=== PATIENT | male | born 2000 | race Caucasian/White ===

== ENCOUNTER 2021-08-25 20:50 | Emergency (ER) | payer OTHER ==
--- OUTSIDE RECORDS SUMMARY | 2021-08-25 20:59 | XMS REPORT | Continuity of Care Document ---
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 TAB 21:51: 00:00 Elizab e 00 :00 th Naproxen 2019-0 2020- No 500mg [facility] (Naprosyn) 12-24 S - St. 500 Mg TAB 21:51: 00:00 [facility] 00 :00 Naproxen 2020-0 2020- No 500mg Twice A [facility] (Naprosyn) 12-24 Day S 500 Mg TAB 21:51: 00:00 Health 00 :00 Naproxen 2019-0 2020- No 500mg Twice A [facility] (Naprosyn) 12-24 Day S 500 Mg TAB 21:51: 00:00 Health 00 :00 Naproxen 2020-0 2020- No 500mg Twice A [facility] (Naprosyn) 12-24 Day S 500 Mg TAB 21:51: 00:00 Health 00 :00 Naproxen 2020-0 2020- No 500mg Twice A [facility] (Naprosyn) 12-24 Day S 500 Mg TAB 21:51: 00:00 Health 00 :00 Naproxen 2020-0 2020- No 500mg Twice A [facility] (Naprosyn) 12-24 Day S 500 Mg TAB 21:51: 00:00 Health 00 :00 Naproxen 2020- No 500mg Twice A [facility] (Naprosyn) - 07-28 Day S 500 Mg TAB 21:51: 00:00 Health 00 :00 fluticasone Yes Apply 2 [place] prasad (FLONASE) 5-18 sprays in Col[place] ge 50 MCG/ACT 00:00: each of nasal spray 00 nostril Medic in daily. e Levocetiriz Yes 1{tbl} Take 1 Tab [facility] ine 5-18 [address] mouth [place] Dihydrochlo 00:00: daily. of ride 00 Medicin (XYZAL) 5 e MG TABS fluticasone 2020- No Apply 2 [facility] (FLONASE) 5-18 08-19 sprays in [place] ege 50 MCG/ACT 00:00: 00:00 each of nasal spray 00 :00 nostril Medic in daily. e Levocetiriz 2020- No 1{tbl} Take 1 Tab [place] ine 5-18 08-19 by mouth [place] Dihydrochlo 00:00: 00:00 daily. of ride 00 :00 Medicin (XYZAL) 5 e MG TABS Famotidine 2018-06 No 40mg [facility] (Pepcid) 40 1-[address] Mg TAB 14:21: Famotidine 2018-06 No 40mg Daily [facility] (Pepcid) 40 1-21 S Mg TAB 14:21: Health 00 Famotidine 2018-06 No 40mg [facility] 1-21 S - St. 13:21: [facility] 00 Famotidine 2018-06 No 40mg [facility] (Pepcid) 40 1-[address] Mg TAB 13:21: [facility] Famotidine 2018-06 No 40mg [facility] (Pepcid) 40 1-[address] Mg TAB 13:21: [facility] Famotidine 2018-06 No 40mg [facility] (Pepcid) 40 1-21 S - Mg TAB 13:21: [place] [facility] Famotidine 2018-06 No 40mg [facility] (Pepcid) 40 1-[address] Mg TAB 13:21: El[facility]abe Famotidine 2018-06 No 40mg [facility] (Pepcid) 40 1-21 S - St. Mg TAB 13:21: Famotidine 2018-06 No 40mg [facility] (Pepcid) 40 1-21 S - St. Mg TAB 13:21: Famotidine 2018-06 No 40mg Daily [facility] (Pepcid) 40 1-21 S Mg TAB 13:21: Health Famotidine 2018-06 No 40mg Daily [facility] (Pepcid) 40 1-21 S Mg TAB 13:21: Health Famotidine 2018-06 No 40mg Daily [facility] (Pepcid) 40 1-21 S Mg TAB 13:21: Health Famotidine 2018-06 No 40mg Daily [facility] (Pepcid) 40 1-21 S Mg TAB 13:21: Health Famotidine 2018-06 No 40mg Daily [facility] (Pepcid) 40 1-21 S Mg TAB 13:21: Health Famotidine 2018-06 No 40mg Daily AJ U 1-21 S 13:21: [facility] Famotidine 2018-06 No 40mg Daily [facility] (Pepcid) 40 1-21 S Mg TAB 13:21: Health Famotidine 2018-06 No 40mg Daily [facility] (Pepcid) 40 1-21 S Mg TAB 13:21: Health Methocarbam No 500mg STE[facility]IE TU ol 6-05 S - St. 17:00: Methocarbam No 500mg STE[facility]IE TU ol 6-[address] (Robaxin) 17:00: El[facility] 500 Mg TAB Methocarbam 0 No 500mg STEPH[facility]IE TU ol 6-[address] (Robaxin) 17:00: Elizabe 500 Mg TAB Methocarbam No 500mg STE[facility]IE TU ol 6-[address] (Robaxin) 17:00: Elizabe 500 Mg TAB Methocarbam 0 No 500mg STEPHANIE TU ol 6-05 S - (Robaxin) 17:00: [place] 500 Mg TAB [facility] Methocarbam 0 No 500mg STEPHANIE TU ol 6-[address] (Robaxin) 17:00: Eliz[facility] 500 Mg TAB Methocarbam 0 No 500mg STEPHANIE TU ol 6-05 S - St. (Robaxin) 17:00: [facility] 500 Mg TAB 00 Methocarbam 2019-0 No 500mg STEPHANIE TU ol 6-05 S - St. (Robaxin) 17:00: [facility] 500 Mg TAB 00 Methocarbam 2019-0 No 500mg Three [facility] ol 6-05 Times A S (Robaxin) 17:00: [facility] 500 Mg TAB 00 Methocarbam 2019-0 No 500mg Three [facility] ol 6-05 Times A S (Robaxin) 17:00: [facility] 500 Mg TAB 00 Methocarbam 2019-0 No 500mg Three [facility] ol 6-05 Times A S (Robaxin) 17:00: [facility] 500 Mg TAB 00 Methocarbam 2019-0 No 500mg Three [facility] ol 6-05 Times A S (Robaxin) 17:00: [facility] 500 Mg TAB 00 Methocarbam 2019-0 No 500mg Three [facility] ol 6-05 Times A S (Robaxin) 17:00: [facility] 500 Mg TAB 00 Methocarbam 2019-0 No 500mg Three [facility] ol 6-05 Times A S (Robaxin) 17:00: [facility] 500 Mg TAB 00 Methocarbam 2019-0 No 500mg Three [facility] ol 6-05 Times A S 17:00: [facility] 00 Methocarbam 2019-0 No 500mg Three [facility] ol 6-05 Times A S (Robaxin) 17:00: [facility] 500 Mg TAB 00 Methocarbam 2019-0 No 500mg Three [facility] ol 6-05 Times A S (Robaxin) 17:00: [facility] 500 Mg TAB 00 Ibuprofen 2018- 2019- No 600mg [facility] (Motrin) 11-07-[address] 600 Mg TAB 17:00: 00:00 [place] price 00 :00 th Ibuprofen 2018- 2019- No 600mg [facility] (Motrin) 11-07- S - 600 Mg TAB 17:00: 00:00 [facility] 00 :00 [facility] Ibuprofen 2018- 2019- No 600mg [facility] (Motrin) 11-07- S - St. 600 Mg TAB 17:00: 00:00 [facility] 00 :00 Ibuprofen 2018-0 2019- No 600mg [facility] (Motrin) 6-05 07-[address] 600 Mg TAB 17:00: 00:00 Elizab e 00 :00 th Ibuprofen 2018-0 2019- No 600mg [facility] (Motrin) 6 07-06 S - St. 600 Mg TAB 17:00: 00:00 [facility] 00 :00 Ibuprofen 2019-0 2019- No 600mg Three STEPHANIE TU (Motrin) 6- 07-06 Times A S 600 Mg TAB 17:00: 00:00 [facility] 00 :00 Ibuprofen 2019-0 2019- No 600mg Three STEPHANIE TU (Motrin) 6-10 09-06 Times A S 600 Mg TAB 17:00: 00:00 [facility] 00 :00 Ibuprofen 2019-0 2019- No 600mg Three STEPHANIE TU (Motrin) 6-10 09- Times A S 600 Mg TAB 17:00: 00:00 [facility] 00 :00 Ibuprofen 2019-0 2019- No 600mg Three STEPHANIE TU (Motrin) 6- Times A S 600 Mg TAB 17:00: 00:00 [facility] 00 :00 Ibuprofen 2018-0 2019- No 600mg Three STEPHANIE TU (Motrin) 6- Times A S 600 Mg TAB 17:00: 00:00 [facility] 00 :00 Ibuprofen 2018-0 2019- No 600mg Three STEPHANIE TU (Motrin) 6-06 Times A S 600 Mg TAB 17:00: 00:00 [facility] 00 :00 Terbinafine No 1 [facility] Hcl 5-23 S - St. 00:32: [facility] 00 Terbinafine No 1 [facility] Hcl 5-[address] (Lamisil 1% 00:32: Elizab e Cream) 1 00 Applic/Gm CR Terbinafine No 1 [facility] Hcl 5-[address] (Lamisil 1% 00:32: Elizab e Cream) 1 00 Applic/Gm CR Terbinafine 2018- No 1 [facility] Hcl 5-[address] (Lamisil 1% 00:32: Elizab e Cream) 1 00 Applic/Gm CR Terbinafine No 1 [facility] Hcl 5-23 S - St. (Lamisil 1% 00:32: [facility] Cream) 1 Applic/Gm CR Terbinafine 2019-0 No 1 AJ U Hcl 5-23 S - (Lamisil 1% 00:32: [place] Cream) 1 Applic/Gm l CR Hospita l Terbinafine No 1 AJ U Hcl 5-[address] (Lamisil 1% 00:32: Elizab e Cream) 1 Applic/Gm CR Terbinafine No 1 AJ [facility] Hcl 5-23 S - St. (Lamisil 1% 00:32: [facility] Cream) Applic/Gm CR Terbinafine No 1 Twice A [facility] Hcl 5-23 Day S (Lamisil 1% 00:32: Health Cream) Applic/Gm CR Terbinafine No 1 Twice A [facility] Hcl 5-23 Day S (Lamisil 1% 00:32: Health Cream) Applic/Gm CR Terbinafine No 1 Twice A [facility] Hcl 5-23 Day S (Lamisil 1% 00:32: Health Cream) Applic/Gm CR Terbinafine No 1 Twice A [facility] Hcl 5-23 Day S (Lamisil 1% 00:32: Health Cream) Applic/Gm CR Terbinafine No 1 Twice A [facility] Hcl 5-23 Day S (Lamisil 1% 00:32: Health Cream) Applic/Gm CR Terbinafine No 1 Twice A [facility] Hcl 5-23 Day S (Lamisil 1% 00:32: Health Cream) Applic/Gm CR Terbinafine No 1 Twice A [facility] Hcl 5-23 Day S 00:32: Health 00 Terbinafine No 1 Twice A [facility] Hcl 5-23 Day S (Lamisil 1% 00:32: Health Cream) Applic/Gm CR Terbinafine No 1 Twice A [facility] Hcl 5-23 Day S (Lamisil 1% 00:32: Health Cream) Applic/Gm CR Clindamycin 2014-06 No 300mg STE[facility]IE TU Hcl 1-[address] (Cleocin) 14:03: Elizabe 300 Mg CAP Clindamycin 2014-06 No 300mg Three [facility] Hcl 1-30 Times A S (Cleocin) 14:03: Day [facility] 300 Mg CAP Clindamycin 2014-06 No 300mg STEPH[facility]IE TU Hcl 1-30 S - St. 13:03: [facility] 00 Clindamycin 2014-06 No 300mg STEPHANIE TU Hcl 1-[address] (Cleocin) 13:03: Elizabe 300 Mg CAP Clindamycin 2014-06 No 300mg STEPH[facility]IE TU Hcl 1-[address] (Cleocin) 13:03: Elizabe 300 Mg CAP Clindamycin 2014-06 No 300mg STEPHANIE TU Hcl 1-30 S - (Cleocin) 13:03: [place] 300 Mg CAP [facility] Clindamycin 2014-06 No 300mg STEPHANIE TU Hcl 1-[address] (Cleocin) 13:03: Elizabe 300 Mg CAP Clindamycin 2014-06 No 300mg STEPHANIE TU Hcl 1-30 S - St. (Cleocin) 13:03: [facility] 300 Mg CAP Clindamycin 2014-06 No 300mg STEPHANIE TU Hcl 1-30 S - St. (Cleocin) 13:03: [facility] 300 Mg CAP Clindamycin 2014-06 No 300mg Three [facility] Hcl 1-30 Times A S (Cleocin) 13:03: [facility] 300 Mg CAP Clindamycin 2014-06 No 300mg Three [facility] Hcl 1-30 Times A S (Cleocin) 13:03: [facility] 300 Mg CAP Clindamycin 2014-06 No 300mg Three [facility] Hcl 1-30 Times A S (Cleocin) 13:03: [facility] 300 Mg CAP Clindamycin 2014-06 No 300mg Three [facility] Hcl 1-30 Times A S (Cleocin) 13:03: [facility] 300 Mg CAP Clindamycin 2014-06 No 300mg Three [facility] Hcl 1-30 Times A S (Cleocin) 13:03: [facility] 300 Mg CAP 00 Clindamycin 2014-06 No 300mg Three [facility] Hcl 1-30 Times A S 13:03: [facility] 00 Clindamycin 2014-06 No 300mg Three [facility] Hcl 1-30 Times A S (Cleocin) 13:03: [facility] 300 Mg CAP Clindamycin 2014-06 No 300mg Three [facility] Hcl 1-30 Times A S (Cleocin) 13:03: [facility] 300 Mg CAP 00 Clindamycin 2014-06- No 265mg [facility] Palmitate 1-30 11-[address] Hcl 12:54: 00:00 Elizabe (Cleocin 00 :00 th Liq) 75 Mg/5 Ml SOLN.RECON Clindamycin 2014-06- No 265mg [facility] Palmitate 1-30 11-30 S - St. Hcl 12:54: 00:00 [facility] (Cleocin 00 :00 Liq) 75 Mg/5 Ml SOLN.RECON Clindamycin 2014-06- No 265mg [facility] Palmitate 1-30 11-30 S - Hcl 12:54: 00:00 [place] (Cleocin 00 :00 Memoria Liq) 75 l Mg/5 Ml Hospita SOLN.RECON l Clindamycin 2014-06 No 265mg [facility] Palmitate 1-30 11-[address] Hcl 12:54: 00:00 Elizabe (Cleocin 00 :00 th Liq) 75 Mg/5 Ml SOLN.RECON Clindamycin 2014-06- No 265mg [facility] Palmitate 1-30 11-30 S - St. Hcl 12:54: 00:00 [facility] (Cleocin 00 :00 Liq) 75 Mg/5 Ml SOLN.RECON Clindamycin 2014-06- No 265mg Three [facility] Palmitate 1-30 11-30 Times A S Hcl 12:54: 00:00 [facility] (Cleocin 00 :00 Liq) 75 Mg/5 Ml SOLN.RECON Clindamycin 2014-06- No 265mg Three [facility] Palmitate 1-30 11-30 Times A S Hcl 12:54: 00:00 [facility] (Cleocin 00 :00 Liq) 75 Mg/5 Ml SOLN.RECON Clindamycin 2014-06- No 265mg Three [facility] Palmitate 1-30 11-30 Times A S Hcl 12:54: 00:00 [facility] (Cleocin 00 :00 Liq) 75 Mg/5 Ml SOLN.RECON Clindamycin 2014-06- No 265mg Three [facility] Palmitate 1-30 11-30 Times A S Hcl 12:54: 00:00 [facility] (Cleocin 00 :00 Liq) 75 Mg/5 Ml SOLN.RECON Clindamycin 2014-06- No 265mg Three [facility] Palmitate - 11-30 Times A S Hcl 12:54: 00:00 [facility] (Cleocin 00 :00 Liq) 75 Mg/5 Ml SOLN.RECON Clindamycin 2014-06- No 265mg Three [facility] Palmitate - 11-30 Times A S Hcl 12:54: 00:00 [facility] (Cleocin 00 :00 Liq) 75 Mg/5 Ml SOLN.RECON Amoxicillin 2014-06 No 875mg STEPHANIE TU /Clavulanat 1-[address] e Potassium 22:13: Elizab e (Augmentin Liq) 400 Mg/5 Ml SUSP Mupirocin 2014-06 No 1 [facility] (Bactroban 1-[address] 2% Oint) 22 22:13: Elizab e Gm 00 th OINT..GM. Amoxicillin 2014-06 No 875mg Twice A [facility] /Clavulanat 1-20 Day S e Potassium 22:13: Health (Augmentin 00 Liq) 400 Mg/5 Ml SUSP Mupirocin 2014-06 No 1 Daily [facility] (Bactroban 1-20 S 2% Oint) 22 22:13: Health Gm 00 OINT..GM. Amoxicillin 2014-06 No 875mg STEPH[facility]IE TU /Clavulanat 1-20 S - St. e Potassium 21:13: [facility] 00 Mupirocin 2014-06 No 1 [facility] 1-20 S - St. 21:13: [facility] 00 Amoxicillin 2014-06 No 875mg STEPH[facility]IE TU /Clavulanat 1-[address] e Potassium 21:13: Elizab e (Augmentin 00 Liq) 400 Mg/5 Ml SUSP Mupirocin 2014-06 No 1 [facility] (Bactroban 1-[address] 2% Oint) 22 21:13: Elizab e Gm 00 th OINT..GM. Amoxicillin 2014-06 No 875mg STEPH[facility]IE TU /Clavulanat 1-[address] e Potassium 21:13: Elizab e (Augmentin 00 Liq) 400 Mg/5 Ml SUSP Mupirocin 2014-06 No 1 [facility] (Bactroban 1-20 S - St. 2% Oint) 22 21:13: [facility] Gm 00 OINT..GM. Mupirocin 2014-06 No 1 [facility] (Bactroban 1-[address] 2% Oint) 22 21:13: Elizab e Gm 00 th OINT..GM. Amoxicillin 2014-06 No 875mg STEPHANIE TU /Clavulanat 1-20 S - e Potassium 21:13: [place] (Augmentin 00 Memoria Liq) 400 l Mg/5 Ml Hospita SUSP l Mupirocin 2014-06 No 1 [facility] (Bactroban 1-20 S - 2% Oint) 22 21:13: [place] Gm 00 Memoria OINT..GM. l Hospita l Amoxicillin 2014-06 No 875mg STEPHANIE TU /Clavulanat 1-[address] e Potassium 21:13: Elizab e (Augmentin 00 th Liq) 400 Mg/5 Ml SUSP Mupirocin 2014-06 No 1 [facility] (Bactroban 1-[address] 2% Oint) 22 21:13: Elizab e Gm 00 th OINT..GM. Amoxicillin 2014-06 No 875mg STEPHANIE TU /Clavulanat 1-20 S - St. e Potassium 21:13: [facility] (Augmentin 00 Liq) 400 Mg/5 Ml SUSP Amoxicillin 2014-06 No 875mg STEPHANIE TU /Clavulanat 1-20 S - St. e Potassium 21:13: [facility] (Augmentin 00 Liq) 400 Mg/5 Ml SUSP Mupirocin 2014-06 No 1 [facility] (Bactroban 1-20 S - St. 2% Oint) 22 21:13: [facility] Gm 00 OINT..GM. Amoxicillin 2014-06 No 875mg Twice A [facility] /Clavulanat 1-20 Day S e Potassium 21:13: Health (Augmentin 00 Liq) 400 Mg/5 Ml SUSP Mupirocin 2014-06 No 1 Daily [facility] (Bactroban 1-20 S 2% Oint) 22 21:13: Health Gm 00 OINT..GM. Amoxicillin 2014-06 No 875mg Twice A [facility] /Clavulanat 1-20 Day S e Potassium 21:13: Health (Augmentin 00 Liq) 400 Mg/5 Ml SUSP Mupirocin 2014-06 No 1 Daily [facility] (Bactroban 1-20 S 2% Oint) 22 21:13: Health Gm 00 OINT..GM. Amoxicillin 2014-06 No 875mg Twice A [facility] /Clavulanat 1-20 Day S e Potassium 21:13: Health (Augmentin 00 Liq) 400 Mg/5 Ml SUSP Mupirocin 2014-06 No 1 Daily [facility] (Bactroban 1-20 S 2% Oint) 22 21:13: Health Gm 00 OINT..GM. Amoxicillin 2014-06 No 875mg Twice A [facility] /Clavulanat 1-20 Day S e Potassium 21:13: [facility] (Augmentin 00 Liq) 400 Mg/5 Ml SUSP Mupirocin 2014-06 No 1 Daily [facility] (Bactroban 1-20 S 2% Oint) 22 21:13: Health Gm 00 OINT..GM. Amoxicillin 2014-06 No 875mg Twice A [facility] /Clavulanat 1-20 Day S e Potassium 21:13: Health (Augmentin 00 Liq) 400 Mg/5 Ml SUSP Mupirocin 2014-06 No 1 Daily [facility] (Bactroban 1-20 S 2% Oint) 22 21:13: Health Gm 00 OINT..GM. Amoxicillin 2014-06 No 875mg Twice A [facility] /Clavulanat 1-20 Day S e Potassium 21:13: Health 00 Mupirocin 2014-06 No 1 Daily [facility] 1-20 S 21:13: Health 00 Amoxicillin 2014-06 No 875mg Twice A [facility] /Clavulanat 1-20 Day S e Potassium 21:13: Health (Augmentin 00 Liq) 400 Mg/5 Ml SUSP Mupirocin 2014-06 No 1 Daily [facility] (Bactroban 1-20 S 2% Oint) 22 21:13: Health Gm 00 OINT..GM. Amoxicillin 2014-06 No 875mg Twice A [facility] /Clavulanat 1-20 Day S e Potassium 21:13: Health (Augmentin 00 Liq) 400 Mg/5 Ml SUSP Mupirocin 2014-06 No 1 Daily [facility] (Bactroban 1-20 S 2% Oint) 22 21:13: Health Gm 00 OINT..GM. Promethazin 2013-06 No 12.5mg [facility] e Hcl 0-14 S - St. 13:28: [facility] 00 Promethazin 2013-06 No 12.5mg [facility] e Hcl 0-[address] (Phenergan 13:28: El[facility] Supp) 12.5 00 th Mg SUPP Promethazin 2013-06 No 12.5mg [facility] e Hcl 0-[address] (Phenergan 13:28: [facility] Supp) 12.5 00 th Mg SUPP Promethazin 2013-06 No 12.5mg [facility] e Hcl 0-[address] (Phenergan 13:28: [facility] Supp) 12.5 00 th Mg SUPP Promethazin 2013-06 No 12.5mg [facility] e Hcl 0-14 S - St. (Phenergan 13:28: [facility] Supp) 12.5 00 Mg SUPP Promethazin 2013-06 No 12.5mg [facility] e Hcl 0-14 S - (Phenergan 13:28: [place] Supp) 12.5 00 [facility]oria Mg SUPP l Hospita l Promethazin 2013-06 No 12.5mg [facility] e Hcl 0-[address] (Phenergan 13:28: [facility] Supp) 12.5 00 th Mg SUPP Promethazin 2013-06 No 12.5mg [facility] e Hcl 0-14 S - St. (Phenergan 13:28: [facility] Supp) 12.5 00 Mg SUPP Promethazin 2013-06 No 12.5mg Every 8 C [facility] e Hcl 0-14 Hours S (Phenergan 13:28: Health Supp) 12.5 00 Mg SUPP Promethazin 2013-06 No 12.5mg Every 8 C [facility] e Hcl 0-14 Hours S (Phenergan 13:28: Health Supp) 12.5 00 Mg SUPP Promethazin 2013-06 No 12.5mg Every 8 C [facility] e Hcl 0-14 Hours S (Phenergan 13:28: Health Supp) 12.5 00 Mg SUPP Promethazin 2013-06 No 12.5mg Every 8 C [facility] e Hcl 0-14 Hours S (Phenergan 13:28: Health Supp) 12.5 00 Mg SUPP Promethazin 2013-06 No 12.5mg Every 8 C [facility] e Hcl 0-14 Hours S (Phenergan 13:28: Health Supp) 12.5 00 Mg SUPP Promethazin 2013-06 No 12.5mg Every 8 C [facility] e Hcl 0-14 Hours S (Phenergan 13:28: Health Supp) 12.5 00 Mg SUPP Promethazin 2013-06 No 12.5mg Every 8 C [facility] e Hcl 0-14 Hours S 13:28: Health 00 Promethazin 2013-06 No 12.5mg Every 8 C [facility] e Hcl 0-14 Hours S (Phenergan 13:28: Health Supp) 12.5 00 Mg SUPP Promethazin 2013-06 No 12.5mg Every 8 C [facility] e Hcl 0-14 Hours S (Phenergan 13:28: Health Supp) 12.5 00 Mg SUPP Acetaminoph 2013- No 1 STEPH[facility]IE TU en/Codeine 01-05 10-[address] Phosphate 15:53: 00:00 [facility] (Tylenol 00 :00 th #3) 1 Tab TAB Acetaminoph 2013- No 1 STEPH[facility]IE TU en/Codeine 01-05 10-14 S - St. Phosphate 15:53: 00:00 [facility] (Tylenol 00 :00 #3) 1 Tab TAB Acetaminoph 2013- No 1 STEPHANIE TU en/Codeine 01-05 10-14 S - Phosphate 15:53: 00:00 [place] (Tylenol 00 :00 Memoria #3) 1 Tab l TAB Hospita l Acetaminoph 2013- No 1 STE[facility]IE TU en/Codeine 01-05 10-[address] Phosphate 15:53: 00:00 [facility] (Tylenol 00 :00 th #3) 1 Tab TAB Acetaminoph 2013- 1 STEPH[facility]IE TU en/Codeine 01-05 10-14 S - [facility]. Phosphate 15:53: 00:00 [facility] (Tylenol 00 :00 #3) 1 Tab TAB Acetaminoph 2013- No 1 Every 6 [facility] en/Codeine 8 10-14 Hours S Phosphate 15:53: 00:00 [facility] (Tylenol 00 :00 #3) 1 Tab TAB Acetaminoph 2013- No 1 Every 6 [facility] en/Codeine 8-03 10-14 Hours S Phosphate 15:53: 00:00 [facility] (Tylenol 00 :00 #3) 1 Tab TAB Acetaminoph 2013- No 1 Every 6 [facility] en/Codeine 8-03 10-14 Hours S Phosphate 15:53: 00:00 Health (Tylenol 00 :00 #3) 1 Tab TAB Acetaminoph 2013- No 1 Every 6 [facility] en/Codeine 8- 10-14 Hours S Phosphate 15:53: 00:00 [facility] (Tylenol 00 :00 #3) 1 Tab TAB Acetaminoph 2013- No 1 Every 6 [facility] en/Codeine 8- 10-14 Hours S Phosphate 15:53: 00:00 [facility] (Tylenol 00 :00 #3) 1 Tab TAB Acetaminoph 2013- No 1 Every 6 [facility] en/Codeine 8-03 10-14 Hours S Phosphate 15:53: 00:00 [facility] (Tylenol 00 :00 #3) 1 Tab TAB Miscellaneo No 0 [facility] us S - [facility] Information [facility] Miscellaneo No [address] Information [facility] (No Home th Meds) MISC Miscellaneo No [address] Information [facility] (No Home th Meds) MISC Miscellaneo No 0 [facility] us S - [facility] Information [facility] (No Home Meds) MISC Miscellaneo No [address] Information [facility] (No Home th Meds) MISC Miscellaneo No 0 [facility] us S - Information [place] (No Home Memoria Meds) MISC l Hospita l Miscellaneo No [address] Information [facility] (No Home th Meds) MISC Miscellaneo No 0 [facility] us S - St. Information [facility] (No Home Meds) MISC Miscellaneo No 0 Xx For [facility] Order Sets S Information Health (No Home Meds) MISC Miscellaneo No 0 Xx For [facility] Order Sets S Information Health (No Home Meds) MISC Miscellaneo No 0 Xx For [facility] Order Sets S Information Health (No Home Meds) MISC Miscellaneo No 0 Xx For [facility] Order Sets S Information Health (No Home Meds) MIS Miscellaneo No 0 Xx For [facility] Order Sets S Information Health (No Home Meds) MIS Miscellaneo No 0 Xx For [facility] Order Sets S Information Health (No Home Meds) MISC Miscellaneo No 0 Xx For [facility] Order Sets S Information Health Miscellaneo No 0 Xx For [facility] Order Sets S Information Health (No Home Meds) MISC Miscellaneo No 0 Xx For [facility] Order Sets S Information Health (No Home Meds) [facility] Immunizations Ordered Filled Immunization Date Status Comments [facility] e Immunization Name Name Influenza Virus 2021-06-16 Completed [facility], [facility] [place] [facility] Preserv and ABX Branch Free 6 MO-64 YRS Influenza Virus 2021-06-16 Completed [facility], 00:[facility]:00 [place] [facility] Preserv and ABX Branch Free 6 MO-64 YRS Influenza Virus 2021-06-16 Completed [facility], 00:00:00 [facility] dical Preserv and ABX Branch Free 6 MO-64 YRS SARS-COV-2 COVID-19 2021-06-11 Completed [facility] rs[facility] of PFIZER VACCINE 00:00:00 [facility] SARS-COV-2 COVID-19 2021-06-11 Completed Unive rs[facility] of PFIZER VACCINE 00:00:00 [facility] SARS-COV-2 COVID-19 2021-06-11 Completed Unive rsity of PFIZER VACCINE 00:00:00 [facility] Tetanus/Dipht - Hx 2020-08-12 Completed [facility] St. 00:00:00 [facility] Tetanus/Dipht - Hx 2020-08-12 Completed [facility] - [place] 00[facility]00:00 [facility] darrel Tetanus/Dipht - Hx 2020-08-12 Completed [facility] - [facility] 00:00:00 [facility] Tetanus/Dipht - Hx 2020-08-12 Completed [facility] St. 00:00:00 Joanne Tetanus/Dipht - Hx 2020-08-12 Completed [facility] - [facility] 00:00:00 [facility] Tetanus/Dipht - Hx 2020-08-12 Completed [facility] Health 00:00:00 Tetanus/Dipht - Hx 2020-08-12 Completed [facility] 00:00:00 Tetanus/Dipht - Hx 2020-08-12 Completed [facility] 00:00:00 Tetanus/Dipht - Hx 2020-08-12 Completed [facility] 00:00:00 Tetanus/Dipht - Hx 2020-08-12 Completed [facility] 00:00:00 Tetanus/Dipht - Hx 2020-08-12 Completed [facility] 00:00:00 Influenza Virus 2020-03-23 Completed [facility] Vaccine Quad .5 mL 00:00:00 [facility] IM 6+ [facility] Influenza Virus 2020-03-23 Completed [facility] Vaccine Quad .5 mL 00:00:00 [facility] 6+ [facility] Influenza Virus 2020-03-23 Completed [facility] Vaccine Quad .5 mL 00:00:00 [facility] 6+ [facility] Influenza Virus 2020-03-23 Completed [facility] Vaccine Quad .5 mL 00:00:00 [facility] 6+ [facility] Vital Signs Vital Name Observation Time Observation Value Comments Source Systolic blood 2021-08-24 130 mm[Hg] [facility] of pressure 20:20:00 [facility] Diastolic blood 2021-08-24 75 mm[Hg] [facility] f pressure 20:20:00 [facility] Heart rate 2021-08-24 96 /min [facility] 20:20:00 [facility] Body temperature 2021-08-24 36.61 Stacie [facility] 20:20:00 [facility] Respiratory rate 2021-08-24 17 /min [facility] 20:20:00 [facility] Body height 2021-08-24 165.1 cm [facility] 20:20:00 [facility] Body weight 2021-08-24 50.888 kg [facility] 20:20:00 [facility] BMI 2021-08-24 18.67 kg/m2 [facility] 20:20:00 [facility] Oxygen saturation 2021-08-24 98 /min [facility] in Arterial blood 20:20:00 [facility] by Pulse oximetry [place] Systolic blood 2021-08-23 135 mm[Hg] [facility] pressure 19:18:00 [facility] Diastolic blood 2021-08-23 80 mm[Hg] University o f pressure 19:18:00 [facility] Heart rate 2021-08-23 69 /min [facility] 19:18:00 [facility] Body temperature 2021-08-23 36.44 Stacie [facility] 19:18:00 [facility] Body height 2021-08-23 165.1 cm [facility] 19:18:00 [facility] Body weight 2021-08-23 50.395 kg [facility] 19:18:00 [facility] BMI 2021-08-23 18.49 kg/m2 [facility] 19:18:00 [facility] Oxygen saturation 2021-08-23 98 /min [facility] in Arterial blood 19:18:00 [facility] by Pulse oximetry Branch Systolic blood 2020-01-22 116 mm[Hg] [facility] e pressure 18:34:00 of Medicine Diastolic blood 2020-01-22 84 mm[Hg] [facility] ge pressure 18:34:00 of Medicine Heart rate 2020-01-22 71 /min [facility] 18:34:00 of Medicine Body temperature 2020-01-22 37 Stacie [facility] Neisha ege 18:34:00 of Medicine Body height 2020-01-22 160 cm [facility] 18:34:00 of Medicine Body weight 2020-01-22 54.885 kg [facility] 18:34:00 of Medicine BMI 2020-01-22 21.43 kg/m2 [facility] 18:34:00 of Medicine Systolic blood 2020-01-22 116 mm[Hg] [facility] e pressure 18:34:00 of Medicine Diastolic blood 2020-01-22 84 mm[Hg] [facility] ge pressure 18:34:00 of Medicine Heart rate 2020-01-22 71 /min [facility] 18:34:00 of Medicine Body temperature 2020-01-22 37 Stacie [facility] Neisha ege 18:34:00 of Medicine Body height 2020-01-22 160 cm [facility] 18:34:00 of Medicine Body weight 2020-01-22 54.885 kg [facility] 18:34:00 of Medicine BMI 2020-01-22 21.43 kg/m2 [facility] 18:34:00 of Medicine Heart rate 2019-10-21 125 /min [facility] 16:40:00 of Medicine Body temperature 2019-10-21 37.17 Stacie [facility] Neisha ege 16:40:00 of Medicine Body height 2019-10-21 160 cm [facility] 16:40:00 of Medicine Body weight 2019-10-21 51.256 kg [facility] 16:40:00 of Medicine BMI 2019-10-21 20.02 kg/m2 [facility] 16:40:00 of Medicine Systolic blood 2019-10-21 132 mm[Hg] pt states he [facility] e pressure 16:40:00 drank a monster of Medicine Diastolic blood 2019-10-21 97 mm[Hg] pt states [facility] ge pressure 16:40:00 drank a monster of Medicine Heart rate 2019-10-21 125 /min [facility] 16:40:00 of Medicine Body temperature 2019-10-21 37.17 Stacie [facility] Neisha ege 16:40:00 of Medicine Body height 2019-10-21 160 cm [facility] 16:40:00 of Medicine Body weight 2019-10-21 51.256 kg [facility] 16:40:00 of Medicine BMI 2019-10-21 20.02 kg/m2 [facility] 16:40:00 of Medicine Systolic blood 2019-10-21 132 mm[Hg] pt states [facility] e pressure 16:40:00 drank a monster of Medicine Diastolic blood 2019-10-21 97 mm[Hg] pt states [facility] Col[facility] ge pressure 16:40:00 drank a monster of Medicine Height/Length 2019-08-19 Measured 15:50:22 Height/Length 2021-06-24 167 cm Measured 10:49:05 Weight Dosing 2021-06-24 51.30 kg 10:49:05 Height/Length 2021-06-24 167 cm Measured 10:19:48 Weight Dosing 2021-06-24 51.30 kg 10:19:48 Height/Length 2021-06-24 167 cm Measured 10:19:39 Weight Dosing 2021-06-24 51.30 kg 10:19:39 Weight Dosing 2021-06-24 54.10 kg 09:49:34 BP Diastolic 2021-04-24 70 mm[Hg] [facility] 23:23:00 BP Systolic 2021-04-24 115 mm[Hg] [facility] 23:23:00 Heart Rate 2021-04-24 75 /min [facility] 23:23:00 Respiratory rate 2021-04-24 15 /min [facility] 23:23:00 Body Temperature 2021-04-24 98.8 [degF] [facility] 23:[facility]00 BP Diastolic 2021-04-24 80 mm[Hg] [facility] 19:59:00 BP Systolic 2021-04-24 129 mm[Hg] [facility] 19:59:00 Heart Rate 2021-04-24 92 /min [facility] 19:59:00 Respiratory rate 2021-04-24 18 /min [facility] 19:59:00 Body Temperature 2021-04-24 98.8 [degF] [facility] 19:59:00 BP Diastolic 2021-02-10 73 mm[Hg] [facility] 00:52:00 BP Systolic 2021-02-10 136 mm[Hg] [facility] 00:52:00 Heart Rate 2021-02-10 87 /min [facility] 00:52:00 Respiratory rate 2021-02-10 20 /min [facility] 00:52:00 Body Temperature 2021-02-10 99.3 [degF] [facility] 00:52:00 BP Diastolic 2021-02-09 73 mm[Hg] [facility] 21:46:00 BP Systolic 2021-02-09 136 mm[Hg] [facility] 21:46:00 Heart Rate 2021-02-09 87 /min [facility] 21:46:00 Respiratory rate 2021-02-09 20 /min [facility] 21:46:00 Body Temperature 2021-02-09 99.3 [degF] [facility] 21:46:00 BP Diastolic 2021-02-02 72 mm[Hg] [facility] 09:51:00 BP Systolic 2021-02-02 131 mm[Hg] [facility] 09:51:00 Heart Rate 2021-02-02 54 /min [facility] 09:51:00 Respiratory rate 2021-02-02 16 /min [facility] 09:51:00 Body Temperature 2021-02-02 97.9 [degF] [facility] 09:51:00 BP Diastolic 2021-02-02 72 mm[Hg] [facility] 09:23:00 BP Systolic 2021-02-02 131 mm[Hg] [facility] 09:23:00 Heart Rate 2021-02-02 54 /min [facility] 09:23:00 Respiratory rate 2021-02-02 16 /min [facility] 09:23:00 Body Temperature 2021-02-02 97.9 [degF] [facility] 09:23:00 BP Diastolic 2021-02-02 72 mm[Hg] [facility] 09:20:00 BP Systolic 2021-02-02 131 mm[Hg] [facility] 09:20:00 Heart Rate 2021-02-02 54 /min [facility] 09:20:00 Respiratory rate 2021-02-02 16 /min [facility] 09:20:00 Body Temperature 2021-02-02 97.9 [degF] [facility] 09:20:00 BP Diastolic 2021-01-20 77 mm[Hg] [facility] 20:01:00 BP Systolic 2021-01-20 131 mm[Hg] [facility] 20:01:00 Heart Rate 2021-01-20 75 /min [facility] 20:01:00 Respiratory rate 2021-01-20 18 /min [facility] 20:01:00 Body Temperature 2021-01-20 100.1 [degF] [facility] 20:01:00 BP Diastolic 2021-01-20 77 mm[Hg] [facility] 16:46:00 BP Systolic 2021-01-20 131 mm[Hg] [facility] 16:46:00 Heart Rate 2021-01-20 75 /min [facility] 16:46:00 Respiratory rate 2021-01-20 18 /min [facility] 16:46:00 Body Temperature 2021-01-20 100.1 [degF] [facility] 16:46:00 BP Diastolic 2020-11-20 63 mm[Hg] [facility] 14:45:00 BP Systolic 2020-11-20 127 mm[Hg] [facility] 14:45:00 Heart Rate 2020-11-20 75 /min [facility] 14:45:00 Respiratory rate 2020-11-20 18 /min [facility] 14:45:00 Body Temperature 2020-11-20 98.6 [degF] [facility] 14:45:00 BP Diastolic 2020-11-20 76 mm[Hg] [facility] 11:18:00 BP Systolic 2020-11-20 142 mm[Hg] [facility] 11:18:00 Heart Rate 2020-11-20 75 /min [facility] 11:18:00 Respiratory rate 2020-11-20 18 /min [facility] 11:18:00 Body Temperature 2020-11-20 98.6 [degF] [facility] 11:18:00 Respiratory 2020-08-14 No respiratory 09:43:35 distress /min 02 Sat by Pulse 2020-08-14 98 /min Oximetry 09:43:35 Body Mass Index 2020-08-14 21.4 09:43:35 Height 2020-08-14 160.02\\S\\63 09:43:35 Pulse Rate 2020-08-14 62 /min 09:43:35 Respiratory Rate 2020-08-14 16 /min 09:43:35 Temperature 2020-08-14 36.9\\S\\98.4 09:43:35 Weight 2020-08-14 30227\\S\\1936.54 09:43:35 Weight Measurement 2020-08-14 Standing Scale Method 09:43:35 Respiratory 2020-08-12 No respiratory 17:41:29 distress /min 02 Sat by Pulse 2020-08-12 98 /min Oximetry 17:41:29 Body Mass Index 2020-08-12 21.4 17:41:29 Height 2020-08-12 160.02\\S\\63 17:41:29 Pulse Rate 2020-08-12 62 /min 17:41:29 Respiratory Rate 2020-08-12 16 /min 17:41:29 Temperature 2020-08-12 36.9\\S\\98.4 17:41:29 Weight 2020-08-12 26059\\S\\1936.54 17:41:29 Weight Measurement 2020-08-12 Standing Scale Method 17:41:29 Respiratory 2020-08-12 No respiratory 17:32:48 distress /min 02 Sat by Pulse 2020-08-12 98 /min Oximetry 17:32:48 Body Mass Index 2020-08-12 21.4 17:32:48 Height 2020-08-12 160.02\\S\\63 17:32:48 Pulse Rate 2020-08-12 64 /min 17:32:48 Respiratory Rate 2020-08-12 20 /min 17:32:48 Temperature 2020-08-12 36.8\\S\\98.2 17:32:48 Weight 2020-08-12 11056\\S\\1936.54 17:32:48 Weight Measurement 2020-08-12 Standing Scale Method 17:32:48 02 Sat by Pulse 2020-08-12 98 /min Oximetry 17:21:34 Body Mass Index 2020-08-12 21.4 17:21:34 Height 2020-08-12 160.02\\S\\63 17:21:34 Pulse Rate 2020-08-12 64 /min 17:21:34 Respiratory Rate 2020-08-12 20 /min 17:21:34 Temperature 2020-08-12 36.8\\S\\98.2 17:21:34 Weight 2020-08-12 62730\\S\\1936.54 17:21:34 Weight Measurement 2020-08-12 Standing Scale Method 17:21:34 Respiratory 2020-08-12 No respiratory 17:21:34 distress /min Respiratory 2020-08-12 No respiratory 16:33:55 distress /min 02 Sat by Pulse 2020-08-12 98 /min Oximetry 16:33:55 Body Mass Index 2020-08-12 21.4 16:33:55 Height 2020-08-12 160.02\\S\\63 16:33:55 Pulse Rate 2020-08-12 64 /min 16:33:55 Respiratory Rate 2020-08-12 20 /min 16:33:55 Temperature 2020-08-12 36.8\\S\\98.2 16:33:55 Weight 2020-08-12 13917\\S\\1936.54 16:33:55 Weight Measurement 2020-08-12 Standing Scale Method 16:33:55 02 Sat by Pulse 2020-08-12 98 /min Oximetry 16:21:07 Body Mass Index 2020-08-12 21.4 16:21:07 Height 2020-08-12 160.02\\S\\63 16:21:07 Pulse Rate 2020-08-12 64 /min 16:21:07 Respiratory Rate 2020-08-12 20 /min 16:21:07 Temperature 2020-08-12 36.8\\S\\98.2 16:21:07 Weight 2020-08-12 86147\\S\\1936.54 16:21:07 Weight Measurement 2020-08-12 Standing Scale Method 16:21:07 WEIGHT 2020-08-12 54.9 kg 16:14:00 HEIGHT 2020-08-12 160.02 cm 16:14:00 02 Sat by Pulse 2020-05-27 99 /min Oximetry 10:46:44 Body Mass Index 2020-05-27 21.2 10:46:44 Height 2020-05-27 160.02\\S\\63 10:46:44 Pulse Rate 2020-05-27 72 /min 10:46:44 Respiratory Rate 2020-05-27 16 /min 10:46:44 Temperature 2020-05-27 36.9\\S\\98.4 10:46:44 Weight 2020-05-27 87334\\S\\1911.849 10:46:44 Weight Measurement 2020-05-27 Standing Scale Method 10:46:44 WEIGHT 2020-05-25 54.2 kg 11:33:00 HEIGHT 2020-05-25 160.02 cm 11:33:00 Weight 2020-02-17 116 [lb_av] [facility] 18:38:00 BMI (Body Mass 2020-02-17 20.5 kg/m2 [facility] th Index) 18:38:00 Body Temperature 2020-02-17 98.5 [degF] [facility] 18:37:00 Body Temperature 2019-12-25 98.4 [degF] [facility] 22:07:00 Heart Rate 2019-12-25 98 /min [facility] 22:07:00 Respiratory rate 2019-12-25 18 /min [facility] 22:07:00 BP Systolic 2019-12-25 133 mm[Hg] [facility] 22:07:00 BP Diastolic 2019-12-25 65 mm[Hg] [facility] 22:07:00 Weight 2019-12-25 125.50 [lb_av] [facility] 18:06:00 BMI (Body Mass 2019-12-25 22.2 kg/m2 [facility] Index) 18:06:00 Heart Rate 2019-12-25 120 /min [facility] 18:05:00 Respiratory rate 2019-12-25 20 /min [facility] 18:05:00 BP Systolic 2019-12-25 147 mm[Hg] [facility] 18:05:00 BP Diastolic 2019-12-25 77 mm[Hg] [facility] 18:05:00 Body Temperature 2019-04-25 98.2 [degF] [facility] alth 13:35:00 Heart Rate 2019-04-25 98 /min [facility] 13:35:00 Respiratory rate 2019-04-25 19 /min [facility] He alth 13:35:00 BP Systolic 2019-04-25 123 mm[Hg] [facility] 13:35:00 BP Diastolic 2019-04-25 65 mm[Hg] [facility] 13:35:00 Procedures Procedure Date / Time Performing Clinician Source Performed XR FOREARM 2 VW LEFT 2021-08-24 20:48:00 Luke To [facility] Computed tomography of 2021-04-24 00:00:00 [facility] abdomen and pelvis with contrast Computed tomography of 2021-02-09 00:00:00 [facility] abdomen and pelvis with contrast EMERGENCY DEPT VISIT 2021-02-02 00:00:00 [facility] ECG (electrocardiogram) 2021-01-20 00:00:00 [facility] X-ray of chest, two views 2021-01-20 00:00:00 [facility] ROUTINE VENIPUNCTURE 2021-01-20 00:00:00 [facility] X-RAY EXAM CHEST 2 VIEWS 2021-01-20 00:00:00 [facility] ASSAY OF TROPONIN QUANT 2021-01-20 00:00:00 [facility] ELECTROCARDIOGRAM TRACING 2021-01-20 00:00:00 [facility] EMERGENCY DEPT VISIT 2021-01-20 00:00:00 [facility] X-ray of knee, three views 2020-11-20 00:00:00 [facility], two or 2020-11-20 00:00:00 [facility] more views X-ray of chest, single view 2019-12-25 00:00:00 [facility] Radiologic examination, 2019-04-25 00:00:00 [facility] abdomen; 2 views Plan of Care Planned Activity Planned Date Details Comments Source Future Scheduled Test 2021-04-16 Depression screening [facility] 00:00:00 (procedure) [code = [facility] 368226715] Branch Future Scheduled Test 2018-11-06 DTaP,Tdap,and Td Un iversity of 00:00:00 Vaccines (1 - Tdap) [place] [facility] [code = DTaP,Tdap,and Branch Td Vaccines (1 - Tdap)] Future Scheduled Test 2011 Well child visit Un iversity of 00:00:00 (procedure) [code = [place] [facility] [id number]] Branch Future Scheduled Test 2010-11-06 HPV VACCINES (1 - U niversity of 00:00:00 Male 2-dose series) [place] [facility] [code = HPV VACCINES Branch (1 - Male 2-dose series)] Future Scheduled Test 2009-11-06 MENINGOCOCCAL B Uni versity of 00:00:00 VACCINES (1 of 2 - [place] [facility] ical Risk Bexsero 2-dose Branch series) [code = MENINGOCOCCAL B VACCINES (1 of 2 - Risk Bexsero 2-dose series)] Future Scheduled Test 2005-11-06 PNEUMOCOCCAL 0-64 U niversity of 00:00:00 YEARS COMBINED SERIES [place] [facility] (1 of 1 - PPSV23) Branch [code = PNEUMOCOCCAL 0-64 YEARS COMBINED SERIES (1 of 1 - PPSV23)] Future Scheduled Test 2000-11-06 VARICELLA VACCINES (1 University of 00:00:00 of 2 - 2-dose [place] [facility] childhood series) Branch [code = VARICELLA VACCINES (1 of 2 - 2-dose childhood series)] Future Scheduled Test Bacterial urine [facility] culture [code = Joanne 630-4] Future Scheduled Test TETANUS SHOT (ADULT) [facility] of [code = TETANUS SHOT Medicin e (ADULT)] Future Scheduled Test HIV SCREENING [code = [facility] of HIV SCREENING] Medicine Future Scheduled Test FLU VACCINE > 6 [place] [employer] MONTHS [code = FLU Medicine VACCINE > 6 MONTHS] Future Scheduled Test TETANUS SHOT (ADULT) [facility] of [code = TETANUS SHOT Medicin e (ADULT)] Future Scheduled Test HIV SCREENING [code = [facility] of HIV SCREENING] Medicine Future Scheduled Test FLU VACCINE > 6 [place] [employer] MON[employer]S [code = FLU Medicine VACCINE > 6 MONTHS] Future Scheduled Test ZOSTER VACCINE (1 of [facility] of 2) [code = ZOSTER Medicine VACCINE (1 of 2)] Goal Patient referral SETH Ballesteros [code = 5237066 ] Genesis Goal Patient referral [facility] [code = 8144598 ] Joanne Goal Patient referral [facility] [code = 0807820 ] Joanne Goal Patient referral [facility] [code = 1019023 ] Joanne Goal Patient referral [facility] [place] [code = 6850075 ] [facility] Goal Patient referral [facility] [code = 0425242 ] Genesis Goal Patient referral [facility] [code = 4847399 ] Joanne Goal Patient referral [facility] [code = 5116761 ] Genesis Instructions Acid Reflux [facility] (Gastroesophageal Genesis Reflux Disease), Adult (DC) Instructions Diarrhea and [facility] Travelers' Diarrhea, Elizabe th Adult (DC) Instructions Nausea and Vomiting, [facility] Adult (DC) Joanne Instructions Coronavirus Disease [facility] 2019 (COVID-19) (DC) Elizabe th Instructions Muscle and Bone Pain [facility] (DC) Joanne Instructions Sprain (DC) [facility] [place] Instructions COVID-19 (DC) [facility] [place] Instructions Severe Abdominal [facility] [place] Pain, [facility]) [facility] COVID-19 (DC) [facility] - [facility] per [facility] Instructions COVID-19 (DC) [facility] - [place] per [facility] Hospit al Instructions Muscle and Bone Pain [facility] - St[facility] (DC) [facility] Instructions Sprain (DC) [facility] [place] Instructions COVID-19 (DC) [facility] [place] Instructions Muscle and Bone Pain [facility] St[facility] (DC) Joanne Instructions Sprain (DC) [facility] [place] Instructions COVID-19 (DC) [facility] [place] Instructions Muscle and Bone Pain [facility] S - St[facility] (DC) [facility] Instructions Sprain (DC) [facility] [place] Instructions COVID-19 (DC) [facility] [place] Encounters Start End Encounter Admission Attending Care Care Encounter Source Date/Time Date/Time Type Type Clinicians Facility Department ID 2021-06-10 Outpatient 3 [facility] [id number] - Buddhism 09:05:51 TERRELL [id number] Hospit a l ([facility]) 2021-06-09 Outpatient 3 MAYTE GIRARD END [id number] Buddhism 09:53:07 [facility] [id number] Hospit ninoska l ([facility] nt) 2021-02-09 Inpatient [facility] [id number] [facility] 21:23:00 [id number] [facility] 2021-02-02 Inpatient [facility] [id number] [facility] 09:14:00 [id number] [facility] 2021-01-20 Inpatient [facility] [id number] [facility] 16:34:00 [id number] [facility] 2019-12-25 Inpatient [facility] [id number] [facility] 18:02:00 [id number] [facility] 2021-08-24 2021-08-24 [facility] [id number] Univers 15:28:24 23:59:00 Encounter [facility] [id number] ity of [place] 4.2.7.2.686 Anam as TRAE?BLEA [id number] [facility] [address] [facility] OFFICE [facility] 2021-08-24 2021-08-24 Urgent [facility] [id number] Univers 15:20:00 15:36:34 Care [facility] [id number] i ty of [place] 4.2.7.2.686 Anam as TRAE?BLEA [id number] [facility] [address] [facility] OFFICE BUILDING 2021-08-24 2021-08-24 Outpatient R [facility] [id number] Univers 15:20:00 15:36:34 LUKE ity o f [facility] 2021-08-23 2021-08-23 Office Aditya Triston Mcdonald [facility] 1.2 .[id number] Univers 14:30:00 15:15:53 Visit Cata Kyle [facility] [id number] ity of [place]7.2.686 [place] [id number] [facility] 092 Branch OFFICE BUILDING 2021-04-24 2021-04-24 Departed [facility] [id number] [facility] 19:48:00 23:25:[address] [facility] 2021-04-24 2021-04-24 Emergency ER VICTORINOMOSUKI, SETH ANN [id number] [facility] 19:48:00 23:25:00 HEBER [id number] [facility] 2021-02-09 2021-02-10 Departed ALFRED Bernal [id number] [facility] 21:23:00 00:52:[address] Hospita 2021-02-09 2021-02-10 Departed ALFRED Petersensper [id number] [facility] 21:23:00 00:52:[address] 2021-02-03 2021-02-03 Emergency FOZIA CHIDINOEL ER [id number] Buddhism 14:06:00 14:06:00 HAKAN [id number] Hospi [facility] ([facility]) 2021-02-02 2021-02-02 Departed ALFRED ANN [id number] [facility] 09:52:00 09:52:[address] [facility] 2021-02-02 2021-02-02 Departed ALFRED ANN [id number] [facility] 09:52:00 09:52:[address] 04 [facility] 2021-01-31 2021-01-31 Departed ALFRED ANN [id number] [facility] 16:49:00 17:47:00 Emergency ASPER [address] - Room [facility] 2021-01-31 2021-01-31 Departed ALFRED ROCHAUS [id number] [facility] 16:49:00 17:47:00 Emergency ASPER [address] 2021-01-31 2021-01-31 Emergency ER UNASSIGNED, SETH ANN [id number] [facility] 16:49:00 16:49:00 ED [id number] [facility] 2021-01-20 2021-01-20 Departed ALFRED ROCHAUS [id number] [facility] 16:57:00 20:01:[address] Room [facility] 2021-01-20 2021-01-20 Departed SETHOlivia SETH [id number] [facility] 16:57:00 20:01:[address] - Room [facility] Hospita 2021-01-16 2021-01-16 Emergency SHAUN SHAH QER [id number] Buddhism 01:08:00 01:08:00 [id number] Hospi ta l ([facility]) 2020-12-20 2020-12-20 Emergency SHAUN SHAH CHIDIET QER [id number]- Buddhism 00:42:00 00:42:00 [id number] Hospi ta l ([facility]) 2020-11-20 2020-11-20 Departed ISH ANN [id number] [facility] 10:54:00 14:45:[address] 2020-11-20 2020-11-20 Departed ISH ANN [id number] [facility] 10:54:00 14:45:[address] 2020-11-20 2020-11-20 Emergency ER UNASSIGNED, SETH ANN [id number] [facility] 10:54:00 10:54:00 ED [id number] [facility] 2020-11-15 2020-11-15 Emergency GREYSON MAYTE QER [id number]- Buddhism 09:45:00 09:45:00 FAY [id number] Hosp osiris l ([facility]) 2020-07-01 2020-07-01 Telephone Motility, [facility] 1.2.840.114 [id number] 00:00:00 00:00:00 Endoscopy ICAL [id number] SCIENCES 4.2.7.2.686 [facility] [id number] 2020-04-29 2020-04-29 TelemedicTOD Ramsey 1.2.840.114 [id number] 09:41:38 09:56:38 ne Visit [facility] [id number] NATIONAL 4.2.7.2.686 [facility] [id number] BLDG. 144 2020-04-28 2020-04-28 [facility] 1.2.840.114 [id number] 08:55:50 09:25:50 ne Visit Troy Sotelo SPECIALTY 350.1.13.10 CARE 4.2.7.2.[address] [facility] [address] AT [id number] ISAIAS Bee [facility] 2020-04-28 2020-04-[address] [facility] 1.2.840.114 [id number] 00:00:00 00:00:00 Amaral HEALTH [id number] FAMILY 4.2.7.2.686 MEDICINE [id number] [address] [facility] 2020-04-22 2020-04-[address] [facility] 1.2.840.114 [id number] 00:00:00 00:00:00 Am[facility] HEALTH [id number] FAMILY 4.2.7.2.686 MEDICINE [id number] [address] [place] [address] 2020-04-21 2020-04-21 Orders Doctor DANG 1.2.840.114 [id number] 00:00:00 00:00:00 Only Unassigned, JAROCHO 350.1.13.10 [facility] 4.2.7.2.686 [id number] 2020-04-17 2020-04-[address] [facility] 1.2.840.114 [id number] 00:00:00 00:00:00 Am[facility] HEALTH 350.1.13.10 FAMILY 4.2.7.2.686 MEDICINE [id number] [address] [place] [address] 2020-04-16 2020-04-16 [facility] 1.2.840.114 [id number] 07:44:00 11:34:00 Encounter Troy Sotelo ICAL 350.1.13.10 SCIENCES 4.2.7.2.686 [facility] [id number] 2020-04-16 2020-04-16 Orders Doctor DANG 1.2.840.114 [id number] 00:00:00 00:00:00 Only Unassigned, JAROCHO 350.1.13.10 [facility] 4.2.7.2.686 [id number] 2020-04-14 2020-04-[address] [facility] 1.2.840.114 [id number] 16:03:35 23:59:00 Encounter [facility] Health 350.1.13.10 Clear 4.2.7.2.686 Damon [id number] Hospital 801 ([facility]) 2020-04-14 2020-04-14 Cloth Printer Vls-Lab [facility] 1.2.840.114 [id number] 12:20:36 12:35:36 Visit SPECIALTY 350.1.13.10 CARE 4.2.7.2.686 CENTER AT [id number] ISAIAS [address] [facility] 2020-04-09 2020-04-[address] [facility] 1.2.840.114 [id number] 13:36:27 14:33:50 Visit Amaral HEALTH 350.1.13.10 FAMILY 4.2.7.2.686 MEDICINE [id number] [address] [place] [address] 2020-04-06 2020-04-06 Orders Doctor DANG 1.2.840.114 [id number] 00:00:00 00:00:00 Only Unassigned, JAROCHO 350.1.13.10 [place] [facility] 4.2.7.2.686 [id number] 2020-02-17 2020-02-17 Departed ISH ANN [id number] [place] 18:27:00 19:19:[address] 2020-02-17 2020-02-17 Departed ISH NAN [id number] [place] 18:27:00 19:19:[address] 2020-02-17 2020-02-17 Emergency ER UNASSIGNED, SETH ANN 48 [id number] [place] 18:27:00 18:27:[id number] [place] [address] 2020-01-22 2020-01-22 Office ANNETTA Black 1.2.840.[id number] [place] [address] 12:04:28 14:13:09 Visit Ezequiel AMBULATOR [address] Seth Y 0.2.7.2.686 of [phone] Medi judy 800 e 2020-01-22 2020-01-22 Office ANNETTA Black 1.2.840.114 [id number] 12:04:28 14:13:09 Visit Ezequiel AMBULATOR 350.1.13.21 Seth Y 0.2.7.2.686 [id number] 800 2020-01-20 2020-01-20 Outpatient 3 [facility] [id number] 502- [facility] 08:54:00 08:54:00 BASMARYAN [id number] Hospi [facility] ([facility]) 2019-12-31 2019-12-31 Emergency [facility] QER [id number] 8502- [facility] 19:48:00 19:48:00 [id number] Hospi ta l ([place]) 2019-12-25 2019-12-25 [facility]ed [facility] [id number] [facility] 18:02:00 22:07:[address] 2019-12-25 2019-12-25 Departed [facility] [id number] [facility] 18:02:00 22:07:[address] Room [facility] 2019-12-25 2019-12-25 Emergency GREYSON ENOCH QER [id number] 2- Buddhism 02:17:00 02:17:00 FAY [id number] [facility] 2019-10-21 2019-10-21 Office ANNETTA Black [id number] [place] [address] 11:25:23 11:40:23 Visit Ezequiel AMBULATOR [id number] Seth Y [id number] of [id number] Medi judy 800 e 2019-10-21 2019-10-21 Office ANNETTA Black [id number] 11:25:23 11:40:23 Visit Ezequiel AMBULATOR [id number] Seth Y 0.2.7.2.686 [id number] 2019-08-19 2019-08-19 Emergency 1 Reji Ruiz MCSETX PATSY [id number] Medical 15:23:00 15:23:00 Reji Ruiz -[id number] [facility] 2019-08-19 2019-08-19 Emergency MCSETX PATSY [id number] Medical 15:23:00 15:23:00 [facility] 2019-06-25 2019-06-25 Outpatient 3 MAYTE GIRARD [facility] [id number] [id number] Buddhism 10:28:00 10:28:00 [facility] [id number] Hospi ta l ([facility]) 2019-04-30 2019-04-30 Emergency 1 Elmer Freeman MCSETX PATSY [id number] Medical 19:15:00 20:27:00 Elmer Freeman [facility] 2019-04-25 2019-04-25 Departed ISH ANN [id number] [facility] 11:11:00 13:36:[address] 2019-04-25 2019-04-25 Emergency ER NIXON SETH ANN [id number] 5-20 [facility] 11:11:00 13:36:00 HAYLEY [id number] [facility] 2019-04-25 2019-04-25 Departed ISH ANN [id number] [facility] 11:11:00 13:36:[address] 2018-10-24 2018-10-25 [facility] [id number] [facility] 23:15:00 00:38:00 SUZANNE [id number] [facility] 2018-09-26 2018-09-26 Outpatient VIDHI BORJASSETH [id number] 15-20 [facility] 11:10:00 11:10:00 ZOHAIB [id number] [facility] 2018-01-16 2018-01-16 Outpatient MYAH Monte SETCHRISTIAN [id number] 1 [facility] 13:12:00 13:12:00 [facility] Ear Nose and Throat Results Test Description Test Time Test Comments Results Result Comments Source Serum or plasma aspartate aminotransferase measurement 04-24 21:22:00 (enzymatic activity/volume) Test Item Value Reference Range Interpretation Comme nts Aspartate Amino Transf (AST/SGOT) (test code = 1920-8) 18 5-34 [facility] HealthSerum or plasma alanine aminotransferase measurement (enzymatic activity/volume)2021-04-24 21:22:00 Test Item Value Reference Range Interpretation Comments Alanine Aminotransferase (ALT/SGPT) 11 0-55 (test code = 1742-6) [facility] HealthSerum or plasma protein measurement (mass/volume)2021-04-24 21:22:00 Test Item Value Reference Range Interpretation Comments Total Protein (test code = 2885-2) 6.8 6.4-8.3 [facility] HealthSerum or plasma albumin measurement (mass/volume)2021-04-24 21:22:00 Test Item Value Reference Range Interpretation Comments Albumin (test code = 1751-7) 4.4 3.5-5.0 [facility] HealthSerum or plasma alkaline phosphatase measurement (enzymatic activity/volume)2021-04-24 21:22:00 Test Item Value Reference Range Interpretation Comments Alkaline Phosphatase (test code = 62 40-150 6768-6) [facility] HealthSerum or plasma lipase measurement (enzymatic activity/volume) 2021-04-24 21:22:00 Test Item Value Reference Range Interpretation Comments Lipase (test code = 3040-3) 15 8-78 [facility] HealthAutomated blood leukocyte count (number/volume)2021-04-24 21:22:00 Test Item Value Reference Range Interpretation Comments White Blood Count (test code = 6690-2) 12.1 4.5-11.5 [facility] HealthBlood erythrocytes automated count (number/volume)2021-04-24 21:22:00 Test Item Value Reference Range Interpretation Comments Red Blood Count (test code = 789-8) 5.03 4.4-6.2 [facility] HealthBlood hemoglobin measurement (mass/volume)2021-04-24 21:22:00 Test Item Value Reference Range Interpretation Comments Hemoglobin (test code = 718-7) 14.7 13.0-17.5 [facility] HealthAutomated blood hematocrit (volume fraction)2021-04-24 21:22:00 Test Item Value Reference Range Interpretation Comments Hematocrit (test code = 4544-3) 42.3 39.0-52.5 [facility] HealthAutomated erythrocyte mean corpuscular volume (MCV) measurement 2021-04-24 21:22:00 Test Item Value Reference Range Interpretation Comments Mean Corpuscular Volume (test code = 84 80-94 787-2) [facility] HealthAutomated erythrocyte mean corpuscular hemoglobin (mass per erythrocyte)2021-04-24 21:22:00 Test Item Value Reference Range Interpretation Comments Mean Corpuscular Hemoglobin (test code 29.2 27.0-33.0 = 785-6) [facility] HealthAutomated erythrocyte mean corpuscular hemoglobin concentration measurement (mass/volume)2021-04-24 21:22:00 Test Item Value Reference Range Interpretation Comments Mean Corpuscular Hemoglobin Concent 34.8 33.0-37.0 (test code = 786-4) [facility] HealthAutomated erythrocyte distribution width [id number] 21:22:00 Test Item Value Reference Range Interpretation Comments Red Cell Distribution Width (test code 11.0 10.7-14.5 = 788-0) [facility] HealthAutomated blood platelet count (count/volume)2021-04-24 21:22:00 Test Item Value Reference Range Interpretation Comments Platelet Count (test code = 777-3) 313 150-450 [facility] HealthAutomated blood platelet mean volume ewqhvnrwkdw3021-83-20 21:22:00 Test Item Value Reference Range Interpretation Comments Mean Platelet Volume (test code = 9.4 5.7-10.7 40518-7) [facility] HealthAutomated blood neutrophil count as percentage of total ytbkjhlekx5197-75-76 21:22:00 Test Item Value Reference Range Interpretation Comments Neutrophils (%) (Auto) (test code = 61 47-75 770-8) [facility] HealthAutomated blood immature granulocyte count as percentage of total vazxcnvbhf1563-48-23 21:22:00 Test Item Value Reference Range Interpretation Comments Immature Granulocyte % (Auto) (test 0 0-0 code = 14703-0) [facility] HealthAutomated blood lymphocyte count as percentage of total txhtvqvjym7431-41-63 21:22:00 Test Item Value Reference Range Interpretation Comments Lymphocytes (%) (Auto) (test code = 26 25-14 736-9) [facility] HealthAutomated blood monocyte count as percentage of total leukocytes 2021-04-24 21:22:00 Test Item Value Reference Range Interpretation Comments Monocytes (%) (Auto) (test code = 7 3-10 5905-5) [facility] HealthAutomated blood eosinophil count as percentage of total zkslvyjgos6387-02-19 21:22:00 Test Item Value Reference Range Interpretation Comments Eosinophils (%) (Auto) (test code = 5 0-7 713-8) [facility] HealthAutomated blood basophil count as percentage of total leukocytes 2021-04-24 21:22:00 Test Item Value Reference Range Interpretation Comments Basophils (%) (Auto) (test code = 1 0-1 706-2) [facility] HealthAutomated blood nucleated erythrocyte count as percentage of total ooxfotwrpw5839-42-40 21:22:00 Test Item Value Reference Range Interpretation Comments Nucleated Red Blood Cells % (test code 0.0 0-0.2 = 90680-6) [facility] HealthAutomated blood neutrophil count (number/volume)2021-04-24 21:22:00 Test Item Value Reference Range Interpretation Comments Neutrophils # (Auto) (test code = 7.4 1.3-6.7 751-8) [facility] HealthAutomated blood immature granulocyte count as percentage of total iyxfhtqhyg8721-41-25 21:22:00 Test Item Value Reference Range Interpretation Comments Immature Granulocyte # (Auto) (test 0.0 0.0-0.0 code = 69635-6) [facility] HealthAutomated blood lymphocyte count (number/volume)2021-04-24 21:22:00 Test Item Value Reference Range Interpretation Comments Lymphocytes # (Auto) (test code = 3.1 1.4-4.1 731-0) [facility] count (number/volume)2021-04-24 21:22:00 Test Item Value Reference Range Interpretation Comments Monocytes # (Auto) (test code = 742-7) 0.9 0-1.3 [facility] HealthAutomated blood eosinophil [id number] 21:22:00 Test Item Value Reference Range Interpretation Comments Eosinophils # (Auto) (test code = 0.7 0-0.8 711-2) [facility] HealthAutomated blood basophil count (number/volume)2021-04-24 21:22:00 Test Item Value Reference Range Interpretation Comments Basophils # (Auto) (test code = 704-7) 0.1 0-0.1 [facility] HealthAutomated blood nucleated erythrocyte count (count/volume) 2021-04-24 21:22:00 Test Item Value Reference Range Interpretation Comments Nucleated Red Blood Cells # (test code 0.00 0-0.01 = 771-6) [facility] comment [id number] 21:22:00 Test Item Value Reference Range Interpretation Comments Manual Differential (test code = Not Ind 8265-1) [facility] HealthSodium XonGy-qKgy7622-30-20 21:22:00 Test Item Value Reference Range Interpretation Comments Sodium Level (test code = 2951-2) 144 136-145 [facility] HealthSerum or plasma potassium measurement (moles/volume)2021-04-24 21:22:00 Test Item Value Reference Range Interpretation Comments Potassium Level (test code = 2823-3) 3.6 3.5-5.1 [facility] HealthSerum or plasma chloride measurement (moles/volume)2021-04-24 21:22:00 Test Item Value Reference Range Interpretation Comments Chloride Level (test code = 2075-0) 108 98-107 [facility] HealthSerum or plasma total carbon dioxide measurement (moles/volume) 2021-04-24 21:22:00 Test Item Value Reference Range Interpretation Comments Carbon Dioxide Level (test code = -29 2027-9) [facility] HealthSerum or plasma anion gap determination (moles/volume)2021-04-24 21:22:00 Test Item Value Reference Range Interpretation Comments Anion Gap (test code = 48347-7) 17 8-18 [facility] HealthSerum or plasma urea nitrogen measurement (mass/volume)2021-04-24 21:22:00 Test Item Value Reference Range Interpretation Comments Blood Urea Nitrogen (test code = 02-23 3094-0) [facility] HealthSerum or plasma creatinine measurement (mass/volume)2021-04-24 21:22:00 Test Item Value Reference Range Interpretation Comments Creatinine (test code = 2160-0) 0.8 0.7-1.3 [facility] HealthGFR/BSA.pred SerPl RCIC-EgWCnl6552-03-20 21:22:00 Test Item Value Reference Range Interpretation Comments Estimat Glomerular Filtration Rate 130 90-142 (test code = 10766-2) [facility] HealthSerum or plasma glucose measurement (mass/volume)2021-04-24 21:22:00 Test Item Value Reference Range Interpretation Comments Glucose Level (test code = 2345-7) 92 60-100 [facility] HealthSerum or plasma calcium measurement (mass/volume)2021-04-24 21:22:00 Test Item Value Reference Range Interpretation Comments Calcium Level (test code = 22609-4) 9.7 8.4-10.2 [facility] HealthSerum or plasma total bilirubin measurement (mass/volume) 2021-04-24 21:22:00 Test Item Value Reference Range Interpretation Comments Total Bilirubin (test code = 1975-2) 0.4 0.2-1.2 [facility] HealthUrinalysis specimen collection [id number] 20:07:00 Test Item Value Reference Range Interpretation Comments Urine Source (test code = 51185-6) URINE [facility] HealthUrine color fxxojakhrtpap5798-90-97 20:07:00 Test Item Value Reference Range Interpretation Comments Urine Color (test code = 5778-6) OTHERS Yel-Devi * [facility] HealthUrine clarity tojwxozhgggcf8314-27-02 20:07:00 Test Item Value Reference Range Interpretation Comments Urine Appearance (test code = 72879-5) Clear Clear * [facility] HealthUrine pH measurement by automated test [id number] 20:07:00 Test Item Value Reference Range Interpretation Comments Urine pH (test code = 02125-1) 6.0 5.0-8.0 [facility] HealthSpecific gravity of Urine by Automated test pnywt7944-01-03 20:07:00 Test Item Value Reference Range Interpretation Comments Urine Specific [place] (test code = 1.020 1.005-1.030 25071-4) [facility] HealthUrine protein measurement by automated test strip (mass/volume) 2021-04-24 20:07:00 Test Item Value Reference Range Interpretation Comments Urine Protein (test code = 58573-0) Negative Negative * [facility] HealthUrine glucose measurement by automated test strip (mass/volume) 2021-04-24 20:07:00 Test Item Value Reference Range Interpretation Comments Urine Glucose (UA) (test code = Negative Negative * 24529-0) [facility] HealthKetones [Mass/volume] in Urine by Automated test [id number] 20:07:00 Test Item Value Reference Range Interpretation Comments Urine Ketones (test code = 71521-2) Negative Negative * [facility] HealthUrine erythrocytes count by automated test strip (number/volume) 2021-04-24 20:07:00 Test Item Value Reference Range Interpretation Comments Urine Occult Blood (test code = Negative Negative * 65863-7) [facility] HealthUrine nitrite detection by automated test [id number] 20:07:00 Test Item Value Reference Range Interpretation Comments Urine Nitrite (test code = 98788-0) Negative Negative [facility] HealthUrine total bilirubin measurement by automated test strip (mass/volume)2021-04-24 20:07:00 Test Item Value Reference Range Interpretation Comments Urine Bilirubin (test code = Negative Negative 39076-9) [facility] HealthUrine urobilinogen measurement by automated test strip (mass/volume)2021-04-24 20:07:00 Test Item Value Reference Range Interpretation Comments Urine Urobilinogen (test code = Negative 0.0-1.0 90734-0) [facility] HealthUrine leukocytes count by automated test strip (number/volume) 2021-04-24 20:07:00 Test Item Value Reference Range Interpretation Comments Urine Leukocyte Esterase (test code Negative Negative = 21205-7) [facility] HealthUrine sediment erythrocyte count by microscopy (number/high power field)2021-04-24 20:07:00 Test Item Value Reference Range Interpretation Comments Urine RBC (test code = 33305-0) None Seen 0-2 [facility] HealthUrine sediment leukocyte count by microscopy (number/high power field)2021-04-24 20:07:00 Test Item Value Reference Range Interpretation Comments Urine WBC (test code = 5821-4) None Seen 0-5 [facility] HealthUrine sediment epithelial cell count by microscopy (number/high power field)2021-04-24 20:07:00 Test Item Value Reference Range Interpretation Comments Urine Epithelial Cells (test code = None Seen Few 5787-7) [facility] HealthUrine sediment crystal count by microscopy (number/high power field)2021-04-24 20:07:00 Test Item Value Reference Range Interpretation Comments Urine Crystals (test code = None Seen None * 50056-0) [facility] HealthUrine sediment bacteria count by microscopy (number/high power field)2021-04-24 20:07:00 Test Item Value Reference Range Interpretation Comments Urine Bacteria (test code = 5769-5) Rare None [facility] HealthUrine sediment casts count by microscopy (number/low power field) 2021-04-24 20:07:00 Test Item Value Reference Range Interpretation Comments Urine Casts (test code = 9842-6) None Seen None * [facility] HealthYeast detection in urine sediment by light cjzcdogsrc2124-31-08 20:07:00 Test Item Value Reference Range Interpretation Comments Urine Yeast (test code = 70728-1) None Seen None [facility] comment 20:07:00 Test Item Value Reference Range Interpretation Comments Urinalysis Comment (test * See_Comment [A utomated message] The code = 8262-8) system which generated this result tra nsmitted reference range : *. The reference range was not used to interpr et this result as normal/abnormal . [facility] comment 20:07:00 Test Item Value Reference Range Interpretation Comments Urine Culture Indicated (test code = Not Ind 8264-4) [facility] HealthChlamydia species rRNA detection by DNA [id number] 20:01:00 Test Item Value Reference Range Interpretation Comments Chlamydia DNA (PCR) (test code = Not Detected NotDetected 12939-7) [facility] HealthNeisseria gonorrhoeae rRNA detection by DNA [id number] 20:01:00 Test Item Value Reference Range Interpretation Comments Neisseria gonorrhoeae DNA (PCR) Not Detected NotDetected (test code = 5028-6) [facility] HealthIdentification of specimen [id number] 20:01:00 Test Item Value Reference Range Interpretation Comments Chlamydia/GC Source (test code = Urine 40409-4) [facility] HealthVenous whole blood sodium measurement (moles/volume)2021-02-09 22:19:00 Test Item Value Reference Range Interpretation Comments Bedside Sodium (test code = 63786-6) 142 136-145 [facility] HealthVenous whole blood potassium measurement (moles/volume)2021-02-09 22:19:00 Test Item Value Reference Range Interpretation Comments Bedside Potassium (test code = 77074-3) 4.0 3.5-5.1 [facility] HealthVenous whole blood chloride measurement (moles/volume)2021-02-09 22:19:00 Test Item Value Reference Range Interpretation Comments Bedside Chloride (test code = 41281-7) 103 100-112 [facility] HealthVenous whole blood total carbon dioxide measurement (moles/volume)2021-02-09 22:19:00 Test Item Value Reference Range Interpretation Comments Bedside Total CO2 (test code = 2026-) 27.0 24.0-33.0 [facility] HealthVenous whole blood urea nitrogen (BUN) measurement (mass/volume) 2021-02-09 22:19:00 Test Item Value Reference Range Interpretation Comments Bedside Blood Urea Nitrogen (test code 10 20 = 03700-0) [facility] HealthBlood creatinine measurement (mass/volume)2021-02-09 22:19:00 Test Item Value Reference Range Interpretation Comments Bedside Creatinine (test code = 0.8 0.9-1.5 89210-0) [facility] HealthVenous whole blood glucose measurement (mass/volume)2021-02-09 22:19:00 Test Item Value Reference Range Interpretation Comments Bedside Glucose (test code = 28175-4) 88 60-100 [facility] ionized calcium measurement (moles/volume)2021-02-09 22:19:00 Test Item Value Reference Range Interpretation Comments Bedside Whole Blood Ionized Calcium 1.26 1.12-1.32 (test code = 1994-3) [facility] HealthBlood anion [id number] 22:19:00 Test Item Value Reference Range Interpretation Comments Bedside Anion Gap (test code = 27463-5) 17 8-18 [facility] HealthGFR estimate [id number] 22:19:00 Test Item Value Reference Range Interpretation Comments Estimat Glomerular Filtration Rate 130 90-142 (test code = 851550715) [facility] HealthVenous blood hemoglobin measurement (mass/volume)2021-02-09 22:19:00 Test Item Value Reference Range Interpretation Comments Bedside Hemoglobin (test code = 13.3 13.0-17.5 65432-7) [facility] HealthVenous blood hematocrit (volume fraction)2021-02-09 22:19:00 Test Item Value Reference Range Interpretation Comments Bedside Hematocrit (test code = 39.0 40.0-53.0 03451-3) [facility] HealthVenous whole blood sodium measurement (moles/volume)2021-02-09 22:19:00 Test Item Value Reference Range Interpretation Comments Bedside Sodium (test code = 96270-8) 142 [facility] potassium measurement (moles/volume)2021-02-09 22:19:00 Test Item Value Reference Range Interpretation Comments Bedside Potassium (test code = 13697-2) 4.0 [facility] whole blood chloride measurement (moles/volume)2021-02-09 22:19:00 Test Item Value Reference Range Interpretation Comments Bedside Chloride (test code = 68303-1) 103 [facility] whole blood total carbon dioxide measurement (moles/volume)2021-02-09 22:19:00 Test Item Value Reference Range Interpretation Comments Bedside Total CO2 (test code = 7-1) 27.0 [facility] whole blood urea nitrogen (BUN) measurement (mass/volume)2021-02-09 22:19:00 Test Item Value Reference Range Interpretation Comments Bedside Blood Urea Nitrogen (test code 10 = 15863-7) [facility] ([facility]/volume) 2021-02-09 22:19:00 Test Item Value Reference Range Interpretation Comments Bedside Creatinine (test code = 0.8 72885-6) [facility] whole blood glucose measurement (mass/volume)2021-02-09 22:19:00 Test Item Value Reference Range Interpretation Comments Bedside Glucose (test code = 42325-5) 88 [facility] ionized calcium measurement (moles/volume)2021-02-09 22:19:00 Test Item Value Reference Range Interpretation Comments Bedside Whole Blood Ionized Calcium 1.26 (test code = 1994-3) [facility] [id number] 22:19:00 Test Item Value Reference Range Interpretation Comments Bedside Anion Gap (test code = 12797-9) 17 [facility] CenterGFR estimate [id number] 22:19:00 Test Item Value Reference Range Interpretation Comments Estimat Glomerular Filtration Rate 130 (test code = 637253897) [facility] blood hemoglobin measurement (mass/volume)2021-02-09 22:19:00 Test Item Value Reference Range Interpretation Comments Bedside Hemoglobin (test code = 13.3 85063-9) [facility] blood hematocrit (volume fraction) 2021-02-09 22:19:00 Test Item Value Reference Range Interpretation Comments Bedside Hematocrit (test code = 39.0 87438-8) [facility] Center[facility] leukocyte count (number/volume)2021-02-09 22:15:00 Test Item Value Reference Range Interpretation Comments White Blood Count (test code = 6690-2) 8.6 4.5-11.5 [facility] erythrocytes automated count (number/volume)2021-02-09 22:15:00 Test Item Value Reference Range Interpretation Comments Red Blood Count (test code = 789-8) 4.81 4.4-6.2 [facility] HealthBlood hemoglobin measurement (mass/volume)2021-02-09 22:15:00 Test Item Value Reference Range Interpretation Comments Hemoglobin (test code = 718-7) 14.4 13.0-17.5 [facility] blood hematocrit (volume fraction)2021-02-09 22:15:00 Test Item Value Reference Range Interpretation Comments Hematocrit (test code = 4544-3) 40.9 39.0-52.5 [facility] HealthAutomated erythrocyte mean corpuscular volume (MCV) measurement 2021-02-09 22:15:00 Test Item Value Reference Range Interpretation Comments Mean Corpuscular Volume (test code = 85.0 80-94 787-2) [facility] HealthAutomated erythrocyte mean corpuscular hemoglobin (mass per erythrocyte)2021-02-09 22:15:00 Test Item Value Reference Range Interpretation Comments Mean Corpuscular Hemoglobin (test code 29.9 27.0-33.0 = 785-6) [facility] HealthAutomated erythrocyte mean corpuscular hemoglobin concentration measurement (mass/volume)2021-02-09 22:15:00 Test Item Value Reference Range Interpretation Comments Mean Corpuscular Hemoglobin Concent 35.2 33.0-37.0 (test code = 786-4) [facility] HealthAutomated erythrocyte distribution width [id number] 22:15:00 Test Item Value Reference Range Interpretation Comments Red Cell Distribution Width (test code 12.0 10.7-14.5 = 788-0) [facility] platelet count (count/volume)2021-02-09 22:15:00 Test Item Value Reference Range Interpretation Comments Platelet Count (test code = 777-3) 413 150-450 [facility] HealthAutomated blood platelet mean volume [id number] 22:15:00 Test Item Value Reference Range Interpretation Comments Mean Platelet Volume (test code = 8.9 5.7-10.7 67090-0) [facility] HealthAutomated blood neutrophil count as percentage of total vmvsrtzzka1791-40-52 22:15:00 Test Item Value Reference Range Interpretation Comments Neutrophils (%) (Auto) (test code = 45 47-75 770-8) [facility] HealthAutomated blood lymphocyte count as percentage of total djzbaxwlgo3548-94-76 22:15:00 Test Item Value Reference Range Interpretation Comments Lymphocytes (%) (Auto) (test code = 37 25-44 736-9) [facility] HealthAutomated blood monocyte count as percentage of total leukocytes 2021-02-09 22:15:00 Test Item Value Reference Range Interpretation Comments Monocytes (%) (Auto) (test code = 11 3-10 5905-5) [facility] HealthAutomated blood eosinophil count as percentage of total pkfebnlgum9611-51-66 22:15:00 Test Item Value Reference Range Interpretation Comments Eosinophils (%) (Auto) (test code = 7 0-7 713-8) [facility] HealthAutomated blood basophil count as percentage of total leukocytes 2021-02-09 22:15:00 Test Item Value Reference Range Interpretation Comments Basophils (%) (Auto) (test code = 0 0-1 706-2) [facility] HealthAutomated blood neutrophil count (number/volume)2021-02-09 22:15:00 Test Item Value Reference Range Interpretation Comments Neutrophils # (Auto) (test code = 3.9 1.3-6.7 751-8) [facility] HealthAutomated blood lymphocyte count (number/volume)2021-02-09 22:15:00 Test Item Value Reference Range Interpretation Comments Lymphocytes # (Auto) (test code = 3.1 1.4-4.1 731-0) [facility] HealthBlood monocytes automated count (number/volume)2021-02-09 22:15:00 Test Item Value Reference Range Interpretation Comments Monocytes # (Auto) (test code = 742-7) 0.9 0-1.3 [facility] HealthAutomated blood eosinophil [id number] 22:15:00 Test Item Value Reference Range Interpretation Comments Eosinophils # (Auto) (test code = 0.6 0-0.8 711-2) [facility] HealthAutomated blood basophil count (number/volume)2021-02-09 22:15:00 Test Item Value Reference Range Interpretation Comments Basophils # (Auto) (test code = 704-7) 0.0 0-0.1 [facility] comment [id number] 22:15:00 Test Item Value Reference Range Interpretation Comments Manual Differential (test code = Not Ind 8265-1) [facility] HealthUrinalysis specimen collection [id number] 22:15:00 Test Item Value Reference Range Interpretation Comments Urine Source (test code = 94480-0) URINE [facility] HealthColor of Urine by [id number] 22:15:00 Test Item Value Reference Range Interpretation Comments Urine Color (test code = 58633-7) Yellow Yel-Dvei * [facility] HealthUrine clarity [id number] 22:15:00 Test Item Value Reference Range Interpretation Comments Urine Appearance (test code = 84617-3) Clear Clear * [facility] HealthUrine pH measurement by automated test [id number] 22:15:00 Test Item Value Reference Range Interpretation Comments Urine pH (test code = 87432-5) 7.0 5.0-8.0 [facility] HealthSpecific gravity of Urine by Automated test [id number] 22:15:00 Test Item Value Reference Range Interpretation Comments Urine Specific [place] (test code = 1.026 1.005-1.030 45876-8) [facility] HealthUrine protein measurement by automated test strip (mass/volume) 2021-02-09 22:15:00 Test Item Value Reference Range Interpretation Comments Urine Protein (test code = 64852-2) 10 Negative * [facility] HealthUrine glucose measurement by automated test strip (mass/volume) 2021-02-09 22:15:00 Test Item Value Reference Range Interpretation Comments Urine Glucose (UA) (test code = Negative Negative * 14218-5) [facility] HealthKetones [Mass/volume] in Urine by Automated test [id number] 22:15:00 Test Item Value Reference Range Interpretation Comments Urine Ketones (test code = 10479-4) Negative Negative * [facility] HealthUrine erythrocytes count by automated test strip (number/volume) 2021-02-09 22:15:00 Test Item Value Reference Range Interpretation Comments Urine Occult Blood (test code = Negative Negative * 90239-3) [facility] HealthUrine nitrite detection by automated test [id number] 22:15:00 Test Item Value Reference Range Interpretation Comments Urine Nitrite (test code = 26863-9) Negative Negative [facility]Urine total bilirubin measurement by automated test strip (mass/volume)2021-02-09 22:15:00 Test Item Value Reference Range Interpretation Comments Urine Bilirubin (test code = Negative Negative 77148-9) [facility] HealthUrine urobilinogen measurement by automated test strip (mass/volume)2021-02-09 22:15:00 Test Item Value Reference Range Interpretation Comments Urine Urobilinogen (test code = 2.0 0.0-1.0 77881-8) [facility] HealthUrine leukocytes count by automated test strip (number/volume) 2021-02-09 22:15:00 Test Item Value Reference Range Interpretation Comments Urine Leukocyte Esterase (test code Negative Negative = 32946-9) [facility] HealthMicroscopic examination of [id number] 22:15:00 Test Item Value Reference Range Interpretation Comments Microscopic Urinalysis (T) (test code = ----- 57382-9) [facility] HealthUrine sediment erythrocyte count by microscopy (number/high power field)2021-02-09 22:15:00 Test Item Value Reference Range Interpretation Comments Urine RBC (test code = 16846-1) 0-2 0-2 [facility] HealthUrine sediment leukocyte count by microscopy (number/high power field)2021-02-09 22:15:00 Test Item Value Reference Range Interpretation Comments Urine WBC (test code = 5821-4) 0-5 0-5 [facility] HealthUrine sediment epithelial cell count by microscopy (number/high power field)2021-02-09 22:15:00 Test Item Value Reference Range Interpretation Comments Urine Epithelial Cells (test code = None Seen Few 5787-7) [facility] HealthUrine sediment crystal count by microscopy (number/high power field)2021-02-09 22:15:00 Test Item Value Reference Range Interpretation Comments Urine Crystals (test code = None Seen None * 36338-6) [facility] HealthUrine sediment bacteria count by microscopy (number/high power field)2021-02-09 22:15:00 Test Item Value Reference Range Interpretation Comments Urine Bacteria (test code = 5769-5) Rare None [facility] HealthUrine sediment casts count by microscopy (number/low power field) 2021-02-09 22:15:00 Test Item Value Reference Range Interpretation Comments Urine Casts (test code = 9842-6) None Seen None * [facility] HealthYeast detection in urine sediment by light [id number] 22:15:00 Test Item Value Reference Range Interpretation Comments Urine Yeast (test code = 72657-2) None Seen None [facility] comment 22:15:00 Test Item Value Reference Range Interpretation Comments Urinalysis Comment (test * See_Comment [A utomated message] The code = 8262-8) system which generated this result tra nsmitted reference range : *. The reference range was not used to interpr et this result as normal/abnormal . [facility] comment 22:15:00 Test Item Value Reference Range Interpretation Comments Urine Culture Indicated (test code = Not Ind 8264-4) [facility] HealthSerum or plasma total bilirubin measurement (mass/volume) 2021-02-09 22:15:00 Test Item Value Reference Range Interpretation Comments Total Bilirubin (test code = 1975-2) 0.3 0.2-1.2 [facility] HealthSerum or plasma total combined glucuronidated bilirubin and albumin bound bilirubin measurement (mass/volume)2021-02-09 22:15:00 Test Item Value Reference Range Interpretation Comments Direct Bilirubin (test code = 1968-7) 0.1 0.0-0.5 [facility] HealthSerum or plasma aspartate aminotransferase measurement (enzymatic activity/volume)2021-02-09 22:15:00 Test Item Value Reference Range Interpretation Comments Aspartate Amino Transf (AST/SGOT) (test 14 5-34 code = 1920-8) [facility] HealthSerum or plasma alanine aminotransferase measurement (enzymatic activity/volume)2021-02-09 22:15:00 Test Item Value Reference Range Interpretation Comments Alanine Aminotransferase (ALT/SGPT) 14 0-55 (test code = 1742-6) [facility] HealthSerum or plasma protein measurement (mass/volume)2021-02-09 22:15:00 Test Item Value Reference Range Interpretation Comments Total Protein (test code = 2885-2) 6.8 6.4-8.3 [facility] HealthSerum or plasma albumin measurement (mass/volume)2021-02-09 22:15:00 Test Item Value Reference Range Interpretation Comments Albumin (test code = 1751-7) 4.1 3.5-5.0 [facility] HospitalSer[facility] globulin measurement by calculation (mass/volume)2021-02-09 22:15:00 Test Item Value Reference Range Interpretation Comments Globulin (test code = 78200-7) 2.7 [facility] HealthSerum or plasma albumin/globulin mass [id number] 22:15:00 Test Item Value Reference Range Interpretation Comments Albumin/Globulin Ratio (test code = 1.5 1759-0) [facility] HealthSerum or plasma alkaline phosphatase measurement (enzymatic activity/volume)2021-02-09 22:15:00 Test Item Value Reference Range Interpretation Comments Alkaline Phosphatase (test code = 64 40-150 6768-6) [facility] HealthSerum or plasma lipase measurement (enzymatic activity/volume) 2021-02-09 22:15:00 Test Item Value Reference Range Interpretation Comments Lipase (test code = 3040-3) 99 8-78 [facility] blood leukocyte count (number/volume)2021-02-09 22:15:00 Test Item Value Reference Range Interpretation Comments White Blood Count (test code = 6690-2) 8.6 [facility] erythrocytes automated count (number/volume)2021-02-09 22:15:00 Test Item Value Reference Range Interpretation Comments Red Blood Count (test code = 789-8) 4.81 [facility] hemoglobin measurement (mass/volume) 2021-02-09 22:15:00 Test Item Value Reference Range Interpretation Comments Hemoglobin (test code = 718-7) 14.4 [facility] fraction) 2021-02-09 22:15:00 Test Item Value Reference Range Interpretation Comments Hematocrit (test code = 4544-3) 40.9 [facility] mean corpuscular volume (MCV) [id number] 22:15:00 Test Item Value Reference Range Interpretation Comments Mean Corpuscular Volume (test code = 85.0 787-2) [facility] mean corpuscular hemoglobin (mass per erythrocyte)2021-02-09 22:15:00 Test Item Value Reference Range Interpretation Comments Mean Corpuscular Hemoglobin (test code 29.9 = 785-6) [facility] CenterAutomated erythrocyte mean corpuscular hemoglobin concentration measurement (mass/volume)2021-02-09 22:15:00 Test Item Value Reference Range Interpretation Comments Mean Corpuscular Hemoglobin Concent 35.2 (test code = 786-4) [facility] width [id number] 22:15:00 Test Item Value Reference Range Interpretation Comments Red Cell Distribution Width (test code 12.0 = 788-0) [facility] blood platelet count (count/volume) 2021-02-09 22:15:00 Test Item Value Reference Range Interpretation Comments Platelet Count (test code = 777-3) 413 [facility] blood platelet mean volume smvdcqlkbuu6560-96-31 22:15:00 Test Item Value Reference Range Interpretation Comments Mean Platelet Volume (test code = 8.9 65450-5) [facility] blood neutrophil count as percentage of total [id number] 22:15:00 Test Item Value Reference Range Interpretation Comments Neutrophils (%) (Auto) (test code = 45 770-8) [facility] blood lymphocyte count as percentage of total nqfttvpavh2382-14-58 22:15:00 Test Item Value Reference Range Interpretation Comments Lymphocytes (%) (Auto) (test code = 37 736-9) [facility] count as percentage of total vnjjheuuga9897-52-30 22:15:00 Test Item Value Reference Range Interpretation Comments Monocytes (%) (Auto) (test code = 11 5905-5) [facility] eosinophil count as percentage of total affsgfzuaz7795-25-75 22:15:00 Test Item Value Reference Range Interpretation Comments Eosinophils (%) (Auto) (test code = 7 713-8) [facility] CenterAutomated blood basophil count as percentage of total uzyqvgljjz8766-38-56 22:15:00 Test Item Value Reference Range Interpretation Comments Basophils (%) (Auto) (test code = 0 706-2) [facility] CenterAutom[facility] neutrophil count (number/volume)2021-02-09 22:15:00 Test Item Value Reference Range Interpretation Comments Neutrophils # (Auto) (test code = 3.9 751-8) [facility] CenterAutomated blood lymphocyte count (number/volume)2021-02-09 22:15:00 Test Item Value Reference Range Interpretation Comments Lymphocytes # (Auto) (test code = 3.1 731-0) [facility] CenterBlood monocytes automated count (number/volume)2021-02-09 22:15:00 Test Item Value Reference Range Interpretation Comments Monocytes # (Auto) (test code = 742-7) 0.9 [facility] CenterAutomated blood eosinophil igdjo3361-39-03 22:15:00 Test Item Value Reference Range Interpretation Comments Eosinophils # (Auto) (test code = 0.6 711-2) [facility] basophil count (number/volume)2021-02-09 22:15:00 Test Item Value Reference Range Interpretation Comments Basophils # (Auto) (test code = 704-7) 0.0 [facility]:15[facility]00 Test Item Value Reference Range Interpretation Comments Manual Differential (test code = Not Ind 8265-1) [facility] CenterUrinalysis specimen collection method 2021-02-09 22:15:00 Test Item Value Reference Range Interpretation Comments Urine Source (test code = 64172-9) URINE [facility] CenterColor of Urine by [id number] 22:15:00 Test Item Value Reference Range Interpretation Comments Urine Color (test code = 50937-9) Yellow [facility] CenterUrine clarity takuthrqeqino9381-87-00 22:15:00 Test Item Value Reference Range Interpretation Comments Urine Appearance (test code = 60226-0) Clear [facility] pH measurement by automated test strip 2021-02-09 22:15:00 Test Item Value Reference Range Interpretation Comments Urine pH (test code = 34449-8) 7.0 [facility] Hospital[facility] gravity [facility] Urine by Automated test [id number] 22:15:00 Test Item Value Reference Range Interpretation Comments Urine Specific [place] (test code = 1.026 06918-8) [facility] protein measurement by automated test strip (mass/volume)2021-02-09 22:15:00 Test Item Value Reference Range Interpretation Comments Urine Protein (test code = 49023-7) 10 [facility] glucose measurement by automated test strip (mass/volume)2021-02-09 22:15:00 Test Item Value Reference Range Interpretation Comments Urine Glucose (UA) (test code = Negative 12385-7) [facility] CenterKetones [Mass/volume] in Urine by Automated test [id number] 22:15:00 Test Item Value Reference Range Interpretation Comments Urine Ketones (test code = 52314-7) Negative [facility] erythrocytes count by automated test strip (number/volume)2021-02-09 22:15:00 Test Item Value Reference Range Interpretation Comments Urine Occult Blood (test code = Negative 66318-3) [facility] nitrite detection by automated test [id number] 22:15:00 Test Item Value Reference Range Interpretation Comments Urine Nitrite (test code = 68024-6) Negative [facility] total bilirubin measurement by automated test strip (mass/volume)2021-02-09 22:15:00 Test Item Value Reference Range Interpretation Comments Urine Bilirubin (test code = Negative 28293-0) [facility] urobilinogen measurement by automated test strip (mass/volume)2021-02-09 22:15:00 Test Item Value Reference Range Interpretation Comments Urine Urobilinogen (test code = 2.0 76560-3) [facility] leukocytes count by automated test strip (number/volume)2021-02-09 22:15:00 Test Item Value Reference Range Interpretation Comments Urine Leukocyte Esterase (test code Negative = 93127-5) [facility] CenterMicroscopic examination of [id number] 22:15:00 Test Item Value Reference Range Interpretation Comments Microscopic Urinalysis (T) (test code = ----- 61907-2) [facility] sediment erythrocyte count by microscopy (number/high power field)2021-02-09 22:15:00 Test Item Value Reference Range Interpretation Comments Urine RBC (test code = 99928-6) 0-2 [facility] sediment leukocyte count by microscopy (number/high power field)2021-02-09 22:15:00 Test Item Value Reference Range Interpretation Comments Urine WBC (test code = 5821-4) 0-5 [facility] sediment epithelial cell count by microscopy (number/high power field)2021-02-09 22:15:00 Test Item Value Reference Range Interpretation Comments Urine Epithelial Cells (test code = None Seen 5787-7) [facility] sediment crystal count by microscopy (number/high power field)2021-02-09 22:15:00 Test Item Value Reference Range Interpretation Comments Urine Crystals (test code = None Seen 46155-9) [facility] sediment bacteria count by microscopy (number/high power field)2021-02-09 22:15:00 Test Item Value Reference Range Interpretation Comments Urine Bacteria (test code = 5769-5) Rare [facility] sediment casts count by microscopy (number/low power field)2021-02-09 22:15:00 Test Item Value Reference Range Interpretation Comments Urine Casts (test code = 9842-6) None Seen [facility] CenterYeast detection in urine sediment by light itrlfqblex8974-79-40 22:15:00 Test Item Value Reference Range Interpretation Comments Urine Yeast (test code = 90117-5) None Seen [facility] comment 22:15:00 Test Item Value Reference Range Interpretation Comments Urinalysis Comment (test code = 8262-8) * [facility] comment 22:15:00 Test Item Value Reference Range Interpretation Comments Urine Culture Indicated (test code = Not Ind 8264-4) [facility] Hospitaler[facility] or plasma total bilirubin measurement (mass/volume)2021-02-09 22:15:00 Test Item Value Reference Range Interpretation Comments Total Bilirubin (test code = 1975-2) 0.3 [facility]Ser[facility] or plasma total combined glucuronidated bilirubin and albumin bound bilirubin measurement (mass/volume)2021-02-09 22:15:00 Test Item Value Reference Range Interpretation Comments Direct Bilirubin (test code = 1968-7) 0.1 [facility] Hospitaler[facility] or plasma aspartate aminotransferase measurement (enzymatic activity/volume)2021-02-09 22:15:00 Test Item Value Reference Range Interpretation Comments Aspartate Amino Transf (AST/SGOT) (test 14 code = 1920-8) [facility] or plasma alanine aminotransferase measurement (enzymatic activity/volume)2021-02-09 22:15:00 Test Item Value Reference Range Interpretation Comments Alanine Aminotransferase (ALT/SGPT) 14 (test code = 1742-6) [facility] plasma protein measurement (mass/volume)2021-02-09 22:15:00 Test Item Value Reference Range Interpretation Comments Total Protein (test code = 2885-2) 6.8 [facility]er[facility] plasma albumin measurement (mass/volume)2021-02-09 22:15:00 Test Item Value Reference Range Interpretation Comments Albumin (test code = 1751-7) 4.1 [facility] globulin measurement by calculation (mass/volume)2021-02-09 22:15:00 Test Item Value Reference Range Interpretation Comments Globulin (test code = 24001-8) 2.7 [facility] or plasma albumin/globulin mass ratio 2021-02-09 22:15:00 Test Item Value Reference Range Interpretation Comments Albumin/Globulin Ratio (test code = 1.5 1759-0) [facility] plasma alkaline phosphatase measurement (enzymatic activity/volume)2021-02-09 22:15:00 Test Item Value Reference Range Interpretation Comments Alkaline Phosphatase (test code = 64 6768-6) [facility] plasma lipase measurement (enzymatic activity/volume)2021-02-09 22:15:00 Test Item Value Reference Range Interpretation Comments Lipase (test code = 3040-3) 99 [facility] CenterCOVID SYMPTOMATIC ER [id number] 14:55:00 Test Item Value Reference Range Interpretation Comments CORONAVIRUS (COVID-19)BY PCR (test POSITIVE code = [id number]) Whole blood cardiac troponin I measurement (mass/volume)2021-01-20 19:00:00 Test Item Value Reference Range Interpretation Comments Bedside Troponin I (test code = 0.00 0.00-0.06 61386-5) [facility] blood cardiac troponin I measurement (mass/volume) 2021-01-20 19:00:00 Test Item Value Reference Range Interpretation Comments Bedside Troponin I (test code = 0.00 0.00-0.06 07375-4) [facility] blood cardiac troponin I measurement (mass/volume) 2021-01-20 19:00:00 Test Item Value Reference Range Interpretation Comments Bedside Troponin I (test code = 0.00 0.00-0.06 87468-9) [facility] blood cardiac troponin I measurement (mass/volume) 2021-01-20 19:00:00 Test Item Value Reference Range Interpretation Comments Bedside Troponin I (test code = 0.00 0.00-0.06 69887-5) [facility] blood cardiac troponin I measurement (mass/volume) 2021-01-20 19:00:00 Test Item Value Reference Range Interpretation Comments Bedside Troponin I (test code = 0.00 32129-3) [facility] blood cardiac troponin I measurement (mass/volume) 2021-01-20 19:00:00 Test Item Value Reference Range Interpretation Comments Bedside Troponin I (test code = 0.00 05927-2) [facility] blood cardiac troponin I measurement (mass/volume)2021-01-20 19:00:00 Test Item Value Reference Range Interpretation Comments Bedside Troponin I (test code = 0.00 08885-7) [facility] blood cardiac troponin I measurement (mass/volume) 2021-01-20 19:00:00 Test Item Value Reference Range Interpretation Comments Bedside Troponin I (test code = 0.00 06595-6) [facility] [id number] 22:25:[address] [facility] : 2000 [facility] [place], [place] [address]KUWZGAOCNW IMAGING REPORTPatient Name: SANTI ELIZABETH CDate of Service: [id number]: 20 Sex: M Order #: [id number] Room: QERDOB: 2000 X-Ray Number: [id number] Record Number: [id number] Hospital Number: [id number] Physician: Esdras SHAH Physician: SHAUN SHAHPROCEDURE: CT THORAX W/O CONTINDICATIONS: Dx: SOBorder sts: SOBpt complains of SOB x 4 days hx of HTNpsv:KLLCT Chest without IV ContrastAxial computed tomography images of the chest without IV contrast.COMPARISON: CR - CHEST 1 VIEW PORTABLE - 01/16/2021 02:13 AM CDTCT - ABDOMEN ABDPEL_1 (ADULT) - 11/04/2018 10:37 PM CDTFINDINGS:The lungs appear essentially clear. No pulmonary mass.No pneumothorax evident. No pleural effusions.No cardiomegaly. No significant pericardial effusion.No lymphadenopathy is evident.No focal osseous abnormality or acute fracture.The visualized upper abdominal solid organs are u nremarkable.IMPRESSION:No acute intrathoracic pathology. The finding of subtle pneumonitis versussubsegmental atelectasis on contemporaneous chest x-ray likely reflectsmotion artifact during x-ray acquisition.This document has been electronically signed by: Lavelle Marie MD 01/16/2021 22:24:32Legally authenticated by DIANA MALIK 2021-01-16 21:43:[id number] 06:34:00 Test Item Value Reference Range Interpretation Comments WBC (test code = 8.9 K/UL 3.5-10.9 WBC) RBC (test code = 4.98 M/UL 4.3-5.7 RBC) HGB (test code = 14.6 G/DL 13.0-17.9 HGB) HCT (test code = 43.7 % 38-52 HCT) MCV (test code = 87.8 FL 80-98 MCV) MCH (test code = 29.3 PG 28-32 MCH) MCHC (test code = 33.4 G/DL 32.5-36.5 MCHC) RDW (test code = 11.6 % 11.5-14.5 RDW) PLT (test code = 359 K/UL 150-450 PLT) MPV (test code = 9.8 FL 7.4-10.4 MPV) MANDIFF (test code = NO MANDIFF) SCAN (test code = NO SCAN) NEUT% (test code = 52.1 % 40-75 NEUT%) LYMPH% (test code = 36.0 % 24-44 LYMPH%) MONO% (test code = 7.8 % 0-13 MONO%) EOS% (test code = 3.3 % 0-4 EOS%) BASO % (test code = 0.5 % 0-2 BASO%) IG (test code = IG) 0 % 0-1 IG% (test code = 0.3 % 0-1 IG% = Metam yelocytes, IG%) Myelocytes, and Promyelocytes. (Immature neutr ophils not including " bands".) > 3% IG indic ates risk of sepsis NRBC% (test code = 0 /100 WBC NRBC%) ABS NEUT (test code 4.6 K/UL 1.2-7.2 = NEUT) INFLUENZA [id number] 04:49:00 Test Item Value Reference Range Interpretation Comments FLU A (test code = FLU A) NEGATIVE NEGATIVE FLU B (test code = FLU B) NEGATIVE NEGATIVE FLU INTERNAL POSITIVE CNTRL (test PASS PASS code = FLU IPC) INFLUENZA LOT # (test code = 7342204 FLULOT) INFLUENZA EXPIRATION DATE (test 09-04-2022 code = FLUEXP) COVID SYMPTOMATIC ER [id number] 04:10:00 Test Item Value Reference Range Interpretation Comments CORONAVIRUS (COVID-19)BY PCR (test NEGATIVE code = [id number]) ISTAT CHEM [id number] 04:00:00 Test Item Value Reference Range Interpretation Comments ISTATNA (test code = 141 MMOL/L 137-145 ISTATNA) ISTATK (test code = 4.2 MMOL/L 3.6-5.0 ISTATK) ISTATCL (test code = 102 MMOL/L 98-107 ISTATCL) ISTIONCA (test code = 1.25 MMOL/L 1.12-1.32 ISTIONCA) ISTCO2 (test code = 26 MMOL/L 22-30 ISTCO2) ISTATGLU (test code = 96 MG/DL 65-110 ISTATGLU) ISTATBUN (test code = 8.0 MG/DL 7.0-20.0 ISTATBUN) ISTCREA (test code = 0.8 MG/DL 0.7-1.5 ISTCREA) ISTATHCT (test code = 44 %PCV 37.0-52.0 ISTATHCT) ISTATHGB (test code = 15.0 G/DL 12.0-18.0 Notifi ed Nurse/MD of ISTATHGB) results outside of Reference Range s ISTANGAP (test code = 19 MMOL/L Notifi ed Nurse/MD of ISTANGAP) results outside of Reference Range s CHEST 1 VIEW [id number] 02:54:[address] [facility] [facility] : 2000 [facility] [place], [place] [id number] IMAGING REPORTPatient Name: SANTI ELIZABETH CDate of Service: [id number]: 20 Sex: M Order #: [id number] Room: ERSDOB: 2000 X-Ray Number: [id number] Record Number: [id number] Hospital Number: [id number] Physician: SHAUN SHAHOrdering Physician: SHAUN SHAHPROCEDURE: CHEST 1 VIEW PORTABLEINDICATIONS: PSV/HDBDX: Nausea, vomiting, covid exposureorder sts:congestionPt c/o: Nausea, vomiting, cough, SOB, chest congestion x 1 weekafter Covid exposureCR Chest1 radiographic view(s)COMPARISON: CT - ABDOMEN ABDPEL_1 (ADULT) - 11/04/2018 10:37 PM CDTFINDINGS:Subtle ground- glass intrapulmonary opacification centered within thebilateral (right more evident than left) lower lobe airspaces. Incidentalbenign calcified lung parenchymal granulomata.No evidence of pleural effusion or pneumothorax.Cardiac size and mediastinal contours within normal limits.No acute displaced fracture or aggressive appearing osseous lesion.IMPRESSION:Subtle pneumonitis versus subsegmental atelectasis as described.This document has been electronically signed by: Lavelle Marie MD 01/16/2021 02:53:47Legally authenticated by DIANA MALIK 2021-01-16 01:42:00WHOLE BLOOD [id number] 01:10:00 Test Item Value Reference Range Interpretation Comments WHOLE BLOOD GLUCOSE 122 MG/DL 70-99 Fastin g glucose (test code = POC GLU) normal <100 MG/DL- [facility] recommend ation ANKLE 3 [id number] 11:08:[address] [facility] : 2000 Sex: M[address] [id number] IMAGING REPORTPatient Name: SANTI ELIZABETH CDate of Service: [id number]: 20 Sex: M Order #: [id number] Room: ERSDOB: 2000 X-Ray Number: [id number] Record Number: [id number] Hospital Number: [id number] Physician: FAY RUBI -Ordering Physician: PONCE MARCELO ANKLE 3 VIEWS 11/15/2020 10:36 AMHistory: pain with walkingComparisons: None Available.FINDINGS:There is no acute fracture or dislocation.There are no suspicious lytic or blastic bone lesions.There are no definite osseous erosions or bony destruction detected.There is no radiopaque foreign body.There is no soft tissue gas identified.IMPRESSION:No acute bony abnormality is identified.Electronically Signed By: Edgardo Ram M.D., 11/15/2020 11:05 AMLegally authenticated by DARREL HODGES 2020-11-15 11:05:57PATHOLOGY REPORT 2020-01-21 13:34:00TISSUE CONSULTATION REPORTBAPTIST TEXAS CHILDREN'S HOSPITALDEPARTMENT OF PATHOLOGYP.[address] [place] [address] ROBYASMIN COTE M.D.ROBERT L. HUTTON, M.D.CHARLES E. BURNS, M.D. ____Patient: SANTI ELIZABETH 2000 20 MRoom:Hosp#: [id number] Ordering Physician: Luther GIRARD Rec.: 01/20/2020Date of Proc.: 01/20/2020Lab No.: [id number] Clinical History:Abdominal pain, hematemesis and change in bowel habitsFINAL ANATOMIC DIAGNOSIS:A. DUODENUM, SECOND SEGMENT, BIOPSY:-BENIGN DUODENAL MUCOSA WITH NORMAL VILLOUS ARCHITECTURE.-NEGATIVE FOR PARASITIC ORGANISMS, DYSPLASIA OR MALIGNANCY.B. DUODENAL BULB, BIOPSY:-BENIGN DUODENAL MUCOSA WITH NORMAL VILLOUS ARCHITECTURE.-NEGATIVE FOR PARASITIC ORGANISMS, DYSPLASIA OR MALIGNANCY.C. GASTRIC ANTRUM, BIOPSY:-MILD REACTIVE GASTROPATHY.- NEGATIVE FOR HELICOBACTER FORMS BY GARETT STAIN.-NEGATIVE FOR INTESTINAL METAPLASIA BY ALCIAN BLUE/PAS STAIN.-NEGATIVE FOR DYSPLASIA OR MALIGNANCY.D. GAS TRIC BODY, BIOPSY:-OXYNTIC-TYPE GASTRIC MUCOSA WITH NO HISTOPATHOLOGIC FINDINGS.-NEGATIVE FOR HELICOBACTER FORMS BY GARETT STAIN.-NEGATIVE FOR INTESTINAL METAPLASIA BY ALCIAN BLUE/PAS STAIN.-NEGATIVE FOR DYSPLASIA OR MALIGNANCY.E. DISTAL ESOPHAGUS, BIOPSY:-BENIGN SQUAMOUS MUCOSA WITH IRRITANT RELATEDCHANGE, INCLUDING UPTOTWENTY INTRAEPITHELIAL EOSINOPHILS PER HIGH-POWER FIELD.-NEGATIVE FOR INTESTINAL METAPLASIA BY ALCIAN BLUE/PAS STAIN.F. TERMINAL ILEUM, BIOPSY:-BENIGN SMALL BOWEL MUCOSA WITH PROMINENT LYMPHOID AGGREGATES.- NEGATIVE FOR GRANULOMAS, DYSPLASIA OR MALIGNANCY.G. CECUM, BIOPSY:-BENIGN COLON MUCOSA WITH MILD EDEMA.-NEGATIVE FOR MICROSCOPIC, ACTIVE OR CHRONIC COLITIS.H. 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 No increase in intraepithelial lymphocytes is seen.Abilio s glands increase in number towards the duodenal bulb.The gastric antrum is notable for a slight increase in thetortuosity of the crypts with no significant lamina propriainflammation, some smooth muscle splaying in between the foveolae isalso seen.The gastric body biopsy is essentially normal.The distal esophageal biopsy demonstrates increased squamous cellthickness with spongiosis and increased intraepithelial lymphocytesand eosinophils with upto twenty per high- power field seen. Nosignificant neutrophil component is present.The terminal ileum biopsy demonstrates a single large lymphoidaggregate in the lamina propria with the villi appearing normal. Nogranulomas are seen.The cecal biopsy demonstrates edema with some possible increase inthe number of crypt's mitotic figures; however, no ringed mitosesare seen.The rectal biopsy demonstrates a very rare intraepithelialneutrophil with a single missing crypt replaced by a loosely-formedgranuloma.There is no evidence of dysplasia or malignancy in any of thebiopsies studied.GROSS APPEARANCE:A. Specimen A is labeled "second segment duodenum." Received informalin is a 0.4 x 0.2 x 0.2 cm peachtan mucosal fragment. ET oneblock. wraps.B. Specimen B is labeled "duodenal bulb." Received in formalin bismark 0.4 x 0.4 x 0.2 cm peach luis mucosal fragment. ET one block wraps.C. Specimen C is labeled"gastric antrum." Received in formalin bismark 0.3 x 0.3 x 0.2 cm luis mucosal fragment, ET one block, wraps.D. Specimen D is labeled "gastric body." Received in formalin is a0.4 x 0.3 x 0.2 cm peach luis m ucosal fragment, ET one block, wraps.E. Specimen E is labeled "distal esophagus." Received in formalinare two white to luis mucosal fragments measuring 0.5 x 0.3 x 0.1 cm,ET one block, wraps.F. Specimen F is labeled "terminal ileum." Received in formalin bismark 0.3 x 0.3 x 0.2 cm yellow luis mucosal fragment, ET one block,wraps.G. Specimen G is labeled "cecum." Received in formalin is a 0.3 x0.3 x 0.2 cm yellow luis mucosal fragment, ET one block, wraps.H. Specimen H is labeled "rectum." Received in formalin is a 0.3 x0.2 x 0.2 cm peach luis mucosal fragment, ET one block, wraps.PATHOLOGIST: Rose Mirza Electronically Signed: 01/21/2020COVID SYMPTOMATIC ER ONLY 2020-01-20 10:22:00 Test Item Value Reference Range Interpretation Comments CORONAVIRUS (COVID-19)BY NEGATIVE RES ULTS VERIFIED.C'd PCR (test code = TO ANK33IAS) Wilmar Ruiz RN/ 1022/S L URINE DRUG [id number] 23:45:00 Test Item Value Reference Range Interpretation Comments AMPHET (test code = NEGATIVE NEGATIVE This is an unconfirmed BAMP) screening. Res ult are to be used for medical purposes (treat ment) only. Not inte nded for non-medical pur poses. Cut-off concent ration for a positive result for each drug: Amphetamine - 1 ,000 ng/ml Barbitura te - 200 ng/ml Benzodiaz epine - 200 ng/ml Canna binoids - 50 ng/ml Coca ine - 300 ng/ml Opiat es - 300 ng/ml PCP - 25 ng/ml BARBITURATES (test NEGATIVE NEGATIVE code = BBAR) BENZO (test code = NEGATIVE NEGATIVE BBENZ) CANNABS (test code = NEGATIVE NEGATIVE BCANN) COCAINE (test code = NEGATIVE NEGATIVE BCOC) OPIATES (test code = NEGATIVE NEGATIVE BOPI) PCP (test code = NEGATIVE NEGATIVE BMTPCP) [id number] 21:57:00 Test Item Value Reference Range Interpretation Comments GLUCOSE (test code = URGLU) NEGATIVE MG/DL NEG-100 BILIRUBN (test code = URBILI) NEGATIVE NEGATIVE KETONE (test code = URKET) TRACE MG/DL NEGATIVE BLOOD (test code = URBLD) NEGATIVE UR PH (test code = URPH) 8.0 5.0-7.5 H PROTEIN (test code = URPRO) NEGATIVE MG/DL NEGATIVE NITRITES (test code = URNIT) NEGATIVE NEGATIVE UROBILINGEN (test code = 1.0 EU/DL 0.2-1.0 URURO) LEUKOCYT (test code = URLEU) TRACE NEGATIVE UA COLOR (test code = UA YELLOW YELLOW COLOR) CLARITY (test code = CLARITY) CLEAR CLEAR SP GRAV (test code = URSPGRAV) 1.022 1.000-1.025 UAMICRO (test code = UAMICRO) YES RBC (test code = URRBC) 1 /HPF 0-2 CASTS (test code = CAST) 63 /LPF 0-3 H UR EPI (test code = EPI) 45 /LPF [id number] 21:08:00 Test Item Value Reference Range Interpretation Comments LIPASE (test code = LIPA) 53 U/L 23-300 LIVER [id number] 21:08:00 Test Item Value Reference Range Interpretation Comments TOTPROT (test code = TOTPROT) 7.5 G/DL 6.3-8.2 ALBUMIN (test code = ALBSERUM) 4.9 G/DL 3.5-5.0 BILITOT (test code = BILITOT) 0.7 MG/DL 0.2-1.3 BILIDIR (test code = BILIDIR) 0.2 MG/DL 0.0-0.4 AST (test code = AST) 19 U/L 15-46 PHOSALK (test code = PHOSALK) 73 U/L 38-126 ALTV (test code = ALTV) 13 U/L 13-69 [id number] 20:39:00 Test Item Value Reference Range Interpretation Comments WBC (test code = 10.3 K/UL 3.5-10.9 WBC) RBC (test code = 5.69 M/UL 4.3-5.7 RBC) HGB (test code = 16.6 G/DL 13.0-17.9 HGB) HCT (test code = 47.6 % 38-52 HCT) MCV (test code = 83.7 FL 80-98 MCV) MCH (test code = 29.2 PG 28-32 MCH) MCHC (test code = 34.9 G/DL 32.5-36.5 MCHC) RDW (test code = 11.4 % 11.5-14.5 L RDW) PLT (test code = 415 K/UL 150-450 PLT) MPV (test code = 9.8 FL 7.4-10.4 MPV) MANDIFF (test code = NO MANDIFF) SCAN (test code = NO SCAN) NEUT% (test code = 67.1 % 40-75 NEUT%) LYMPH% (test code = 23.9 % 24-44 L LYMPH%) MONO% (test code = 7.4 % 0-13 MONO%) EOS% (test code = 1.1 % 0-4 EOS%) BASO % (test code = 0.3 % 0-2 BASO%) IG (test code = IG) 0 % 0-1 IG% (test code = 0.2 % 0-1 IG% = Metam yelocytes, IG%) Myelocytes, and Promyelocytes. (Immature neutr ophils not including " bands".) > 3% IG indic ates risk of sepsis NRBC% (test code = 0 /100 WBC NRBC%) ABS NEUT (test code 6.9 K/UL 1.2-7.2 = NEUT) ISTAT [id number] [id number] 20:30:00 Test Item Value Reference Range Interpretation Comments ISTATNA (test code = 142 MMOL/L 137-145 ISTATNA) ISTATK (test code = 3.9 MMOL/L 3.6-5.0 ISTATK) ISTATCL (test code = 102 MMOL/L 98-107 ISTATCL) ISTIONCA (test code = 1.25 MMOL/L 1.12-1.32 ISTIONCA) ISTCO2 (test code = 24 MMOL/L 22-30 ISTCO2) ISTATGLU (test code = 94 MG/DL 65-110 ISTATGLU) ISTATBUN (test code = 8.0 MG/DL 7.0-20.0 ISTATBUN) ISTCREA (test code = 0.8 MG/DL 0.7-1.5 ISTCREA) ISTATHCT (test code = 49 %PCV 37.0-52.0 ISTATHCT) ISTATHGB (test code = 16.7 G/DL 12.0-18.0 Notifi ed Nurse/MD of ISTATHGB) results outside of Reference Range s ISTANGAP (test code = 21 MMOL/L Notifi ed Nurse/MD of [facility]) results outside of Reference Range s Urinalysis specimen collection [id number] 20:40:00 Test Item Value Reference Range Interpretation Comments Urine Source (test code = 18466-3) URINE [facility] HealthColor of Urine by [id number] 20:40:00 Test Item Value Reference Range Interpretation Comments Urine Color (test code = 93408-8) Lt Yellow Yel-Devi * [facility] HealthUrine clarity [id number] 20:40:00 Test Item Value Reference Range Interpretation Comments Urine Appearance (test code = 79815-6) Clear Clear * [facility] HealthUrine pH measurement by automated test [id number] 20:40:00 Test Item Value Reference Range Interpretation Comments Urine pH (test code = 49978-1) 6.5 5.0-8.0 [facility] HealthSpecific gravity of Urine by Automated test [id number] 20:40:00 Test Item Value Reference Range Interpretation Comments Urine Specific [place] (test code = 1.029 1.005-1.030 37004-4) [facility] HealthUrine protein measurement by automated test strip (mass/volume) 2019-12-25 20:40:00 Test Item Value Reference Range Interpretation Comments Urine Protein (test code = 63625-6) 10 mg/dL Negative * [facility] HealthUrine glucose measurement by automated test strip (mass/volume) 2019-12-25 20:40:00 Test Item Value Reference Range Interpretation Comments Urine Glucose (UA) (test code Negative mg/dL Negative * = 24401-6) [facility] HealthUrine ketones measurement by automated test strip (mass/volume) 2019-12-25 20:40:00 Test Item Value Reference Range Interpretation Comments Urine Ketones (test code = 42229-8) 10 mg/dL Negative * [facility] HealthUrine erythrocytes count by automated test strip (number/volume) 2019-12-25 20:40:00 Test Item Value Reference Range Interpretation Comments Urine Occult Blood (test code = Negative Negative * 49584-5) [facility] HealthUrine nitrite detection by automated test [id number] 20:40:00 Test Item Value Reference Range Interpretation Comments Urine Nitrite (test code = 44161-7) Negative Negative [facility] HealthUrine total bilirubin measurement by automated test strip (mass/volume)2019-12-25 20:40:00 Test Item Value Reference Range Interpretation Comments Urine Bilirubin (test code = Negative mg/dL Negative 52435-0) [facility] HealthUrine urobilinogen measurement by automated test strip (mass/volume)2019-12-25 20:40:00 Test Item Value Reference Range Interpretation Comments Urine Urobilinogen (test code Negative mg/dL 0.0-1.0 = 06758-7) [facility] HealthUrine leukocytes count by automated test strip (number/volume) 2019-12-25 20:40:00 Test Item Value Reference Range Interpretation Comments Urine Leukocyte Esterase Negative {Paul}/uL Negative (test code = 78567-4) [facility] HealthMicroscopic examination of [id number] 20:40:00 Test Item Value Reference Range Interpretation Comments Microscopic Urinalysis (T) (test code = ----- 30937-5) [facility] HealthUrine sediment erythrocyte count by microscopy (number/high power field)2019-12-25 20:40:00 Test Item Value Reference Range Interpretation Comments Urine RBC (test code = 18157-8) 0-2 /[HPF] 0-2 [facility] HealthUrine sediment leukocyte count by microscopy (number/high power field)2019-12-25 20:40:00 Test Item Value Reference Range Interpretation Comments Urine WBC (test code = 5821-4) 0-5 /[HPF] 0-5 [facility] HealthUrine sediment epithelial cell count by microscopy (number/high power field)2019-12-25 20:40:00 Test Item Value Reference Range Interpretation Comments Urine Epithelial Cells (test None Seen /[HPF] Few code = 5787-7) [facility] HealthUrine sediment crystal count by microscopy (number/high power field)2019-12-25 20:40:00 Test Item Value Reference Range Interpretation Comments Urine Crystals (test code = None Seen /[HPF] None * 41128-5) [facility] HealthUrine sediment bacteria count by microscopy (number/high power field)2019-12-25 20:40:00 Test Item Value Reference Range Interpretation Comments Urine Bacteria (test code = Few /[HPF] None 5769-5) [facility] HealthUrine sediment casts count by microscopy (number/low power field) 2019-12-25 20:40:00 Test Item Value Reference Range Interpretation Comments Urine Casts (test code = Present /[LPF] None * 9842-6) [facility] HealthUrine sediment hyaline cast count by microscopy (number/low power field)2019-12-25 20:40:00 Test Item Value Reference Range Interpretation Comments Urine Hyaline Casts (test code = 0-1 /[LPF] 0-1 5796-8) [facility] HealthYeast detection in urine sediment by light [id number] 20:40:00 Test Item Value Reference Range Interpretation Comments Urine Yeast (test code = None Seen /[HPF] None 21918-4) [facility] comment 20:40:00 Test Item Value Reference Range Interpretation Comments Urinalysis Comment (test * See_Comment [A utomated message] The code = 8262-8) system which generated this result tra nsmitted reference range : *. The reference range was not used to interpr et this result as normal/abnormal . [facility] comment 20:40:00 Test Item Value Reference Range Interpretation Comments Urine Culture Indicated (test code To follow = 8264-4) [facility] HealthUrinalysis specimen collection [id number] 20:40:00 Test Item Value Reference Range Interpretation Comments Urine Source (test code = 46335-9) URINE [facility] Urine by [id number] 20:40:00 Test Item Value Reference Range Interpretation Comments Urine Color (test code = 92027-0) Lt Yellow [facility] ElizabethUrine clarity [id number] 20:40:00 Test Item Value Reference Range Interpretation Comments Urine Appearance (test code = 67444-2) Clear [facility] ElizabethUrine pH measurement by automated test [id number] 20:40:00 Test Item Value Reference Range Interpretation Comments Urine pH (test code = 15414-2) 6.[address] ElizabethSpecific gravity of Urine by Automated test strip 2019-12-25 20:40:00 Test Item Value Reference Range Interpretation Comments Urine Specific [place] (test code = 1.029 02038-9) [facility] ElizabethUrine protein measurement by automated test strip (mass/volume)2019-12-25 20:40:00 Test Item Value Reference Range Interpretation Comments Urine Protein (test code = 43873-8) 10 mg/dL [facility]Urine glucose measurement by automated test strip (mass/volume)2019-12-25 20:40:00 Test Item Value Reference Range Interpretation Comments Urine Glucose (UA) (test code Negative mg/dL = 71639-5) [facility] ElijahairabethUrine ketones measurement by automated test strip (mass/volume)2019-12-25 20:40:00 Test Item Value Reference Range Interpretation Comments Urine Ketones (test code = 05392-9) 10 mg/dL [facility] AnabelabethUrine erythrocytes count by automated test strip (number/volume)2019-12-25 20:40:00 Test Item Value Reference Range Interpretation Comments Urine Occult Blood (test code = Negative 12854-4) [facility] StevenUrine nitrite detection by automated test [id number] 20:40:00 Test Item Value Reference Range Interpretation Comments Urine Nitrite (test code = 05656-3) Negative [facility] total bilirubin measurement by automated test strip (mass/volume)2019-12-25 20:40:00 Test Item Value Reference Range Interpretation Comments Urine Bilirubin (test code = Negative mg/dL 35465-7) [facility] StevenUrine urobilinogen measurement by automated test strip (mass/volume)2019-12-25 20:40:00 Test Item Value Reference Range Interpretation Comments Urine Urobilinogen (test code Negative mg/dL = 86721-7) [facility] StevenUrine leukocytes count by automated test strip (number/volume)2019-12-25 20:40:00 Test Item Value Reference Range Interpretation Comments Urine Leukocyte Esterase Negative {Paul}/uL (test code = 93073-7) [facility] AnabelabethMicroscopic examination of [id number] 20:40:00 Test Item Value Reference Range Interpretation Comments Microscopic Urinalysis (T) (test code = ----- 76066-1) [facility] AnabelabethUrine sediment erythrocyte count by microscopy (number/high power field)2019-12-25 20:40:00 Test Item Value Reference Range Interpretation Comments Urine RBC (test code = 57386-5) 0-2 /[HPF] [facility] ElizabethUrine sediment leukocyte count by microscopy (number/high power field)2019-12-25 20:40:00 Test Item Value Reference Range Interpretation Comments Urine WBC (test code = 5821-4) 0-5 /[HPF] [facility] ElizabethUrine sediment epithelial cell count by microscopy (number/high power field)2019-12-25 20:40:00 Test Item Value Reference Range Interpretation Comments Urine Epithelial Cells (test None Seen /[HPF] code = 5787-7) [facility] ElizabethUrine sediment crystal count by microscopy (number/high power field)2019-12-25 20:40:00 Test Item Value Reference Range Interpretation Comments Urine Crystals (test code = None Seen /[HPF] 14590-9) [facility] ElizabethUrine sediment bacteria count by microscopy (number/high power field)2019-12-25 20:40:00 Test Item Value Reference Range Interpretation Comments Urine Bacteria (test code = Few /[HPF] 5769-5) [facility] ElifatemehUrine sediment casts count by microscopy (number/low power field)2019-12-25 20:40:00 Test Item Value Reference Range Interpretation Comments Urine Casts (test code = Present /[LPF] 9842-6) [facility] ElijahairabesofiaUrine sediment hyaline cast count by microscopy (number/low power field)2019-12-25 20:40:00 Test Item Value Reference Range Interpretation Comments Urine Hyaline Casts (test code = 0-1 /[LPF] 5796-8) [facility] ElijahairabethYeast detection in urine sediment by light microscopy 2019-12-25 20:40:00 Test Item Value Reference Range Interpretation Comments Urine Yeast (test code = None Seen /[HPF] 99319-3) [facility] comment 20:40:00 Test Item Value Reference Range Interpretation Comments Urinalysis Comment (test code = 8262-8) * [facility] comment 20:40:00 Test Item Value Reference Range Interpretation Comments Urine Culture Indicated (test code To follow = 8264-4) [facility] DoriszabesofiaAutomated blood platelet count (count/volume)2019-12-25 19:50:00 Test Item Value Reference Range Interpretation Comments Platelet Count (test code = 421 10*3/uL 150-450 777-3) [facility] HealthAutomated blood platelet mean volume [id number] 19:50:00 Test Item Value Reference Range Interpretation Comments Mean Platelet Volume (test code = 9.7 5.7-10.7 15683-6) [facility] HealthAutomated blood neutrophil count as percentage of total tevjoosvvl0682-89-17 19:50:00 Test Item Value Reference Range Interpretation Comments Neutrophils (%) (Auto) (test code = 83 % 47-75 770-8) [facility] HealthAutomated blood immature granulocyte count as percentage of total wqqsfcjiam9374-93-85 19:50:00 Test Item Value Reference Range Interpretation Comments Immature Granulocyte % (Auto) (test 0 % 0-0 code = 81550-8) [facility] HealthAutomated blood lymphocyte count as percentage of total kvydjjpuzf7803-08-76 19:50:00 Test Item Value Reference Range Interpretation Comments Lymphocytes (%) (Auto) (test code = 13 % 25-44 736-9) [facility] HealthAutomated blood monocyte count as percentage of total leukocytes 2019-12-25 19:50:00 Test Item Value Reference Range Interpretation Comments Monocytes (%) (Auto) (test code = 4 % 3-10 5905-5) [facility] HealthAutomated blood eosinophil count as percentage of total rzxddfzlgx5528-95-84 19:50:00 Test Item Value Reference Range Interpretation Comments Eosinophils (%) (Auto) (test code = 0 % 0-7 713-8) [facility] HealthAutomated blood basophil count as percentage of total leukocytes 2019-12-25 19:50:00 Test Item Value Reference Range Interpretation Comments Basophils (%) (Auto) (test code = 0 % 0-1 706-2) [facility] HealthAutomated blood nucleated erythrocyte count as percentage of total yrzfkmviqe2278-42-39 19:50:00 Test Item Value Reference Range Interpretation Comments Nucleated Red Blood Cells % (test code 0.0 % 0-0.2 = 26037-1) [facility] HealthAutomated blood neutrophil count (number/volume)2019-12-25 19:50:00 Test Item Value Reference Range Interpretation Comments Neutrophils # (Auto) (test code = 6.7 10*3/uL 1.3-6.7 751-8) [facility] HealthAutomated blood immature granulocyte count as percentage of total wkhwvxdxnd8011-22-68 19:50:00 Test Item Value Reference Range Interpretation Comments Immature Granulocyte # (Auto) 0.0 10*3/uL 0.0-0.0 (test code = 45018-4) [facility] HealthAutomated blood lymphocyte count (number/volume)2019-12-25 19:50:00 Test Item Value Reference Range Interpretation Comments Lymphocytes # (Auto) (test code = 1.0 10*3/uL 1.4-4.1 731-0) [facility]sBlood monocytes automated count (number/volume)2019-12-25 19:50:00 Test Item Value Reference Range Interpretation Comments Monocytes # (Auto) (test code = 0.4 10*3/uL 0-1.3 742-7) [facility] HealthAutomated blood eosinophil [id number] 19:50:00 Test Item Value Reference Range Interpretation Comments Eosinophils # (Auto) (test code = 0.0 10*3/uL 0-0.8 711-2) [facility] HealthAutomated blood basophil count (number/volume)2019-12-25 19:50:00 Test Item Value Reference Range Interpretation Comments Basophils # (Auto) (test code = 0.0 10*3/uL 0-0.1 704-7) [facility] HealthAutomated blood nucleated erythrocyte count (count/volume) 2019-12-25 19:50:00 Test Item Value Reference Range Interpretation Comments Nucleated Red Blood Cells # 0.00 10*3/uL 0-0.01 (test code = 771-6) [facility] comment [id number] 19:50:00 Test Item Value Reference Range Interpretation Comments Manual Differential (test code = Not Ind 8265-1) [facility] HealthSerum or plasma sodium measurement (moles/volume)2019-12-25 19:50:00 Test Item Value Reference Range Interpretation Comments Sodium Level (test code = 2951-2) 139 mmol/L 136-145 [facility]um or plasma potassium measurement (moles/volume)2019-12-25 19:50:00 Test Item Value Reference Range Interpretation Comments Potassium Level (test code = 4.9 mmol/L 3.5-5.1 2823-3) [facility]Serum or plasma chloride measurement (moles/volume)2019-12-25 19:50:00 Test Item Value Reference Range Interpretation Comments Chloride Level (test code = 106 mmol/L 98-107 2075-0) [facility] HealthSerum or plasma total carbon dioxide measurement (moles/volume) 2019-12-25 19:50:00 Test Item Value Reference Range Interpretation Comments Carbon Dioxide Level (test code = 24 mmol/L 2027-9) [facility]Serum or plasma anion gap determination (moles/volume)2019-12-25 19:50:00 Test Item Value Reference Range Interpretation Comments Anion Gap (test code = 97515-4) 14 8-18 [facility]Serum or plasma urea nitrogen measurement (mass/volume)2019-12-25 19:50:00 Test Item Value Reference Range Interpretation Comments Blood Urea Nitrogen (test code = 11 mg/dL 02-23 3094-0) [facility]um or plasma creatinine measurement (mass/volume)2019-12-25 19:50:00 Test Item Value Reference Range Interpretation Comments Creatinine (test code = 2160-0) 1.0 mg/dL 0.7-1.3 [facility]GFR estimate [id number] 19:50:00 Test Item Value Reference Range Interpretation Comments Estimat Glomerular Filtration Rate 101 90-142 (test code = 16642-4) [facility]Serum or plasma glucose measurement (mass/volume)2019-12-25 19:50:00 Test Item Value Reference Range Interpretation Comments Glucose Level (test code = 2345-7) 132 mg/dL 60-100 [facility]Serum or plasma calcium measurement (mass/volume)2019-12-25 19:50:00 Test Item Value Reference Range Interpretation Comments Calcium Level (test code = 10.4 mg/dL 8.4-10.2 95423-0) [facility]um or plasma total bilirubin measurement (mass/volume) 2019-12-25 19:50:00 Test Item Value Reference Range Interpretation Comments Total Bilirubin (test code = 0.8 mg/dL 0.2-1.2 1975-2) [facility]Serum or plasma aspartate aminotransferase measurement (enzymatic activity/volume)2019-12-25 19:50:00 Test Item Value Reference Range Interpretation Comments Aspartate Amino Transf (AST/SGOT) 15 U/L 5-34 (test code = 1920-8) [facility] HealthSerum or plasma alanine aminotransferase measurement (enzymatic activity/volume)2019-12-25 19:50:00 Test Item Value Reference Range Interpretation Comments Alanine Aminotransferase (ALT/SGPT) 11 U/L 0-55 (test code = 1742-6) [facility]um or plasma protein measurement (mass/volume)2019-12-25 19:50:00 Test Item Value Reference Range Interpretation Comments Total Protein (test code = 2885-2) 7.8 g/dL 6.4-8.3 [facility] HealthSerum or plasma albumin measurement (mass/volume)2019-12-25 19:50:00 Test Item Value Reference Range Interpretation Comments Albumin (test code = 1751-7) 5.1 g/dL 3.5-5.0 [facility]um or plasma alkaline phosphatase measurement (enzymatic activity/volume)2019-12-25 19:50:00 Test Item Value Reference Range Interpretation Comments Alkaline Phosphatase (test code = 84 U/L 0-749 6768-6) [facility] lipase measurement (enzymatic activity/volume) 2019-12-25 19:50:00 Test Item Value Reference Range Interpretation Comments Lipase (test code = 3040-3) 12 U/L 8-78 [facility] ser/[id number] 19:50:00 Test Item Value Reference Range Interpretation Comments Total Creatine Kinase (test code = 93 U/L 30-200 2157-6) [facility] plasma creatine kinase MB measurement (mass/volume) 2019-12-25 19:50:00 Test Item Value Reference Range Interpretation Comments Creatine Kinase MB (test code = 1.02 ng/mL 0.00-7.20 46590-7) [facility] plasma creatine kinase MB (CKMB)/total creatine kinase (CK) ratio by tlyrejqwoyy8345-97-09 19:50:00 Test Item Value Reference Range Interpretation Comments Creatine Kinase MB Relative Index (test 1.1 code = 68424-4) [facility]sReview and interpretation laboratory results (nominal result) 2019-12-25 19:50:00 Test Item Value Reference Range Interpretation Comments Creatine Kinase Interpretation (test NEGATIVE NEGATIVE code = 50448-4) [facility] HealthAutomated blood leukocyte count (number/volume)2019-12-25 19:50:00 Test Item Value Reference Range Interpretation Comments White Blood Count (test code = 8.1 10*3/uL 4.5-11.5 6690-2) [facility] HealthBlood erythrocytes automated count (number/volume)2019-12-25 19:50:00 Test Item Value Reference Range Interpretation Comments Red Blood Count (test code = 5.31 10*6/uL 4.4-6.2 789-8) [facility] HealthBlood hemoglobin measurement (mass/volume)2019-12-25 19:50:00 Test Item Value Reference Range Interpretation Comments Hemoglobin (test code = 718-7) 15.4 g/dL 13.0-17.5 [facility] HealthAutomated blood hematocrit (volume fraction)2019-12-25 19:50:00 Test Item Value Reference Range Interpretation Comments Hematocrit (test code = 4544-3) 44.6 % 39.0-52.5 [facility] HealthAutomated erythrocyte mean corpuscular volume (MCV) measurement 2019-12-25 19:50:00 Test Item Value Reference Range Interpretation Comments Mean Corpuscular Volume (test code = 84 fL 80-94 787-2) [facility] HealthAutomated erythrocyte mean corpuscular hemoglobin (mass per erythrocyte)2019-12-25 19:50:00 Test Item Value Reference Range Interpretation Comments Mean Corpuscular Hemoglobin (test 29.0 pg 27.0-33.0 code = 785-6) [facility] HealthAutomated erythrocyte mean corpuscular hemoglobin concentration measurement (mass/[id number] 19:50:00 Test Item Value Reference Range Interpretation Comments Mean Corpuscular Hemoglobin Concent 34.5 g/dL 33.0-37.0 (test code = 786-4) [facility] HealthAutomated erythrocyte distribution width [id number] 19:50:00 Test Item Value Reference Range Interpretation Comments Red Cell Distribution Width (test code 10.9 % 10.7-14.5 = 788-0) [facility] comment [id number] 19:50:00 Test Item Value Reference Range Interpretation Comments Manual Differential (test code = Not Ind 8265-1) [facility] sodium measurement (moles/volume) 2019-12-25 19:50:00 Test Item Value Reference Range Interpretation Comments Sodium Level (test code = 2951-2) 139 mmol/L [facility]Ser[facility] or plasma potassium measurement (moles/volume) 2019-12-25 19:50:00 Test Item Value Reference Range Interpretation Comments Potassium Level (test code = 4.9 mmol/L 2823-3) [facility] or plasma chloride measurement (moles/volume) 2019-12-25 19:50:00 Test Item Value Reference Range Interpretation Comments Chloride Level (test code = 106 mmol/L 5-0) [facility] or plasma total carbon dioxide measurement (moles/volume)2019-12-25 19:50:00 Test Item Value Reference Range Interpretation Comments Carbon Dioxide Level (test code = 24 mmol/L 2027-9) [facility] or plasma anion gap determination (moles/volume) 2019-12-25 19:50:00 Test Item Value Reference Range Interpretation Comments Anion Gap (test code = 74175-8) [address] ElizabethSerum or plasma urea nitrogen measurement (mass/volume) 2019-12-25 19:50:00 Test Item Value Reference Range Interpretation Comments Blood Urea Nitrogen (test code = 11 mg/dL 3094-0) [facility]um or plasma creatinine measurement (mass/volume) 2019-12-25 19:50:00 Test Item Value Reference Range Interpretation Comments Creatinine (test code = 2160-0) 1.0 mg/dL [facility]GFR estimate [id number] 19:50:00 Test Item Value Reference Range Interpretation Comments Estimat Glomerular Filtration Rate 101 (test code = 30318-5) [facility] ElizabethSerum or plasma glucose measurement (mass/volume) 2019-12-25 19:50:00 Test Item Value Reference Range Interpretation Comments Glucose Level (test code = 2345-7) 132 mg/dL [facility]Serum or plasma calcium measurement (mass/volume) 2019-12-25 19:50:00 Test Item Value Reference Range Interpretation Comments Calcium Level (test code = 10.4 mg/dL 96186-9) [facility] or plasma total bilirubin measurement (mass/volume) 2019-12-25 19:50:00 Test Item Value Reference Range Interpretation Comments Total Bilirubin (test code = 0.8 mg/dL 1974-2) [facility] Hospitalerum or plasma aspartate aminotransferase measurement (enzymatic activity/volume)2019-12-25 19:50:00 Test Item Value Reference Range Interpretation Comments Aspartate Amino Transf (AST/SGOT) 15 U/L (test code = 1920-8) [facility] Hospitalerum or plasma alanine aminotransferase measurement (enzymatic activity/volume)2019-12-25 19:50:00 Test Item Value Reference Range Interpretation Comments Alanine Aminotransferase (ALT/SGPT) 11 U/L (test code = 1742-6) [facility] Hospitalerum or plasma protein measurement (mass/volume) 2019-12-25 19:50:00 Test Item Value Reference Range Interpretation Comments Total Protein (test code = 2885-2) 7.8 g/dL [facility] albumin measurement (mass/volume) 2019-12-25 19:50:00 Test Item Value Reference Range Interpretation Comments Albumin (test code = 1751-7) 5.1 g/dL [facility] Hospitalerum or plasma alkaline phosphatase measurement (enzymatic activity/volume)2019-12-25 19:50:00 Test Item Value Reference Range Interpretation Comments Alkaline Phosphatase (test code = 84 U/L 6768-6) [facility] Orleanser[facility] or plasma lipase measurement (enzymatic activity/volume)2019-12-25 19:50:00 Test Item Value Reference Range Interpretation Comments Lipase (test code = 3040-3) 12 U/L [facility] AlbanyCreatine kinase ser/[id number] 19:50:00 Test Item Value Reference Range Interpretation Comments Total Creatine Kinase (test code = 93 U/L 2157-6) [facility] Orleanserum or plasma creatine kinase MB measurement (mass/volume)2019-12-25 19:50:00 Test Item Value Reference Range Interpretation Comments Creatine Kinase MB (test code = 1.02 ng/mL 73370-4) [facility] Hospitalerum or plasma creatine kinase MB (CKMB)/total creatine kinase (CK) ratio by minekgcxfha8125-15-52 19:50:00 Test Item Value Reference Range Interpretation Comments Creatine Kinase MB Relative Index (test 1.1 code = 01907-2) [facility] HawleythReview and interpretation laboratory results (nominal result)2019-12-25 19:50:00 Test Item Value Reference Range Interpretation Comments Creatine Kinase Interpretation (test NEGATIVE code = 16412-9) [facility]abelabethAutomated blood leukocyte count (number/volume)2019-12-25 19:50:00 Test Item Value Reference Range Interpretation Comments White Blood Count (test code = 8.1 10*3/uL 6690-2) [facility]anneBlood erythrocytes automated count (number/volume) 2019-12-25 19:50:00 Test Item Value Reference Range Interpretation Comments Red Blood Count (test code = 5.31 10*6/uL 789-8) [facility] SteventhBlood hemoglobin measurement (mass/volume)2019-12-25 19:50:00 Test Item Value Reference Range Interpretation Comments Hemoglobin (test code = 718-7) 15.4 g/dL [facility] DoriszabethAutomated blood hematocrit (volume fraction)2019-12-25 19:50:00 Test Item Value Reference Range Interpretation Comments Hematocrit (test code = 4544-3) 44.6 % [facility] JoanneAutomated erythrocyte mean corpuscular volume (MCV) [id number] 19:50:00 Test Item Value Reference Range Interpretation Comments Mean Corpuscular Volume (test code = 84 fL 787-2) [facility] DoriszabethAutomated erythrocyte mean corpuscular hemoglobin (mass per erythrocyte)2019-12-25 19:50:00 Test Item Value Reference Range Interpretation Comments Mean Corpuscular Hemoglobin (test 29.0 pg code = 785-6) [facility] ElizabethAutom[facility] erythrocyte mean corpuscular hemoglobin concentration measurement (mass/[id number] 19:50:00 Test Item Value Reference Range Interpretation Comments Mean Corpuscular Hemoglobin Concent 34.5 g/dL (test code = 786-4) [facility] DoriszabethAutomated erythrocyte distribution width [id number] 19:50:00 Test Item Value Reference Range Interpretation Comments Red Cell Distribution Width (test code 10.9 % = 788-0) [facility]Automated blood platelet count (count/volume)2019-12-25 19:50:00 Test Item Value Reference Range Interpretation Comments Platelet Count (test code = 421 10*3/uL 777-3) [facility]Autom[facility] blood platelet mean volume [id number] 19:50:00 Test Item Value Reference Range Interpretation Comments Mean Platelet Volume (test code = 9.7 97936-6) [facility]Autom[facility] blood neutrophil count as percentage of total cmvcrcuzju3324-91-12 19:50:00 Test Item Value Reference Range Interpretation Comments Neutrophils (%) (Auto) (test code = 83 % 770-8) [facility]Autom[facility] blood immature granulocyte count as percentage of total eozrxedhef2415-24-66 19:50:00 Test Item Value Reference Range Interpretation Comments Immature Granulocyte % (Auto) (test 0 % code = 51308-8) [facility]Autom[facility] blood lymphocyte count as percentage of total ngzmrubpvd3988-21-42 19:50:00 Test Item Value Reference Range Interpretation Comments Lymphocytes (%) (Auto) (test code = 13 % 736-9) [facility]Autom[facility] blood monocyte count as percentage of total efvmtpbjlw6795-05-71 19:50:00 Test Item Value Reference Range Interpretation Comments Monocytes (%) (Auto) (test code = 4 % 5905-5) [facility]Autom[facility] blood eosinophil count as percentage of total agbfloluso0500-95-35 19:50:00 Test Item Value Reference Range Interpretation Comments Eosinophils (%) (Auto) (test code = 0 % 713-8) [facility] blood basophil count as percentage of total jlnglrtflc4288-64-27 19:50:00 Test Item Value Reference Range Interpretation Comments Basophils (%) (Auto) (test code = 0 % 706-2) [facility]Autom[facility] blood nucleated erythrocyte count as percentage of total dbevzfshdi7439-11-04 19:50:00 Test Item Value Reference Range Interpretation Comments Nucleated Red Blood Cells % (test code 0.0 % = 97781-4) [facility] Orleans[facility] blood neutrophil count (number/volume)2019-12-25 19:50:00 Test Item Value Reference Range Interpretation Comments Neutrophils # (Auto) (test code = 6.7 10*3/uL 751-8) [facility] OrleansAutcritical access hospitaled blood immature granulocyte count as percentage of total ewozhydfzs7957-35-49 19:50:00 Test Item Value Reference Range Interpretation Comments Immature Granulocyte # (Auto) 0.0 10*3/uL (test code = 95268-3) [facility] OrleansAutomated blood lymphocyte count (number/volume)2019-12-25 19:50:00 Test Item Value Reference Range Interpretation Comments Lymphocytes # (Auto) (test code = 1.0 10*3/uL 731-0) [facility] monocytes automated count (number/volume)2019-12-25 19:50:00 Test Item Value Reference Range Interpretation Comments Monocytes # (Auto) (test code = 0.4 10*3/uL 742-7) [facility] eosinophil [id number] 19:50:00 Test Item Value Reference Range Interpretation Comments Eosinophils # (Auto) (test code = 0.0 10*3/uL 711-2) [facility] basophil count (number/volume)2019-12-25 19:50:00 Test Item Value Reference Range Interpretation Comments Basophils # (Auto) (test code = 0.0 10*3/uL 704-7) [facility] blood nucleated erythrocyte count (count/volume) 2019-12-25 19:50:00 Test Item Value Reference Range Interpretation Comments Nucleated Red Blood Cells # 0.00 10*3/uL (test code = 771-6) [facility] OrleansHEPATITIS C ANTIBODY [id number] 08:27:00 Test Item Value Reference Range Interpretation Comments SCRN HCV (test code NEGATIVE NEGATIVE Hepatiti s C Antibody test = SCRN HCV) is for screenin g purposes only. All react juan will be confirmed by additional test ing. ER SCREEN FOR HIV 08:27:00 Test Item Value Reference Range Interpretation Comments HIV 1/2 AB (test NEGATIVE NEGATIVE This test i s used for code = SCRN HIV) SCREENING p urposes only. All reactive re sults are prelimenary and confirmation re sults will follow. [id number] 07:35:00 Test Item Value Reference Range Interpretation Comments GLUCOSE (test code = URGLU) NEGATIVE MG/DL NEG-100 BILIRUBN (test code = URBILI) NEGATIVE NEGATIVE KETONE (test code = URKET) 40 MG/DL NEGATIVE BLOOD (test code = URBLD) NEGATIVE UR PH (test code = URPH) 6.5 5.0-7.5 PROTEIN (test code = URPRO) NEGATIVE MG/DL NEGATIVE NITRITES (test code = URNIT) NEGATIVE NEGATIVE UROBILINGEN (test code = 1.0 EU/DL 0.2-1.0 URURO) LEUKOCYT (test code = URLEU) NEGATIVE NEGATIVE UA COLOR (test code = UA DARK YELLOW YELLOW COLOR) CLARITY (test code = CLARITY) CLEAR CLEAR SP GRAV (test code = URSPGRAV) 1.025 1.000-1.025 UAMICRO (test code = UAMICRO) NO CT ABDOMEN/PELVIS [id number] 07:28:[address] [id number] IMAGING REPORTPatient Name: SANTI ELIZABETH CDate of Service: [id number]: 19 Sex: M Order #: [id number] [facility] 2000 X-Ray Number: [id number] Record Number: [id number] Hospital Number: [id number] Physician: FAY RUBI - Ordering Physician: FAY RUBI -CT abdomen and pelvis.History: Abdomen pain.Technique: IV and oral contrast enhanced CT axial images of the abdomen andpelvis with sagittal and coronal reformatted images were reviewed.Contrast administered for this study per protocol; oral Gastrografin-dlwec392 mL water with 15 mL Gastrografin and IV Isovue 300-[address] exam was performed using one or more of the following dosereduction techniques: Automated exposure control, adjustment of the MAand/or KV according to patient size or use of iterative reconstructiontechnique.Comparison: None.Findings:Images of the lower lungs and mediastinum demonstrate no specific defects.The solid large organs of the upper abdomen appear focally normal.The gallbladder appears normal.There is no significant retroperitoneal adenopathy or fluid collectionsdepicted.Small bowel loops appear focally normal.There are no specific mucosal abnormality seen involving the colon.The appendix is not visualized.The urinary bladder appears normal. There is no pelvic free fluid seen.Impression:No specific acute appearing abdominal abnormalities.Electronically Signed By: Davis Gomez M.D., 12/25/2019 7:26 AMLegally authenticated by JULIETA Perez 2019-12-25 07:26:[id number] 05:24:00 Test Item Value Reference Range Interpretation Comments WBC (test code = 8.3 K/UL 3.5-10.9 WBC) RBC (test code = 5.08 M/UL 4.3-5.7 RBC) HGB (test code = 14.7 G/DL 13.0-17.9 HGB) HCT (test code = 43.2 % 38-52 HCT) MCV (test code = 85.0 FL 80-98 MCV) MCH (test code = 28.9 PG 28-32 MCH) MCHC (test code = 34.0 G/DL 32.5-36.5 MCHC) RDW (test code = 10.9 % 11.5-14.5 L RDW) PLT (test code = 403 K/UL 150-450 PLT) MPV (test code = 9.8 FL 7.4-10.4 MPV) MANDIFF (test code = NO MANDIFF) SCAN (test code = NO SCAN) NEUT% (test code = 59.0 % 40-75 NEUT%) LYMPH% (test code = 30.4 % 24-44 LYMPH%) MONO% (test code = 8.8 % 0-13 MONO%) EOS% (test code = 1.3 % 0-4 EOS%) BASO % (test code = 0.4 % 0-2 BASO%) IG (test code = IG) 0 % 0-1 IG% (test code = 0.1 % 0-1 IG% = Metam yelocytes, IG%) Myelocytes, and Promyelocytes. (Immature neutr ophils not including " bands".) > 3% IG indic ates risk of sepsis NRBC% (test code = 0 /100 WBC NRBC%) ABS NEUT (test code 4.9 K/UL 1.2-7.2 = NEUT) [id number] 05:11:00 Test Item Value Reference Range Interpretation Comments LIPASE (test code = LIPA) 52 U/L 23-300 LIVER [id number] 05:11:00 Test Item Value Reference Range Interpretation Comments TOTPROT (test code = TOTPROT) 6.8 G/DL 6.3-8.2 ALBUMIN (test code = ALBSERUM) 4.3 G/DL 3.5-5.0 BILITOT (test code = BILITOT) 0.7 MG/DL 0.2-1.3 BILIDIR (test code = BILIDIR) 0.0 MG/DL 0.0-0.4 AST (test code = AST) 20 U/L 15-46 PHOSALK (test code = PHOSALK) 69 U/L 38-126 ALTV (test code = ALTV) 9 U/L 13-69 L ISTAT CHEM [id number] 04:30:00 Test Item Value Reference Range Interpretation Comments ISTATNA (test code = 142 MMOL/L 137-145 ISTATNA) ISTATK (test code = 4.0 MMOL/L 3.6-5.0 ISTATK) ISTATCL (test code = 105 MMOL/L 98-107 ISTATCL) ISTIONCA (test code = 1.17 MMOL/L 1.12-1.32 ISTIONCA) ISTCO2 (test code = 24 MMOL/L 22-30 ISTCO2) ISTATGLU (test code = 94 MG/DL 65-110 ISTATGLU) ISTATBUN (test code = 6.0 MG/DL 7.0-20.0 L ISTATBUN) ISTCREA (test code = 0.9 MG/DL 0.7-1.5 ISTCREA) ISTATHCT (test code = 43 %PCV 37.0-52.0 ISTATHCT) ISTATHGB (test code = 14.6 G/DL 12.0-18.0 Notifi ed Nurse/MD of ISTATHGB) results outside of Reference Range s ISTANGAP (test code = 18 MMOL/L Notifi ed Nurse/MD of ISYAOPOCATELLO) results outside of Reference Range s Throat Culture Strep [id number] 18:38:52Streptococcus Group A screen negativeInfluenza A [id number] 16:26:26 Test Item Value Reference Range Interpretation Comments Influenza A Ag (test Negative Negative Childre n tend to shed code = Influenza A Ag) virus more abundantly and for longer period of time than ad ults. Therefore, test ing specimens from adults will often yiel d lower sensitivity pat n testing specime ns from children. Influenza B [id number] 16:26:26 Test Item Value Reference Range Interpretation Comments Influenza B Ag (test Negative Negative Childre n tend to shed code = Influenza B Ag) virus more abundantly and for longer period of time than ad ults. Therefore, test ing specimens from adults will often yiel d lower sensitivity pat n testing specime ns from children. Streptococcus A Screen Rapid w/ Reflex [id number] 16:23:02 Test Item Value Reference Range Interpretation Comments Strep A Scn (test code = Strep A Negative Negative Scn) PATHOLOGY [id number] 11:39:00TISSUE CONSULTATION REPORTBAHCA HOUST[facility]ALTH[facility]ARE SOUTHEASTDEPARTMENT OF PATHOLOGYP.O[address] [address] ROBERT Ish COREY M.D.LIBBY KATZ M.D.CHARLES E. BURNS, M.D. ____Patient: SANTI ELIZABETH 2000 18 MRoom:Hosp#: [id number] Ordering Physician: GERONIMO GIRARD Rec.: 06/25/2019Date of Proc.: 06/25/2019Lab No.: [id number] Clinical History:Nausea, abnormal weight loss.FINAL ANATOMIC DIAGNOSIS:A. BIOPSY OF SECOND SEGMENT DUODENUM:BENIGN SUPERFICIAL SMALL BOWEL MUCOSA WITHOUT SIGNIFICANTHISTOLOGIC ALTERATION.B. BIOPSY OF DUODENAL BULB:BENIGN DUODENAL MUCOSA WITHOUT SIGNIFICANT HISTOLOGIC ALTERATION.C. GASTRIC ANTRUM BIOPSY:MILD CHRONIC NONACTIVE ANTRITIS WITH SLIGHT SURFACE REACTIVE FEATURES.NEGATIVE FOR MALIGNANCY OR DYSPLASIA.NO GOBLET CELLS SEEN ON ALCIAN BLUE/PAS STAIN.NO HELICOBACTER ORGANISMS SEEN ON GARETT STAIN.D. GASTRIC BODY BIOPSY:MILD CHRONIC NONACTIVE GASTRITIS.NEGATIVE FOR MALIGNANCY, DYSPLASIA OR GLANDULAR DESTRUCTIVE LESIONS.NO GOBLET CELLS SEEN ON ALCIAN BLUE/PAS STAIN.NO HELICOBACTER ORGANISMS SEEN ON GARETT STAIN.E. DISTAL ESOPHAGEAL BIOPSY:SQUAMOUS AND SCANT GLANDULAR MUCOSAL TISSUES WITHCHRONIC REFLUX ESOPHAGITIS.NEGATIVE FOR MALIGNANCY OR DYSPLASIA.NO DENSE EOSINOPHILIC INFILTRATES OR VIRAL INCLUSIONS SEEN.NO GOBLET CELLS OR FUNGAL ORGANISMS IDENTIFIED ON ALCIAN BLUE/PASSTAIN.F. TERMINAL ILEUM BIOPSY:BENIGN SMALL BOWEL MUCOSA WITHOUT SIGNIFICANT HISTOLOGIC ALTERATION.G. CECAL BIOPSY:BENIGN COLONIC MUCOSA WITH REACTIVE APPEARING LYMPHOID AGGREGATE.NEGATIVE FOR MALIGNANCY, DYSPLASIA OR FEATURES OF INFLAMMATORY BOWELDISEASE.SURFACE MUCOSA IS INTACT.H. RECTAL BIOPSY:BENIGN RECTAL MUCOSAL WITHOUT SIGNIFICANT HISTOLOGIC ALTERATION.BENIGN LYMPHOID AGGREGATE.MICROSCOPIC EXAMINATION:A. Sections demonstrate small bowel mucosa in which the villi arethin, delicate and elongate d. No increase in inflammation is seenin the lamina propria or the villous tips. No villous blunting isseen. Malignancy and dysplasia are not identified. No parasitesare observed. No foveolar metaplasia is encountered. The biopsy isslightly superficial and does not include submucosal mucous glands.B. Sections demonstrate superficial small bowel mucosa with thin,delicate and elongated villi where not tangentially sectioned. Noincrease in inflammation is seen. Malignancy, dysplasia andparasitesare not observed. No increase in intraepithelialleukocytes is noted. The submucosal mucous glands are not overlyprominent. Foveolar metaplasia is not seen.C. Sections demonstrate gastric antrum witha slightly congestedlamina propria focally. In some areas there is mild increase inlymphocytes and plasma cells in the lamina propria. Neutrophils arenot seen. The surface is mildly reactive but not gastropathic.Malignancy and dysplasia are not observed. No goblet cells are seenon Alcian blue/PAS stain. No helicobacter organisms are seen onSteiner stain.D. Sections demonstrate fundic mucosa withslight edema in thelamina propria accompanied by mildly increased numbers oflymphocytes and plasma cells superficially and again at the base ofthe epithelium. Glandular destructive lesions are not observed.Malignancy and dysplasia are not identified. Acute inflammation isnot seen. There are no goblet cells seen on Alcian blue/PAS stainnor are there helicobacter organisms seen on Garett stain.E. Sections demonstrate squamous mucosa with very prominentvascular ridges and evidence of squamous hyperplasia. Someextravasation of red cells is present into the epithelium,accompanied by a few scatteredlymphocytes. Neutrophils andeosinophils are not seen. Some ballooning of superficial squames isseen. Malignancy and dysplasia are not identified. No viralinclusions are seen. There are no goblet cells or fungal organismsidentified on Alcian blue/PAS stain. Only scant glandularepithelium is noted, without additional findings.F. Sections display superficial small bowel mucosa in which thevilli are thin, delicate and elongated. No increase in inflammationis seen. Parasites are not observed. Cryptitis, crypt abscessformation and glandular disarray are not noted. No granulomata orincrease in eosinophils is noted. Two small bland lymphoidaggregates are present.G. Sections demonstrate colonic mucosa with a benign reactiveappearing lymphoid aggregate. Away from the aggregate, there is noincrease in inflammation, no cryptitis, no crypt abscess formationand no granulomata. Glandular disarray is not seen. The surfacemucosa appears intact.H. Sections demonstrate colonic mucosa with intact glandularstructure. No increase in inflammation is seen. A single blandlymphoid aggregate is noted. Malignancy and dysplasia are notidentified. There is no cryptitis, crypt abscess formation orgranulomata identified.GROSS APPEARANCE:A. Specimen A is received in formalin labeled "biopsy of secondsegment duodenum." It is a fragment of luis tissue 0.3 cm, TE in onecassette.B. Specimen B is received in fo rmalin labeled "duodenal bulbbiopsy." It is a fragment of luis tissue 0.2 cm, TE in one cassette.C. Specimen C is received in formalin labeled "gastric antrum." Itis a fragment of luis tissue 0.3 cm, TE in one cassette.D. Specimen D is received in formalin labeled "gastric body." It bismark fragment of luis tissue 0.5 x 0.2 x 0.2 cm, TE in one cassette.E. Specimen E is received in formalin labeled "distal esophagealbiopsy." It is a wispy fragment of pinkish-luis tissue 0.3 cm, TE inone cassette.F. Specimen F is received in formalin labeled "terminal ileumbiopsy." It is a fragment of luis tissue 0.3 cm,TE in one cassette.G. Specimen G is received in formalin labeled "cecum biopsy." It bismark fragment of luis tissue 0.3 cm, TE in one cassette.H. Specimen H is received in formalin labeled "biopsy of rectum."It is a fragment of luis tissue 0.3 cm, TE in one cassette.PATHOLOGIST: Chevy Kim Electronically Signed: 06/27/2019 C-REACTIVE [id number] 12:49:00 Test Item Value Reference Range Interpretation Comments CRP (test code = CRP) <0.5 mg/dL 0.5-1.0 [id number] 12:49:00 Test Item Value Reference Range Interpretation Comments SODIUM (test code = 139 MMOL/L 137-145 NA) K+ (test code = 4.5 MMOL/L 3.5-5.1 PLEASE NOTE NEW KSERUM) REFERENCE RANGE (S) IN EFFECT EFFECTIVE 010 - NEW ANALYZER (V ITROS 5600) CHLORIDE (test code 104 MMOL/L 98-107 = CL) CO2 (test code = 25 MMOL/L 22-30 CO2) BUN (test code = 6 MG/DL 9-20 L BUN) CREA (test code = 0.7 MG/DL 0.8-1.5 L CREA) GLUCOSE (test code 89 MG/DL 70-99 Fasting glucose = GLUCOSE) normal <100 MG/ DL- [employer] recommendation* * CALCIUM (test code 9.8 MG/DL 8.4-10.2 = CABLOOD) TOTPROT (test code 7.5 G/DL 6.3-8.2 = TOTPROT) ALBUMIN (test code 4.6 G/DL 3.5-5.0 = ALBSERUM) BILITOT (test code 0.5 MG/DL 0.2-1.3 = BILITOT) AST (test code = 18 U/L 15-46 AST) PHOSALK (test code 66 U/L 38-126 = PHOSALK) ALT (test code = 16 U/L 13-69 ALT) GFR (test code = 154 A GFR of >9 0 GFR) mL/min/1.73m2 mL/min/1.73m2 is considered norm al. [id number] 12:23:00 Test Item Value Reference Range Interpretation Comments WBC (test code = 6.9 K/UL 3.5-10.9 WBC) RBC (test code = 5.43 M/UL 4.3-5.7 RBC) HGB (test code = 15.1 G/DL 13.0-17.9 HGB) HCT (test code = 45.5 % 38-52 HCT) MCV (test code = 83.8 FL 80-98 MCV) MCH (test code = 27.8 PG 28-32 L MCH) MCHC (test code = 33.2 G/DL 32.5-36.5 MCHC) RDW (test code = 11.6 % 11.5-14.5 RDW) PLT (test code = 358 K/UL 150-450 PLT) MPV (test code = 9.7 FL 7.4-10.4 MPV) MANDIFF (test code = NO MANDIFF) SCAN (test code = NO SCAN) NEUT% (test code = 54.1 % 40-75 NEUT%) LYMPH% (test code = 31.0 % 24-44 LYMPH%) MONO% (test code = 10.4 % 0-13 MONO%) EOS% (test code = 4.0 % 0-4 EOS%) BASO % (test code = 0.4 % 0-2 BASO%) IG (test code = IG) 0 % 0-1 IG% (test code = 0.1 % 0-1 IG% = Metam yelocytes, IG%) Myelocytes, and Promyelocytes. (Immature neutr ophils not including " bands".) > 3% IG indic ates risk of sepsis NRBC% (test code = 0 /100 WBC NRBC%) ABS NEUT (test code 3.7 K/UL 1.2-7.2 = NEUT) CT ABDOMEN/PELVIS [id number] 09:23:[address] [id number] IMAGING REPORTPatient Name: SANTI ELIZABETH CDate of Service: [id number]: 18 Sex: M Order #: [id number] Room: OPEDOB: 2000 X-Ray Number: [id number] Record Number: [id number] Hospital Number: [id number] Physician: MS DERIANONTHIOrdering Physician: CRISTIANE MENARD abdomen and pelvis.History: Abdomen painTechnique: IV and oral contrast enhanced CT images.Contrast administered for this study per protocol; Bqoney-224-492 mL,Redi-CAT barium by mouth 450 mL 2 hours before the study.This CT exam was performed using one or more of the following dosereduction techniques: Automated exposure control, adjustment of the MAand/or KV according to patient size or use of iterative reconstructiontechnique.Comparison: November 04, 2018, August 25, 2018.Findings:Images of the lower lungs and mediastinum demonstrate no specific defects.The solid large organs of the upper abdomen appear focally normal.The gallbladder appears normal.There is no significant retroperitoneal adenopathy or fluid collectionsdepicted.Small bowel loops appear focally normal.There are no specific mucosal abnormality seen involving the colon.The appendix is visualized and appears retrocecal and normal.The urinary bladder appears normal. There is no pelvic free fluid seen.Impression:No specific acute appearing abdominal abnormalities.Electronically Signed By: Davis Gomez M.D., 04/11/2019 9:21 AMLegally authenticated by JULIETA Perez 2019-04-11 09:21:[id number] 12:45:00 Test Item Value Reference Range Interpretation Comments SODIUM (test code = 139 MMOL/L 137-145 NA) K+ (test code = 4.4 MMOL/L 3.5-5.1 PLEASE NOTE NEW KSERUM) REFERENCE RANGE (S) IN EFFECT EFFECTIVE 010 - NEW ANALYZER (V ITROS 5600) CHLORIDE (test code 101 MMOL/L 98-107 = CL) CO2 (test code = 30 MMOL/L 22-30 CO2) BUN (test code = 8 MG/DL 9-20 L BUN) CREA (test code = 0.8 MG/DL 0.8-1.5 CREA) GLUCOSE (test code 99 MG/DL 70-99 Fasting glucose = GLUCOSE) normal <100 MG/ DL- [employer] recommendation* * CALCIUM (test code 10.3 MG/DL 8.4-10.2 H = CABLOOD) TOTPROT (test code 7.3 G/DL 6.3-8.2 = TOTPROT) ALBUMIN (test code 4.6 G/DL 3.5-5.0 = ALBSERUM) BILITOT (test code 0.5 MG/DL 0.2-1.3 = BILITOT) AST (test code = 16 U/L 15-46 AST) PHOSALK (test code 88 U/L 38-126 = PHOSALK) ALT (test code = 16 U/L 13-69 ALT) GFR (test code = 132 A GFR of >9 0 GFR) mL/min/1.73m2 mL/min/1.73m2 is considered norm al. LIPID [id number] 12:45:00 Test Item Value Reference Range Interpretation Comments CHOLEST (test code = 106 MG/DL 0-200 CHOLEST) TRIGLYCE (test code = 29 MG/DL 0-150 TRIGLYCE) HDL (test code = HDL) 37 MG/DL 30-65 NEGATI VE RISK FACTOR FOR HEART DISEA SE IF HDL >/=60 mg/dl MAJOR RISK FACTOR FOR HEART DISEASE IF HDL <40 mg/dL CALC LDL (test code = 63 MG/DL <100 CALC LDL) FREE [id number] 12:45:00 Test Item Value Reference Range Interpretation Comments FT4 (test code = FT4) 0.92 ng/dL 0.78-2.19 [id number] 12:45:00 Test Item Value Reference Range Interpretation Comments LIPASE (test code = LIPA) 38 U/L 23-300 % HEMOGLOBIN A1C (GLYCATED)2019-04-05 12:25:00 Test Item Value Reference Range Interpretation Comments HEMOGLOBIN A1C (test 5.3 % 0-6 TH ERAPEUTIC TARGET code = GLYCO-) FOR THE TREAT MENT OF DIABETES M ELLITUS PATIENTS IS < 7 % HBA1C. [employer] DIABETES CARE 2002;25:S33-S49 [id number] 11:37:00 Test Item Value Reference Range Interpretation Comments WBC (test code = WBC) 6.6 K/UL 3.5-10.9 RBC (test code = RBC) 5.34 M/UL 4.3-5.7 HGB (test code = HGB) 15.3 G/DL 13.0-17.9 HCT (test code = HCT) 45.0 % 38-52 MCV (test code = MCV) 84.3 FL 80-98 MCH (test code = MCH) 28.7 PG 28-32 MCHC (test code = MCHC) 34.0 G/DL 32.5-36.5 RDW (test code = RDW) 11.5 % 11.5-14.5 PLT (test code = PLT) 385 K/UL 150-450 MPV (test code = MPV) 9.8 FL 7.4-10.4 MANDIFF (test code = MANDIFF) NO SCAN (test code = SCAN) NO NEUT% (test code = NEUT%) 52 % 40-75 LYMPH% (test code = LYMPH%) 34 % 24-44 MONO% (test code = MONO%) 11 % 0-13 EOS% (test code = EOS%) 3 % 0-4 NRBC% (test code = NRBC%) 0 /[address] ABDOMEN/PELVIS [id number] 07:28:[address] [id number] IMAGING REPORTPatient Name: ELIZABETHSANTI SHELLEYate of Service: [id number]: 17 Sex: M Order #: [id number] Room: ERSDOB: 2000 X-Ray Number: [id number] Record Number: [id number] Hospital Number: [id number] Physician: RODRIGO GUERREROOrdering Physician: DONTE WASSERMAN abdomen and pelvis.History: Abdomen pain.Technique: IV and oral contrast enhanced CT axial images of the abdomen andpelvis with sagitta l and coronal reformatted images were reviewed.Contrast administered for this study per protocol; oral Gastrografin- mL water with 15 mL Gastrografin and IV Isovue 300-[address] exam was performed using one or more of the following dosereduction techniques: Automated exposure control, adjustment of the MAand/or KV according to patient size or use of iterative reconstructiontechnique.Comparison: None.Findings:Images of the lower lungs and mediastinum demonstrate no specific defects.The solid large organs of the upper abdomen appear focally normal.The gallbladder appears normal.There is no significant retroperitoneal adenopathy or fluid collectionsdepicted.Small bowel loops appear focally normal.There are no specific mucosal abnormality seen involving the colon.The appendix is visualized and appears retrocecal and normal.The urinary bladder appears normal. There is no pelvic free fluid seen.Impression:No specific acute appearing abdominal abnormalities.Electronically Signed By: Davis Gomez M.D., 11/05/2018 7:25 AMLegally authenticated by JULIETA Perez 2018-11-05 07:25:44HEPATITIS C ANTIBODY [id number] 21:50:00 Test Item Value Reference Range Interpretation Comments SCRN HCV (test code NEGATIVE NEGATIVE Hepatiti s C Antibody test = SCRN HCV) is for screenin g purposes only. All react juan will be confirmed by additional test ing. ER SCREEN FOR HIV 21:50:00 Test Item Value Reference Range Interpretation Comments HIV 1/2 AB (test NEGATIVE NEGATIVE This test i s used for code = SCRN HIV) SCREENING p urposes only. All reactive re sults are prelimenary and confirmation re sults will follow. [id number] 21:26:00 Test Item Value Reference Range Interpretation Comments GLUCOSE (test code = URGLU) NEGATIVE MG/DL NEG-100 BILIRUBN (test code = URBILI) NEGATIVE NEGATIVE KETONE (test code = URKET) NEGATIVE MG/DL NEGATIVE BLOOD (test code = URBLD) NEGATIVE UR PH (test code = URPH) 6.0 5.0-7.5 PROTEIN (test code = URPRO) NEGATIVE MG/DL NEGATIVE NITRITES (test code = URNIT) NEGATIVE NEGATIVE UROBILINGEN (test code = 0.2 EU/DL 0.2-1.0 URURO) LEUKOCYT (test code = URLEU) TRACE NEGATIVE UA COLOR (test code = UA YELLOW YELLOW COLOR) CLARITY (test code = CLARITY) CLEAR CLEAR SP GRAV (test code = URSPGRAV) 1.018 1.000-1.025 UAMICRO (test code = UAMICRO) YES WBC (test code = URWBC) 4 /HPF 0-5 RBC (test code = URRBC) 1 /HPF 0-2 CASTS (test code = CAST) 5 /LPF 0-3 H UR EPI (test code = EPI) 12 /LPF BACTERIA (test code = NEGATIVE NONE BACTERIA) [id number] 21:00:00 Test Item Value Reference Range Interpretation Comments LIPASE (test code = LIPA) 81 U/L 23-300 LIVER [id number] 21:00:00 Test Item Value Reference Range Interpretation Comments TOTPROT (test code = TOTPROT) 7.6 G/DL 6.3-8.2 ALBUMIN (test code = ALBSERUM) 4.7 G/DL 3.5-5.0 BILITOT (test code = BILITOT) 0.7 MG/DL 0.2-1.3 BILIDIR (test code = BILIDIR) 0.2 MG/DL 0.0-0.4 AST (test code = AST) 25 U/L 15-46 PHOSALK (test code = PHOSALK) 78 U/L 38-126 ALT (test code = ALT) 23 U/L 13-69 [id number] 20:57:00 Test Item Value Reference Range Interpretation Comments WBC (test code = 11.0 K/UL 3.5-10.9 H WBC) RBC (test code = 4.99 M/UL 4.3-5.7 RBC) HGB (test code = 14.6 G/DL 13.0-17.9 HGB) HCT (test code = 42.7 % 38-52 HCT) MCV (test code = 85.6 FL 80-98 MCV) MCH (test code = 29.3 PG 28-32 MCH) MCHC (test code = 34.2 G/DL 32.5-36.5 MCHC) RDW (test code = 11.7 % 11.5-14.5 RDW) PLT (test code = 368 K/UL 150-450 PLT) MPV (test code = 9.5 FL 7.4-10.4 MPV) MANDIFF (test code = NO MANDIFF) SCAN (test code = NO SCAN) NEUT% (test code = 57.6 % 40-75 NEUT%) LYMPH% (test code = 29.5 % 24-44 LYMPH%) MONO% (test code = 9.8 % 0-13 MONO%) EOS% (test code = 2.4 % 0-4 EOS%) BASO % (test code = 0.4 % 0-2 BASO%) IG (test code = IG) 0 % 0-1 IG% (test code = 0.3 % 0-1 IG% = Metam yelocytes, IG%) Myelocytes, and Promyelocytes. (Immature neutr ophils not including " bands".) > 3% IG indic ates risk of sepsis NRBC% (test code = 0 /100 WBC NRBC%) ABS NEUT (test code 6.3 K/UL 1.2-7.2 = NEUT) ISTAT [id number] [id number] 20:40:00 Test Item Value Reference Range Interpretation Comments ISTATNA (test code = ISTATNA) 142 MMOL/L 137-145 ISTATK (test code = ISTATK) 3.8 MMOL/L 3.6-5.0 ISTATCL (test code = ISTATCL) 101 MMOL/L 98-107 ISTIONCA (test code = ISTIONCA) 1.15 MMOL/L 1.12-1.32 ISTCO2 (test code = ISTCO2) 27 MMOL/L 22-30 ISTATGLU (test code = ISTATGLU) 93 MG/DL 65-110 ISTATBUN (test code = ISTATBUN) 8.0 MG/DL 7.0-20.0 ISTCREA (test code = ISTCREA) 0.8 MG/DL 0.7-1.5 ISTATHCT (test code = ISTATHCT) 44 %PCV 37.0-52.0 ISTATHGB (test code = ISTATHGB) 15.0 G/DL 12.0-18.0 ISTANGAP (test code = ISTANGAP) 19 MMOL/L CT ABDOMEN/PELVIS [id number] 17:43:[address] [id number] IMAGING REPORTPatient Name: SANTI ELIZABETH CDate of Service: [id number]: 17 Sex: M Order #: [id number] Room: ERSDOB: 2000 X-Ray Number: [id number] Record Number: [id number] Hospital Number: [id number] Physician: HAKAN MARCELOOrdering Physician: MANNY WASSERMAN ABDOMEN/PELVIS WITH 08/25/2018 5:00 PMHistory: Abd pain without feverComparisons: None Available.Contrast administered for this study per protocol: Isovue 300 - 100 mLIV. 15 mL Gastrografin by mouth per protocol.This CT exam was performed using one or more of the following dosereduction techniques: Automated exposure control, adjustment of the MAand/or KV according to patient size or use of iterative reconstructiontechnique.FINDINGS:Solid abdominal viscera demonstrate no definite solid mass lesions orlacerations.Both kidneys enhance symmetrically. There is no hydronephrosis.There is no free air.There is no free fluid.There are no abnormal fluid collections to suggest abscess or hematoma.There is no CT evidence for appendicitis, diverticulitis or pancreatitis.There is no small bowel obstruction detected.There is no obvious enlarged adenopathy.IMPRESSION:No acute intra-abdominal or intrapelvic abnormality is detected.Electronically Signed By: Edgardo Ram M.D., 08/25/2018 5:40 PMLegally authenticated by DARREL HODGES 2018-08-25 17:40:[id number] 14:53:00 Test Item Value Reference Range Interpretation Comments GLUCOSE (test code = URGLU) NEGATIVE MG/DL NEG-100 BILIRUBN (test code = URBILI) NEGATIVE NEGATIVE KETONE (test code = URKET) NEGATIVE MG/DL NEGATIVE BLOOD (test code = URBLD) NEGATIVE UR PH (test code = URPH) 7.5 5.0-7.5 PROTEIN (test code = URPRO) NEGATIVE MG/DL NEGATIVE NITRITES (test code = URNIT) NEGATIVE NEGATIVE UROBILINGEN (test code = 0.2 EU/DL 0.2-1.0 URURO) LEUKOCYT (test code = URLEU) NEGATIVE NEGATIVE UA COLOR (test code = UA YELLOW YELLOW COLOR) CLARITY (test code = CLARITY) CLEAR CLEAR SP GRAV (test code = URSPGRAV) 1.008 1.000-1.025 [id number] 14:37:00 Test Item Value Reference Range Interpretation Comments SODIUM (test code = 141 MMOL/L 137-145 NA) K+ (test code = 3.8 MMOL/L 3.5-5.1 PLEASE NOTE NEW KSERUM) REFERENCE RANGE (S) IN EFFECT EFFECTIVE 010 - NEW ANALYZER (V ITROS 5600) CHLORIDE (test code 107 MMOL/L 98-107 = CL) CO2 (test code = 27 MMOL/L 22-30 CO2) BUN (test code = 8 MG/DL 9-20 L BUN) CREA (test code = 0.6 MG/DL 0.8-1.5 L CREA) GLUCOSE (test code 134 MG/DL 70-99 H Fasting glucose = GLUCOSE) normal <100 MG/ DL- [employer] recommendation* * CALCIUM (test code 9.4 MG/DL 8.4-10.2 = CABLOOD) TOTPROT (test code 6.6 G/DL 6.3-8.2 = TOTPROT) ALBUMIN (test code 4.1 G/DL 3.5-5.0 = ALBSERUM) BILITOT (test code 0.3 MG/DL 0.2-1.3 = BILITOT) AST (test code = 26 U/L 15-46 AST) PHOSALK (test code 80 U/L 38-126 = PHOSALK) ALT (test code = 30 U/L 13-69 ALT) GFR (test code = 187 A GFR of >9 0 GFR) mL/min/1.73m2 mL/min/1.73m2 is considered norm al. [id number] 14:37:00 Test Item Value Reference Range Interpretation Comments LIPASE (test code = LIPA) 53 U/L 23-300 [id number] 14:30:00 Test Item Value Reference Range Interpretation Comments WBC (test code = 8.6 K/UL 3.5-10.9 WBC) RBC (test code = 4.66 M/UL 4.3-5.7 RBC) HGB (test code = 13.7 G/DL 13.0-17.9 HGB) HCT (test code = 39.5 % 38-52 HCT) MCV (test code = 84.8 FL 80-98 MCV) MCH (test code = 29.4 PG 28-32 MCH) MCHC (test code = 34.7 G/DL 32.5-36.5 MCHC) RDW (test code = 12.0 % 11.5-14.5 RDW) PLT (test code = 308 K/UL 150-450 PLT) MPV (test code = 9.8 FL 7.4-10.4 MPV) MANDIFF (test code = NO MANDIFF) SCAN (test code = NO SCAN) NEUT% (test code = 64.2 % 40-75 NEUT%) LYMPH% (test code = 23.6 % 24-44 L LYMPH%) MONO% (test code = 9.5 % 0-13 MONO%) EOS% (test code = 1.8 % 0-4 EOS%) BASO % (test code = 0.7 % 0-2 BASO%) IG (test code = IG) 0 % 0-1 IG% (test code = 0.2 % 0-1 IG% = Metam yelocytes, IG%) Myelocytes, and Promyelocytes. (Immature neutr ophils not including " bands".) > 3% IG indic ates risk of sepsis NRBC% (test code = 0 /100 WBC NRBC%) ABS NEUT (test code 5.5 K/UL 1.2-7.2 = NEUT) PATHOLOGY [id number] 15:22:00TISSUE CONSULTATION REPORTBAPTBAYLOR SCOTT AND WHITE THE [facility] – DENTONDEPARTMENT OF PATHOLOGYP.[address] [phone] BRADLEY M.D.ROBERT L. HUTTON, M.D.CHARLES E. BURNS, M.D. ____Patient: SANTI ELIZABETH 2000 17 MRoom:Hosp#: [id number] Ordering Physician: Luther GIRARD Rec.: 08/07/2018Date of Proc.: 08/07/2018Lab No.: [id number] PRE-OPERATIVE DIAGNOSIS:Weight loss and left lower quadrant pain.FINAL ANATOMIC DIAGNOSIS:A. TERMINAL ILEUM BIOPSY:BENIGN SUPERFICIAL SMALL BOWEL MUCOSA WITHOUT SIGNIFICANT HISTOLOGICALTERATION.B. BIOPSY OF CECUM:BENIGN COLONIC MUCOSA WITHOUT SIGNIFICANT HISTOLOGIC ALTERATION.C. BIOPSY OF RECT UM:BENIGN COLONIC MUCOSA WITHOUT SIGNIFICANT HISTOLOGIC ALTERATION.MICROSCOPIC EXAMINATION:A. Sections demonstrate superficial small bowel mucosa with asingle small discrete cytologically bland lymphoid aggregate. Thevilli are thinned and delicate where not tangentially sectioned. Noincrease in inflammation is seen. Malignancy, dysplasia andparasites are not observed.B. Sections demonstrate colonic mucosa with intact glandulararchitecture. No subjective increase in inflammatory cells is seen.Cryptitis and crypt abscess formation are not identified.Malignancy and dysplasia are not seen. Granulomata are notobserved. Glandular disarray is not seen. The surface mucosa isintact and no increase in subepithelial collagen table is noted.C. Sections demonstrate intact colonic mucosa without glandulardisarray. Increased inflammation, destruction of surfaceepithelium, malignancy and dysplasia are not seen. Parasites arenot observed. No increase in superficial collagen table is seen.GROSS APPEARANCE:A. Specimen A is received in formalin labeled "terminal ileum." Itis a fragment of luis tissue 0.3 cm, TE in one cassette.B. Specimen B is received in formalin labeled "biopsy of cecum."It is a fragment of luis tissue 0.4 x 0.2 x 0.2 cm, TE in onecassette.C. Specimen C is received in formalin labeled "biopsy of rectum."It is a fragment of luis tissue 0.2 cm, TE in one cassette.PATHOLOGIST: Chevy Kim Electronically Signed: 08/08/2018INFLAMATORY BOWEL DISEASE [id number] 09:01:00 Test Item Value Reference Range Interpretation Comments IBD (test code = POSITIVE TESTING PER FORMED AT IBD) [place] [address] (RES ULTS AVAILABLE UNDER SEPARATE COVER)
[2021-08-25] MEDS ORDERED: IBUPROFEN 400 MG TAB ONE (22:36)
--- NOTE | 2021-08-26 00:36 | ER ---
Nurse's Notes [facility] Name: Tenzin Love Age: 20 yrs Sex: Male : 2000 Arrival Date: 08/25/2021 Time: 20:56 Bed 14 Private MD: Diagnosis: Sprain of other part of left wrist and hand Presentation: 08/25 21:21 Chief complaint: Patient states: "I hurt my left wrist somehow. All day at work I could ab2 not feel my fingers, which worries me.". Coronavirus screen: Vaccine status: Patient reports being unvaccinated. Client denies travel out of the [place] in the last 14 days. At this time, the client does not indicate any symptoms associated with coronavirus-19. Ebola Screen: Patient negative for fever greater than or equal to 101.5 degrees Fahrenheit, and additional compatible Ebola Virus Disease symptoms Patient denies exposure to infectious person. Patient denies travel to an Ebola-affected area in the 21 days before illness onset. No symptoms or risks identified at this time. Initial Sepsis Screen: Does the patient meet any 2 criteria? No. Patient's initial sepsis screen is negative. Does the patient have a suspected source of infection? No. Patient's initial sepsis screen is negative. Risk Assessment: Do you want to hurt yourself or someone else? Patient reports no desire to harm self or others. Onset of symptoms is unknown. 21:21 Method Of Arrival: Ambulatory ab2 21:21 Acuity: ZANE 4 ab2 Triage Assessment: 21:23 General: Appears in no apparent distress. comfortable, Behavior is calm, cooperative, ab2 appropriate for age. Pain: Complains of pain in left wrist Pain currently is 10 out of 10 on a pain scale. Musculoskeletal: Reports pain in left wrist. Injury Description: unknown injury. Historical: - Allergies: 21:20 No Known Allergies; ab2 - PMHx: 21:20 Irritable bowel syndrome; ab2 21:25 Depressive disorder; ab2 - PSHx: 21:20 None; ab2 - Immunization history:: Adult Immunizations up to date, Client reports having NOT received the Covid vaccine. - Social history:: Smoking status: Patient reports the use of cigarette tobacco products, denies chronic smoking, but will smoke occasionally. - Family history:: not pertinent. Screenin/24 00:14 Abuse screen: Denies threats or abuse. Nutritional screening: No deficits noted. ab2 Tuberculosis screening: No symptoms or risk factors identified. Fall Risk No fall in past 12 months (0 pts). No secondary diagnosis (0 pts). No IV (0 pts). Ambulatory Aid- Gait- Normal/Bed Rest/Wheelchair (0 pts) Mental Status- Oriented to own ability (0 pts). Total Hunt Fall Scale indicates No Risk (0-24 pts). Assessment: 08/25 21:30 General: Appears in no apparent distress. Behavior is calm, cooperative. Pain: ab2 Complains of pain in left hand Pain currently is 5 out of 10 on a pain scale. Quality of pain is described as aching. Neuro: Level of Consciousness is awake, alert, Oriented to person, place, time, situation. Cardiovascular: Capillary refill < 3 seconds Patient's skin is warm and dry. Respiratory: No deficits noted. GI: No deficits noted. : No deficits noted. Derm: No deficits noted. Musculoskeletal: Range of motion: limited in left arm and left wrist. Vital Signs: 21:21 BP 140 / 64; Pulse 63; Resp 17; Temp 97.9; Pulse Ox 98% on R/A; Weight 50.8 kg; Height ab2 5 ft. 5 in. (165.10 cm); Pain 10/10; 08/26 00:26 BP 116 / 72; Pulse 71; Resp 18; Pulse Ox 97% ; ab2 08/25 21:21 Body Mass Index 18.64 (50.80 kg, 165.10 cm) ab2 ED Course: 08/25 20:56 Patient arrived in ED. es 21:21 Arm band placed on right wrist. ab2 21:23 Triage completed. ab2 22:31 Renard Arredondo MD is Attending Physician. alton 22:31 Mateusz Robledo is Primary Nurse. ab2 22:57 Wrist Left (3 View) XRAY In Process Unspecified. EDMS 08/26 00:15 Bed in low position. Call light in reach. ab2 00:34 Troy Peck MD is Referral Physician. alton Administered Medications: 08/25 22:45 Drug: Motrin (ibuprofen) 400 mg Route: PO; ab2 08/26 00:39 Follow up: Response: Marked relief of symptoms ab2 Outcome: 00:35 Discharge ordered by MD. dang 00:44 Patient left the ED. ab2 Signatures: Dispatcher [employer] Renard Phelps MD MD cha Salyer, Edna es Bleininger, Alexis ab2
--- NOTE | 2021-08-26 00:36 | EDPHYS ---
Physician Documentation [facility] Name: Tenzin Love Age: 20 yrs Sex: Male : 2000 Arrival Date: 08/25/2021 Time: 20:56 Bed 14 Private MD: CARMEN Physician Renard Arredondo HPI: 08/26 00:31 This 20 yrs old Male presents to ER via Ambulatory with complaints of Wrist alton Injury. 00:31 The patient or guardian reports decreased range of motion, pain. The complaints affect alton the left wrist diffusely. Context: The problem was sustained at an unknown location, resulted from an unknown cause. Onset: The symptoms/episode began/occurred 3 day(s) ago. Modifying factors: The symptoms are alleviated by elevation, holding still, the symptoms are aggravated by movement. Associated signs and symptoms: The patient has no apparent associated signs or symptoms. Compartment Syndrome negative for numbness, pain, tingling. The patient has not experienced similar symptoms in the past. Historical: - Allergies: 08/25 21:20 No Known Allergies; ab2 - PMHx: 21:20 Irritable bowel syndrome; ab2 21:25 Depressive disorder; ab2 - PSHx: 21:20 None; ab2 - Immunization history:: Adult Immunizations up to date, Client reports having NOT received the Covid vaccine. - Social history:: Smoking status: Patient reports the use of cigarette tobacco products, denies chronic smoking, but will smoke occasionally. - Family history:: not pertinent. ROS: 08/26 00:31 Constitutional: Negative for fever, chills, and weight loss, Eyes: Negative for injury, alton pain, redness, and discharge, ENT: Negative for injury, pain, and discharge, Neck: Negative for injury, pain, and swelling, Cardiovascular: Negative for chest pain, palpitations, and edema, Respiratory: Negative for shortness of breath, cough, wheezing, and pleuritic chest pain, Abdomen/GI: Negative for abdominal pain, nausea, vomiting, diarrhea, and constipation, Back: Negative for injury and pain, : Negative for injury, bleeding, discharge, and swelling, Skin: Negative for injury, rash, and discoloration, Neuro: Negative for headache, weakness, numbness, tingling, and seizure, Psych: Negative for depression, anxiety, suicide ideation, homicidal ideation, and hallucinations, Allergy/Immunology: Negative for hives, rash, and allergies, Endocrine: Negative for neck swelling, polydipsia, polyuria, polyphagia, and marked weight changes, Hematologic/Lymphatic: Negative for swollen nodes, abnormal bleeding, and unusual bruising. MS/extremity: Positive for injury or acute deformity, contusion, decreased range of motion, pain, tenderness, of the dorsal aspect of left wrist. Exam: 00:31 Constitutional: This is a well developed, well nourished patient who is awake, alert, alton and in no acute distress. Head/Face: Normocephalic, atraumatic. Eyes: Pupils equal round and reactive to light, extra-ocular motions intact. Lids and lashes normal. Conjunctiva and sclera are non-icteric and not injected. Cornea within normal limits. Periorbital areas with no swelling, redness, or edema. ENT: Nares patent. No nasal discharge, no septal abnormalities noted. Tympanic membranes are normal and external auditory canals are clear. Oropharynx with no redness, swelling, or masses, exudates, or evidence of obstruction, uvula midline. Mucous membranes moist. Neck: Trachea midline, no thyromegaly or masses palpated, and no cervical lymphadenopathy. Supple, full range of motion without nuchal rigidity, or vertebral point tenderness. No Meningismus. Chest/axilla: Normal chest wall appearance and motion. Nontender with no deformity. No lesions are appreciated. Cardiovascular: Regular rate and rhythm with a normal S1 and S2. No gallops, murmurs, or rubs. Normal PMI, no JVD. No pulse deficits. Respiratory: Lungs have equal breath sounds bilaterally, clear to auscultation and percussion. No rales, rhonchi or wheezes noted. No increased work of breathing, no retractions or nasal flaring. Abdomen/GI: Soft, non-tender, with normal bowel sounds. No distension or tympany. No guarding or rebound. No evidence of tenderness throughout. Back: No spinal tenderness. No costovertebral tenderness. Full range of motion. Male : Normal genitalia with no discharge or lesions. Skin: Warm, dry with normal turgor. Normal color with no rashes, no lesions, and no evidence of cellulitis. Neuro: Awake and alert, GCS 15, oriented to person, place, time, and situation. Cranial nerves II-XII grossly intact. Motor strength 5/5 in all extremities. Sensory grossly intact. Cerebellar exam normal. Normal gait. Psych: Awake, alert, with orientation to person, place and time. Behavior, mood, and affect are within normal limits. 00:31 Musculoskeletal/extremity: ROM: full passive range of motion, limited active range of motion, in the lateral aspect of left wrist and medial aspect of left wrist, Circulation is intact in all extremities. Sensation intact. Compartment Syndrome exam of affected extremity: is normal. DVT Exam: no swelling, negative Homans' sign noted on exam, no appreciated bluish discoloration, no erythema, no increased warmth, pain, tenderness. Vital Signs: 08/25 21:21 BP 140 / 64; Pulse 63; Resp 17; Temp 97.9; Pulse Ox 98% on R/A; Weight 50.8 kg; Height ab2 5 ft. 5 in. (165.10 cm); Pain 10/10; 08/26 00:26 BP 116 / 72; Pulse 71; Resp 18; Pulse Ox 97% ; ab2 08/25 21:21 Body Mass Index 18.64 (50.80 kg, 165.10 cm) ab2 MDM: 08/25 22:31 Patient medically screened. alton 08/26 00:33 Differential diagnosis: closed fracture, contusion, abrasion, tendonitis. Data alton reviewed: vital signs, nurses notes, radiologic studies, plain films. Data interpreted: desk monitor: not applicable for this patient encounter. rate is 71 beats/min, rhythm is regular, Pulse oximetry: on room air. Test interpretation: by ED physician or midlevel provider: plain radiologic studies. Counseling: I had a detailed discussion with the patient and/or guardian regarding: the historical points, exam findings, and any diagnostic results supporting the discharge/admit diagnosis, lab results, radiology results, the need for outpatient follow up, for definitive care, a family practitioner, a orthopedic surgeon. 08/25 22:30 Order name: Wrist Left (3 View) XRAY [facility] 08/25 22:30 Order name: Splint: COCK UP LEFT WRIST; Complete Time: 23:23 alton 08/25 22:30 Order name: Ice pack; Complete Time: 23:23 alton Administered Medications: 08/25 22:45 Drug: Motrin (ibuprofen) 400 mg Route: PO; ab2 08/26 00:39 Follow up: Response: Marked relief of symptoms ab2 Disposition Summary: 08/26/21 00:35 Discharge Ordered Location: Home [facility] Problem: new alton Symptoms: have improved alton Condition: Stable alton Diagnosis - Sprain of other part of left wrist and hand alton Followup: alton - With: Private Physician - When: 2 - 3 days - Reason: Recheck today's complaints, Continuance of care, Re-evaluation by your physician Followup: alton - With: Troy Peck MD - When: 2 - 3 days - Reason: Recheck today's complaints, Continuance of care, Re-evaluation by your physician Discharge Instructions: - Discharge Summary Sheet alton - Wrist Pain, Adult alton - Wrist Splint, Adult alton - Wrist Pain, Adult, [id number] alton - Wrist Pain, Pediatric alton Forms: - Medication Reconciliation Form alton - Thank You Letter alton - Antibiotic Education alton - Prescription Opioid Use [facility] Prescriptions: - Medrol (Avery) 4 mg Oral Tablets, Dose Pack - take 1 tablet by ORAL route as directed - follow package instructions; 1 alton packet; Refills: 0, Product Selection Permitted - Motrin IB 200 mg Oral Tablet - take 2 tablet by ORAL route every 6 hours As needed as needed with food; 30 alton tablet; Refills: 0, Product Selection Permitted - Tylenol-Codeine #3 300 mg-30 mg Oral - take 1 tablet by ORAL route every 4 hours; 16 tablet; Refills: 0, Product alton Selection Permitted Signatures: Dispatcher [employer] Renard Phelps MD MD cha Bleininger, Alexis ab2
[2021-08-26 02:10] VITALS: TEMP 97.9
[2021-08-26 02:12] VITALS: BP 116/72; O2SAT 97
--- NOTE | 2021-08-26 16:57 | RAD REPORT ---
EXAM DESCRIPTION: RAD - Wrist Left 3 View - 08/25/2021 10:55 pm CLINICAL HISTORY: 20-year-old male with pain. TECHNIQUE: Three views LEFT wrist were obtained in AP, lateral and oblique projections COMPARISON: None. FINDINGS: There is no fracture or dislocation. The joint spaces are preserved. No soft tissue abnorm alities are seen. IMPRESSION: No acute radiographic abnormality. Electronically signed by: Trina Bishop MD 08/25/2021 11:12 PM CDT Due to temporary technical issues with the PACS/Fluency reporting system, reports are being signed by the in house radiologists without review as a courtesy to insure prompt reporting. The interpreting radiologist is fully responsible for the content of the report.
== END 2021-08-26 00:44 | disposition home or self-care (01) ==
LOC: ER 20:50
DX: S63.592A Other specified sprain of left wrist, initial encounter (principal); F17.210 Nicotine dependence, cigarettes, uncomplicated
CPT/HCPCS: 99283

== ENCOUNTER 2021-08-29 00:46 | Emergency (ER) | payer OTHER ==
--- OUTSIDE RECORDS SUMMARY | 2021-08-29 00:58 | XMS REPORT | Continuity of Care Document ---
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 17:00: [facility] 500 Mg TAB Methocarbam 2018-0 No 500mg STEPHANIE TU ol 6-05 S - St. (Robaxin) 17:00: [facility] 500 Mg TAB 00 Methocarbam 2018-0 No 500mg STEPHANIE TU ol 6-05 S - St. (Robaxin) 17:00: [facility] 500 Mg TAB 00 Methocarbam 0 No 500mg Three CHRI KRISTA ol 6-05 Times A S (Robaxin) 17:00: [facility] 500 Mg TAB 00 Methocarbam 0 No 500mg Three CHRI KRISTA ol 6-05 Times A S (Robaxin) 17:00: [facility] 500 Mg TAB 00 Methocarbam 0 No 500mg Three CHRI KRISTA ol 6-05 Times A S (Robaxin) 17:00: [facility] 500 Mg TAB 00 Methocarbam 0 No 500mg Three CHRI KRISTA ol 6-05 Times A S (Robaxin) 17:00: [facility] 500 Mg TAB 00 Methocarbam 0 No 500mg Three CHRI KRISTA ol 6-05 Times A S (Robaxin) 17:00: [facility] 500 Mg TAB 00 Methocarbam 0 No 500mg Three CHRI KRISTA ol 6-05 Times A S (Robaxin) 17:00: [facility] 500 Mg TAB 00 Methocarbam 0 No 500mg Three CHRI KRISTA ol 6-05 Times A S 17:00: [facility] 00 Methocarbam 2019-0 No 500mg Three CHRI KRISTA ol 6-05 Times A S (Robaxin) 17:00: [facility] 500 Mg TAB 00 Methocarbam 2018-0 No 500mg Three CHRI KRISTA ol 6-05 Times A S (Robaxin) 17:00: [facility] 500 Mg TAB 00 Ibuprofen 2019- No 600mg AJ U (Motrin) 6-10 09- S St. 600 Mg TAB 17:00: 00:00 Mercedez e 00 :00 Ibuprofen 2018- 2019- No 600mg AJ U (Motrin) 6-10 09-06 S - 600 Mg TAB 17:00: 00:00 [facility] 00 :[facility] Ibuprofen 2019-0 2019- No 600mg AJ U (Motrin) 6-05 07-06 S - St. 600 Mg TAB 17:00: 00:00 [facility] 00 :00 Ibuprofen 2019-0 2019- No 600mg AJ U (Motrin) 6-05 07-[address] 600 Mg TAB 17:00: 00:00 Elizab e 00 :00 th Ibuprofen 2018-0 2019- No 600mg AJ U (Motrin) 6-05 07-06 S - St. 600 Mg TAB [...] 2019- No 600mg Three STEPHANIE TU (Motrin) 6-05 07-06 Times A S 600 Mg TAB 17:00: 00:00 [facility] 00 :00 Ibuprofen 2018-0 2019- No 600mg Three STEPHANIE TU (Motrin) 6- 07-06 Times A S 600 Mg TAB 17:00: 00:00 [facility] 00 :00 Terbinafine 2019-0 No 1 AJ U Hcl 5-23 S - St. 00:32: [facility] 00 Terbinafine 2019-0 No 1 AJ U Hcl 5-[address] (Lamisil 1% 00:32: Elizab e Cream) 1 00 th Applic/Gm CR Terbinafine 2018-0 No 1 AJ U Hcl 5-[address] (Lamisil 1% 00:32: Elizab e Cream) 1 00 th Applic/Gm CR Terbinafine 2018-0 No 1 [facility] U Hcl 5-[address] (Lamisil 1% 00:32: Elizab e Cream) 1 00 th Applic/Gm CR Terbinafine No 1 AJ U Hcl 5-23 S - St. (Lamisil 1% 00:32: [facility] Cream) Applic/Gm CR Terbinafine No 1 AJ U Hcl 5-23 S - (Lamisil 1% 00:32: [facility] Cream) 1 Applic/Gm l CR Hospita l Terbinafine No 1 AJ U Hcl 5-[address] (Lamisil 1% 00:32: Elizab e Cream) 1 Applic/Gm CR Terbinafine No 1 AJ U Hcl 5-23 S - St. (Lamisil 1% 00:32: [facility] Cream) 1 Applic/Gm CR Terbinafine No 1 Twice A CHR ISTU Hcl 5-23 Day S (Lamisil 1% 00:32: Health Cream) Applic/Gm CR Terbinafine No 1 Twice A CHR ISTU Hcl 5-23 Day S (Lamisil 1% 00:32: Health Cream) 1 Applic/Gm CR Terbinafine No 1 Twice A CHR ISTU Hcl 5-23 Day S (Lamisil 1% 00:32: Health Cream) 1 Applic/Gm CR Terbinafine No 1 Twice A [...] Day S (Lamisil 1% 00:32: Health Cream) 1 00 Applic/Gm CR Terbinafine No 1 Twice A CHR ISTU Hcl 5-23 Day S (Lamisil 1% 00:32: Health Cream) 1 00 Applic/Gm CR Clindamycin 2014-06 No 300mg STEPHANIE [...] TU Hcl 1-30 S - (Cleocin) 13:03: [facility] 300 Mg CAP [facility] [...] CAP Clindamycin 2014-06 No 300mg Three CHRI KIRSTA Hcl 1-30 Times A S 13:03: Day [...] 1-30 11-30 S - Hcl 12:54: 00:00 [facility] (Cleocin 00 :00 Memoria Liq) 75 l Mg/5 Ml Hospita SOLN.RECON l Clindamycin 2014-06- No 265mg CHRI KRISTA Palmitate [...] 2014-06- No 265mg Three CHR ISTU Palmitate -30 11-30 Times A S Hcl 12:54: 00:00 [facility] (Cleocin 00 :00 Liq) 75 Mg/5 Ml SOLN.RECON Clindamycin 2014-06- No 265mg Three CHR ISTU Palmitate - 11-30 Times A S Hcl 12:54: 00:00 [facility] (Cleocin 00 :00 Liq) 75 Mg/5 Ml SOLN.RECON Clindamycin 2014-06- No 265mg Three CHR ISTU Palmitate -30 11-30 Times A S Hcl 12:54: 00:00 [facility] (Cleocin 00 :00 Liq) 75 Mg/5 Ml SOLN.RECON Amoxicillin 2014-06 No 875mg STEPHANIE TU /Clavulanat 1-[address] e Potassium 22:13: Elizab e (Augmentin 00 Liq) 400 Mg/5 [...] S - St. e Potassium 21:13: [facility] Mupirocin 2014-06 No 1 CHRISTU 1-20 S - St. 21:13: [facility] Amoxicillin 2014-06 No 875mg STEPHANIE TU /Clavulanat [...] Amoxicillin 2014-06 No 875mg STEPHANIE TU /Clavulanat -20 S - e Potassium 21:13: [facility] (Augmentin 00 Memoria Liq) 400 l Mg/5 Ml Hospita SUSP l Mupirocin 2014-06 No 1 CHRISTU (Bactroban 1-20 S - 2% Oint) 22 21:13: [facility] Gm 00 Memoria OINT..GM. l Hospita l Amoxicillin 2014-06 No 875mg STEPHANIE TU /Clavulanat -[address] e Potassium 21:13: Elizab e (Augmentin 00 th Liq) 400 Mg/5 Ml SUSP Mupirocin 2014-06 No 1 CHRISTU (Bactroban 1-[address] 2% Oint) 22 21:13: Elizab e Gm 00 th OINT..GM. Amoxicillin 2014-06 No 875mg STEPHANIE TU /Clavulanat -20 S - St. e Potassium 21:13: [facility] (Augmentin 00 Liq) 400 Mg/5 Ml SUSP Amoxicillin 2014-06 No 875mg STEPHANIE TU /Clavulanat -20 S - St. e Potassium 21:13: [facility] [...] e Hcl 0-14 S - (Phenergan 13:28: [facility] Supp) 12.5 00 Memoria Mg SUPP l [...] Supp) 12.5 00 Mg SUPP Acetaminoph 2013- 1 STEPHANIE TU en/Codeine 01-[address] Phosphate 15:53: 00:00 [facility] (Tylenol 00 :00 th #3) 1 Tab TAB Acetaminoph 1 STEPHANIE TU en/Codeine 01-0514 S - St. Phosphate 15:53: 00:00 [facility] (Tylenol 00 :00 #3) 1 Tab TAB Acetaminoph 1 STEPHANIE TU en/Codeine 01-0514 S - Phosphate 15:53: 00:00 [facility] (Tylenol 00 :00 Memoria #3) 1 Tab l TAB Hospita l Acetaminoph 1 STPEHANIE TU en/Codeine 01-[address] Phosphate 15:53: 00:00 [facility] (Tylenol 00 :00 th #3) 1 Tab TAB Acetaminoph STEPHANIE TU en/Codeine 01-0514 S - St. Phosphate 15:53: 00:00 [facility] (Tylenol 00 :00 #3) 1 Tab TAB Acetaminoph 1 Every 6 CH RISTU en/Codeine 8-03 [...] No 0 CHRISTU us S - Information [facility] (No Home Memoria Meds) MISC l Hospita l Miscellaneo No [address] Information [facility] (No Home th Meds) MISC Miscellaneo No 0 CHRISTU us S - St. Information [facility] (No Home Meds) MISC Miscellaneo No 0 Xx For AJ U us Order Sets S Information Health (No Home Meds) MISC Miscellaneo No 0 Xx For [facility] us Order Sets S Information Health (No Home Meds) MISC Miscellaneo No 0 Xx For [facility] Order Sets S Information Health (No Home Meds) MISC Miscellaneo No 0 Xx For [facility] Order Sets S Information Health (No Home Meds) MISC Miscellaneo No 0 Xx For [facility] Order Sets S Information Health (No Home Meds) MISC Miscellaneo No 0 Xx For [facility] Order Sets S Information Health (No Home Meds) MISC Miscellaneo No 0 Xx For [facility] Order Sets S Information Health Miscellaneo No 0 Xx For [facility] Order Sets S Information Health (No Home Meds) MISC Miscellaneo No 0 Xx For [facility] Order Sets S Information [facility] (No Home Meds) MISC Immunizations Ordered Filled Immunization Date Status Comments [facility] e Immunization Name Name Influenza Virus 2021-06-16 Completed [facility] of Vaccine Quad IM, 00:00:00 [facility] dical Preserv and ABX Branch Free 6 MO-64 YRS Influenza Virus 2021-06-16 Completed [facility]it y of Vaccine [facility] IM, 00:00:00 [facility] dical Preserv and ABX Branch Free 6 MO-64 YRS Influenza Virus 2021-06-16 Completed [facility]it y of Vaccine [facility] IM, 00:00:00 [facility] dical Preserv and ABX Branch Free 6 MO-64 YRS Influenza Virus 2021-06-16 Completed [facility]it y of Vaccine [facility] IM, 00:00:00 [facility] dical Preserv and ABX Branch Free 6 MO-64 YRS Influenza Virus 2021-06-16 Completed Universit y of Vaccine Quad IM, 00:00:00 [facility] dical Preserv and ABX Branch Free 6 MO-64 YRS SARS-COV-2 COVID-19 2021-06-11 Completed Unive rsity of PFIZER VACCINE 00:00:00 [facility] SARS-COV-2 COVID-19 2021-06-11 Completed Unive rsity of PFIZER VACCINE 00:00:00 [facility] SARS-COV-2 COVID-19 2021-06-11 Completed Unive rsity of PFIZER VACCINE 00:00:00 [facility] SARS-COV-2 COVID-19 2021-06-11 Completed Unive rsity of PFIZER VACCINE 00:00:00 [facility] SARS-COV-2 COVID-19 2021-06-11 Completed Unive rsity of PFIZER VACCINE 00:00:00 [facility] Tetanus/Dipht - Hx 2020-08-12 Completed [facility] St. 00:00:00 Joanne Tetanus/Dipht - Hx 2020-08-12 Completed [facility] - [facility] 00:00:00 [facility] darrel Tetanus/Dipht - Hx 2020-08-12 Completed [facility] - St. 00:00:00 [facility] Tetanus/Dipht - Hx 2020-08-12 Completed [facility] St. 00:00:00 Joanne Tetanus/Dipht - Hx 2020-08-12 Completed [facility] - St. 00:00:00 [facility] Tetanus/Dipht - Hx 2020-08-12 Completed [facility] 00:00:00 Tetanus/Dipht - Hx 2020-08-12 Completed [facility] 00:00:00 Tetanus/Dipht - Hx 2020-08-12 Completed [facility] 00:00:00 Tetanus/Dipht - Hx 2020-08-12 Completed [facility] 00:00:00 Tetanus/Dipht - Hx 2020-08-12 Completed [facility] 00:00:00 Tetanus/Dipht - Hx 2020-08-12 Completed [facility] 00:00:00 Influenza Virus 2020-03-23 Completed Universit y of Vaccine Quad .5 mL 00:00:00 [facility] [place] 6+ MO Branch Influenza Virus 2020-03-23 Completed Universit y of Vaccine Quad .5 mL 00:00:00 [facility] [place] 6+ MO Branch Influenza Virus 2020-03-23 Completed Universit y of Vaccine Quad .5 mL 00:00:00 [facility] [place] 6+ MO Branch Influenza Virus 2020-03-23 Completed Universit y of Vaccine Quad .5 mL 00:00:00 [facility] [place] 6+ MO Branch Influenza Virus 2020-03-23 Completed Universit y of Vaccine Quad .5 mL 00:00:00 [facility] [place] 6+ MO Branch Influenza Virus 2020-03-23 Completed Universit y of Vaccine Quad .5 mL 00:00:00 [facility] [place] 6+ MO Branch Vital Signs Vital Name Observation Time Observation Value Comments Source Systolic blood 2021-08-28 132 mm[Hg] University pressure 01:45:00 [facility] Diastolic blood 2021-08-28 67 mm[Hg] University o f pressure 01:45:00 [facility] Heart rate 2021-08-28 66 /min University of 01:45:00 [facility] Body temperature 2021-08-28 36.83 Stacie University of 01:45:00 [facility] Respiratory rate 2021-08-28 17 /min University of :45:00 [facility] Body height 2021-08-28 162.6 cm University of :45:00 [facility] Body weight 2021-08-28 50.349 kg University of :45:00 [facility] BMI 2021-08-28 19.05 kg/m2 University of :45:00 [facility] Oxygen saturation 2021-08-28 100 /min University of in Arterial blood 01:45:00 [place] [facility] by Pulse oximetry Branch Systolic blood 2021-08-24 130 mm[Hg] University of pressure 20:20:00 [facility] Diastolic blood 2021-08-24 75 mm[Hg] University o f pressure 20:20:00 [facility] Heart rate 2021-08-24 96 /min University of 20:20:00 [facility] Body temperature 2021-08-24 36.61 Stacie University of 20:20:00 [facility] Respiratory rate 2021-08-24 17 /min University of 20:20:00 [facility] Body height 2021-08-24 165.1 cm University of 20:20:00 [facility] Body weight 2021-08-24 50.888 kg University of 20:20:00 [facility] BMI 2021-08-24 18.67 kg/m2 University of 20:20:00 [facility] Oxygen saturation 2021-08-24 98 /min University of in Arterial blood 20:20:00 [place] [facility] by Pulse oximetry Branch Systolic blood 2021-08-23 135 mm[Hg] University of pressure 19:18:00 [facility] Branch Diastolic blood 2021-08-23 80 mm[Hg] University o f pressure 19:18:00 [facility] Branch Heart rate 2021-08-23 69 /min University of 19:18:00 [facility] Body temperature 2021-08-23 36.44 Stacie University of 19:18:00 [facility] [place] [facility] Body height 2021-08-23 165.1 cm University 19:18:00 [facility] Body weight 2021-08-23 50.395 kg [facility] 19:18:00 [facility] BMI 2021-08-23 18.49 kg/m2 [facility] 19:18:00 [facility] Oxygen saturation 2021-08-23 98 /min [facility] in Arterial blood 19:18:00 [facility] by Pulse oximetry Branch Systolic blood 2020-01-22 116 mm[Hg] [facility] pressure 18:34:00 of Medicine Diastolic blood 2020-01-22 84 mm[Hg] [facility] pressure 18:34:00 of Medicine Heart rate 2020-01-22 71 /min [facility] 18:34:00 of Medicine Body temperature 2020-01-22 37 Stacie [facility] ege 18:34:00 of Medicine Body height 2020-01-22 160 cm [facility] 18:34:00 of Medicine Body weight 2020-01-22 54.885 kg [facility] 18:34:00 of Medicine BMI 2020-01-22 21.43 kg/m2 [facility] 18:34:00 of Medicine Systolic blood 2020-01-22 116 mm[Hg] [facility] pressure 18:34:00 of Medicine Diastolic blood 2020-01-22 84 mm[Hg] [facility] pressure 18:34:00 of Medicine Heart rate 2020-01-22 71 /min [facility] 18:34:00 of Medicine Body temperature 2020-01-22 37 Stacie [facility] ege 18:34:00 of Medicine Body height 2020-01-22 160 cm [facility] 18:34:00 of Medicine Body weight 2020-01-22 54.885 kg [facility] 18:34:00 of Medicine BMI 2020-01-22 21.43 kg/m2 [facility] 18:34:00 of Medicine Heart rate 2019-10-21 125 /min [facility] 16:40:00 of Medicine Body temperature 2019-10-21 37.17 Stacie [facility] 16:40:00 of Medicine Body height 2019-10-21 160 cm [facility] 16:40:00 of Medicine Body weight 2019-10-21 51.256 kg [facility] 16:40:00 of Medicine BMI 2019-10-21 20.02 kg/m2 [facility] 16:40:00 of Medicine Systolic blood 2019-10-21 132 mm[Hg] pt states [facility] pressure 16:40:00 drank a monster of Medicine Diastolic blood 2019-10-21 97 mm[Hg] pt states [facility] pressure 16:40:00 drank a monster of Medicine Heart rate 2019-10-21 125 /min [facility] 16:40:00 of Medicine Body temperature 2019-10-21 37.17 Stacie [facility] ege 16:40:00 of Medicine Body height 2019-10-21 160 cm [facility] 16:40:00 of Medicine Body weight 2019-10-21 51.256 kg [facility] 16:40:00 of Medicine BMI 2019-10-21 20.02 kg/m2 [facility] 16:40:00 of Medicine Systolic blood 2019-10-21 132 mm[Hg] pt states [facility] pressure 16:40:00 drank a monster of Medicine Diastolic blood 2019-10-21 97 mm[Hg] pt states [facility] ge pressure 16:40:00 drank a monster of Medicine Height/Length 2019-08-19 Measured 15:50:22 Height/Length 2021-06-24 167 cm Measured 10:49:05 Weight Dosing 2021-06-24 51.30 kg 10:49:05 Height/Length 2021-06-24 167 cm Measured 10:19:48 Weight Dosing 2021-06-24 51.30 kg 10:19:48 Height/Length 2021-06-24 167 cm Measured 10:19:39 Weight Dosing 2021-06-24 51.30 kg 10:19:39 Weight Dosing 2021-06-24 54.10 kg 09:49:34 BP Diastolic 2021-04-24 70 mm[Hg] [facility] 23:23:00 BP Systolic 2021-04-24 115 mm[Hg] [facility] 23:23:00 Heart Rate 2021-04-24 75 /min [facility] 23:23:00 Respiratory rate 2021-04-24 15 /min [facility] 23:23:00 Body Temperature 2021-04-24 98.8 [degF] [facility] 23:23:00 BP Diastolic 2021-04-24 80 mm[Hg] [facility] 19:59:00 BP Systolic 2021-04-24 129 mm[Hg] [...] alth 00:52:00 BP Diastolic 2021-02-09 73 mm[Hg] [facility] 21:46:00 BP Systolic 2021-02-09 136 mm[Hg] [...] Health 11:18:00 Heart Rate 2020-11-20 75 /min [facility] 11:18:00 Respiratory rate 2020-11-20 18 /min [facility] 11:18:00 Body Temperature 2020-11-20 98.6 [degF] [facility] 11:18:00 Respiratory 2020-08-14 No respiratory 09:43:35 distress /min 02 Sat by Pulse 2020-08-14 98 /min Oximetry 09:43:35 Body Mass Index 2020-08-14 21.4 09:43:35 Height 2020-08-14 160.02\\S\\63 09:43:35 Pulse Rate 2020-08-14 62 /min 09:43:35 Respiratory Rate 2020-08-14 16 /min 09:43:35 Temperature 2020-08-14 36.9\\S\\98.4 09:43:35 Weight 2020-08-14 55866\\S\\1936.54 09:43:35 Weight Measurement 2020-08-14 Standing Scale Method 09:43:35 Respiratory 2020-08-12 No respiratory 17:41:29 distress /min 02 Sat by Pulse 2020-08-12 98 /min Oximetry 17:41:29 Body Mass Index 2020-08-12 21.4 17:41:29 Height 2020-08-12 160.02\\S\\63 17:41:29 Pulse Rate 2020-08-12 62 /min 17:41:29 Respiratory Rate 2020-08-12 16 /min 17:41:29 Temperature 2020-08-12 36.9\\S\\98.4 17:41:29 Weight 2020-08-12 27876\\S\\1936.54 17:41:29 Weight Measurement 2020-08-12 Standing Scale Method 17:41:29 Respiratory 2020-08-12 No respiratory 17:32:48 distress /min 02 Sat by Pulse 2020-08-12 98 /min Oximetry 17:32:48 Body Mass Index 2020-08-12 21.4 17:32:48 Height 2020-08-12 160.02\\S\\63 17:32:48 Pulse Rate 2020-08-12 64 /min 17:32:48 Respiratory Rate 2020-08-12 20 /min 17:32:48 Temperature 2020-08-12 36.8\\S\\98.2 17:32:48 Weight 2020-08-12 68357\\S\\1936.54 17:32:48 Weight Measurement 2020-08-12 Standing Scale Method 17:32:48 Respiratory 2020-08-12 No respiratory 17:21:34 distress /min 02 Sat by Pulse 2020-08-12 98 /min Oximetry 17:21:34 Body Mass Index 2020-08-12 21.4 17:21:34 Height 2020-08-12 160.02\\S\\63 17:21:34 Pulse Rate 2020-08-12 64 /min 17:21:34 Respiratory Rate 2020-08-12 20 /min 17:21:34 Temperature 2020-08-12 36.8\\S\\98.2 17:21:34 Weight 2020-08-12 96898\\S\\1936.54 17:21:34 Weight Measurement 2020-08-12 Standing Scale Method 17:21:34 Respiratory 2020-08-12 No respiratory 16:33:55 distress /min 02 Sat by Pulse 2020-08-12 98 /min Oximetry 16:33:55 Body Mass Index 2020-08-12 21.4 16:33:55 Height 2020-08-12 160.02\\S\\63 16:33:55 Pulse Rate 2020-08-12 64 /min 16:33:55 Respiratory Rate 2020-08-12 20 /min 16:33:55 Temperature 2020-08-12 36.8\\S\\98.2 16:33:55 Weight 2020-08-12 45710\\S\\1936.54 16:33:55 Weight Measurement 2020-08-12 Standing Scale Method 16:33:55 02 Sat by Pulse 2020-08-12 98 /min Oximetry 16:21:07 Body Mass Index 2020-08-12 21.4 16:21:07 Height 2020-08-12 160.02\\S\\63 16:21:07 Pulse Rate 2020-08-12 64 /min 16:21:07 Respiratory Rate 2020-08-12 20 /min 16:21:07 Temperature 2020-08-12 36.8\\S\\98.2 16:21:07 Weight 2020-08-12 59773\\S\\1936.54 16:21:07 Weight Measurement 2020-08-12 Standing Scale Method 16:21:07 WEIGHT 2020-08-12 54.9 kg 16:14:00 HEIGHT 2020-08-12 160.02 cm 16:14:00 02 Sat by Pulse 2020-05-27 99 /min Oximetry 10:46:44 Body Mass Index 2020-05-27 21.2 10:46:44 Height 2020-05-27 160.02\\S\\63 10:46:44 Pulse Rate 2020-05-27 72 /min 10:46:44 Respiratory Rate 2020-05-27 16 /min 10:46:44 Temperature 2020-05-27 36.9\\S\\98.4 10:46:44 Weight 2020-05-27 91696\\S\\1911.849 10:46:44 Weight Measurement 2020-05-27 Standing Scale Method 10:46:44 WEIGHT 2020-05-25 54.2 kg 11:33:00 HEIGHT 2020-05-25 160.02 cm 11:33:00 Weight 2020-02-17 116 [lb_av] [facility] 18:38:00 BMI (Body Mass 2020-02-17 20.5 kg/m2 [facility] Index) 18:38:00 Body Temperature 2020-02-17 98.5 [degF] [...] 18:06:00 BMI (Body Mass 2019-12-25 22.2 kg/m2 [facility] th Index) 18:06:00 Heart Rate 2019-12-25 120 /min [facility] 18:05:00 Respiratory rate 2019-12-25 20 /min [facility] 18:05:00 BP Systolic 2019-12-25 147 mm[Hg] [facility] 18:05:00 BP Diastolic 2019-12-25 77 mm[Hg] [facility] 18:05:00 Body Temperature 2019-04-25 98.2 [degF] [facility] 13:35:00 Heart Rate 2019-04-25 98 /min [facility] Health 13:35:00 Respiratory rate 2019-04-25 19 /min [facility] He alth 13:35:00 BP Systolic 2019-04-25 123 mm[Hg] [facility] Health 13:35:00 BP Diastolic 2019-04-25 65 mm[Hg] [facility] 13:35:00 Procedures Procedure Date / Time Performing Clinician Source Performed NAIL REMOVAL 2021-08-28 02:54:23 Jonathan Sánchez [facility] XR FINGERS 2 VW RIGHT 2021-08-28 02:44:03 [facility] 2021-08-28 01:32:19 Doctor Unassigned, [facility] DIAGNOSIS AND TREATMENT [facility] XR FOREARM 2 VW LEFT 2021-08-24 20:48:00 Luke To [facility] Computed tomography of 2021-04-24 00:00:00 [facility] abdomen and pelvis with contrast Computed tomography of 2021-02-09 00:00:00 [facility] abdomen and pelvis with contrast EMERGENCY DEPT VISIT 2021-02-02 00:00:00 [facility] [place] ECG (electrocardiogram) 2021-01-20 00:00:00 [facility], two views 2021-01-20 00:00:00 [facility] ROUTINE VENIPUNCTURE 2021-01-20 00:00:00 [facility] [place] X-RAY EXAM CHEST 2 VIEWS 2021-01-20 00:00:00 [facility] ASSAY OF TROPONIN QUANT 2021-01-20 00:00:00 [facility] ELECTROCARDIOGRAM TRACING 2021-01-20 00:00:00 [facility] EMERGENCY DEPT VISIT 2021-01-20 00:00:00 [facility] [place] X-ray of knee, three views 2020-11-20 00:00:00 [facility] X-ray of shoulder, two or 2020-11-20 00:00:00 [facility] more views X-ray of chest, single view 2019-12-25 00:00:00 [facility] Radiologic examination, 2019-04-25 00:00:00 [facility] abdomen; 2 views Plan of Care Planned Activity Planned Date Details Comments Source Future Scheduled Test 2021-04-16 Depression screening University of 00:00:00 (procedure) [code = [place] [facility] 689205727] Branch Future Scheduled Test 2018-11-06 DTaP,Tdap,and Td Un iversity of 00:00:00 Vaccines (1 - Tdap) [place] [facility] [code = DTaP,Tdap,and Branch Td Vaccines (1 - Tdap)] Future Scheduled Test 2011 Well child visit Un iversity of 00:00:00 (procedure) [code = [place] [facility] [id number]] Branch Future Scheduled Test 2010-11-06 HPV VACCINES (1 - U niversity of 00:00:00 Male 2-dose series) [place] [facility] [code = HPV VACCINES Branch (1 - Male 2-dose series)] Future Scheduled Test 2009-11-06 MENINGOCOCCAL B Uni versity of 00:00:00 VACCINES (1 of 2 - [place] [facility] ical Risk Bexsero 2-dose Branch series) [code = MENINGOCOCCAL B VACCINES (1 of 2 - Risk Bexsero 2-dose series)] Future Scheduled Test 2005-11-06 PNEUMOCOCCAL 0-64 U niversity of 00:00:00 YEARS COMBINED SERIES [place] [facility] (1 of 1 - PPSV23) Branch [code = PNEUMOCOCCAL 0-64 YEARS COMBINED SERIES (1 of 1 - PPSV23)] Future Scheduled Test 2000-11-06 VARICELLA VACCINES (1 University of 00:00:00 of 2 - 2-dose [place] [facility] childhood series) Branch [code = VARICELLA VACCINES (1 of 2 - 2-dose childhood series)] Future Scheduled Test Bacterial urine [facility] culture [code = Joanne 630-4] Future Scheduled Test TETANUS SHOT (ADULT) [facility] [code = TETANUS SHOT Medicin e (ADULT)] Future Scheduled Test HIV SCREENING [code = [facility] of HIV SCREENING] Medicine Future Scheduled Test FLU VACCINE > 6 [facility] [facility] [code = FLU Medicine VACCINE > 6 MONTHS] Future Scheduled Test TETANUS SHOT (ADULT) [facility] [code = TETANUS SHOT Medicin e (ADULT)] Future Scheduled Test HIV SCREENING [code = [facility] HIV SCREENING] Medicine Future Scheduled Test FLU VACCINE > 6 [facility] [employer] [facility] [employer] [code = FLU Medicine VACCINE > 6 MONTHS] Future Scheduled Test ZOSTER VACCINE (1 of [place] [address]) [code = ZOSTER Medicine VACCINE (1 of 2)] Goal Patient referral [facility] [code = 6129589 ] Genesis Goal Patient referral [facility] [code = 3064531 ] Joanne Goal Patient referral [facility] [code = 3272337 ] Joanne Goal Patient referral [facility] [code = 1634628 ] Joanne Goal Patient referral [facility] [code = 0625953 ] [facility] ospital Goal Patient referral [facility] [code = 7501000 ] Genesis Goal Patient referral [facility] [code = 1676808 ] Joanne Goal Patient referral [facility] [code = 4903453 ] [facility] Instructions Acid Reflux [facility] (Gastroesophageal Genesis Reflux Disease), Adult (DC) Instructions Diarrhea and [facility] Travelers' Diarrhea, Elizabe th Adult (DC) Instructions Nausea and Vomiting, [facility] Adult (DC) Joanne Instructions Coronavirus Disease [facility] 2019 (COVID-19) (DC) Elizabe th Instructions Muscle and Bone Pain [facility] (DC) Joanne Instructions Sprain (DC) [facility] [place] Instructions COVID-19 (DC) [facility] [place] Instructions Severe Abdominal [facility] Pain, [facility] (DC) [facility]-19 (DC) [facility] - [place]ike per [facility] Hospit al Instructions COVID-19 (DC) [facility] - [place]ike per [facility] Hospit al Instructions Muscle and Bone Pain [facility] (DC) [facility] Instructions Sprain (DC) [facility] [place] Instructions COVID-19 (DC) [facility] [place] Instructions Muscle and Bone Pain [facility] (DC) Joanne Instructions Sprain (DC) [facility] [place] Instructions COVID-19 (DC) [facility] [place] Instructions Muscle and Bone Pain [facility] (DC) [facility] Instructions Sprain (DC) [facility] [place] Instructions COVID-19 (DC) [facility] [place] Encounters Start End Encounter Admission Attending Care Care Encounter Source Date/Time Date/Time Type Type Clinicians Facility Department ID 2021-06-10 Outpatient 3 MAYTE GIRARD END [id number] - [facility] 09:05:51 [facility] [id number] Hospit a l ([facility]) 2021-06-09 Outpatient 3 MAYTE GIRARD END [id number] - [facility] 09:53:07 [facility] [id number] Hospit a l ([facility]) 2021-02-09 Inpatient [facility] [id number] [facility] 21:23:00 [facility] 2021-02-02 Inpatient [facility] [id number] [facility] 09:14:00 [id number] [facility] 2021-01-20 Inpatient [facility] [id number] [facility] 16:34:00 [id number] [facility] 2019-12-25 Inpatient [facility] [id number] [facility] 18:02:00 [id number] [facility] 2021-08-31 2021-08-31 Outpatient DENICE [facility] [id number] Univers 10:00:00 10:00:00 ity [facility] 2021-08-27 2021-08-27 Emergency X RIDDLE, [facility] ERT [id number] Univers 20:48:00 22:50:00 CHRISTMICHELLEER it y [facility] 2021-08-27 2021-08-27 Emergency Whitehouse, [facility] [id number] Univers 20:48:00 22:50:00 Jonathan HANLEY 350.1.13.10 ity [facility] 4.2.7.2.686 [id number] [facility] [address] Branch 2021-08-27 2021-08-27 Nurse DANG Nagel 1.2.840.114 [id number] Univers 00:00:00 00:00:00 Triage Romi AVENDAÑO 350.1.13.10 it y of [facility] 4.2.7.2.686 Anam [id number] [facility] 019 Branch 2021-08-24 2021-08-24 [facility] [id number] Univers 15:28:24 23:59:00 Encounter [facility] 350.1.13.10 ity of [place] 4.2.7.2.686 Anam as TRAE?BLEA [id number] Me cristina [place] [address] MEDICAL OFFICE BUILDING 2021-08-24 2021-08-24 Urgent [facility] 1.2.840.114 [id number] Univers 15:20:00 15:36:34 Care [facility] 350.1.13.10 i ty of [place] 4.2.7.2.686 Anam as TRAE?BLEA [id number] Me cristina [place] [address] MEDICAL OFFICE BUILDING 2021-08-24 2021-08-24 Outpatient R [facility] [id number] Univers 15:20:00 15:36:34 LUKE ity o f [facility] 2021-08-23 2021-08-23 Office Aditya Triston Mcdonald [facility] 1.2 .840.114 [id number] Univers 14:30:00 15:15:53 [facility] [id number] ity of [place] 4.2.7.2.686 [place] [id number] [facility] [address] OFFICE BUILDING 2021-04-24 2021-04-24 Emergency ER SETH DAVEY [id number] 10-22 [facility] 19:48:00 23:25:00 HEBER [id number] [facility] 2021-04-24 2021-04-24 Departed ISH ANN [id number] [facility] 19:48:00 23:25:00 Emergency [facility]3] St 89 [facility] 2021-02-09 2021-02-10 Departed ALFRED Bernal [id number] [facility] 21:23:00 00:52:[address] 2021-02-09 2021-02-10 Departed ALFRED Bernal [id number] [facility] 21:23:00 00:52:[address] 2021-02-03 2021-02-03 Emergency MAYTE MARCELO [id number] [facility] 14:06:00 14:06:00 HAKAN [id number] Hospi ta l ([place]) 2021-02-02 2021-02-02 Departed ALFRED ANN [id number] 5219 [facility] 09:52:00 09:52:00 Emergency ASPER [address] 2021-02-02 2021-02-02 Departed ALFRED ANN [id number] 5219 [facility] 09:52:00 09:52:00 Emergency ASPER [address] Hospita 2021-01-31 2021-01-31 Departed ALFRED ROCHAUS [id number] [facility] 16:49:00 17:47:00 Emergency ASPER [address] 2021-01-31 2021-01-31 Departed ALFRED ANN [id number] [facility] 16:49:00 17:47:00 Emergency ASPER [address] [facility] 2021-01-31 2021-01-31 Emergency ER UNASSIGNED, SETH ANN 48 [id number] [facility] 16:49:00 16:49:[id number] [place] [address] 2021-01-20 2021-01-20 Departed ALFRED ANN [id number] [facility] 16:57:00 20:01:00 Emergency ASPER [address] 2021-01-20 2021-01-20 Departed SETH SETH [id number] [facility] 16:57:00 20:01:00 Emergency ASPER [address] Hospita 2021-01-16 2021-01-16 Emergency SHAUN SHAH MAYTE QER 1202 [id number]- [facility] 01:08:00 01:08:00 [id number] Hospi ta l ([place]) 2020-12-20 2020-12-20 Emergency SHAUN SHAH LUISITOET QER 1202 [id number]- [facility] 00:42:00 00:42:00 [id number] Hospi ta l ([place]) 2020-11-20 2020-11-20 Departed ISH ANN [id number] [facility] 10:54:00 14:45:00 Emergency [facility] 06 [address] [facility] 2020-11-20 2020-11-20 Departed ISH ANN [id number] [facility] 10:54:00 14:45:00 Emergency [facility] 06 S - [facility]. Room [facility] 2020-11-20 2020-11-20 Emergency ER UNASSIGNED, SETH ANN 48 [id number] [facility] 10:54:00 10:54:00 ED [id number] [facility] 2020-11-15 2020-11-15 Emergency GREYSON, [facility] QER [id number] 2- [facility] 09:45:00 09:45:00 DARRELLA [id number] Hosp osiris l ([facility]) 2020-07-01 2020-07-01 Telephone Elidia [facility] 1.2.840.114 [id number] 00:00:00 00:00:00 Endoscopy ICAL 350.1.13.10 SCIENCES 4.2.7.2.686 [facility] [id number] [facility] 2020-04-29 2020-04-29 Telemedici Mark [facility] 1.2.840.114 [id number] 09:41:38 09:56:38 ne Visit Roque Nidia 350.1.13.10 [facility] 4.2.7.2.686 [facility] [id number] BLDG. 144 2020-04-28 2020-04-28 Telemedici Juana [facility] 1.2.840.114 [id number] 08:55:50 09:25:50 ne Visit Troy Sotelo SPECIALTY 350.1.13.10 [facility] 4.2.7.2.686 [place] AT [id number] ISAIAS B[address] [place] [address] 2020-04-28 2020-04-28 Telephone Denice Leong [facility] 1.2.840.114 [id number] 00:00:00 00:00:00 [facility] 350.1.13.10 FAMILY 4.2.7.2.686 MEDICINE [id number] [address] 2020-04-22 2020-04-22 Telephone Denice Leong [facility] 1.2.840.114 [id number] 00:00:00 00:00:00 [facility] HE[facility] 350.1.13.10 FAMILY 4.2.7.2.686 MEDICINE [id number] VANE 044 CLINIC 2020-04-21 2020-04-21 Orders Doctor DANG 1.2.840.114 [id number] 00:00:00 00:00:00 Only Unassigned, JAROCHO 350.1.13.10 [facility] 4.2.7.2.686 [id number] 009 2020-04-17 2020-04-17 Telephone Denice Leong [facility] 1.2.840.114 [id number] 00:00:00 00:00:00 [facility] HEALTH 350.1.13.10 FAMILY 4.2.7.2.686 MEDICINE [id number] VANE 044 [facility] 2020-04-16 2020-04-16 [facility] 1.2.840.114 [id number] 07:44:00 11:34:00 Encounter Troy ANN 350.1.13.10 SCIENCES 4.2.7.2.686 [facility] [id number] 2020-04-16 2020-04-16 Orders Doctor DANG 1.2.840.114 [id number] 00:00:00 00:00:00 Only Unassigned, JAROCHO 350.1.13.10 [facility] 4.2.7.2.686 [id number] [id number] 2020-04-14 2020-04-14 [facility] Denice Leong [facility] 1.2.840.114 [id number] 16:03:35 23:59:00 Encounter [facility] 350.1.13.10 Clear 4.2.7.2.686 [place] [id number] Hospital 801 ([facility]) 2020-04-14 2020-04-14 Compact Assembler Vls-Lab [facility] 1.2.840.114 [id number] 12:20:36 12:35:36 Visit SPECIALTY 350.1.13.10 CARE 4.2.7.2.686 CENTER AT [id number] ISAIAS Elizabeth [facility] 2020-04-09 2020-04-09 Office Denice Leong [facility] 1.2.840.114 [id number] 13:36:27 14:33:50 Visit Amaral HEALTH 350.1.13.10 FAMILY 4.2.7.2.686 MEDICINE [id number] VANE 044 [facility] 2020-04-06 2020-04-06 Orders Doctor DANG 1.2.840.114 [id number] 00:00:00 00:00:00 Only Unassigned, JAROCHO 350.1.13.10 [facility] 4.2.7.2.686 [id number] 009 2020-02-17 2020-02-17 Departed ISH ANN [id number] [facility] 18:27:00 19:19:[address] 2020-02-17 2020-02-17 Departed ISH ANN [id number] [facility] 18:27:00 19:19:[address] 2020-02-17 2020-02-17 Emergency ER UNASSIGNED, SETH ANN 48 [id number] [facility] 18:27:00 18:27:00 ED [id number] [facility] 2020-01-22 2020-01-22 Office ANNETTA Black 1.2.840.114 [id number] 12:04:28 14:13:09 Visit Ezequiel AMBULATOR 350.1.13.21 Seth Y 0.2.7.2.686 [id number] [facility] 2020-01-22 2020-01-22 Office ANNETTA Black 1.2.840.[id number] [place] [address] 12:04:28 14:13:09 Visit Ezequiel AMBULATOR 350.1.13.21 [place] Seth Y 0.2.7.2.686 [id number] [facility] 800 e 2020-01-20 2020-01-20 Outpatient 3 SHAJI ENOCH END [id number] 502- [facility] 08:54:00 08:54:00 TERRELL [id number] Hospi ta l ([place]) 2019-12-31 2019-12-31 Emergency DEBRA HOOK [facility] QER [id number] 8502- [facility] 19:48:00 19:48:00 [id number] Hospi ta l ([place]) 2019-12-25 2019-12-25 Departed ISH ANN [id number] 2311 [facility] 18:02:00 22:07:00 [facility] [address] [facility] 2019-12-25 2019-12-25 Departed CHRISTCORAL ANN [id number] [facility] 18:02:00 22:07:00 Emergency TELIZ [facility] 23 S [facility] Room [place] [facility] 2019-12-25 2019-12-25 Emergency GREYSON, ENOCH QER [id number] 2- [facility] 02:17:00 02:17:00 FAY [id number] Hosp osiris l ([place]) 2019-10-21 2019-10-21 Office ANNETTA Black 1.2.840.114 [id number] 11:25:23 11:40:23 Visit Ezequiel AMBULATOR 350.1.13.21 Seth Y 0.2.7.2.686 [id number] [facility] 2019-10-21 2019-10-21 Office JUAN PABLO Black 1.2.840.[id number] [place] [address] 11:25:23 11:40:23 Visit Ezequiel AMBULATOR 350.1.13.21 [place] Seth Y 0.2.7.2.686 of [id number] [facility] 800 e 2019-08-19 2019-08-19 Emergency 1 Reji Ruiz MCSETX PATSY [id number] Medical 15:23:00 15:23:00 Reji Ruiz -[id number] [facility] 2019-08-19 2019-08-19 Emergency MCSETX PATSY [id number] Medical 15:23:00 15:23:00 [facility] 2019-06-25 2019-06-25 Outpatient 3 DANISHMAYTE MANCILLA END [id number] 502- [facility] 10:28:00 10:28:00 TERRELL [id number] Hospi ta l ([place]) 2019-04-30 2019-04-30 Emergency 1 Elmer Freeman MCSETX PATSY [id number] Medical 19:15:00 20:27:00 Elmer Freeman [facility] 2019-04-25 2019-04-25 Departed AJCORAL SETH [id number] [facility] 11:11:00 13:36:[address] 2019-04-25 2019-04-25 Emergency ER SETH ALICEA [id number] 5-20 [facility] 11:11:00 13:36:00 HAYLEY [id number] [facility] 2019-04-25 2019-04-25 Departed ISH ANN [id number] [facility] 11:11:00 13:36:[address] [facility] [place] [address] S - [address] Room [facility] 2018-10-24 2018-10-25 Emergency ER SETH JAMES [id number] [facility] 23:15:00 00:38:00 SUZANNE [id number] [facility] 2018-09-26 2018-09-26 [place] [id number] 15-20 [facility] 11:10:00 11:10:00 ZOHAIB [id number] [facility] 2018-01-16 2018-01-16 Outpatient MYAH Monte SETCHRISTIAN 22416 1 [facility] 13:12:00 13:12:00 [facility] Results Test Description Test Time Test Comments Results Result Comments Source Serum or plasma alanine aminotransferase measurement ( enzymatic 2021-04-24 21:22:00 activity/volume) Test Item Value Reference Range Interpretation Comme nts Alanine Aminotransferase (ALT/SGPT) (test code = 1742-6) 11 0-55 [facility] HealthSerum or plasma protein measurement (mass/volume)2021-04-24 [...] Lipase (test code = 3040-3) 15 8-78 [facility] HealthAutomated blood leukocyte count (number/volume)2021-04-24 21:22:00 Test [...] = 786-4) [facility] HealthAutomated erythrocyte distribution width [id number] 21:22:00 Test Item Value Reference Range Interpretation Comments Red Cell Distribution Width (test code 11.0 10.7-14.5 = 788-0) [facility] HealthAutomated blood platelet count (count/volume)2021-04-24 21:22:00 Test Item Value Reference Range Interpretation Comments Platelet Count (test code = 777-3) 313 150-450 [facility] HealthAutomated blood platelet mean volume wuyjpllmoza7058-67-34 21:22:00 Test Item Value Reference Range Interpretation Comments Mean Platelet Volume (test code = 9.4 5.7-10.7 38179-5) [facility] HealthAutomated blood neutrophil count as percentage of total lnrhgqrwcg1699-17-92 21:22:00 Test Item Value Reference Range Interpretation Comments Neutrophils (%) (Auto) (test code = 61 47-75 770-8) [facility] HealthAutomated blood immature granulocyte count as percentage of total hqtmxnbjat1307-14-37 21:22:00 Test Item Value Reference Range Interpretation Comments Immature Granulocyte % (Auto) (test 0 0-0 code = 38518-4) [facility] HealthAutomated blood lymphocyte count as percentage of total mcfzxvgrih0587-98-82 21:22:00 Test Item Value Reference Range Interpretation Comments Lymphocytes (%) (Auto) (test code = 26 25-44 736-9) [facility] HealthAutomated blood monocyte count as percentage of total leukocytes 2021-04-24 21:22:00 Test Item Value Reference Range Interpretation Comments Monocytes (%) (Auto) (test code = 7 3-10 5905-5) [facility] HealthAutomated blood eosinophil count as percentage of total dbefukyimn2241-71-80 21:22:00 Test Item Value Reference Range Interpretation Comments Eosinophils (%) (Auto) (test code = 5 0-7 713-8) [facility] HealthAutomated blood basophil count as percentage of total leukocytes 2021-04-24 21:22:00 Test Item Value Reference Range Interpretation Comments Basophils (%) (Auto) (test code = 1 0-1 706-2) [facility] HealthAutomated blood nucleated erythrocyte count as percentage of total uxbqvomhjp3123-79-95 21:22:00 Test Item Value Reference Range Interpretation Comments Nucleated Red Blood Cells % (test code 0.0 0-0.2 = 67284-5) [facility] HealthAutomated blood neutrophil count (number/volume)2021-04-24 21:22:00 Test Item Value Reference Range Interpretation Comments Neutrophils # (Auto) (test code = 7.4 1.3-6.7 751-8) [facility] HealthAutomated blood immature granulocyte count as percentage of total iqcqdoitsg0710-36-33 21:22:00 Test Item Value Reference Range Interpretation Comments Immature Granulocyte # (Auto) (test 0.0 0.0-0.0 code = 85984-2) [facility] HealthAutomated blood lymphocyte count (number/volume)2021-04-24 21:22:00 Test Item Value Reference Range Interpretation Comments Lymphocytes # (Auto) (test code = 3.1 1.4-4.1 731-0) [facility] HealthBlood monocytes automated count (number/volume)2021-04-24 21:22:00 Test Item Value Reference Range Interpretation Comments Monocytes # (Auto) (test code = 742-7) 0.9 0-1.3 [facility] HealthAutomated blood eosinophil hmhjm1385-30-90 21:22:00 Test Item Value Reference Range Interpretation [...] 0.00 0-0.01 = 771-6) [facility] HealthService comment [id number] 21:22:00 Test Item Value Reference Range Interpretation Comments Manual Differential (test code = Not Ind 8265-1) [facility] HealthSodium XycOx-kQwh1985-45-20 21:22:00 Test Item Value Reference Range Interpretation [...] Comments Carbon Dioxide Level (test code = 23 -2028-02) [facility] HealthSerum or plasma anion gap determination (moles/volume)2021-04-24 21:22:00 Test Item Value Reference Range Interpretation Comments Anion Gap (test code = 44063-3) 17 8-18 [facility] HealthSerum or plasma urea nitrogen measurement (mass/volume)2021-04-24 21:22:00 Test Item Value Reference Range Interpretation Comments Blood Urea Nitrogen (test code = 9 02-23 3094-0) [facility] HealthSerum or plasma creatinine measurement (mass/volume)2021-04-24 21:22:00 Test Item Value Reference Range Interpretation Comments Creatinine (test code = 2160-0) 0.8 0.7-1.3 [facility] HealthGFR/BSA.pred SerPl CPFS-[id number] 21:22:00 Test Item Value Reference Range Interpretation Comments Estimat Glomerular Filtration Rate 130 90-142 (test code = 13930-8) [facility] HealthSerum or plasma glucose measurement (mass/volume)2021-04-24 21:22:00 Test Item Value Reference Range Interpretation Comments Glucose Level (test code = 2345-7) 92 60-100 [facility] HealthSerum or plasma calcium measurement (mass/volume)2021-04-24 21:22:00 Test Item Value Reference Range Interpretation Comments Calcium Level (test code = 15895-2) 9.7 8.4-10.2 [facility] HealthSerum or plasma total bilirubin measurement (mass/volume) 2021-04-24 21:22:00 Test Item Value Reference Range Interpretation Comments Total Bilirubin (test code = 1975-2) 0.4 0.2-1.2 [facility] HealthSerum or plasma aspartate aminotransferase measurement (enzymatic activity/volume)2021-04-24 21:22:00 Test Item Value Reference Range Interpretation Comments Aspartate Amino Transf (AST/SGOT) (test 18 5-34 code = 1920-8) [facility] HealthUrinalysis specimen collection [id number] 20:07:00 Test Item Value Reference Range Interpretation Comments Urine Source (test code = 17934-4) URINE [facility] HealthUrine color zkgsgecseckxo8591-64-25 20:07:00 Test Item Value Reference Range Interpretation Comments Urine Color (test code = 5778-6) OTHERS Yel-Devi * [facility] HealthUrine clarity magdldxlhttbz8183-47-74 20:07:00 Test Item Value Reference Range Interpretation Comments Urine Appearance (test code = 38301-0) Clear Clear * [facility] HealthUrine pH measurement by automated test vilqv7189-06-71 20:07:00 Test Item Value Reference Range Interpretation Comments Urine pH (test code = 64806-7) 6.0 5.0-8.0 [facility] HealthSpecific gravity of Urine by Automated test cjhmg8479-22-24 20:07:00 Test Item Value Reference Range Interpretation Comments Urine Specific [place] (test code = 1.020 1.005-1.030 88892-3) [facility] HealthUrine protein measurement by automated test strip (mass/volume) 2021-04-24 20:07:00 Test Item Value Reference Range Interpretation Comments Urine Protein (test code = 07940-8) Negative Negative * [facility] HealthUrine glucose measurement by automated test strip (mass/volume) 2021-04-24 20:07:00 Test Item Value Reference Range Interpretation Comments Urine Glucose (UA) (test code = Negative Negative * 24261-9) [facility] HealthKetones [Mass/volume] in Urine by Automated test ogvty5254-82-07 20:07:00 Test Item Value Reference Range Interpretation Comments Urine Ketones (test code = 84223-3) Negative Negative * [facility] HealthUrine erythrocytes count by automated test strip (number/volume) 2021-04-24 20:07:00 Test Item Value Reference Range Interpretation Comments Urine Occult Blood (test code = Negative Negative * 24271-6) [facility] HealthUrine nitrite detection by automated test [id number] 20:07:00 Test Item Value Reference Range Interpretation Comments Urine Nitrite (test code = 98205-8) Negative Negative [facility] HealthUrine total bilirubin measurement by automated test strip (mass/volume)2021-04-24 20:07:00 Test Item Value Reference Range Interpretation Comments Urine Bilirubin (test code = Negative Negative 54293-6) [facility] HealthUrine urobilinogen measurement by automated test strip (mass/volume)2021-04-24 20:07:00 Test Item Value Reference Range Interpretation Comments Urine Urobilinogen (test code = Negative 0.0-1.0 83580-2) [facility] HealthUrine leukocytes count by automated test strip (number/volume) 2021-04-24 20:07:00 Test Item Value Reference Range Interpretation Comments Urine Leukocyte Esterase (test code Negative Negative = 89301-9) [facility] HealthUrine sediment erythrocyte count by microscopy (number/high power field)2021-04-24 20:07:00 Test Item Value Reference Range Interpretation Comments Urine RBC (test code = 25052-6) None Seen 0-2 [facility] HealthUrine sediment leukocyte [...] (test code = None Seen None * 64209-5) [facility] HealthUrine sediment bacteria count by microscopy (number/high power field)2021-04-24 20:07:00 Test Item Value Reference Range Interpretation Comments Urine Bacteria (test code = 5769-5) Rare None [facility] HealthUrine sediment casts count by microscopy (number/low power field) 2021-04-24 20:07:00 Test Item Value Reference Range Interpretation Comments Urine Casts (test code = 9842-6) None Seen None * [facility] HealthYeast detection in urine sediment by light eadkjklvra8650-85-41 20:07:00 Test Item Value Reference Range Interpretation Comments Urine Yeast (test code = 46397-9) None Seen None [facility] HealthService comment 20:07:00 [...] (test code = Not Ind 8264-4) [facility] HealthChlamydia species rRNA detection by DNA [id number] 20:01:00 Test Item Value Reference Range Interpretation Comments Chlamydia DNA (PCR) (test code = Not Detected NotDetected 77103-4) [facility] HospitalNeisseria gonorrhoeae rRNA detection by DNA scnca1563-80-30 20:01:00 Test Item Value Reference Range Interpretation Comments Neisseria gonorrhoeae DNA (PCR) Not Detected NotDetected (test code = 5028-6) [facility] HealthIdentification of specimen [id number] 20:01:00 Test Item Value Reference Range Interpretation Comments Chlamydia/GC Source (test code = Urine 77764-0) [facility] HealthVenous whole blood sodium measurement (moles/volume)2021-02-09 22:19:00 Test Item Value Reference Range Interpretation Comments Bedside Sodium (test code = 56665-7) 142 136-145 [facility] HealthVenous whole blood potassium measurement (moles/volume)2021-02-09 22:19:00 Test Item Value Reference Range Interpretation Comments Bedside Potassium (test code = 12231-9) 4.0 3.5-5.1 [facility] HealthVenous whole blood chloride measurement (moles/volume)2021-02-09 22:19:00 Test Item Value Reference Range Interpretation Comments Bedside Chloride (test code = 57040-3) 103 100-112 [facility] HealthVenous whole blood total carbon dioxide measurement (moles/volume)2021-02-09 22:19:00 Test Item Value Reference Range Interpretation Comments Bedside Total CO2 (test code = 7-1) 27.0 24.0-33.0 [facility] HealthVenous whole blood urea nitrogen (BUN) measurement (mass/volume) 2021-02-09 22:19:00 Test Item Value Reference Range Interpretation Comments Bedside Blood Urea Nitrogen (test code 10 6-20 = 97249-6) [facility] HealthBlood creatinine measurement (mass/volume)2021-02-09 22:19:00 Test Item Value Reference Range Interpretation Comments Bedside Creatinine (test code = 0.8 0.9-1.5 63971-5) [facility] HealthVenous whole blood glucose measurement (mass/volume)2021-02-09 22:19:00 Test Item Value Reference Range Interpretation Comments Bedside Glucose (test code = 35915-4) 88 60-100 [facility] calcium measurement (moles/volume)2021-02-09 22:19:00 Test Item Value Reference Range Interpretation Comments Bedside Whole Blood Ionized Calcium 1.26 1.12-1.32 (test code = 1994-3) [facility] anion [id number] 22:19:00 Test Item Value Reference Range Interpretation Comments Bedside Anion Gap (test code = 91812-1) 17 8-18 [facility] [id number] 22:19:00 Test Item Value Reference Range Interpretation Comments Estimat Glomerular Filtration Rate 130 90-142 (test code = 439184519) [facility] blood hemoglobin measurement (mass/volume)2021-02-09 22:19:00 Test Item Value Reference Range Interpretation Comments Bedside Hemoglobin (test code = 13.3 13.0-17.5 67674-8) [facility] blood hematocrit (volume fraction)2021-02-09 22:19:00 Test Item Value Reference Range Interpretation Comments Bedside Hematocrit (test code = 39.0 40.0-53.0 24881-6) [facility] whole blood sodium measurement (moles/volume)2021-02-09 22:19:00 Test Item Value Reference Range Interpretation Comments Bedside Sodium (test code = 09549-3) 142 [facility] whole blood potassium measurement (moles/volume)2021-02-09 22:19:00 Test Item Value Reference Range Interpretation Comments Bedside Potassium (test code = 21057-4) 4.0 [facility] whole blood chloride measurement (moles/volume)2021-02-09 22:19:00 Test Item Value Reference Range Interpretation Comments Bedside Chloride (test code = 14617-7) 103 [facility] whole blood total carbon dioxide measurement (moles/volume)2021-02-09 22:19:00 Test Item Value Reference Range Interpretation Comments Bedside Total CO2 (test code = 7-1) 27.0 [facility] whole blood urea nitrogen (BUN) measurement (mass/volume)2021-02-09 22:19:00 Test Item Value Reference Range Interpretation Comments Bedside Blood Urea Nitrogen (test code 10 = 43547-2) [facility] 2021-02-09 22:19:00 Test Item Value Reference Range Interpretation Comments Bedside Creatinine (test code = 0.8 52244-7) [facility] whole blood glucose measurement (mass/volume)2021-02-09 22:19:00 Test Item Value Reference Range Interpretation Comments Bedside Glucose (test code = 10796-2) 88 [facility] (moles/volume)2021-02-09 22:19:00 Test Item Value Reference Range Interpretation Comments Bedside Whole Blood Ionized Calcium 1.26 (test code = 1994-3) [facility] [id number] 22:19:00 Test Item Value Reference Range Interpretation Comments Bedside Anion Gap (test code = 71429-3) 17 [facility] [id number] 22:19:00 Test Item Value Reference Range Interpretation Comments Estimat Glomerular Filtration Rate 130 (test code = 019844302) [facility] blood hemoglobin measurement (mass/volume)2021-02-09 22:19:00 Test Item Value Reference Range Interpretation Comments Bedside Hemoglobin (test code = 13.3 29098-1) [facility] blood hematocrit (volume fraction) 2021-02-09 22:19:00 Test Item Value Reference Range Interpretation Comments Bedside Hematocrit (test code = 39.0 23294-5) [facility] leukocyte count (number/volume)2021-02-09 22:15:00 Test Item Value Reference Range Interpretation Comments White Blood Count (test code = 6690-2) 8.6 4.5-11.5 [facility] erythrocytes automated count (number/volume)2021-02-09 22:15:00 Test Item Value Reference Range Interpretation Comments Red Blood Count (test code = 789-8) 4.81 4.4-6.2 [facility] (mass/volume)2021-02-09 22:15:00 Test Item Value Reference Range Interpretation Comments Hemoglobin (test code = 718-7) 14.4 13.0-17.5 [facility] blood hematocrit (volume fraction)2021-02-09 22:15:00 Test Item Value Reference Range Interpretation Comments Hematocrit (test code = 4544-3) 40.9 39.0-52.5 [facility] HealthAutomated erythrocyte mean corpuscular volume (MCV) measurement 2021-02-09 22:15:00 Test Item Value Reference Range Interpretation Comments Mean Corpuscular Volume (test code = 85.0 80-94 787-2) [facility] HealthAutomated erythrocyte mean corpuscular hemoglobin (mass per erythrocyte)2021-02-09 22:15:00 Test Item Value Reference Range Interpretation Comments Mean Corpuscular Hemoglobin (test code 29.9 27.0-33.0 = 785-6) [facility] HealthAutomated erythrocyte mean corpuscular hemoglobin concentration measurement (mass/volume)2021-02-09 22:15:00 Test Item Value Reference Range Interpretation Comments Mean Corpuscular Hemoglobin Concent 35.2 33.0-37.0 (test code = 786-4) [facility] HealthAutomated erythrocyte distribution width [id number] 22:15:00 Test Item Value Reference Range Interpretation Comments Red Cell Distribution Width (test code 12.0 10.7-14.5 = 788-0) [facility] HealthAutomated blood platelet count (count/volume)2021-02-09 22:15:00 Test Item Value Reference Range Interpretation Comments Platelet Count (test code = 777-3) 413 150-450 [facility] HealthAutomated blood platelet mean volume [id number] 22:15:00 Test Item Value Reference Range Interpretation Comments Mean Platelet Volume (test code = 8.9 5.7-10.7 11893-2) [facility] HealthAutomated blood neutrophil count as percentage of total [id number] 22:15:00 Test Item Value Reference Range Interpretation Comments Neutrophils (%) (Auto) (test code = 45 47-92 770-8) [facility] HealthAutomated blood lymphocyte count as percentage of total [id number] 22:15:00 Test Item Value Reference Range Interpretation Comments Lymphocytes (%) (Auto) (test code = 37 25-44 736-9) [facility] HealthAutomated blood monocyte count as percentage of total leukocytes 2021-02-09 22:15:00 Test Item Value Reference Range Interpretation Comments Monocytes (%) (Auto) (test code = 11 3-10 5905-5) [facility] HealthAutomated blood eosinophil count as percentage of total [id number] 22:15:00 Test Item Value Reference Range Interpretation Comments Eosinophils (%) (Auto) (test code = 7 0-7 713-8) [facility] HealthAutomated blood basophil count as percentage of total leukocytes 2021-02-09 22:15:00 Test Item Value Reference Range Interpretation Comments Basophils (%) (Auto) (test code = 0 0-1 706-2) [facility] HealthAutomated blood neutrophil count (number/volume)2021-02-09 22:15:00 Test Item Value Reference Range Interpretation Comments Neutrophils # (Auto) (test code = 3.9 1.3-6.7 751-8) [facility] HealthAutomated blood lymphocyte count (number/volume)2021-02-09 22:15:00 Test Item Value Reference Range Interpretation Comments Lymphocytes # (Auto) (test code = 3.1 1.4-4.1 731-0) [facility] monocytes automated count (number/volume)2021-02-09 22:15:00 Test Item Value Reference Range Interpretation Comments Monocytes # (Auto) (test code = 742-7) 0.9 0-1.3 [facility] eosinophil [id number] 22:15:00 Test Item Value Reference Range Interpretation Comments Eosinophils # (Auto) (test code = 0.6 0-0.8 711-2) [facility] basophil count (number/volume)2021-02-09 22:15:00 Test Item Value Reference Range Interpretation Comments Basophils # (Auto) (test code = 704-7) 0.0 0-0.1 [facility] HealthService comment [id number] 22:15:00 Test Item Value Reference Range Interpretation Comments Manual Differential (test code = Not Ind 8265-1) [facility] facilityUrinalysis specimen collection [id number] 22:15:00 Test Item Value Reference Range Interpretation Comments Urine Source (test code = 45707-3) URINE [facility] facilityColor of Urine by [id number] 22:15:00 Test Item Value Reference Range Interpretation Comments Urine Color (test code = 56498-2) Yellow Yel-Devi * [facility] HealthUrine clarity [id number] 22:15:00 Test Item Value Reference Range Interpretation Comments Urine Appearance (test code = 50486-9) Clear Clear * [facility] HealthUrine pH measurement by automated test [id number] 22:15:00 Test Item Value Reference Range Interpretation Comments Urine pH (test code = 93079-2) 7.0 5.0-8.0 [facility] HealthSpecific gravity of Urine by Automated test [id number] 22:15:00 Test Item Value Reference Range Interpretation Comments Urine Specific [place] (test code = 1.026 1.005-1.030 34296-8) [facility] HealthUrine protein measurement by automated test strip (mass/volume) 2021-02-09 22:15:00 Test Item Value Reference Range Interpretation Comments Urine Protein (test code = 99892-7) 10 Negative * [facility] HealthUrine glucose measurement by automated test strip (mass/volume) 2021-02-09 22:15:00 Test Item Value Reference Range Interpretation Comments Urine Glucose (UA) (test code = Negative Negative * 81621-9) [facility] HealthKetones [Mass/volume] in Urine by Automated test [id number] 22:15:00 Test Item Value Reference Range Interpretation Comments Urine Ketones (test code = 17275-8) Negative Negative * [facility] HealthUrine erythrocytes count by automated test strip (number/volume) 2021-02-09 22:15:00 Test Item Value Reference Range Interpretation Comments Urine Occult Blood (test code = Negative Negative * 62267-7) [facility] HealthUrine nitrite detection by automated test [id number] 22:15:00 Test Item Value Reference Range Interpretation Comments Urine Nitrite (test code = 36657-1) Negative Negative [facility]Urine total bilirubin measurement by automated test strip (mass/volume)2021-02-09 22:15:00 Test Item Value Reference Range Interpretation Comments Urine Bilirubin (test code = Negative Negative 69569-7) [facility] HealthUrine urobilinogen measurement by automated test strip (mass/volume)2021-02-09 22:15:00 Test Item Value Reference Range Interpretation Comments Urine Urobilinogen (test code = 2.0 0.0-1.0 38951-4) [facility] HealthUrine leukocytes count by automated test strip (number/volume) 2021-02-09 22:15:00 Test Item Value Reference Range Interpretation Comments Urine Leukocyte Esterase (test code Negative Negative = 99191-2) [facility] HealthMicroscopic examination of [id number] 22:15:00 Test Item Value Reference Range Interpretation Comments Microscopic Urinalysis (T) (test code = ----- 86233-3) [facility] HealthUrine sediment erythrocyte count by microscopy (number/high power field)2021-02-09 22:15:00 Test Item Value Reference Range Interpretation Comments Urine RBC (test code = 03558-6) 0-2 0-2 [facility] HealthUrine sediment leukocyte count [...] (test code = None Seen None * 99472-3) [facility] HealthUrine sediment bacteria count by microscopy (number/high power field)2021-02-09 22:15:00 Test Item Value Reference Range Interpretation Comments Urine Bacteria (test code = 5769-5) Rare None [facility] HealthUrine sediment casts count by microscopy (number/low power field) 2021-02-09 22:15:00 Test Item Value Reference Range Interpretation Comments Urine Casts (test code = 9842-6) None Seen None * [facility] HealthYeast detection in urine sediment by light [id number] 22:15:00 Test Item Value Reference Range Interpretation Comments Urine Yeast (test code = 53109-0) None Seen None [facility] comment 22:15:00 Test Item Value Reference Range Interpretation Comments Urinalysis Comment (test * See_Comment [A utomated message] The code = 8262-8) system which generated this result tra nsmitted reference range : *. The reference range was not used to interpr et this result as normal/abnormal . [facility] comment [id number] 22:15:00 Test Item Value Reference Range Interpretation [...] Interpretation Comments Direct Bilirubin (test code = 1967-7) 0.1 0.0-0.5 [facility] HealthSerum or plasma aspartate [...] Albumin (test code = 1751-7) 4.1 3.5-5.0 [facility] HealthSerum globulin measurement by calculation (mass/volume)2021-02-09 22:15:00 Test Item Value Reference Range Interpretation Comments Globulin (test code = 09965-4) 2.7 [facility] HealthSerum or plasma albumin/globulin mass [id number] 22:15:00 Test Item Value Reference Range Interpretation Comments Albumin/Globulin Ratio (test code = 1.5 1759-0) [facility] HealthSerum or plasma alkaline phosphatase measurement (enzymatic activity/volume)2021-02-09 22:15:00 Test Item Value Reference Range Interpretation Comments Alkaline Phosphatase (test code = 64 40-150 6768-6) [facility] facility[facility] or plasma lipase measurement (enzymatic activity/volume) 2021-02-09 22:15:00 Test Item Value Reference Range Interpretation Comments Lipase (test code = 3040-3) 99 8-78 [facility] (number/volume)2021-02-09 22:15:00 Test Item Value Reference Range Interpretation Comments White Blood Count (test code = 6690-2) 8.6 [facility] automated count (number/volume)2021-02-09 22:15:00 Test Item Value Reference Range Interpretation Comments Red Blood Count (test code = 789-8) 4.81 [facility] hemoglobin measurement (mass/volume) 2021-02-09 22:15:00 Test Item Value Reference Range Interpretation Comments Hemoglobin (test code = 718-7) 14.4 [facility] hemat[facility]rit (volume fraction) 2021-02-09 22:15:00 Test Item Value Reference Range Interpretation Comments Hematocrit (test code = 4544-3) 40.9 [facility] mean corpuscular volume (MCV) [id number] 22:15:00 Test Item Value Reference Range Interpretation Comments Mean Corpuscular Volume (test code = 85.0 787-2) [facility] HospitalAutamerican healthcare systemsed erythrocyte mean corpuscular hemoglobin (mass per erythrocyte)2021-02-09 22:15:00 Test Item Value Reference Range Interpretation Comments Mean Corpuscular Hemoglobin (test code 29.9 = 785-6) [facility] HospitalAutomated erythrocyte mean corpuscular hemoglobin concentration measurement (mass/volume)2021-02-09 22:15:00 Test Item Value Reference Range Interpretation Comments Mean Corpuscular Hemoglobin Concent 35.2 (test code = 786-4) [facility] distribution width [id number] 22:15:00 Test Item Value Reference Range Interpretation Comments Red Cell Distribution Width (test code 12.0 = 788-0) [facility]Autom[facility] platelet count (count/volume) 2021-02-09 22:15:00 Test Item Value Reference Range Interpretation Comments Platelet Count (test code = 777-3) 413 [facility] platelet mean volume [id number] 22:15:00 Test Item Value Reference Range Interpretation Comments Mean Platelet Volume (test code = 8.9 33703-9) [facility] HospitalAutomated blood neutrophil count as percentage of total [id number] 22:15:00 Test Item Value Reference Range Interpretation Comments Neutrophils (%) (Auto) (test code = 45 770-8) [facility] HospitalAutomated blood lymphocyte count as percentage of total [id number] 22:15:00 Test Item Value Reference Range Interpretation Comments Lymphocytes (%) (Auto) (test code = 37 736-9) [facility] monocyte count as percentage of total pgnvkhqhpo1520-01-15 22:15:00 Test Item Value Reference Range Interpretation Comments Monocytes (%) (Auto) (test code = 11 5905-5) [facility] eosin[facility] count as percentage of total [id number] 22:15:00 Test Item Value Reference Range Interpretation Comments Eosinophils (%) (Auto) (test code = 7 713-8) [facility] basophil count as percentage of total svhcbemrjt7676-59-99 22:15:00 Test Item Value Reference Range Interpretation Comments Basophils (%) (Auto) (test code = 0 706-2) [facility] Centerom[facility] neutrophil count (number/volume)2021-02-09 22:15:00 Test Item Value Reference Range Interpretation Comments Neutrophils # (Auto) (test code = 3.9 751-8) [facility] HospitalAutomated blood lymphocyte count (number/volume)2021-02-09 22:15:00 Test Item Value Reference Range Interpretation Comments Lymphocytes # (Auto) (test code = 3.1 731-0) [facility] monocytes automated count (number/volume)2021-02-09 22:15:00 Test Item Value Reference Range Interpretation Comments Monocytes # (Auto) (test code = 742-7) 0.9 [facility] HospitalAutomated blood eosinophil [id number] 22:15:00 Test Item Value Reference Range Interpretation Comments Eosinophils # (Auto) (test code = 0.6 711-2) [facility] HospitalAutomated blood basophil count (number/volume)2021-02-09 22:15:00 Test Item Value Reference Range Interpretation Comments Basophils # (Auto) (test code = 704-7) 0.0 [facility] [id number] 22:15:00 Test Item Value Reference Range Interpretation Comments Manual Differential (test code = Not Ind 8265-1) [facility] HospitalUrinalysis specimen collection method 2021-02-09 22:15:00 Test Item Value Reference Range Interpretation Comments Urine Source (test code = 49415-7) URINE [facility] HospitalColor of Urine by [id number] 22:15:00 Test Item Value Reference Range Interpretation Comments Urine Color (test code = 04478-8) Yellow [facility] HospitalUrine clarity [id number] 22:15:00 Test Item Value Reference Range Interpretation Comments Urine Appearance (test code = 20068-5) Clear [facility] pH measurement by automated test strip 2021-02-09 22:15:00 Test Item Value Reference Range Interpretation Comments Urine pH (test code = 97417-5) 7.0 [facility] Centerpecific gravity of Urine by Automated test [id number] 22:15:00 Test Item Value Reference Range Interpretation Comments Urine Specific [place] (test code = 1.026 28694-6) [facility] protein measurement by automated test strip (mass/volume)2021-02-09 22:15:00 Test Item Value Reference Range Interpretation Comments Urine Protein (test code = 30431-3) 10 [facility] glucose measurement by automated test strip (mass/volume)2021-02-09 22:15:00 Test Item Value Reference Range Interpretation Comments Urine Glucose (UA) (test code = Negative 10108-3) [facility] HospitalKetones [Mass/volume] in Urine by Automated test [id number] 22:15:00 Test Item Value Reference Range Interpretation Comments Urine Ketones (test code = 77847-8) Negative [facility] erythrocytes count by automated test strip (number/volume)2021-02-09 22:15:00 Test Item Value Reference Range Interpretation Comments Urine Occult Blood (test code = Negative 18337-1) [facility] nitrite detection by automated test [id number] 22:15:00 Test Item Value Reference Range Interpretation Comments Urine Nitrite (test code = 86289-4) Negative [facility] total bilirubin measurement by automated test strip (mass/volume)2021-02-09 22:15:00 Test Item Value Reference Range Interpretation Comments Urine Bilirubin (test code = Negative 42828-2) [facility] urobilinogen measurement by automated test strip (mass/volume)2021-02-09 22:15:00 Test Item Value Reference Range Interpretation Comments Urine Urobilinogen (test code = 2.0 21672-5) [facility] leukocytes count by automated test strip (number/volume)2021-02-09 22:15:00 Test Item Value Reference Range Interpretation Comments Urine Leukocyte Esterase (test code Negative = 85465-6) [facility] HospitalMicroscopic examination of [id number] 22:15:00 Test Item Value Reference Range Interpretation Comments Microscopic Urinalysis (T) (test code = ----- 84730-3) [facility] sediment erythrocyte count by microscopy (number/high power field)2021-02-09 22:15:00 Test Item Value Reference Range Interpretation Comments Urine RBC (test code = 64816-5) 0-2 [facility] sediment leukocyte count by microscopy (number/high power field)2021-02-09 22:15:00 Test Item Value Reference Range Interpretation Comments Urine WBC (test code = 5821-4) 0-5 [facility] sediment epithelial cell count by microscopy (number/high power field)2021-02-09 22:15:00 Test Item Value Reference Range Interpretation Comments Urine Epithelial Cells (test code = None Seen 5787-7) [facility] sediment crystal count by microscopy (number/high power field)2021-02-09 22:15:00 Test Item Value Reference Range Interpretation Comments Urine Crystals (test code = None Seen 61613-2) [facility] sediment bacteria count by microscopy (number/high power field)2021-02-09 22:15:00 Test Item Value Reference Range Interpretation Comments Urine Bacteria (test code = 5769-5) Rare [facility] sediment casts count by microscopy (number/low power field)2021-02-09 22:15:00 Test Item Value Reference Range Interpretation Comments Urine Casts (test code = 9842-6) None Seen [facility] HospitalYeast detection in urine sediment by light [id number] 22:15:00 Test Item Value Reference Range Interpretation Comments Urine Yeast (test code = 52463-7) None Seen [facility] comment 22:15:00 Test Item Value Reference Range Interpretation Comments Urinalysis Comment (test code = 8262-8) * [facility] comment 22:15:00 Test Item Value Reference Range Interpretation Comments Urine Culture Indicated (test code = Not Ind 8264-4) [facility] plasma total bilirubin measurement (mass/volume)2021-02-09 22:15:00 Test Item Value Reference Range Interpretation Comments Total Bilirubin (test code = 1975-2) 0.3 [facility] or plasma total combined glucuronidated bilirubin and albumin bound bilirubin measurement (mass/volume)2021-02-09 22:15:00 Test Item Value Reference Range Interpretation Comments Direct Bilirubin (test code = 1968-7) 0.1 [facility] or plasma aspartate aminotransferase measurement (enzymatic activity/volume)2021-02-09 22:15:00 Test Item Value Reference Range Interpretation Comments Aspartate Amino Transf (AST/SGOT) (test 14 code = 1920-8) [facility] alanine aminotransferase measurement (enzymatic activity/volume)2021-02-09 22:15:00 Test Item Value Reference Range Interpretation Comments Alanine Aminotransferase (ALT/SGPT) 14 (test code = 1742-6) [facility] protein measurement (mass/volume)2021-02-09 22:15:00 Test Item Value Reference Range Interpretation Comments Total Protein (test code = 2885-2) 6.8 [facility] plasma albumin measurement (mass/volume)2021-02-09 22:15:00 Test Item Value Reference Range Interpretation Comments Albumin (test code = 1751-7) 4.1 [facility] globulin measurement by calculation (mass/volume)2021-02-09 22:15:00 Test Item Value Reference Range Interpretation Comments Globulin (test code = 16265-7) 2.7 [facility] or plasma albumin/globulin mass ratio 2021-02-09 22:15:00 Test Item Value Reference Range Interpretation Comments Albumin/Globulin Ratio (test code = 1.5 1759-0) [facility] alkaline phosphatase measurement (enzymatic activity/volume)2021-02-09 22:15:00 Test Item Value Reference Range Interpretation Comments Alkaline Phosphatase (test code = 64 6768-6) [facility] or plasma lipase measurement (enzymatic activity/volume)2021-02-09 22:15:00 Test Item Value Reference Range Interpretation Comments Lipase (test code = 3040-3) 99 [facility] HospitalCOVID SYMPTOMAT[facility] ER [id number] 14:55:00 Test Item Value Reference Range Interpretation Comments CORONAVIRUS (COVID-19)BY PCR (test POSITIVE code = [id number]) Whole blood cardiac troponin I measurement (mass/volume)2021-01-20 19:00:00 Test Item Value Reference Range Interpretation Comments Bedside Troponin I (test code = 0.00 0.00-0.06 91689-8) [facility] blood cardiac troponin I measurement (mass/volume) 2021-01-20 19:00:00 Test Item Value Reference Range Interpretation Comments Bedside Troponin I (test code = 0.00 0.00-0.06 17306-1) [facility] blood cardiac troponin I measurement (mass/volume) 2021-01-20 19:00:00 Test Item Value Reference Range Interpretation Comments Bedside Troponin I (test code = 0.00 0.00-0.06 58989-4) [facility] blood cardiac troponin I measurement (mass/volume) 2021-01-20 19:00:00 Test Item Value Reference Range Interpretation Comments Bedside Troponin I (test code = 0.00 0.00-0.06 59516-2) [facility] blood cardiac troponin I measurement (mass/volume) 2021-01-20 19:00:00 Test Item Value Reference Range Interpretation Comments Bedside Troponin I (test code = 0.00 88592-9) [facility] blood cardiac troponin I measurement (mass/volume) 2021-01-20 19:00:00 Test Item Value Reference Range Interpretation Comments Bedside Troponin I (test code = 0.00 81536-0) [facility] blood cardiac troponin I measurement (mass/volume)2021-01-20 19:00:00 Test Item Value Reference Range Interpretation Comments Bedside Troponin I (test code = 0.00 48617-1) [facility] blood cardiac troponin I measurement (mass/volume) 2021-01-20 19:00:00 Test Item Value Reference Range Interpretation Comments Bedside Troponin I (test code = 0.00 24806-8) [facility] THORAX W/O [id number] 22:25:[address] [facility] [place] : 2000 Sex: M[address], [place] [address]MXTFYIWWGU IMAGING REPORTPatient Name: SANTI ELIZABETH CDate of Service: [id number]: 20 Sex: M Order #: [id number] [facility] 2000 [facility] Number: [id number] Record Number: [id number] Hospital Number: [id number] Physician: SHAUN SHAHOrdering Physician: SHAUN SHAHPROCEDURE: CT THORAX W/O CONTINDICATIONS: [...] been electronically signed by: Lavelle Marie MD on01/16/2021 22:24:32Legally authenticated by DIANA MALIK 2021-01-16 21:43:[id number] 06:34:00 Test Item Value Reference Range Interpretation [...] code 4.6 K/UL 1.2-7.2 = NEUT) INFLUENZA [id number] 04:49:00 Test Item Value Reference Range Interpretation Comments FLU A (test code = FLU A) NEGATIVE NEGATIVE FLU B (test code = FLU B) NEGATIVE NEGATIVE FLU INTERNAL POSITIVE CNTRL (test PASS PASS code = FLU IPC) INFLUENZA LOT # (test code = 6959839 FLULOT) INFLUENZA EXPIRATION DATE (test 09-04-2022 code = FLUEXP) COVID SYMPTOMATIC ER [id number] 04:10:00 Test Item Value Reference Range Interpretation Comments CORONAVIRUS (COVID-19)BY PCR (test NEGATIVE code = ISU94ANS) ISTAT CHEM [id number] 04:00:00 Test Item Value Reference Range Interpretation [...] of Reference Range s CHEST 1 VIEW [id number] 02:54:[address] [facility] [place] Luciano : 2000 Sex: M[address] [address]QQDSEGQYEK IMAGING REPORTPatient Name: SANTI ELIZABETH CDate of Service: [id number]: 20 Sex: M Order #: [id number] Room: ERSDOB: 2000 X-Ray Number: [id number] Record Number: [id number] Hospital Number: [id number] Physician: SHAUN SHAHOrdering Physician: SHAUN SHAHPROCEDURE: CHEST [...] been electronically signed by: Lavelle Marie MD on01/16/2021 02:53:47Legally authenticated by DIANA MALIK 2021-01-16 01:42:00WHOLE BLOOD [id number] 01:10:00 Test Item Value Reference Range Interpretation Comments WHOLE BLOOD GLUCOSE 122 MG/DL 70-99 Fastin g glucose (test code = POC GLU) normal <100 MG/DL- [employer] recommend ation ANKLE 3 [id number] 11:08:[address] [facility] [place] : 2000 [facility] [place] [id number] IMAGING REPORTPatient Name: SANTI ELIZABETH CDate of Service: [id number]: 20 Sex: M Order #: [id number] Room: ERSDOB: 2000 X-Ray Number: [id number] Record Number: [id number] Hospital Number: [id number] Physician: FAY RUBI -Ordering Physician: PONCE MARCELO [...] HODGES 2020-11-15 11:05:57PATHOLOGY REPORT 2020-01-21 13:34:00TISSUE CONSULTATION REPORTBAPTTEXAS [facility]ALTH [facility]THDEPARTMENT OF PATHOLOGYP.O. [address], [place] [id number] [address] [facility] YASMIN STINSON M.D.ROBERT L. HUTTON, M.D.CHARLES E. BURNS, M.D. ____Patient: IVANNOÉSANTI Luciano 2000 19 MRoom:Hosp#: [id number] Ordering Physician: Luther GIRARD Rec.: 01/20/2020Date of Proc.: 01/20/2020Lab No.: [id number] Clinical History:Abdominal pain, hematemesis and change in [...] ULTS VERIFIED.C'd PCR (test code = TO [id number]) Wilmar Ruiz RN/ 1022/S L URINE DRUG [id number] 23:45:00 Test Item Value Reference Range Interpretation [...] PCP (test code = NEGATIVE NEGATIVE BMTPCP) [id number] 21:57:00 Test Item Value Reference Range Interpretation [...] EPI (test code = EPI) 45 /LPF [id number] 21:08:00 Test Item Value Reference Range Interpretation Comments LIPASE (test code = LIPA) 53 U/L 23-300 LIVER [id number] 21:08:00 Test Item Value Reference Range Interpretation [...] (test code = ALTV) 13 U/L 13-69 [id number] 20:39:00 Test Item Value Reference Range Interpretation [...] 6.9 K/UL 1.2-7.2 = NEUT) ISTAT CHEM [id number] 20:30:00 Test Item Value Reference Range Interpretation [...] = 21 MMOL/L Notifi ed Nurse/MD of ISTANGAP) results outside of Reference Range s Urinalysis specimen collection [id number] 20:40:00 Test Item Value Reference Range Interpretation Comments Urine Source (test code = 80374-8) URINE [facility] HealthColor of Urine by [id number] 20:40:00 Test Item Value Reference Range Interpretation Comments Urine Color (test code = 96349-2) Lt Yellow Yel-Devi * [facility] HealthUrine clarity nwunkpukqodfc8840-30-16 20:40:00 Test Item Value Reference Range Interpretation Comments Urine Appearance (test code = 18431-3) Clear Clear * [facility] HealthUrine pH measurement by automated test [id number] 20:40:00 Test Item Value Reference Range Interpretation Comments Urine pH (test code = 07922-6) 6.5 5.0-8.0 [facility] HealthSpecific gravity of Urine by Automated test [id number] 20:40:00 Test Item Value Reference Range Interpretation Comments Urine Specific [place] (test code = 1.029 1.005-1.030 29925-1) [facility] HealthUrine protein measurement by automated test strip (mass/volume) 2019-12-25 20:40:00 Test Item Value Reference Range Interpretation Comments Urine Protein (test code = 09661-7) 10 mg/dL Negative * [facility] HealthUrine glucose measurement by automated test strip (mass/volume) 2019-12-25 20:40:00 Test Item Value Reference Range Interpretation Comments Urine Glucose (UA) (test code Negative mg/dL Negative * = 86562-6) [facility] HealthUrine ketones measurement by automated test strip (mass/volume) 2019-12-25 20:40:00 Test Item Value Reference Range Interpretation Comments Urine Ketones (test code = 59999-2) 10 mg/dL Negative * [facility] HealthUrine erythrocytes count by automated test strip (number/volume) 2019-12-25 20:40:00 Test Item Value Reference Range Interpretation Comments Urine Occult Blood (test code = Negative Negative * 68928-0) [facility] HealthUrine nitrite detection by automated test [id number] 20:40:00 Test Item Value Reference Range Interpretation Comments Urine Nitrite (test code = 51752-1) Negative Negative [facility] HealthUrine total bilirubin measurement by automated test strip (mass/volume)2019-12-25 20:40:00 Test Item Value Reference Range Interpretation Comments Urine Bilirubin (test code = Negative mg/dL Negative 46223-6) [facility] HealthUrine urobilinogen measurement by automated test strip (mass/volume)2019-12-25 20:40:00 Test Item Value Reference Range Interpretation Comments Urine Urobilinogen (test code Negative mg/dL 0.0-1.0 = 10180-5) [facility] HealthUrine leukocytes count by automated test strip (number/volume) 2019-12-25 20:40:00 Test Item Value Reference Range Interpretation Comments Urine Leukocyte Esterase Negative {Paul}/uL Negative (test code = 67033-9) [facility] HealthMicroscopic examination of [id number] 20:40:00 Test Item Value Reference Range Interpretation Comments Microscopic Urinalysis (T) (test code = ----- 26077-3) [facility] HealthUrine sediment erythrocyte count by microscopy (number/high power field)2019-12-25 20:40:00 Test Item Value Reference Range Interpretation Comments Urine RBC (test code = 45308-6) 0-2 /[HPF] 0-2 [facility] HealthUrine sediment leukocyte count by microscopy (number/high power field)2019-12-25 20:40:00 Test Item Value Reference Range Interpretation Comments Urine WBC (test code = 5821-4) 0-5 /[HPF] 0-5 [facility] HealthUrine sediment epithelial cell count by microscopy (number/high power field)2019-12-25 20:40:00 Test Item Value Reference Range Interpretation Comments Urine Epithelial Cells (test None Seen /[HPF] Few code = 5787-7) [facility] HealthUrine sediment crystal count by microscopy (number/high power field)2019-12-25 20:40:00 Test Item Value Reference Range Interpretation Comments Urine Crystals (test code = None Seen /[HPF] None * 18674-0) [facility] HealthUrine sediment bacteria count by microscopy [...] HealthYeast detection in urine sediment by light [id number] 20:40:00 Test Item Value Reference Range Interpretation Comments Urine Yeast (test code = None Seen /[HPF] None 51880-9) [facility] HealthService comment 20:40:00 Test Item Value [...] Indicated (test code To follow = 8264-4) [facility] HealthUrinalysis specimen collection [id number] 20:40:00 Test Item Value Reference Range Interpretation Comments Urine Source (test code = 57932-6) URINE [facility] Urine by [id number] 20:40:00 Test Item Value Reference Range Interpretation Comments Urine Color (test code = 59124-2) Lt Yellow [facility] ElizabethUrine clarity giwgykqcgiwby7294-22-00 20:40:00 Test Item Value Reference Range Interpretation Comments Urine Appearance (test code = 12291-6) Clear [facility] ElizabethUrine pH measurement by automated test [id number] 20:40:00 Test Item Value Reference Range Interpretation Comments Urine pH (test code = 63862-5) 6.[address] ElizabethSpecific gravity of Urine by Automated test strip 2019-12-25 20:40:00 Test Item Value Reference Range Interpretation Comments Urine Specific [place] (test code = 1.029 78163-9) [facility] protein measurement by automated test strip (mass/volume)2019-12-25 20:40:00 Test Item Value Reference Range Interpretation Comments Urine Protein (test code = 28278-8) 10 mg/dL [facility] ElizabethUrine glucose measurement by automated test strip (mass/volume)2019-12-25 20:40:00 Test Item Value Reference Range Interpretation Comments Urine Glucose (UA) (test code Negative mg/dL = 56219-0) [facility] ElizabethUrine ketones measurement by automated test strip (mass/volume)2019-12-25 20:40:00 Test Item Value Reference Range Interpretation Comments Urine Ketones (test code = 56597-6) 10 mg/dL [facility] ElizabethUrine erythrocytes count by automated test strip (number/volume)2019-12-25 20:40:00 Test Item Value Reference Range Interpretation Comments Urine Occult Blood (test code = Negative 86353-9) [facility] ElizabethUrine nitrite detection by automated test [id number] 20:40:00 Test Item Value Reference Range Interpretation Comments Urine Nitrite (test code = 84657-0) Negative [facility] total bilirubin measurement by automated test strip (mass/volume)2019-12-25 20:40:00 Test Item Value Reference Range Interpretation Comments Urine Bilirubin (test code = Negative mg/dL 47255-6) [facility] urobilinogen measurement by automated test strip (mass/volume)2019-12-25 20:40:00 Test Item Value Reference Range Interpretation Comments Urine Urobilinogen (test code Negative mg/dL = 92517-2) [facility] leukocytes count by automated test strip (number/volume)2019-12-25 20:40:00 Test Item Value Reference Range Interpretation Comments Urine Leukocyte Esterase Negative {Paul}/uL (test code = 95097-8) [facility] FigueroaMicroscopic examination of sjqlt0764-09-02 20:40:00 Test Item Value Reference Range Interpretation Comments Microscopic Urinalysis (T) (test code = ----- 12850-0) [facility] sediment erythrocyte count by microscopy (number/high power field)2019-12-25 20:40:00 Test Item Value Reference Range Interpretation Comments Urine RBC (test code = 42492-1) 0-2 /[HPF] [facility] sediment leukocyte count by microscopy (number/high power field)2019-12-25 20:40:00 Test Item Value Reference Range Interpretation Comments Urine WBC (test code = 5821-4) 0-5 /[HPF] [facility] sediment epithelial cell count by microscopy (number/high power field)2019-12-25 20:40:00 Test Item Value Reference Range Interpretation Comments Urine Epithelial Cells (test None Seen /[HPF] code = 5787-7) [facility] sediment crystal count by microscopy (number/high power field)2019-12-25 20:40:00 Test Item Value Reference Range Interpretation Comments Urine Crystals (test code = None Seen /[HPF] 53634-7) [facility] sediment bacteria count by microscopy (number/high power field)2019-12-25 20:40:00 Test Item Value Reference Range Interpretation Comments Urine Bacteria (test code = Few /[HPF] 5769-5) [facility] JoanneU[facility] sediment casts count by microscopy (number/low power field)2019-12-25 20:40:00 Test Item Value Reference Range Interpretation Comments Urine Casts (test code = Present /[LPF] 9842-6) [facility] JoanneU[facility] sediment hyaline cast count by microscopy (number/low power field)2019-12-25 20:40:00 Test Item Value Reference Range Interpretation Comments Urine Hyaline Casts (test code = 0-1 /[LPF] 5796-8) S[facility] Hearn. SteventhYeast detection in urine sediment by light microscopy 2019-12-25 20:40:00 Test Item Value Reference Range Interpretation Comments Urine Yeast (test code = None Seen /[HPF] 69998-4) S[facility] Hearn. [employer] comment 20:40:00 Test Item Value Reference Range Interpretation Comments Urinalysis Comment (test code = 8262-8) * SETH Hearn. Meme comment 20:40:00 Test Item Value Reference Range Interpretation Comments Urine Culture Indicated (test code To follow = 8264-4) [facility] FigueroaAutomated blood platelet count (count/volume)2019-12-25 19:50:00 Test Item Value Reference Range Interpretation Comments Platelet Count (test code = 421 10*3/uL 150-450 777-3) [facility] HealthAutomated blood platelet mean volume mbjzodmdbbk7423-25-06 19:50:00 Test Item Value Reference Range Interpretation Comments Mean Platelet Volume (test code = 9.7 5.7-10.7 87991-2) [facility] HealthAutomated blood neutrophil count as percentage of total bwwnmldhsq8460-37-75 19:50:00 Test Item Value Reference Range Interpretation Comments Neutrophils (%) (Auto) (test code = 83 % 47-75 770-8) [facility] HealthAutomated blood immature granulocyte count as percentage of total trpoownoiq4572-03-18 19:50:00 Test Item Value Reference Range Interpretation Comments Immature Granulocyte % (Auto) (test 0 % 0-0 code = 55584-5) [facility] HealthAutomated blood lymphocyte count as percentage of total kotaopxqtn6534-57-81 19:50:00 Test Item Value Reference Range Interpretation Comments Lymphocytes (%) (Auto) (test code = 13 % 25-44 736-9) [facility] HealthAutomated blood monocyte count as percentage of total leukocytes 2019-12-25 19:50:00 Test Item Value Reference Range Interpretation Comments Monocytes (%) (Auto) (test code = 4 % 3-10 5905-5) [facility] HealthAutomated blood eosinophil count as percentage of total ujwmywbkgz5137-71-75 19:50:00 Test Item Value Reference Range Interpretation Comments Eosinophils (%) (Auto) (test code = 0 % 0-7 713-8) [facility] HealthAutomated blood basophil count as percentage of total leukocytes 2019-12-25 19:50:00 Test Item Value Reference Range Interpretation Comments Basophils (%) (Auto) (test code = 0 % 0-1 706-2) [facility] HealthAutomated blood nucleated erythrocyte count as percentage of total drbmqceywb2711-01-52 19:50:00 Test Item Value Reference Range Interpretation Comments Nucleated Red Blood Cells % (test code 0.0 % 0-0.2 = 43743-4) [facility] HealthAutomated blood neutrophil count (number/volume)2019-12-25 19:50:00 Test Item Value Reference Range Interpretation Comments Neutrophils # (Auto) (test code = 6.7 10*3/uL 1.3-6.7 751-8) [facility] HealthAutomated blood immature granulocyte count as percentage of total cqndldlprm2610-24-30 19:50:00 Test Item Value Reference Range Interpretation Comments Immature Granulocyte # (Auto) 0.0 10*3/uL 0.0-0.0 (test code = 17555-9) [facility] HealthAutomated blood lymphocyte count (number/volume)2019-12-25 19:50:00 Test Item Value Reference Range Interpretation Comments Lymphocytes # (Auto) (test code = 1.0 10*3/uL 1.4-4.1 731-0) [facility] HealthBlood monocytes automated count (number/volume)2019-12-25 19:50:00 Test Item Value Reference Range Interpretation Comments Monocytes # (Auto) (test code = 0.4 10*3/uL 0-1.3 742-7) [facility] HealthAutomated blood eosinophil dmynf1134-41-27 19:50:00 Test Item Value Reference Range Interpretation Comments Eosinophils # (Auto) (test code = 0.0 10*3/uL 0-0.8 711-2) [facility] HealthAutomated blood basophil count (number/volume)2019-12-25 19:50:00 Test Item Value Reference Range Interpretation Comments Basophils # (Auto) (test code = 0.0 10*3/uL 0-0.1 704-7) [facility] HealthAutomated blood nucleated erythrocyte count (count/volume) 2019-12-25 19:50:00 Test Item Value Reference Range Interpretation Comments Nucleated Red Blood Cells # 0.00 10*3/uL 0-0.01 (test code = 771-6) [facility] HealthService comment [id number] 19:50:00 Test Item Value Reference Range Interpretation Comments Manual Differential (test code = Not Ind 8265-1) [facility] HealthSerum or plasma sodium measurement (moles/volume)2019-12-25 19:50:00 [...] Interpretation Comments Anion Gap (test code = 43126-3) 14 8-18 [facility] HealthSerum or plasma urea nitrogen measurement (mass/volume)2019-12-25 19:50:00 Test Item Value Reference Range Interpretation Comments Blood Urea Nitrogen (test code = 11 mg/dL 02-23 3094-0) [facility] HealthSerum or plasma creatinine measurement (mass/volume)2019-12-25 19:50:00 Test Item Value Reference Range Interpretation Comments Creatinine (test code = 2160-0) 1.0 mg/dL 0.7-1.3 [facility] HealthGFR estimate [id number] 19:50:00 Test Item Value Reference Range Interpretation Comments Estimat Glomerular Filtration Rate 101 90-142 (test code = 43664-6) [facility] HealthSerum or plasma glucose measurement (mass/volume)2019-12-25 19:50:00 Test Item Value Reference Range Interpretation Comments Glucose Level (test code = 2345-7) 132 mg/dL 60-100 [facility] HealthSerum or plasma calcium measurement (mass/volume)2019-12-25 19:50:00 Test Item Value Reference Range Interpretation Comments Calcium Level (test code = 10.4 mg/dL 8.4-10.2 45942-5) [facility] HealthSerum or plasma total bilirubin measurement (mass/volume) 2019-12-25 19:50:00 Test Item Value Reference Range Interpretation Comments Total Bilirubin (test code = 0.8 mg/dL 0.2-1.2 1975-2) [facility] HealthSerum or plasma aspartate aminotransferase measurement (enzymatic activity/volume)2019-12-25 19:50:00 Test Item Value Reference Range Interpretation Comments Aspartate Amino Transf (AST/SGOT) 15 U/L 5-34 (test code = 1920-8) [facility] HealthSerum or plasma alanine aminotransferase measurement (enzymatic activity/volume)2019-12-25 19:50:00 Test Item Value Reference Range Interpretation Comments Alanine Aminotransferase (ALT/SGPT) 11 U/L 0-55 (test code = 1742-6) [facility] HealthSerum or plasma protein measurement (mass/volume)2019-12-25 19:50:00 Test Item Value Reference Range Interpretation Comments Total Protein (test code = 2885-2) 7.8 g/dL 6.4-8.3 [facility] HealthSerum or plasma albumin measurement (mass/volume)2019-12-25 19:50:00 Test Item Value Reference Range Interpretation Comments Albumin (test code = 1751-7) 5.1 g/dL 3.5-5.0 [facility] HealthSerum or plasma alkaline phosphatase measurement (enzymatic activity/volume)2019-12-25 19:50:00 Test Item Value Reference Range Interpretation Comments Alkaline Phosphatase (test code = 84 U/L 0-749 6768-6) [facility] HealthSerum or plasma lipase measurement (enzymatic activity/volume) 2019-12-25 19:50:00 Test Item Value Reference Range Interpretation Comments Lipase (test code = 3040-3) 12 U/L 8-78 [facility] HealthCreatine kinase ser/bqxc4547-80-07 19:50:00 Test Item Value Reference Range Interpretation Comments Total Creatine Kinase (test code = 93 U/L 30-200 2157-6) [facility] HealthSerum or plasma creatine kinase MB measurement (mass/volume) 2019-12-25 19:50:00 Test Item Value Reference Range Interpretation Comments Creatine Kinase MB (test code = 1.02 ng/mL 0.00-7.20 64559-0) [facility] HealthSerum or plasma creatine kinase MB (CKMB)/total creatine kinase (CK) ratio by pvcsvbsqwwy9385-56-39 19:50:00 Test Item Value Reference Range Interpretation Comments Creatine Kinase MB Relative Index (test 1.1 code = 44836-7) [facility] results (nominal result) 2019-12-25 19:50:00 Test Item Value Reference Range Interpretation Comments Creatine Kinase Interpretation (test NEGATIVE NEGATIVE code = 44932-4) [facility] facilityAutom[facility] blood leukocyte count (number/volume)2019-12-25 19:50:00 Test Item Value Reference Range Interpretation Comments White Blood Count (test code = 8.1 10*3/uL 4.5-11.5 6690-2) [facility] facility[facility] erythrocytes automated count (number/volume)2019-12-25 19:50:00 Test Item Value Reference Range Interpretation Comments Red Blood Count (test code = 5.31 10*6/uL 4.4-6.2 789-8) [facility] hemoglobin measurement (mass/volume)2019-12-25 19:50:00 Test Item Value Reference Range Interpretation Comments Hemoglobin (test code = 718-7) 15.4 g/dL 13.0-17.5 [facility] facilityAutom[facility] blood hematocrit (volume fraction)2019-12-25 19:50:00 Test Item [...] HealthAutomated erythrocyte mean corpuscular hemoglobin concentration measurement (mass/hpi2118-84-43 19:50:00 Test Item Value Reference Range Interpretation Comments Mean Corpuscular Hemoglobin Concent 34.5 g/dL 33.0-37.0 (test code = 786-4) [facility] HealthAutomated erythrocyte distribution width qtzsw1557-82-50 19:50:00 Test Item Value Reference Range Interpretation Comments Red Cell Distribution Width (test code 10.9 % 10.7-14.5 = 788-0) [facility] EmmyBlood erythrocytes automated count (number/volume)2019-12-25 19:50:00 Test Item Value Reference Range Interpretation Comments Red Blood Count (test code = 5.31 10*6/uL 789-8) [facility]venthBlood hemoglobin measurement (mass/volume)2019-12-25 19:50:00 Test Item Value Reference Range Interpretation Comments Hemoglobin (test code = 718-7) 15.4 g/dL [facility] AnabelabesofiaAutomated blood hematocrit (volume fraction)2019-12-25 19:50:00 Test Item Value Reference Range Interpretation Comments Hematocrit (test code = 4544-3) 44.6 % [facility]Autom[facility] erythrocyte mean corpuscular volume (MCV) rpefysbqblr1524-28-25 19:50:00 Test Item Value Reference Range Interpretation Comments Mean Corpuscular Volume (test code = 84 fL 787-2) [facility] ElizabethAutomated erythrocyte mean corpuscular hemoglobin (mass per erythrocyte)2019-12-25 19:50:00 Test Item Value Reference Range Interpretation Comments Mean Corpuscular Hemoglobin (test 29.0 pg code = 785-6) [facility] ElizabethAutomated erythrocyte mean corpuscular hemoglobin concentration measurement (mass/dpw2501-17-93 19:50:00 Test Item Value Reference Range Interpretation Comments Mean Corpuscular Hemoglobin Concent 34.5 g/dL (test code = 786-4) [facility] ElizabethAutomated erythrocyte distribution width lmbps4395-47-22 19:50:00 Test Item Value Reference Range Interpretation Comments Red Cell Distribution Width (test code 10.9 % = 788-0) [facility] platelet count (count/volume)2019-12-25 19:50:00 Test Item Value Reference Range Interpretation Comments Platelet Count (test code = 421 10*3/uL 777-3) [facility]Autom[facility] platelet mean volume [id number] 19:50:00 Test Item Value Reference Range Interpretation Comments Mean Platelet Volume (test code = 9.7 14132-7) [facility]Autom[facility] blood neutrophil count as percentage of total mhnzomhtno3915-99-44 19:50:00 Test Item Value Reference Range Interpretation Comments Neutrophils (%) (Auto) (test code = 83 % 770-8) [facility]Autom[facility] blood immature granulocyte count as percentage of total alyrzjmbnm8617-73-55 19:50:00 Test Item Value Reference Range Interpretation Comments Immature Granulocyte % (Auto) (test 0 % code = 43564-6) [facility] lymphocyte count as percentage of total srcnpwslab9704-85-29 19:50:00 Test Item Value Reference Range Interpretation Comments Lymphocytes (%) (Auto) (test code = 13 % 736-9) [facility]Autom[facility] blood monocyte count as percentage of total pbmcnltrrc9845-65-96 19:50:00 Test Item Value Reference Range Interpretation Comments Monocytes (%) (Auto) (test code = 4 % 5905-5) [facility] blood eosinophil count as percentage of total irlynsajqz3645-04-16 19:50:00 Test Item Value Reference Range Interpretation Comments Eosinophils (%) (Auto) (test code = 0 % 713-8) [facility] blood basophil count as percentage of total efpbprvfae1058-03-29 19:50:00 Test Item Value Reference Range Interpretation Comments Basophils (%) (Auto) (test code = 0 % 706-2) [facility] nucleated erythrocyte count as percentage of total krmoreehxp0153-93-53 19:50:00 Test Item Value Reference Range Interpretation Comments Nucleated Red Blood Cells % (test code 0.0 % = 42093-6) [facility] [place] neutrophil count (number/volume)2019-12-25 19:50:00 Test Item Value Reference Range Interpretation Comments Neutrophils # (Auto) (test code = 6.7 10*3/uL 751-8) [facility] [place]Automated blood immature granulocyte count as percentage of total wdsembbfko4666-75-20 19:50:00 Test Item Value Reference Range Interpretation Comments Immature Granulocyte # (Auto) 0.0 10*3/uL (test code = 35842-9) [facility] [place]Automated blood lymphocyte count (number/volume)2019-12-25 19:50:00 Test Item Value Reference Range Interpretation Comments Lymphocytes # (Auto) (test code = 1.0 10*3/uL 731-0) [facility] automated count (number/volume)2019-12-25 19:50:00 Test Item Value Reference Range Interpretation Comments Monocytes # (Auto) (test code = 0.4 10*3/uL 742-7) [facility] [place] blood eosinophil [id number] 19:50:00 Test Item Value Reference Range Interpretation Comments Eosinophils # (Auto) (test code = 0.0 10*3/uL 711-2) [facility] ElizabethAutomated blood basophil count (number/volume)2019-12-25 19:50:00 Test Item Value Reference Range Interpretation Comments Basophils # (Auto) (test code = 0.0 10*3/uL 704-7) [facility] [place] blood nucleated erythrocyte count (count/volume) 2019-12-25 19:50:00 Test Item Value Reference Range Interpretation Comments Nucleated Red Blood Cells # 0.00 10*3/uL (test code = 771-6) [facility] comment [id number] 19:50:00 Test Item Value Reference Range Interpretation [...] Dioxide Level (test code = 24 mmol/L 8-9) [facility] or plasma anion gap determination (moles/volume) 2019-12-25 19:50:00 Test Item Value Reference Range Interpretation Comments Anion Gap (test code = 90125-4) [address] ElizabethSerum or plasma urea nitrogen measurement (mass/volume) 2019-12-25 19:50:00 Test Item Value Reference Range Interpretation Comments Blood Urea Nitrogen (test code = 11 mg/dL 3094-0) [facility] or plasma creatinine measurement (mass/volume) 2019-12-25 19:50:00 Test Item Value Reference Range Interpretation Comments Creatinine (test code = 2160-0) 1.0 mg/dL [facility] ElizabethGFR estimate [id number] 19:50:00 Test Item Value Reference Range Interpretation Comments Estimat Glomerular Filtration Rate 101 (test code = 78808-0) [facility] or plasma glucose measurement (mass/volume) 2019-12-25 19:50:00 Test Item Value Reference Range Interpretation Comments Glucose Level (test code = 2345-7) 132 mg/dL [facility] [place] [facility]beWomen [facility] Islanderum or plasma calcium measurement (mass/volume) 2019-12-25 19:50:00 Test Item Value Reference Range Interpretation Comments Calcium Level (test code = 10.4 mg/dL 72716-5) [facility] Islanderum or plasma total bilirubin measurement (mass/volume) 2019-12-25 19:50:00 Test Item Value Reference Range Interpretation Comments Total Bilirubin (test code = 0.8 mg/dL 1975-2) [facility] or plasma aspartate aminotransferase measurement (enzymatic activity/volume)2019-12-25 19:50:00 Test Item Value Reference Range Interpretation Comments Aspartate Amino Transf (AST/SGOT) 15 U/L (test code = 1920-8) [facility]rum or plasma alanine aminotransferase measurement (enzymatic activity/volume)2019-12-25 19:50:00 Test Item Value Reference Range Interpretation Comments Alanine Aminotransferase (ALT/SGPT) 11 U/L (test code = 1742-6) [facility] Centererum or plasma protein measurement (mass/volume) 2019-12-25 19:50:00 Test Item Value Reference Range Interpretation Comments Total Protein (test code = 2885-2) 7.8 g/dL [facility]rum or plasma albumin measurement (mass/volume) 2019-12-25 19:50:00 Test Item Value Reference Range Interpretation Comments Albumin (test code = 1751-7) 5.1 g/dL [facility] Centererum or plasma alkaline phosphatase measurement (enzymatic activity/volume)2019-12-25 19:50:00 Test Item Value Reference Range Interpretation Comments Alkaline Phosphatase (test code = 84 U/L 6768-6) [facility] Centererum or plasma lipase measurement (enzymatic activity/volume)2019-12-25 19:50:00 Test Item Value Reference Range Interpretation Comments Lipase (test code = 3040-3) 12 U/L [facility] CenterCreatine kinase ser/gjex7536-31-12 19:50:00 Test Item Value Reference Range Interpretation Comments Total Creatine Kinase (test code = 93 U/L 2157-6) [facility] or plasma creatine kinase MB measurement (mass/volume)2019-12-25 19:50:00 Test Item Value Reference Range Interpretation Comments Creatine Kinase MB (test code = 1.02 ng/mL 12605-3) [facility]aWestern [facility] Health Centererum or plasma creatine kinase MB (CKMB)/total creatine kinase (CK) ratio by meknzzaxrbj8375-23-41 19:50:00 Test Item Value Reference Range Interpretation Comments Creatine Kinase MB Relative Index (test 1.1 code = 46438-7) [facility] hospitalthReview and interpretation laboratory results (nominal result)2019-12-25 19:50:00 Test Item Value Reference Range Interpretation Comments Creatine Kinase Interpretation (test NEGATIVE code = 24098-7) [facility]isst[facility] hospitalAutomated blood leukocyte count (number/volume)2019-12-25 19:50:00 Test Item Value Reference Range Interpretation Comments White Blood Count (test code = 8.1 10*3/uL 6690-2) [facility]PAT[facility] [id number] 08:27:00 Test Item Value Reference Range Interpretation [...] prelimenary and confirmation re sults will follow. [id number] 07:35:00 Test Item Value Reference Range Interpretation [...] (test code = UAMICRO) NO CT ABDOMEN/PELVIS [id number] 07:28:[address] [address]BFBLKXQOXP IMAGING REPORTPatient Name: SANTI ELIZABETH CDate of Service: [id number]: 20 Sex: M Order #: [id number] Room: ERSDOB: 2000 X-Ray Number: [id number] Record Number: [id number] Hospital Number: [id number] Physician: FAY RUBI - Ordering Physician: FAY RUBI -CT abdomen and pelvis.History: Abdomen pain.Technique: IV and oral contrast enhanced CT axial images of the abdomen andpelvis with sagittal and coronal reformatted images were reviewed.Contrast administered for this study per protocol; oral Gastrografin-wiaai531 mL water with 15 mL Gastrografin and [...] 7:26 AMLegally authenticated by JULIETA Perez 2019-12-25 07:26:[id number] 05:24:00 Test Item Value Reference Range Interpretation [...] (test code 4.9 K/UL 1.2-7.2 = NEUT) [id number] 05:11:00 Test Item Value Reference Range Interpretation Comments LIPASE (test code = LIPA) 52 U/L 23-300 LIVER [id number] 05:11:00 Test Item Value Reference Range Interpretation [...] ALTV) 9 U/L 13-69 L ISTAT CHEM [id number] 04:30:00 Test Item Value Reference Range Interpretation [...] = 18 MMOL/L Notifi ed Nurse/MD of ISTANGAP) results outside of Reference Range s Throat Culture Strep [id number] 18:38:52Streptococcus Group A screen negativeInfluenza A [id number] 16:26:26 Test Item Value Reference Range Interpretation Comments Influenza A Ag (test Negative Negative Childre n tend to shed code = Influenza A Ag) virus more abundantly and for longer period of time than ad ults. Therefore, test ing specimens from adults will often yiel d lower sensitivity pat n testing specime ns from children. Influenza B [id number] 16:26:26 Test Item Value Reference Range Interpretation Comments Influenza B Ag (test Negative Negative Childre n tend to shed code = Influenza B Ag) virus more abundantly and for longer period of time than ad ults. Therefore, test ing specimens from adults will often yiel d lower sensitivity pat n testing specime ns from children. Streptococcus A Screen Rapid w/ Reflex [id number] 16:23:02 Test Item Value Reference Range Interpretation Comments Strep A Scn (test code = Strep A Negative Negative Scn) PATHOLOGY [id number] 11:39:00TISSUE CONSULTATION REPORTBAPTTEXAS HEALTH [facility]UGU[facility] SOUTHDEPARTMENT OF PATHOLOGYP.[address]BBE[place] [address] [facility] YASMIN STINSON M.D.ROBERT L. HUTTON, M.D.CHARLES E. BURNS, M.D. ____Patient: SANTI ELIZABETH 2000 19 MRoom:Hosp#: [id number] Ordering Physician: GERONIMO GIRARDNCEnricote Rec.: 06/25/2019Date of Proc.: 06/25/2019Lab No.: [id number] Clinical History:Nausea, abnormal weight loss.FINAL ANATOMIC DIAGNOSIS:A. [...] cassette.PATHOLOGIST: Chevy Kim Electronically Signed: 06/27/2019 C-REACTIVE [id number] 12:49:00 Test Item Value Reference Range Interpretation Comments CRP (test code = CRP) <0.5 mg/dL 0.5-1.0 [id number] 12:49:00 Test Item Value Reference Range Interpretation [...] glucose = GLUCOSE) normal <100 MG/ DL- [employer] recommendation* * CALCIUM (test [...] GFR) mL/min/1.73m2 mL/min/1.73m2 is considered norm al. [id number] 12:23:00 Test Item Value Reference Range Interpretation [...] 3.7 K/UL 1.2-7.2 = NEUT) CT ABDOMEN/PELVIS [id number] 09:23:[address] [id number] IMAGING REPORTPatient Name: SANTI ELIZABETH SHELLEYate of Service: [id number]: 18 Sex: M Order #: [id number] Room: OPEDOB: 2000 X-Ray Number: [id number] Record Number: [id number] Hospital Number: [id number] Physician: CHIDI MENARDHIOrdering Physician: CRISTIANE MENARD abdomen and pelvis.History: Abdomen painTechnique: IV and oral contrast enhanced CT images.Contrast administered for this study per protocol; Rfvscm-670-346 mL,Redi-CAT barium by mouth 450 mL 2 [...] 9:21 AMLegally authenticated by JULIETA Perez 2019-04-11 09:21:[id number] 12:45:00 Test Item Value Reference Range Interpretation [...] glucose = GLUCOSE) normal <100 MG/ DL- [employer] recommendation* * CALCIUM (test [...] mL/min/1.73m2 mL/min/1.73m2 is considered norm al. LIPID [id number] 12:45:00 Test Item Value Reference Range Interpretation [...] = 63 MG/DL <100 CALC LDL) FREE [id number] 12:45:00 Test Item Value Reference Range Interpretation Comments FT4 (test code = FT4) 0.92 ng/dL 0.78-2.19 [id number] 12:45:00 Test Item Value Reference Range Interpretation Comments LIPASE (test code = LIPA) 38 U/L 23-300 % HEMOGLOBIN A1C (GLYCATED)2019-04-05 12:25:00 Test Item Value Reference Range Interpretation Comments HEMOGLOBIN A1C (test 5.3 % 0-6 TH ERAPEUTIC TARGET code = GLYCO-) FOR THE TREAT MENT OF DIABETES M ELLITUS PATIENTS IS < 7 % HBA1C. [employer] DIABETES CARE 2002;25:S33-S49 [id number] 11:37:00 Test Item Value Reference Range Interpretation [...] = NRBC%) 0 /[address] ABDOMEN/PELVIS [id number] 07:28:[address] [id number] IMAGING REPORTPatient Name: SANTI ELIZABETH CDate of Service: [id number]: 17 Sex: M Order #: [id number] [facility] 2000 X-Ray Number: [id number] Record Number: [id number] Hospital Number: [id number] Physician: RODRIGO GUERREROOrdering Physician: DONTE WASSERMAN abdomen [...] by JULIETA Perez 2018-11-05 07:25:44HEPATITIS C ANTIBODY [id number] 21:50:00 Test Item Value Reference Range Interpretation [...] prelimenary and confirmation re sults will follow. [id number] 21:26:00 Test Item Value Reference Range Interpretation [...] BACTERIA (test code = NEGATIVE NONE BACTERIA) [id number] 21:00:00 Test Item Value Reference Range Interpretation Comments LIPASE (test code = LIPA) 81 U/L 23-300 LIVER [id number] 21:00:00 Test Item Value Reference Range Interpretation [...] (test code = ALT) 23 U/L 13-69 [id number] 20:57:00 Test Item Value Reference Range Interpretation [...] 6.3 K/UL 1.2-7.2 = NEUT) ISTAT CHEM [id number] 20:40:00 Test Item Value Reference Range Interpretation [...] code = ISTANGAP) 19 MMOL/L CT ABDOMEN/PELVIS [id number] 17:43:[address] [id number] IMAGING REPORTPatient Name: SANTI ELIZABETH CDate of Service: [id number]: 17 Sex: M Order #: [id number] Room: ERSDOB: 2000 X-Ray Number: [id number] Record Number: [id number] Hospital Number: [id number] Physician: HAKAN MARCELOOrdering Physician: MANNY WASSERMAN ABDOMEN/PELVIS [...] 5:40 PMLegally authenticated by DARREL HODGES 2018-08-25 17:40:[id number] 14:53:00 Test Item Value Reference Range Interpretation [...] GRAV (test code = URSPGRAV) 1.008 1.000-1.025 [id number] 14:37:00 Test Item Value Reference Range Interpretation [...] glucose = GLUCOSE) normal <100 MG/ DL- [employer] recommendation* * CALCIUM (test [...] GFR) mL/min/1.73m2 mL/min/1.73m2 is considered norm al. [id number] 14:37:00 Test Item Value Reference Range Interpretation Comments LIPASE (test code = LIPA) 53 U/L 23-300 [id number] 14:30:00 Test Item Value Reference Range Interpretation [...] code 5.5 K/UL 1.2-7.2 = NEUT) PATHOLOGY [id number] 15:22:00TISSUE CONSULTATION REPORTBAPTTEXAS HEALTH HUGULEY HOSP[facility] FORT WORTH SOUTHDEPARTMENT OF PATHOLOGYP.[address]BE[place], [place] [id number] SHAUN COREY M.D.LIBBY KATZ M.D.CHARLES E. BURNS, M.D. ____Patient: SANTI ELIZABETH 2000 17 MRoom:Hosp#: [id number] Ordering Physician: Luther GIRARD Rec.: 08/07/2018Date of Proc.: 08/07/2018Lab No.: [id number] PRE-OPERATIVE DIAGNOSIS:Weight loss and left lower quadrant [...] Chevy Kim Electronically Signed: 08/08/2018INFLAMATORY BOWEL DISEASE [id number] 09:01:00 Test Item Value Reference Range Interpretation Comments IBD (test code = POSITIVE TESTING PER FORMED AT IBD) [facility] [id number] (RES ULTS AVAILABLE UNDER SEPARATE COVER)
--- NOTE | 2021-08-29 01:13 | EDPHYS ---
Physician Documentation [facility] Name: Tenzin Love Age: 20 yrs Sex: Male : 2000 Arrival Date: 08/29/2021 Time: 00:49 Bed 20 Private MD: ED Physician David Hallman HPI: 08/29 01:11 This 20 yrs old Male presents to ER via Ambulatory with complaints of Thumb Injury. kb 01:11 The patient or guardian reports pain, swelling, tenderness. The complaints affect the kb right thumbnail. Context: The problem was sustained outdoors, resulted from a crush injury, by a car door. Onset: The symptoms/episode began/occurred yesterday. Modifying factors: The symptoms are alleviated by nothing, the symptoms are aggravated by nothing. Associated signs and symptoms: The patient has no apparent associated signs or symptoms. Severity of symptoms: At their worst the symptoms were moderate, in the emergency department the symptoms are unchanged. The patient has not experienced similar symptoms in the past. The patient has been recently seen by a physician:. Pt states he slammed his thumb in the car door yesterday. [facility] to [facility] ER and had subungual hematoma drained. Came in tonight for continued pain. Reports they did an x-ray yesterday and it was clean. Historical: - Home Meds: 01:04 cyclobenzaprine Oral [Active]; hyoscyamine sulfate 0.125 mg SL subl [Active]; brayan - PMHx: 00:58 depressive disorder; Irritable bowel syndrome; brayan - Immunization history:: Adult Immunizations up to date. - Social history:: Smoking status: Patient denies any tobacco usage or history of. Patient uses alcohol. ROS: 01:09 Constitutional: Negative for fever, chills, and weight loss. kb 01:09 MS/extremity: Positive for pain, swelling, tenderness, of the right thumbnail. 01:09 All other systems are negative. Exam: 01:10 Constitutional: This is a well developed, well nourished patient who is awake, alert, kb and in no acute distress. Head/Face: Normocephalic, atraumatic. ENT: Moist Mucous membranes Respiratory: Respirations even and unlabored. No increased work of breathing. Talking in full sentences Skin: Warm, dry with normal turgor. Normal color. Neuro: Awake and alert, GCS 15, oriented to person, place, time, and situation. Moves all extremities. Normal gait. Psych: Awake, alert, with orientation to person, place and time. Behavior, mood, and affect are within normal limits. 01:10 Musculoskeletal/extremity: Extremities: grossly normal except: noted in the right thumbnail: pain, ROM: intact in all extremities, Circulation is intact in all extremities. Sensation intact. Nails: Subungual hematoma, of the right thumbnail. Vital Signs: 00:55 BP 130 / 86; Pulse 99; Resp 18; Temp 97.8; Pulse Ox 100% on R/A; Weight 50.8 kg; Height brayan 5 ft. 5 in. (165.10 cm); Pain 10/10; 01:00 BP 130 / 86; Pulse 99; Resp 18; Temp 97.8; Pulse Ox 100% on R/A; Pain 10/10; brayan 00:55 Body Mass Index 18.64 (50.80 kg, 165.10 cm) brayan MDM: 01:02 Patient medically screened. kb 01:09 Data reviewed: vital signs, nurses notes. Data interpreted: Pulse oximetry: on room air kb is 100 %. Interpretation: normal. Counseling: I had a detailed discussion with the patient and/or guardian regarding: the historical points, exam findings, and any diagnostic results supporting the discharge/admit diagnosis, the need for outpatient follow up, a family practitioner, to return to the emergency department if symptoms worsen or persist or if there are any questions or concerns that arise at home. Administered Medications: 01:14 Drug: Ibuprofen 600 mg Route: [facility]; [facility] 01:19 Follow up: Response: Medication administered at discharge. [facility] Disposition: 20:52 Co-signature as Attending Physician, David Hallman MD. mh7 Disposition Summary: 08/29/21 01:13 Discharge Ordered Location: Home Condition: Stable kb Diagnosis - Subungual hematoma kb - Contusion of right thumb with damage to nail, initial encounter kb Followup: kb - With: Emergency Department - When: As needed - Reason: Worsening of condition Followup: kb - With: Private Physician - When: 2 - 3 days - Reason: Recheck today's complaints, Continuance of care, Re-evaluation by your physician Discharge Instructions: - Discharge Summary Sheet kb - Subungual Hematoma kb - Hand Contusion, Vntl-gn-Ovcs kb Forms: - Medication Reconciliation Form kb - Thank You Letter kb - Antibiotic Education kb - Prescription Opioid Use kb Signatures: Josefina Lai FNP-C FNP-David Bradley MD MD mh7 Trina Adamson RN RN 5 Soumya Gresham RN RN brayan
--- NOTE | 2021-08-29 01:13 | ER ---
Nurse's Notes [facility] Name: Tenzin Love Age: 20 yrs Sex: Male : 2000 Arrival Date: 08/29/2021 Time: 00:49 Bed 20 Private MD: Diagnosis: Subungual hematoma;Contusion of right thumb with damage to nail, initial encounter Presentation: 08/29 00:55 Chief complaint: Patient states: "I closed my thumb in a car door night before last. I brayan went to [facility] and they drained it.". Coronavirus screen: Vaccine status: Patient reports being unvaccinated. Ebola Screen: Patient negative for fever greater than or equal to 101.5 degrees Fahrenheit, and additional compatible Ebola Virus Disease symptoms Patient denies exposure to infectious person. Patient denies travel to an Ebola-affected area in the 21 days before illness onset. Initial Sepsis Screen: Does the patient meet any 2 criteria? No. Patient's initial sepsis screen is negative. Does the patient have a suspected source of infection? No. Patient's initial sepsis screen is negative. Risk Assessment: Do you want to hurt yourself or someone else? Patient reports no desire to harm self or others. Onset of symptoms was August 28, 2021 at 18:00. 00:55 Method Of Arrival: Ambulatory brayan 00:55 Acuity: ZANE 4 brayan Triage Assessment: 00:59 General: Appears in no apparent distress. Behavior is calm, cooperative. Pain: brayan Complains of pain in right thumb. Musculoskeletal: No deficits noted. Injury Description: right thumb nail. Historical: - Home Meds: 01:04 cyclobenzaprine Oral [Active]; hyoscyamine sulfate 0.125 mg SL subl [Active]; brayan - PMHx: 00:58 depressive disorder; Irritable bowel syndrome; brayan - Immunization history:: Adult Immunizations up to date. - Social history:: Smoking status: Patient denies any tobacco usage or history of. Patient uses alcohol. Screenin:18 Abuse screen: Denies threats or abuse. Denies injuries from another. Nutritional sm5 screening: No deficits noted. Tuberculosis screening: No symptoms or risk factors identified. Fall Risk None identified. Assessment: 01:17 General: Appears in no apparent distress. Behavior is cooperative. Pain: Complains of sm5 pain in right hand and right thumbnail. Neuro: No deficits noted. Level of Consciousness is awake, alert, obeys commands, Oriented to person, place, time, situation. Cardiovascular: No deficits noted. Capillary refill < 3 seconds Patient's skin is warm and dry. Respiratory: No deficits noted. Airway is patent Trachea midline Respiratory effort is even, unlabored. Injury Description: Bruise sustained to right thumbnail is red, purple. Vital Signs: 00:55 BP 130 / 86; Pulse 99; Resp 18; Temp 97.8; Pulse Ox 100% on R/A; Weight 50.8 kg; Height brayan 5 ft. 5 in. (165.10 cm); Pain 10/10; 01:00 BP 130 / 86; Pulse 99; Resp 18; Temp 97.8; Pulse Ox 100% on R/A; Pain 10/10; brayan 00:55 Body Mass Index 18.64 (50.80 kg, 165.10 cm) brayan ED Course: 00:49 Patient arrived in ED. 2 00:58 Triage completed. brayan 01:00 [facility]. kb 01:00 David Hallman MD is Attending Physician. kb 01:01 Arm band placed on left wrist. brayan 01:08 Trina Adamson, RICK is Primary Nurse. 5 01:18 Patient has correct armband on for positive identification. Bed in low position. Call sm5 light in reach. Side rails up X2. 01:18 No provider procedures requiring assistance completed. Patient did not have IV access 5 during this emergency room visit. Administered Medications: 01:14 Drug: Ibuprofen 600 mg Route: PO; 5 01:19 Follow up: Response: Medication administered at discharge. 5 Outcome: 01:13 Discharge ordered by . kb 01:18 Discharged to home ambulatory. sm5 01:18 Condition: stable 01:18 Discharge instructions given to patient, Instructed on discharge instructions, follow up and referral plans. Demonstrated understanding of instructions, follow-up care. 01:19 Patient left the ED. 5 Signatures: Josefina Lai FNP-C FNP-Akilah Reyes ja2 Trina Adamson RN RN 5 Soumya Gresham RN RN brayan
[2021-08-29] MEDS ORDERED: IBUPROFEN 200 MG TAB PO ONE (01:15)
[2021-08-29] MEDS ORDERED: IBUPROFEN 400 MG TAB ONE (01:15)
[2021-08-29 01:47] VITALS: BP 130/86; TEMP 97.8; O2SAT 100
== END 2021-08-29 01:19 | disposition home or self-care (01) ==
LOC: ER 00:46
DX: S60.111A Contusion of right thumb with damage to nail, initial encounter (principal); W23.0XXA Caught, crushed, jammed, or pinched between moving objects, initial encounter; Y93.9 Activity, unspecified; Y92.9 Unspecified place or not applicable; F32.A Depression, unspecified; K58.9 Irritable bowel syndrome, unspecified
CPT/HCPCS: 99283

== ENCOUNTER 2021-12-06 23:10 | Emergency (ER) | payer OTHER ==
[2021-12-07] MEDS ORDERED: NA CHLORIDE 0.9% 1,000 ML ONE (01:12)
[2021-12-07 01:59] LABS: Absolute Lymphocytes (CBC) 2.5 K/uL (0.7-4.9); Hematocrit 44.1 % (39.6-49.0); MCV 85.7 fL (80-100); MPV 7.7 fL (7.6-11.3); RBC Red Blood Cell Count 5.15 M/uL (4.33-5.43)
[2021-12-07] MEDS ORDERED: ASPIRIN 81 MG CHEWABLE TABLET ONE (02:03)
[2021-12-07] MEDS ORDERED: FAMOTIDINE 20 MG/2 ML VIAL IV ONE (02:04)
[2021-12-07] MEDS ORDERED: AZITHROMYCIN 250 MG TAB ONE (02:14)
--- NOTE | 2021-12-07 02:15 | ER ---
Nurse's Notes [facility] Name: Tenzin Love Age: 21 yrs Sex: Male : 2000 Arrival Date: 12/06/2021 Time: 23:12 Bed 20 Private MD: Diagnosis: Cough;Acute upper respiratory infection, unspecified Presentation: 12/06 23:57 Chief complaint: Patient states: I have been having Covid symptoms for the past few jb4 days. I am having chest pain N/V, body aches, chills, and weakness. Coronavirus screen: Client presents with at least one sign or symptom that may indicate coronavirus-19. Provider contacted for isolation considerations. Ebola Screen: No symptoms or risks identified at this time. Initial Sepsis Screen: Does the patient meet any 2 criteria? No. Patient's initial sepsis screen is negative. Does the patient have a suspected source of infection? No. Patient's initial sepsis screen is negative. Risk Assessment: Do you want to hurt yourself or someone else? Patient reports no desire to harm self or others. Onset of symptoms was December 03, 2021. Transition of care: patient was not received from another setting of care. 23:57 Method Of Arrival: Ambulatory jb4 23:57 Acuity: ZANE 3 jb4 Historical: - Allergies: 23:59 No Known Allergies; jb4 - PMHx: 23:59 depressive disorder; Irritable bowel syndrome; scoliosis; Leaking heart valve; jb4 - PSHx: 23:59 testicular drop; jb4 - Immunization history:: Adult Immunizations up to date. - Social history:: Smoking status: Patient/guardian denies using tobacco, but has a distant history of tobacco abuse, Patient uses alcohol, occasionally. Screenin/05 02:47 Abuse screen: Denies threats or abuse. Nutritional screening: No deficits noted. ll3 Tuberculosis screening: No symptoms or risk factors identified. Fall Risk No fall in past 12 months (0 pts). No secondary diagnosis (0 pts). IV access (20 points). Ambulatory Aid- None/Bed Rest/Nurse Assist (0 pts). Gait- Normal/Bed Rest/Wheelchair (0 pts) Mental Status- Oriented to own ability (0 pts). Total Hunt Fall Scale indicates No Risk (0-24 pts). Assessment: 00:00 General: Appears uncomfortable, Behavior is calm, cooperative. Pain: Complains of pain ll3 in chest. Neuro: Level of Consciousness is awake, alert, obeys commands, Oriented to person, place, time, situation. Cardiovascular: Reports chest pain, Patient's skin is warm and dry. Rhythm is sinus bradycardia. Respiratory: Respiratory effort is even, unlabored, Respiratory pattern is regular, symmetrical. Derm: Skin is pink, warm \T\ dry. 01:30 Reassessment: No changes from previously documented assessment. Patient and/or family ll3 updated on plan of care and expected duration. Pain level reassessed. Patient is alert, oriented x 3, equal unlabored respirations, skin warm/dry/pink. Vital Signs: 12/06 23:57 BP 108 / 80; Pulse 85; Resp 18; Temp 98.2(O); Pulse Ox 97% on R/A; Weight 53.07 kg (R); jb4 Height 5 ft. 5 in. (165.10 cm) (R); 12/07 01:30 BP 114 / 75; Pulse 48; Resp 18; Pulse Ox 100% on R/A; ll3 02:48 BP 116 / 67; Pulse 52; Resp 17; Pulse Ox 100% on R/A; ll3 12/06 23:57 Body Mass Index 19.47 (53.07 kg, 165.10 cm) jb4 ED Course: 12/06 23:12 Patient arrived in ED. bp1 23:59 Triage completed. jb4 23:59 Arm band placed on right wrist. jb4 12/07 00:48 Renard Arredondo MD is Attending Physician. alton 01:18 Chest Single View XRAY In Process Unspecified. EDMS 01:59 Millicent Wong, RICK is Primary Nurse. ll3 02:47 No provider procedures requiring assistance completed. IV discontinued, intact, ll3 bleeding controlled, No redness/swelling at site. Pressure dressing applied. 02:48 Patient has correct armband on for positive identification. Bed in low position. Call ll3 light in reach. Side rails up X 1. Administered Medications: 01:47 Drug: NS 0.9% 1000 ml Route: IV; Rate: 1 bolus; Site: right antecubital; ll3 02:46 Follow up: Response: No adverse reaction; IV Status: Completed infusion; IV Intake: ll3 1000ml 02:03 Drug: Aspirin Chewable Tablet 162 mg Route: PO; ll3 02:40 Follow up: Response: No adverse reaction ll3 02:03 Drug: Pepcid (famotidine) 20 mg Route: PO; ll3 02:40 Follow up: Response: No adverse reaction ll3 02:21 Drug: Zithromax (azithromycin) 500 mg Route: PO; ll3 02:40 Follow up: Response: No adverse reaction ll3 Medication: 02:47 VIS not applicable for this client. ll3 Intake: 02:46 IV: 1000ml; Total: 1000ml. ll3 Outcome: 02:15 Discharge ordered by . alton 02:47 Discharged to home ambulatory. ll3 02:47 Condition: stable 02:47 Discharge instructions given to patient, Instructed on discharge instructions, follow up and referral plans. medication usage, Demonstrated understanding of instructions, follow-up care, medications, Prescriptions given X 2. 02:48 Patient left the ED. ll3 Signatures: Dispatcher [employer] EDMS Renard Arredondo MD MD cha Bryson, James, RN RN jb4 Rea Castillo [place], RICK RN ll3
--- NOTE | 2021-12-07 02:15 | EDPHYS ---
Physician Documentation [facility] Name: Tenzin Love Age: 21 yrs Sex: Male : 2000 Arrival Date: 12/06/2021 Time: 23:12 Bed 20 Private MD: ED Physician Renard Arredondo HPI: 12/07 01:41 This 21 yrs old Male presents to ER via Ambulatory with complaints of alton Weakness. Historical: - Allergies: 12/06 23:59 No Known Allergies; jb4 - PMHx: 23:59 depressive disorder; Irritable bowel syndrome; scoliosis; Leaking heart valve; jb4 - PSHx: 23:59 testicular drop; jb4 - Immunization history:: Adult Immunizations up to date. - Social history:: Smoking status: Patient/guardian denies using tobacco, but has a distant history of tobacco abuse, Patient uses alcohol, occasionally. ROS: 12/07 01:41 Constitutional: Negative for fever, chills, and weight loss, Eyes: Negative for injury, alton pain, redness, and discharge, ENT: Negative for injury, pain, and discharge, Neck: Negative for injury, pain, and swelling, Cardiovascular: Negative for chest pain, palpitations, and edema, Abdomen/GI: Negative for abdominal pain, nausea, vomiting, diarrhea, and constipation, Back: Negative for injury and pain, : Negative for injury, bleeding, discharge, and swelling, MS/Extremity: Negative for injury and deformity, Skin: Negative for injury, rash, and discoloration, Neuro: Negative for headache, weakness, numbness, tingling, and seizure, Psych: Negative for depression, anxiety, suicide ideation, homicidal ideation, and hallucinations, Allergy/Immunology: Negative for hives, rash, and allergies, Endocrine: Negative for neck swelling, polydipsia, polyuria, polyphagia, and marked weight changes, Hematologic/Lymphatic: Negative for swollen nodes, abnormal bleeding, and unusual bruising. Respiratory: Positive for cough, "sounds productive". Exam: 01:41 Constitutional: This is a well developed, well nourished patient who is awake, alert, alton and in no acute distress. Head/Face: Normocephalic, atraumatic. Eyes: Pupils equal round and reactive to light, extra-ocular motions intact. Lids and lashes normal. Conjunctiva and sclera are non-icteric and not injected. Cornea within normal limits. Periorbital areas with no swelling, redness, or edema. ENT: Nares patent. No nasal discharge, no septal abnormalities noted. Tympanic membranes are normal and external auditory canals are clear. Oropharynx with no redness, swelling, or masses, exudates, or evidence of obstruction, uvula midline. Mucous membranes moist. Neck: Trachea midline, no thyromegaly or masses palpated, and no cervical lymphadenopathy. Supple, full range of motion without nuchal rigidity, or vertebral point tenderness. No Meningismus. Chest/axilla: Normal chest wall appearance and motion. Nontender with no deformity. No lesions are appreciated. Cardiovascular: Regular rate and rhythm with a normal S1 and S2. No gallops, murmurs, or rubs. Normal PMI, no JVD. No pulse deficits. Respiratory: Lungs have equal breath sounds bilaterally, clear to auscultation and percussion. No rales, rhonchi or wheezes noted. No increased work of breathing, no retractions or nasal flaring. Abdomen/GI: Soft, non-tender, with normal bowel sounds. No distension or tympany. No guarding or rebound. No evidence of tenderness throughout. Back: No spinal tenderness. No costovertebral tenderness. Full range of motion. Skin: Warm, dry with normal turgor. Normal color with no rashes, no lesions, and no evidence of cellulitis. MS/ Extremity: Pulses equal, no cyanosis. Neurovascular intact. Full, normal range of motion. Neuro: Awake and alert, GCS 15, oriented to person, place, time, and situation. Cranial nerves II-XII grossly intact. Motor strength 5/5 in all extremities. Sensory grossly intact. Cerebellar exam normal. Normal gait. Psych: Awake, alert, with orientation to person, place and time. Behavior, mood, and affect are within normal limits. 01:41 ECG was reviewed by the Attending Physician. 01:41 Musculoskeletal/extremity: DVT Exam: No signs of deep vein thrombosis. no pain, no swelling, no tenderness, negative Homans' sign noted on exam, no appreciated bluish discoloration, no erythema, no increased warmth. Vital Signs: 12/06 23:57 BP 108 / 80; Pulse 85; Resp 18; Temp 98.2(O); Pulse Ox 97% on R/A; Weight 53.07 kg (R); jb4 Height 5 ft. 5 in. (165.10 cm) (R); 12/07 01:30 BP 114 / 75; Pulse 48; Resp 18; Pulse Ox 100% on R/A; ll3 02:48 BP 116 / 67; Pulse 52; Resp 17; Pulse Ox 100% on R/A; ll3 12/06 23:57 Body Mass Index 19.47 (53.07 kg, 165.10 cm) jb4 MDM: 00:48 Patient medically screened. [facility] 01:51 Differential diagnosis: obstructed airway, bronchitis, flu, URI. Antibiotic alton administration: The patient is discharged and will get outpatient antibiotics, Zithromax. Data reviewed: vital signs, nurses notes, lab test result(s), EKG, radiologic studies, plain films. Data interpreted: play therapist: rate is 85 beats/min, rhythm is regular, Pulse oximetry: on room air is 97 %. Test interpretation: by ED physician or midlevel provider: ECG, plain radiologic studies. Counseling: I had a detailed discussion with the patient and/or guardian regarding: the historical points, exam findings, and any diagnostic results supporting the discharge/admit diagnosis, lab results, radiology results, the need for outpatient follow up, for definitive care, a family practitioner. 12/07 00:51 Order name: CBC with Diff; Complete Time: 02:14 [facility] 12/07 00:51 Order name: Comprehensive Metabolic Panel; Complete Time: 02:18 [facility] 12/07 00:51 Order name: Troponin High Sensitivity; Complete Time: 02:18 [facility] 12/07 00:51 Order name: D-Dimer; Complete Time: 02:14 [facility] 12/07 00:51 Order name: Chest Single View XRAY [facility] 12/07 01:09 Order name: SARS-COV-2 RT PCR (Document "Date of Onset" if Symptomatic) ll3 12/07 00:51 Order name: EKG; Complete Time: 00:51 [facility] 12/07 00:51 Order name: EKG - Nurse/Tech; Complete Time: 00:58 [facility] EC:41 Rate is 60 beats/min. Rhythm is regular. QRS [place] is Normal. [place] interval is normal. QRS alton interval is normal. QT interval is normal. No Q waves. T waves are Normal. No ST changes noted. Clinical impression: Normal ECG and No evidence of ischemia. Interpreted by me. Reviewed by me. Administered Medications: 01:47 Drug: NS 0.9% 1000 ml Route: IV; Rate: 1 bolus; Site: right antecubital; ll3 02:46 Follow up: Response: No adverse reaction; IV Status: Completed infusion; IV Intake: ll3 1000ml 02:03 Drug: Aspirin Chewable Tablet 162 mg Route: PO; ll3 02:40 Follow up: Response: No adverse reaction ll3 02:03 Drug: Pepcid (famotidine) 20 mg Route: PO; ll3 02:40 Follow up: Response: No adverse reaction ll3 02:21 Drug: Zithromax (azithromycin) 500 mg Route: PO; ll3 02:40 Follow up: Response: No adverse reaction ll3 Disposition Summary: 12/07/21 02:15 Discharge Ordered Location: Home alton Problem: new alton Symptoms: have improved alton Condition: Stable alton Diagnosis - Cough alton - Acute upper respiratory infection, unspecified alton Followup: alton - With: Private Physician - When: 2 - 3 days - Reason: Recheck today's complaints, Continuance of care, Re-evaluation by your physician Discharge Instructions: - Discharge Summary Sheet alton - Upper Respiratory Infection, Pediatric alton - Viral Respiratory Infection alton - Cool Mist Vaporizer alton - Cough, Pediatric alton - Aspirin and Your Heart alton Forms: - Medication Reconciliation Form [facility] - Thank You Letter alton - Antibiotic Education alton - Prescription Opioid Use [facility] Prescriptions: - Pepcid 20 mg Oral Tablet - take 1 tablet by ORAL route every 12 hours for 10 days; 20 tablet; Refills: 0, alton Product Selection Permitted - Zithromax Z-Avery 250 mg Oral Tablet - take 1 tablet by ORAL route as directed for 5 days Day 1 - take two (2) tablets alton one time. Day 2, 3, 4 , 5 take one (1) tablet once daily.; 6 tablet; Refills: 0, Product Selection Permitted Signatures: Dispatcher [employer] Renard Phelps MD MD cha Bryson, James RN RN jb4 Millicent Wong RN RN ll3
[2021-12-07 02:18] LABS: Bilirubin Total 0.4 mg/dL (0.2-1.0); Potassium 3.7 mmol/L (3.5-5.1); Protein, Total 6.9 g/dL (6.4-8.2)
[2021-12-07 03:36] VITALS: TEMP 98.2
[2021-12-07 03:37] VITALS: O2SAT 100
[2021-12-07 03:39] VITALS: BP 116/67
--- NOTE | 2021-12-07 07:56 | EKG ---
Test Date: 2021-12-07 Test Time: 00:03:09 General Laborer: JOEL MEASUREMENT RESULTS: Intervals: Rate: 60 MA: 122 QRSD: 80 QT: 398 QTc: 398 [place]: P: -27 MA: 122 QRS: 85 T: 66 INTERPRETIVE STATEMENTS: Normal sinus rhythm Normal ECG No previous ECG available for comparison Electronically Signed On 12-07-21 07:54:59 CDT by Humberto Reeves
--- NOTE | 2021-12-07 13:42 | RAD REPORT ---
EXAM DESCRIPTION: RAD - Chest Single View - 12/07/2021 1:16 am COMPARISON: None. CLINICAL HISTORY: COUGH FINDINGS: A single AP view of the chest demonstrates a normal cardiomediastinal silhouette. No pneumothorax or pleural effusion. No consolidation or pulmonary edema. Osseous structures are intact. Congenital deformity of the thorax/ribs is noted. IMPRESSION: No acute chest process. Electronically signed by: Elian Hernandez MD 12/07/2021 1:30 AM CDT Due to temporary technical issues with the PACS/Fluency reporting system, reports are being signed by the in house radiologist without review as a courtesy to ensure prompt reporting. The interpreting r adiologist is fully responsible for the content of the report.
== END 2021-12-07 02:48 | disposition home or self-care (01) ==
LOC: ER 23:10
DX: J06.9 Acute upper respiratory infection, unspecified (principal); R53.1 Weakness; Z20.822 Contact with and (suspected) exposure to COVID-19
CPT/HCPCS: 93005; 85025; 36415; 85379; 84484; 80053; 71045; U0003; J7030; J3490; 96360; 99284

== ENCOUNTER 2022-11-11 22:50 | Emergency (ER) | payer BC, OTHER ==
--- OUTSIDE RECORDS SUMMARY | 2022-11-11 23:06 | XMS REPORT | Continuity of Care Document ---
:2000 Author Organization [facility] t Address [address] [facility] [address] [place] [address] Support Name Relationship Address Phone Maria T Love Mother [address] [place] [address] Fredi Recinos Father Unavailable Aidan Hemanth Significant Other Unavailable [phone] UN Unavailable Unavailable Unavailable Melecio [place] [address] MARIA T LOVE EMR [address] [place] [address] TOMASA LOVE FATHER Unavailable MD HAYLEY ALICEA Emergency Provider [address] [place] [address] ANN LOVE [place] [address] DO ANGELIKA RUELAS H Emergency Provider [address] [place] [address] MARIA T LOVE [place] Un[place] [address] MD TENZIN RODRIGUEZ Emergency Provider [address] [place] [address] MD JACKIE AVITIA Emergency Provider [address] [place] [address] DO ZACK Emergency Provider [address] [facility] [place] [address] MD ALDAIR ROSALES Emergency Provider [address] [place] [address] MD GENEVIEVE PANIAGUA Emergency Provider [address] [place] [address] TONNY PRECIADO Unavailable NORBERTO MARS Unavailable JADA PIZARRO Unavailable Care Team Providers Name Role Phone FOUND, PCP NOT Primary Care Physician Unavailable ZULAY JOHN Attending Clinician Unavailable YEE WILCOX Attending Clinician Unavailable YEE WILCOX Attending Clinician Unavailable GENNY SAXENA Attending Clinician Unavailable CARYN BILLINGSLEY Attending Clinician Unavailable TRINA BLAKE Attending Clinician Unavailable Caryn Billingsley MD Attending Clinician KALPANA HERNANDEZ Attending Clinician Unavailable MEG BONNER Attending Clinician Unavailable Vick Hernadez RN Attending Clinician Unavailable CARLOS SNOW Attending Clinician Unavailable Carlos Garza Attending Clinician Unknown, Attending Attending Clinician Unavailable Draw, Clc-Bls Lab Attending Clinician Unavailable Pathology Attending Clinician Unavailable PATHOLOGY Attending Clinician Unavailable Trina Moore Attending Clinician Meg Bonner PA-C Attending Clinician ROSE MARIE NICHOLSON Attending Clinician Unavailable Harpal Rahman MD Attending Clinician Denys Gracia MD Attending Clinician DENYS GRACIA Attending Clinician Unavailable ADY COSTA Attending Clinician Unavailable Zulay John MD Attending Clinician ERIN FORD Attending Clinician Unavailable Gianna Luque Attending Clinician Erin Ford MD Attending Clinician Karissa Santos MD Attending Clinician KARISSA SANTOS Attending Clinician Unavailable LORAINE GARZA Attending Clinician Unavailable Doctor Unassigned, [place] Attending Clinician Unavailable Reji Ruiz Attending Clinician Unavailable Lab, Lcc Attending Clinician Unavailable Bertha Gonzales Attending Clinician [phone] BERTHA VERMA Attending Clinician Unavailable RAHEEL COOLEY Attending Clinician Unavailable Alix Gage RN Attending Clinician Unavailable BENJY LOPEZ Attending Clinician Unavailable Jessica LABORER WHARF, Benjy T Attending Clinician ANNE-MARIE YANEZ Attending Clinician Unavailable ANNE-MARIE YANEZ Attending Clinician Unavailable DENICE LEONG Attending Clinician Unavailable Reji AGNAquiles John Attending Clinician AQUILES SANCHEZ Attending Clinician Unavailable MARQUEZ ARZOLA Attending Clinician Unavailable Marquez Apple Attending Clinician [phone] DEXTER LUA Attending Clinician Unavailable Dawna Bynum PT Attending Clinician Unavailable Dexter Lua MD Attending Clinician Barbara CALHOUN Attending Clinician Unavailable Barbara Bright Attending Clinician Nicole Almanza Attending Clinician NICOLE BONNER Attending Clinician Unavailable UNKNOWN, ATTENDING Attending Clinician Unavailable Anca Mendez RN Attending Clinician Unavailable Opal SANCHEZ, Juice Attending Clinician JUICE JOSEPH Attending Clinician Unavailable KAREN LAUGHLIN Attending Clinician Unavailable Qian COX-CKaren Attending Clinician Lab, Ang - Db Attending Clinician Unavailable Only, Adc Test Attending Clinician Unavailable Jaqueline Herrera RN Attending Clinician Unavailable Luke Urena Attending Clinician Jann Ivy MD Attending Clinician JANN IVY Attending Clinician Unavailable Kirsten Young Attending Clinician KIRSTEN FORD Attending Clinician Unavailable Denice Veras Attending Clinician SARINA BLEVINS Attending Clinician Unavailable Sarina Ashley Attending Clinician Romi Nagel RN Attending Clinician Unavailable LUKE LUU Attending Clinician Unavailable Aditya Mcdonald MD, [place] Attending Clinician [phone] AMRITA DAVIS Attending Clinician Unavailable DIANE HADLEY Attending Clinician Unavailable Diane Hadley MD Attending Clinician JAMES MORRELL Attending Clinician Unavailable [place] Susannah MONSALVE A Attending Clinician Nurse, Adc Pob Immunization Attending Clinician Unavailable James Morrell DO Attending Clinician SHAUN SHAH Attending Clinician Unavailable RODRIGO MILLAN Attending Clinician Unavailable RODRIGO MILLAN Attending Clinician Unavailable Akilah Saxena RN Attending Clinician Unavailable BRIANA ACRBAJAL Attending Clinician Unavailable HEBER DAVEY Attending Clinician Unavailable Beatrice Villanueva RN Attending Clinician Unavailable Only, Pcp Test Attending Clinician Unavailable Brendan Felder MD Attending Clinician BRENDAN FELDER Attending Clinician Unavailable Arianne Tyler Attending Clinician MARQUEZ MARCELO Attending Clinician Unavailable Renard Maria RN Attending Clinician Unavailable Only, Web Test Attending Clinician Unavailable UNASSIGNED, ED Attending Clinician Unavailable SHAUN SHAH Attending Clinician Unavailable SHAUN ROCKWELL Attending Clinician Unavailable FAY RUBI Attending Clinician Unavailable TONY RAY Attending Clinician Unavailable CARLOTA ORELLANA Attending Clinician Unavailable Motility, Endoscopy Attending Clinician Unavailable RAFAEL OROSCO Attending Clinician Unavailable RYAN PICHARDO Attending Clinician Unavailable ROQUE BLAKE Attending Clinician Unavailable Roque Blake MD Attending Clinician FLOR MAGAÑA S Attending Clinician Unavailable HANNAH SAXENA Attending Clinician Unavailable EDNA CANO Attending Clinician Unavailable Ezequiel Black MD Attending Clinician TERRELL GIRARD Attending Clinician Unavailable LOU HOOK Attending Clinician Unavailable Reji Ruiz Attending Clinician Unavailable Reji Ruiz Attending Clinician Unavailable Elmer Freeman Attending Clinician Unavailable Elmer Freeman Attending Clinician Unavailable HAYLEY ALICEA Attending Clinician Unavailable SUZANNE JAMES Attending Clinician Unavailable ZOHAIB BORJAS Attending Clinician Unavailable [place] Attending Clinician Unavailable ZULAY JOHN Admitting Clinician Unavailable ERIN FORD Admitting Clinician Unavailable KARISSA SANTOS Admitting Clinician Unavailable LORAINE GARZA Admitting Clinician Unavailable BENJY LOPEZ Admitting Clinician Unavailable SARINA BLEVINS Admitting Clinician Unavailable DIANE HADLEY Admitting Clinician Unavailable MARQUEZ MARCELO Admitting Clinician Unavailable SHAUN SHAH Admitting Clinician Unavailable FAY RUBI Admitting Clinician Unavailable Zulay John MD Admitting Clinician TERRELL GIRARD Admitting Clinician Unavailable LOU HOOK Admitting Clinician Unavailable RYAN PICHARDO Admitting Clinician Unavailable Reji Ruiz Admitting Clinician Unavailable Elmer Freeman Admitting Clinician Unavailable Payers Payer Name Policy Type Policy Number Effective Date Expiration Date [facility] [id number] [facility] [id number] 2020 00:00:00 2 W [id number] [facility] [id number] 2021 00:00:00 Problems Condition Condition Condition Status Onset Resolution Last Treating Co mments Source Name Details Category Date Date Treatment Clinician Date History of History of Disease Active 2021-06 U nivers weight weight 2-20 ity of loss loss 00:00: [place] [facility] Rectal Rectal Disease Active 2021-06 Univers bleeding bleeding 2-20 ity of 00:: [place] [facility] Anal Anal Disease Active 2021-06 Univers fissure fissure 2-20 ity of 00:: [place] [facility] Branch Elevated Elevated Disease Active 2021-06 Unive rs lipase lipase 2-20 ity of 00:: [place] [facility] Paraspinal Paraspinal Disease Active U nivers muscle muscle 6-10 ity of spasm spasm 00:00: [place] [facility] Bipolar 1 Bipolar 1 Disease Active 2020-06 Uni vers disorder disorder 1-30 ity of 00:00: [place] [facility] Irritable Irritable Disease Active 2020-06 Uni vers bowel bowel 1-30 [place] of syndrome[place] Me dical d type d type Branch Heartburn Heartburn Disease Active Overview: Univers 07-01 Formattin ity of 00:00: g of this 00 note Medical might be Branch different from the original. Added automatic ally from request for surgery [id number] Vitamin Vitamin Disease Active Overview: [facility] ers B12 B12 07-01 Formattin ity of deficiency deficiency 00:00: g of this 00 note Medical might be Branch different from the original. Added automatic ally from request for surgery [id number] Rectal Rectal Disease Active 2019-06 [facility]08 Formattin ity of 00:00: g of this 00 note Medical might be Branch different from the original. Added automatic ally from request for surgery [id number] Hematemesi Hematemesi Disease Active 2019-06 Overview : Univers s, s, 06-08 Formattin ity of presence presence 00:00: g of this [place]am as of nausea of nausea 00 note Medi mayte not not might be Branch specified specified different from the original. Added automatic ally from request for surgery [id number] History of History of Disease Active 2019-06 Overview : Univers proctitis proctitis 06-08 Formattin i ty of 00:00: g of this 00 note Medical might be Branch different from the original. Added automatic ally from request for surgery [id number] Nausea Nausea Disease Active 2019-[facility] Form[facility] ity of 00:00: g of this 00 note Medical might be Branch different from the original. Added automatic ally from request for surgery [id number] Dysphagia, Dysphagia, Disease Active 2019-06 Overview : Univers oropharyng oropharyng 06-08 Formattin ity of eal phase eal phase 00:00: [place] of this [place] 00 note Medical might be Branch different from the original. Added automatic ally from request for surgery [id number] Chronic Chronic Disease Active Univers midline midline [...] Univers weakness weakness 2-20 ity of 00:00: [place] 00 Medical Branch Sprain of Problem Inactiv STEPHANIE VALDEZ knee e S Health Contusion Problem Inactiv STEPHANIE VALDEZ of e S shoulder Health Viral Problem Inactiv CHRISTU infection e S Health Chest pain Problem Inactiv CHRI KRISTA e S Health Chronic Problem Inactiv [facility] abdominal e S pain Health Upper Problem Inactiv CHRISTU respirator e S y tract Health infection Acute Problem Inactiv CHRISTFilemon viral e S syndrome Health Infection Problem Inactiv STEPHANIE VALDEZ due to e S severe Health acute respirator y syndrome coronaviru s 2 (SARS-CoV- 2) Abdominal Problem Inactiv STEPHANIE VALDEZ pain e S Health Pain in Problem Active [facility]STU jaw not S originatin Health g in temporoman dibular joint Toothache Problem Active [facility] Gastroente Problem Active STEPHANIE VADLEZ ritis S Health Dog bite Problem [facility] Need for Problem Active [facility]STU rabies S vaccinatio Health n Encounter Problem Active AJ U for S removal of Health sutures Disruption Problem Active STEPHANIE VALDEZ of S traumatic Health injury wound repair Contusion Problem Active [facility] Arthralgia Problem Active STEPHANIE VALDEZ of right S hip Health Drug Problem Inactiv CHRISTU ingestion e [...] Inactiv CHRI KRISTA vomiting e S Health Allergies, Adverse Reactions, Alerts Allergy Allergy Status Severity Reaction(s) Onset Inactive Treating Comm ents Source Name Type Date Date Clinician No Known DA Active U 2021-06 [facility] Drug 2-21 Allergie 00:00: s 00 No Known DA Active U 2020-06 [facility] Drug 2-27 Allergie 00:00: s 00 No Known DA Active U 2020-06 [facility] Drug 0-10 Allergie 00:00: s 00 No known Miscella Active U Not [facility] 01:09: [facility] No known Miscella Active U Not [facility] 8[facility]14 [facility] Allergie Allergy 01:09: l s 32 ([facility]) No known Miscella Active U Not 2020-0 [facility] Specified 01-16 [facility]osp[facility] Allergie Allergy 01:09: l s 32 ([facility]) No known Miscella Active U Not 2020-0 [facility] Specified 01-16 [facility]osp[facility] Allergie Allergy 01:09: l s 32 ([facility]) No known Miscella Active U Not 2020-0 [facility] Specified 01-16 [facility] Allergie Allergy 01:09: l s 32 ([facility]) No known Miscella Active U Not 2020-0 [facility] Specified 01-16 [facility]osp[facility] Allergie Allergy 01:09: l s 32 ([facility]) No known Miscella Active U Not 2020-0 [facility] Specified 01-16 [facility]osp[facility] Allergie Allergy 01:09: l s 32 ([facility]) No known Miscella Active U Not 2020-0 [facility] Specified 01-16 [facility]osp[facility] Allergie Allergy 01:09: l s 32 ([facility]) No known Miscella Active U Not 2020-0 [facility] Specified 01-16 [facility] Allergie Allergy 01:09: l s 32 ([facility]) No known Miscella Active U Not 2020-0 [facility] Specified 01-16 [facility] Allergie Allergy 01:09: l s 32 ([facility]) No known Miscella Active U Not 2020-0 [facility] drug neous Specified 01-16 [facility]ospita Allergie Allergy 01:09: l s 32 ([facility]) No known Miscella Active U Not 2020-0 [facility] drug neous Specified 01-16 [facility]ospita Allergie Allergy 01:09: l s 32 ([facility]) No known Miscella Active U Not 2020-0 [facility] drug neous Specified 01-16 [facility]osp[facility] Allergie Allergy 01:09: l s 32 ([facility]) No known Miscella Active U Not 202-0 [facility] Specified 01-16 [facility]osp[facility] Allergie Allergy 01:09: l s 32 ([facility]) No known Miscella Active U Not 2020-0 [facility] Specified 8- [facility]osp[facility] Allergie Allergy 01:09: l s 32 ([facility]) No known Miscella Active U Not 202-0 [facility] drug neous Specified 8 [facility]ospita Allergie Allergy 01:09: l s 32 ([facility]) No Known DA Active U 2020-0 [facility] 3-10 Allergie 00:00: s 00 No Known DA Active U 2020-1 [facility] Drug 2-21 Allergie 00:00: s 00 No known Miscella Active U Not 2020-0 [facility] Specified 12-30 [facility]ita Allergie Allergy 23:12: l s 05 ([facility]) No known Miscella Active U Not 2020-0 [facility] Specified 12-30 [facility] Allergie Allergy 23:12: l s 05 ([facility]) No known Miscella Active U Not 2020-0 [facility] drug neous Specified 12-30 [facility] Allergie Allergy 23:12: l s 05 ([facility]) No known Miscella Active U Not 2020-0 [facility] drug neous Specified 12-30 [facility] Allergie Allergy 23:12: l s 05 ([facility]) No known Miscella Active U Not 2020-0 [facility] drug neous Specified 12-30 [facility] Allergie Allergy 23:12: l s 05 ([facility]) No known Miscella Active U Not 2020-0 [facility] drug neous Specified 12-30 [facility]ospita Allergie Allergy 23:12: l s 05 ([facility]) No known Miscella Active U Not 2020-0 [facility] drug neous Specified 12-30 [facility]ospita Allergie Allergy 23:12: l s 05 ([facility]) No known Miscella Active U Not 2020-0 [facility] drug neous Specified 12-30 [facility]ospita Allergie Allergy 23:12: l s 05 ([facility]) No known Miscella Active U Not 2020-0 [facility] drug neous Specified 12-30 [facility]osp[facility] Allergie Allergy 23:12: l s 05 ([facility]) No known Miscella Active U Not 2020-0 [facility] Specified 12-30 [facility] Allergie Allergy 23:12: l s 05 ([facility]) No known Miscella Active U Not 2020-0 [facility]ous Specified 12-30 [facility]ospita Allergie Allergy 23:12: l s 05 ([facility]) No known Miscella Active U Not 2020-0 [facility] drug neous Specified 12-30 [facility]ospita Allergie Allergy 23:12: l s 05 ([facility]) No known Miscella Active U Not 2020-0 [facility] drug neous Specified 12-30 [facility]ospita Allergie Allergy 23:12: l s 05 ([facility]) No known Miscella Active U Not 2020-0 [facility] drug neous Specified 12-30 [facility]ospita Allergie Allergy 23:12: l s 05 ([facility]) No known Miscella Active U Not 2020-0 [facility] drug neous Specified 12-30 [facility]ospita Allergie Allergy 23:12: l s 05 ([facility]) No known Miscella Active U Not 2020-0 [facility] drug neous Specified 12-30 [facility]ospita Allergie Allergy 23:12: l s 05 ([facility]) No known Miscella Active U Not 2020-0 [facility] drug neous Specified 12-30 [facility]ospita Allergie Allergy 23:12: l s 05 ([facility]) No known Miscella Active U Not 2020-0 Bapt[facility] drug neous Specified 12-30 [facility]ospita Allergie Allergy 23:12: l s 05 ([facility]) No known Miscella Active U Not 2020-0 [facility] drug neous Specified 12-30 Hospita Allergie Allergy 23:12: l s 05 ([facility]) No known Miscella Active U Not 2020-0 [facility] drug neous Specified 12-30 [facility]ospita Allergie Allergy 23:12: l s 05 ([facility]) No known Miscella Active U Not 2020-0 [facility] drug neous Specified 12-30 [facility]ospita Allergie Allergy 23:12: l s 05 ([facility]) No known Miscella Active U Not 2020-0 [facility] drug [facility]ous Specified 12-30 [facility]ita Allergie Allergy 23:12: l s 05 ([facility]) No known Miscella Active U Not 2020-0 [facility] Specified 12-30 [facility]ospita Allergie Allergy 23:12: l s 05 [facility]) No known Miscella Active U Not 2020-0 [facility] drug neous Specified 12-30 Hospita Allergie Allergy 23:12: l s 05 ([facility]) No Known NA Active 2019-0 [facility] 23:12: l 00 ([facility] nt) No Known NA Active 2019- [facility] 3-05 Hospita s 12:50: l 36 ([facility] nt) NO KNOWN Drug Active Univers ALLERGIE Class ity of S [place] [facility] No Known Drug Active Medical Allergie Center s [facility] [place] [facility] Social History Social Habit Start Date Stop Date Quantity Comments Source History SDWV Social Unive rsity of Connections Get [place] [facility] ical Together Branch History SDOH Food Univers ity of Scarcity [place] [facility] History SDWV University o f Housing Places [facility] Branch History of tobacco Snuff User Univer sity of use [facility] Branch Exposure to 2022-10-02 2022-10-12 Not sure University of SARS-CoV-2 (event) 00:00:00 14:04:00 [place] [facility] History SDOH 2022-10-03 2022-10-03 4 University o f Alcohol Frequency 00:00:00 00:00:00 [place] M edical [facility] History SDOH 2022-10-03 2022-10-03 5 University o f Alcohol Std Drinks 00:00:00 00:00:00 [place] [facility] History SDOH 2022-10-03 2022-10-03 1 University o f Alcohol Binge 00:00:00 00:00:00 [place] [facility] History SDOH Social 2022-10-03 2022-10-03 5 Unive rsity of Connections Phone 00:00:00 00:00:00 [place] M edical Branch History SDOH Social 2022-10-03 2022-10-03 2 Unive rsity of Connections Catholic 00:00:00 00:00:00 [place] [facility] History SDOH Social 2022-10-03 2022-10-03 2 Unive rsity of Connections 00:00:00 00:00:00 [place] [facility] Membership Branch History SDWV Social 2022-10-03 2022-10-03 1 Unive rsity of Connections 00:00:00 00:00:00 [place] [facility] Meetings Branch History SDOH Social 2022-10-03 2022-10-03 7 Unive rsity of Connections Living 00:00:00 00:00:00 [place] [facility] History SDOH 2022-10-03 2022-10-03 0 University o f Physical Activity 00:00:00 00:00:00 [place] M edical DPW Branch History SDOH 2022-10-03 2022-10-03 0 University o f Physical Activity 00:00:00 00:00:00 [place] M edical MPS Branch History SDOH Stress 2022-10-03 2022-10-03 5 Unive rsity of 00:00:00 00:00:00 [place] [facility] History SDOH 2022-10-03 2022-10-03 5 University o f Financial 00:00:00 00:00:00 [place] [facility] History SDOH Food 2022-10-03 2022-10-03 2 Univers ity of Worry 00:00:00 00:00:00 [place] [facility] History SDOH 2022-10-03 2022-10-03 2 University o f Transport Med 00:00:00 00:00:00 [place] [facility] History SDOH 2022-10-03 2022-10-03 2 University o f Transport Non-Med 00:00:00 00:00:00 [place] M edical Branch History SDOH 2022-10-03 2022-10-03 2 University o f Housing Unable to 00:00:00 00:00:00 [facility] edical Pay Branch History SDOH 2022-10-03 2022-10-03 2 University o f Housing Homeless 00:00:00 00:00:00 [facility] dical Last Year Branch Tobacco use and 2021-10-14 2021-10-14 User of Universit y of exposure 00:00:00 00:00:00 smokeless [place] [facility] tobacco Branch Alcohol intake 2020-01-22 2020-01-22 [facility] Col lege of 00:00:00 00:00:00 non-drinker Medicine (finding) Sex Assigned At [birth year] Male [facility] 00:00:00 00:00:00 Smoking Status Start Date Stop Date Source Unknown if ever smoked [facility] Ex-smoker 2021-10-14 00:00:00 2021-10-14 00:00:00 [facility] Medical Branch Smokes tobacco daily 2021-02-09 21:49:00 [facility] (finding) Never smoker [facility] o f Medicine Medications Ordered Filled Start Stop Current Ordering Indication Dosage Frequency Signature Comments Components Source Medication Medication Date Date Medication? Clinician (SIG) Name Name mindy 3- No 1 tab(s) U nivers ine 4 mg 5-10 05-10 orally ity of tablet 14:59: 00:00 daily pm [place] 36 :00 for 90 Medical days Branch cyproheptad 2022- No 1 tab(s) U nivers ine 4 mg 5-10 05-10 orally ity of tablet 14:59: 00:00 daily pm [place] 36 :00 for 90 Medical days Branch hydrOXYzine Yes [id number] 25mg Take 1 Univers 25 mg 5-10 tablet by ity of tablet 00:00: mouth [place] 00 every 8 Medical (eight) Branch hours as needed for Anxiety or Itching. permethrin Yes [id number] Repeat Univers 5 % cream 5-10 treatment ity o f 00:00: in one [place] week. Medical Branch traZODone Yes [id number] 100mg Take 1 Univers 100 mg 5-10 tablet by ity of tablet 00:00: mouth at [place] [address] bedtime. Medical October 1-2 Branch tablet as needed for insomnia busPIRone Yes [id number] 10mg Take 1 Un sunil 10 mg 5-10 tablet by ity of tablet 00:00: mouth in [place] the Medical morning Branch and 1 tablet in the evening. hydrOXYzine Yes [id number] 25mg Take 1 Univers 25 mg 5-10 tablet by ity of tablet 00:00: mouth [place] [address] every 8 Medical (eight) Branch hours as needed for Anxiety or Itching. permethrin 2022- Yes [id number] Repeat Univers 5 % cream 5-10 treatment ity o f 00:00: in one [place] week. Medical Branch traZODone 2022- Yes [id number] 100mg Take 1 Univers 100 mg 5-10 tablet by ity of tablet 00:00: mouth at [place] 00 bedtime. Medical October 1-2 Branch tablet as needed for insomnia busPIRone Yes [id number] 10mg Take 1 Un sunil 10 mg 5-10 tablet by ity of tablet 00:00: mouth in [place] 00 the Medical morning Branch and 1 tablet in the evening. permethrin 2022-0 2022- No [id number] Apply to Univers 5 % cream 10-03- area(s) ity of 00:00: 04:59 once now [place] 00 :00 for 1 Medical dose. Branch Repeat next dose in 1 week permethrin 2022-0 2022- No [id number] Apply to Univers 5 % cream 10-03-02 area(s) ity of 00:00: 04:59 once now [place] 00 :00 for 1 Medical dose. Branch Repeat next dose in 1 week permethrin 2022-0 Yes [id number] Repeat Univers 5 % cream 4-28 treatment ity o f 00:00: in one [place] week. Medical Branch permethrin 0 Yes [id number] Repeat Univers 5 % cream 4-28 treatment ity o f 00:00: in one [place] week. Medical Branch permethrin 2022-0 Yes [id number] Repeat Univers 5 % cream 4-28 treatment ity o f 00:00: in one [place] week. Medical Branch hydrOXYzine 2022- Yes [id number] 10mg Take 1 Univers 10 mg 4-28 05-04 tablet by ity of tablet 00:00: 04:59 mouth [place] 00 :00 every 6 Medical (six) Branch hours as needed for Itching for up to 5 days. hydrOXYzine 2022- Yes [id number] 10mg Take 1 Univers 10 mg 4-28 05-04 tablet by ity of tablet 00:00: 04:59 mouth [place] 00 :00 every 6 Medical (six) Branch hours as needed for Itching for up to 5 days. hydrOXYzine 2022- Yes [id number] 10mg Take 1 [facility] 10 mg 4-28 05-04 tablet by ity of tablet 00:00: 04:59 mouth [place] 00 :00 every 6 Medical (six) Branch hours as needed for Itching for up to 5 days. hydrOXYzine 2022- Yes [id number] 10mg Take 1 [facility] 10 mg -30 10- tablet by ity of tablet 00:00: 04:59 mouth [place] 00 :00 every 6 Medical (six) Branch hours as needed for Itching for up to 5 days. hydrOXYzine 2022- Yes [id number] 10mg Take 1 [facility] 10 mg -30 10- tablet by ity of tablet 00:00: 04:59 mouth [place] 00 :00 every 6 Medical (six) Branch hours as needed for Itching for up to 5 days. permethrin 2022- No [id number] Repeat [facility] 5 % cream 09-30 treatment ity of 00:00: 00:00 in one [place] 00 :00 week. Medical Branch permethrin 2022- No [id number] Repeat [facility] 5 % cream 09-30 treatment ity of 00:00: 00:00 in one [place] 00 :00 week. Medical Branch ivermectin 2022- Yes [id number] 9mg Take 3 [facility] 3 mg tablet 09-30-29 tablets by i ty of 00:00: 04:59 mouth once [place] 00 :00 now for 1 Medical dose. Branch ivermectin 2022- Yes [id number] 9mg Take 3 [facility] 3 mg tablet 4-30 09-29 tablets by i ty of 00:00: 04:59 mouth once [place] 00 :00 now for 1 Medical dose. Branch ivermectin 2022- Yes [id number] 9mg Take 3 [facility] 3 mg tablet -30 09-29 tablets by i ty of 00:00: 04:59 mouth once [place] 00 :00 now for 1 Medical dose. Branch nitroglycer Yes [id number] 1[in_us Insert 1 [facility] in 0.4 % 3-20 ] Inch into ity of (w/w) 00:00: rectum [place] ointment 00 every 12 Medical (twelve) Branch hours. nitroglycer Yes [id number] 1[in_us Insert 1 [facility] in 0.4 % 3-20 ] Inch into ity of (w/w) 00:00: rectum [place] ointment 00 every 12 Medical (twelve) Branch hours. nitroglycer 2023-0 Yes [id number] 1[in_us Insert 1 [facility] in 0.4 % 3-20 ] Inch into ity of (w/w) 00:00: rectum [place] ointment 00 every 12 Medical (twelve) Branch hours. nitroglycer 2023-0 Yes [id number] 1[in_us Insert 1 [facility] in 0.4 % 3-20 ] Inch into ity of (w/w) 00:00: rectum [place] ointment 00 every 12 Medical (twelve) Branch hours. nitroglycer 2023-0 Yes [id number] 1[in_us Insert 1 [facility] in 0.4 % 3-20 ] Inch into ity of (w/w) 00:00: rectum [place] ointment 00 every 12 Medical (twelve) Branch hours. nitroglycer 2023-0 Yes [id number] 1[in_us Insert 1 [facility] in 0.4 % 3-20 ] Inch into ity of (w/w) 00:00: rectum [place] ointment 00 every 12 Medical (twelve) Branch hours. nitroglycer 3-0 Yes [id number] 1[in_us Insert 1 [facility] in 0.4 % 3-20 ] Inch into ity of (w/w) 00:00: rectum [place] ointment 00 every 12 Medical (twelve) Branch hours. nitroglycer 2023-0 Yes [id number] 1[in_us Insert 1 [facility] in 0.4 % 3-20 ] Inch into ity of (w/w) 00:00: rectum [place] ointment 00 every 12 Medical (twelve) Branch hours. nitroglycer 2023-0 Yes [id number] 1[in_us Insert 1 [facility] in 0.4 % 3-20 ] Inch into ity of (w/w) 00:00: rectum [place] ointment 00 every 12 Medical (twelve) Branch hours. nitroglycer 2023-0 Yes [id number] 1[in_us Insert 1 [facility] in 0.4 % 3-20 ] Inch into ity of (w/w) 00:00: rectum [place] ointment 00 every 12 Medical (twelve) Branch hours. nitroglycer 2023-0 Yes [id number] 1[in_us Insert 1 [facility] in 0.4 % 3-20 ] Inch into ity of (w/w) 00:00: rectum [place] ointment 00 every 12 Medical (twelve) Branch hours. nitroglycer 2023-0 Yes [id number] 1[in_us Insert 1 [facility] in 0.4 % 3-20 ] Inch into ity of (w/w) 00:00: rectum [place] ointment 00 every 12 Medical (twelve) Branch hours. nitroglycer 2023-0 Yes [id number] 1[in_us Insert 1 [facility] in 0.4 % 3-20 ] Inch into ity of (w/w) 00:00: rectum [place] ointment 00 every 12 Medical (twelve) Branch hours. nitroglycer 2023-0 Yes [id number] 1[in_us Insert 1 [facility] in 0.4 % 3-20 ] Inch into ity of (w/w) 00:00: rectum [place] ointment 00 every 12 Medical (twelve) Branch hours. nitroglycer 2023-0 Yes [id number] 1[in_us Insert 1 [facility] in 0.4 % 3-20 ] Inch into ity of (w/w) 00:00: rectum [place] ointment 00 every 12 Medical (twelve) Branch hours. nitroglycer 3-0 Yes [id number] 1[in_us Insert 1 [facility] in 0.4 % 3-20 ] Inch into ity of (w/w) 00:00: rectum [place] ointment 00 every 12 Medical (twelve) Branch hours. ADVAIR HFA 2022-0 Yes 2{puff} Inhale 2 [facility] 230-21 3-07 Puffs in ity of mcg/actuati 00:00: the on inhaler 00 morning Medica l and 2 Branch Puffs in the evening. ADVAIR HFA 3-0 Yes 2{puff} Inhale 2 [facility] 230-21 3-07 Puffs in ity of mcg/actuati 00:00: the [place] on inhaler 00 morning Medica l and 2 Branch Puffs in the evening. ADVAIR HFA 2023-0 Yes 2{puff} Inhale 2 [facility] 230-21 3-07 Puffs in ity of mcg/actuati 00:00: the [place] on inhaler 00 morning Medica l and 2 Branch Puffs in the evening. ADVAIR HFA 3-0 Yes 2{puff} Inhale 2 [facility] 230-21 3-07 Puffs in ity of mcg/actuati 00:00: the [place] on inhaler 00 morning Medica l and 2 Branch Puffs in the evening. ADVAIR HFA 2022-0 Yes 2{puff} Inhale 2 [facility] 230-21 3-07 Puffs in ity of mcg/actuati 00:00: the on inhaler 00 morning Medica l and 2 Branch Puffs in the evening. ADVAIR HFA 2022-0 Yes 2{puff} Inhale 2 [facility] 230-21 3-07 Puffs in ity of mcg/actuati 00:00: the on inhaler 00 morning Medica l and 2 Branch Puffs in the evening. ADVAIR HFA 2022-0 Yes 2{puff} Inhale 2 [facility] 230-21 3-07 Puffs in ity of mcg/actuati 00:00: the on inhaler 00 morning Medica l and 2 Branch Puffs in the evening. ADVAIR HFA 2022-0 Yes 2{puff} Inhale 2 [facility] 230-21 3-07 Puffs in ity of mcg/actuati 00:00: the on inhaler 00 morning Medica l and 2 Branch Puffs in the evening. ADVAIR HFA 2022-0 Yes 2{puff} Inhale 2 [facility] 230-21 3-07 Puffs in ity of mcg/actuati 00:00: the on inhaler 00 morning Medica l and 2 Branch Puffs in the evening. ADVAIR HFA 2022-0 Yes 2{puff} Inhale 2 [facility] 230-21 3-07 Puffs in ity of mcg/actuati 00:00: the on inhaler 00 morning Medica l and 2 Branch Puffs in the evening. ADVAIR HFA 2022-0 Yes 2{puff} Inhale 2 [facility] 230-21 3-07 Puffs in ity of mcg/actuati 00:00: the on inhaler 00 morning Medica l and 2 Branch Puffs in the evening. ADVAIR HFA 2022-0 Yes 2{puff} Inhale 2 [facility] 230-21 3-07 Puffs in ity of mcg/actuati 00:00: the [place] on inhaler 00 morning Medica l and 2 Branch Puffs in the evening. ADVAIR HFA 2022-0 Yes 2{puff} Inhale 2 [facility] 230-21 3-07 Puffs in ity of mcg/actuati 00:00: the [place] on inhaler 00 morning Medica l and 2 Branch Puffs in the evening. ADVAIR HFA 3-0 Yes 2{puff} Inhale 2 [facility] 230-21 3-07 Puffs in ity of mcg/actuati 00:00: the [place] on inhaler 00 morning Medica l and 2 Branch Puffs in the evening. ADVAIR HFA 2023-0 Yes 2{puff} Inhale 2 [facility] 230-21 3-07 Puffs in ity of mcg/actuati 00:00: the [place] on inhaler 00 morning Medica l and 2 Branch Puffs in the evening. ADVAIR HFA 3-0 Yes 2{puff} Inhale 2 [facility] 230-21 3-07 Puffs in ity of mcg/actuati 00:00: the [place] on inhaler 00 morning Medica l and 2 Branch Puffs in the evening. FLUTICASONE 3-0 Yes SPRAY 1 Uni vers PROPIONATE 2-28 SPRAY IN ity o f 50 00:00: EACH [place] mcg/actuati 00 NOSTRIL 2 Med ical on nasal TIMES A Branch spray DAY FLUTICASONE 3-0 Yes SPRAY 1 Uni vers PROPIONATE 2-28 SPRAY IN ity o f 50 00:00: EACH [place] mcg/actuati 00 NOSTRIL 2 Med ical on nasal TIMES A Branch spray DAY FLUTICASONE 3-0 Yes SPRAY 1 Uni vers PROPIONATE 2-28 SPRAY IN ity o f 50 00:00: EACH [place] mcg/actuati 00 NOSTRIL 2 Med ical on nasal TIMES A Branch spray DAY FLUTICASONE 3-0 Yes SPRAY 1 Uni vers PROPIONATE 2-28 SPRAY IN ity o f 50 00:00: EACH [place] mcg/actuati 00 NOSTRIL 2 Med ical on nasal TIMES A Branch spray DAY FLUTICASONE 3-0 Yes SPRAY 1 Uni vers PROPIONATE 2-28 SPRAY IN ity o f 50 00:00: EACH [place] mcg/actuati 00 NOSTRIL 2 Med ical on nasal TIMES A Branch spray DAY FLUTICASONE 2023-0 Yes SPRAY 1 Uni vers PROPIONATE 2-28 SPRAY IN ity o f 50 00:00: EACH [place] mcg/actuati 00 NOSTRIL 2 Med ical on nasal TIMES A Branch spray DAY FLUTICASONE 2023-0 Yes SPRAY 1 Uni vers PROPIONATE 2-28 SPRAY IN [facility] 50 00:00: EACH [place] mcg/actuati 00 NOSTRIL 2 Med ical on nasal TIMES A Branch spray DAY FLUTICASONE 3-0 Yes SPRAY 1 Uni vers PROPIONATE 2-28 SPRAY IN [facility] 50 00:00: EACH [place] mcg/actuati 00 NOSTRIL 2 Med ical on nasal TIMES A Branch spray DAY FLUTICASONE 3-0 Yes SPRAY 1 Uni vers PROPIONATE 2-28 SPRAY IN [facility] 50 00:00: EACH [place] mcg/actuati 00 NOSTRIL 2 Med ical on nasal TIMES A Branch spray DAY FLUTICASONE 2022-0 Yes SPRAY 1 Uni vers PROPIONATE 2-28 SPRAY IN [facility] 50 00:00: EACH [place] mcg/actuati NOSTRIL 2 Med ical on nasal TIMES A Branch spray DAY FLUTICASONE 3-0 Yes SPRAY 1 Uni vers PROPIONATE 2-28 SPRAY IN [place] [address] 00:00: EACH [place] mcg/actuati 00 NOSTRIL 2 Med ical on nasal TIMES A Branch spray DAY FLUTICASONE 3-0 Yes SPRAY 1 Uni vers PROPIONATE 2-28 SPRAY IN [place] [address] 00:00: EACH [place] mcg/actuati 00 NOSTRIL 2 Med ical on nasal TIMES A Branch spray DAY FLUTICASONE 3-0 Yes SPRAY 1 Uni vers PROPIONATE 2-28 SPRAY IN [place] [address] 00:00: EACH [place] mcg/actuati 00 NOSTRIL 2 Med ical on nasal TIMES A Branch spray DAY FLUTICASONE 3-0 Yes SPRAY 1 Uni vers PROPIONATE 2-28 SPRAY IN [place] [address] 00:00: EACH [place] mcg/actuati 00 NOSTRIL 2 Med ical on nasal TIMES A Branch spray DAY FLUTICASONE 3-0 Yes SPRAY 1 Uni vers PROPIONATE 2-28 SPRAY IN [facility] 50 00:00: EACH [place] mcg/actuati 00 NOSTRIL 2 Med ical on nasal TIMES A Branch spray DAY FLUTICASONE 3-0 Yes SPRAY 1 Uni vers PROPIONATE 2-28 SPRAY IN [facility] 50 00:00: EACH [place] mcg/actuati 00 NOSTRIL 2 Med ical on nasal TIMES A Branch spray DAY FLUTICASONE 3-0 Yes SPRAY 1 Uni vers PROPIONATE 2-28 SPRAY IN ity o f 50 00:00: EACH [place] mcg/actuati 00 NOSTRIL 2 Med ical on nasal TIMES A Branch spray DAY cyproheptad Yes 1 tab(s) Un sunil ine 4 mg 2-06 orally ity of tablet 13:55: daily pm [place] 11 for 90 Medical days Branch OXcarbazepi Yes 1 tab Unive rs ne 150 mg 2-06 orally tid ity of Tb24 13:55: for 30 [place] 11 day(s) Medical Branch cyproheptad Yes 1 tab(s) Un sunil ine 4 mg 2-06 orally ity of tablet 13:55: daily pm [place] 11 for 90 Medical days Branch OXcarbazepi Yes 1 tab Unive rs ne 150 mg 2-06 orally tid ity of Tb24 13:55: for 30 [place] 11 day(s) Medical Branch cyproheptad Yes 1 tab(s) Un sunil ine 4 mg 2-06 orally ity of tablet 13:55: daily pm [place] 11 for 90 Medical days Branch OXcarbazepi Yes 1 tab Unive rs ne 150 mg 2-06 orally tid ity of Tb24 13:55: for 30 [place] 11 day(s) Medical Branch cyproheptad Yes 1 tab(s) Un sunil ine 4 mg 2-06 orally ity of tablet 13:55: daily pm [place] 11 for 90 Medical days Branch OXcarbazepi Yes 1 tab Unive rs ne 150 mg 2-06 orally tid ity of Tb24 13:55: for 30 [place] 11 day(s) Medical Branch cyproheptad Yes 1 tab(s) Un sunil ine 4 mg 2-06 orally ity of tablet 13:55: daily pm [place] 11 for 90 Medical days Branch OXcarbazepi Yes 1 tab Unive rs ne 150 mg 2-06 orally tid ity of Tb24 13:55: for 30 [place] 11 day(s) Medical Branch cyproheptad Yes 1 tab(s) Un sunil ine 4 mg 2-06 orally ity of tablet 13:55: daily pm [place] 11 for 90 Medical days Branch OXcarbazepi Yes 1 tab Unive rs ne 150 mg 2-06 orally tid ity of Tb24 13:55: for 30 [place] 11 day(s) Medical Branch cyproheptad Yes 1 tab(s) Un sunil ine 4 mg 2-06 orally ity of tablet 13:55: daily pm [place] 11 for 90 Medical days Branch OXcarbazepi Yes 1 tab Unive rs ne 150 mg 2-06 orally tid ity of Tb24 13:55: for 30 [place] 11 day(s) Medical Branch cyproheptad Yes 1 tab(s) Un sunil ine 4 mg 2-06 orally ity of tablet 13:55: daily pm [place] 11 for 90 Medical days Branch OXcarbazepi Yes 1 tab Unive rs ne 150 mg 2-06 orally tid ity of Tb24 13:55: for 30 [place] 11 day(s) Medical Branch cyproheptad Yes 1 tab(s) Un sunil ine 4 mg 2-06 orally ity of tablet 13:55: daily pm [place] 11 for 90 Medical days Branch OXcarbazepi Yes 1 tab Unive rs ne 150 mg 2-06 orally tid ity of Tb24 13:55: for 30 [place] 11 day(s) Medical Branch cyproheptad Yes 1 tab(s) Un sunil ine 4 mg 2-06 orally ity of tablet 13:55: daily pm [place] 11 for 90 Medical days Branch OXcarbazepi Yes 1 tab Unive rs ne 150 mg 2-06 orally tid ity of Tb24 13:55: for 30 [place] 11 day(s) Medical Branch cyproheptad Yes 1 tab(s) Un sunil ine 4 mg 2-06 orally ity of tablet 13:55: daily pm [place] 11 for 90 Medical days Branch OXcarbazepi Yes 1 tab Unive rs ne 150 mg 2-06 orally tid ity of Tb24 13:55: for 30 [place] 11 day(s) Medical Branch cyproheptad Yes 1 tab(s) Un sunil ine 4 mg 2-06 orally ity of tablet 13:55: daily pm [place] 11 for 90 Medical days Branch OXcarbazepi Yes 1 tab Unive rs ne 150 mg 2-06 orally tid ity of Tb24 13:55: for 30 [place] 11 day(s) Medical Branch cyproheptad Yes 1 tab(s) Un sunil ine 4 mg 2-06 orally ity of tablet 13:55: daily pm [place] 11 for 90 Medical days Branch OXcarbazepi Yes 1 tab Unive rs ne 150 mg 2-06 orally tid ity of Tb24 13:55: for 30 [place] 11 day(s) Medical Branch cyproheptad Yes 1 tab(s) Un sunil ine 4 mg 2-06 orally ity of tablet 13:55: daily pm [place] 11 for 90 Medical days Branch OXcarbazepi Yes 1 tab Unive rs ne 150 mg 2-06 orally tid ity of Tb24 13:55: for 30 [place] 11 day(s) Medical Branch cyproheptad Yes 1 tab(s) Un sunil ine 4 mg 2-06 orally ity of tablet 13:55: daily pm [place] 11 for 90 Medical days Branch OXcarbazepi Yes 1 tab Unive rs ne 150 mg 2-06 orally tid ity of Tb24 13:55: for 30 [place] 11 day(s) Medical Branch cyproheptad Yes 1 tab(s) Un sunil ine 4 mg 2-06 orally ity of tablet 13:55: daily pm [place] 11 for 90 Medical days Branch OXcarbazepi Yes 1 tab Unive rs ne 150 mg 2-06 orally tid ity of Tb24 13:55: for 30 [place] 11 day(s) Medical Branch cyproheptad Yes 1 tab(s) Un sunil ine 4 mg 2-06 orally ity of tablet 13:55: daily pm [place] 11 for 90 Medical days Branch OXcarbazepi Yes 1 tab Unive rs ne 150 mg 2-06 orally tid ity of Tb24 13:55: for 30 [place] 11 day(s) Medical Branch cyproheptad Yes 1 tab(s) Un sunil ine 4 mg 2-06 orally ity of tablet 13:55: daily pm [place] 11 for 90 Medical days Branch OXcarbazepi 2022- Yes 1 tab Unive rs ne 150 mg 2-06 orally tid ity of Tb24 13:55: for 30 [place] 11 day(s) Medical Branch OXcarbazepi 2022-0 Yes 1 tab Unive rs ne 150 mg 2-06 orally tid ity of Tb24 13:55: for 30 [place] 11 day(s) Medical Branch OXcarbazepi 2022-0 Yes 1 tab Unive rs ne 150 mg 2-06 orally tid ity of Tb24 13:55: for 30 [place] 11 day(s) Medical Branch ondansetron 2022- No 8mg 8 mg, Slow [facility] (ZOFRAN 06-26 IV Push, ity of (PF)) 01:30: 00:32 ONCE, 1 [place] injection 8 00 :00 dose, On Medi mayte mg Sat Branch 06/25/22 at 1930, [place] proMETHazin 2022- No 25mg 25 mg, IV Univers e 06-26 Piggyback, ity of (PHENERGAN) 00:45: 01:15 ONCE, 1 [place] 25 mg in 00 :00 dose, On Medical NaCl 0.9% Sat Branch (NS) 50 mL 06/25/22 at piggyback 1845, 50 mL NaCl 0.9% 2022- No 1000mL at 999 Uni vers (NS) bolus 06-26 mL/hr, ity of infusion 00:30: 01:20 1,000 mL, [place] 1,000 mL 00 :00 IV Medical Piggyback, Branch ONCE, 1 dose, On 06/25/22 at 1830, STAT iopamidol 2022- No [id number] 84mL 84 mL, U nivers (ISOVUE 06-26 Intravenou ity o f 370-500 mL) 00:10: 00:30 s, ONCE, 1 [place] injection 00 :00 dose, On Medica l 84 mL Sat Branch 06/25/22 at 1830, Routine famotidine 2022- No 20mg 20 mg, Univ ers (PEPCID 06-25 Slow IV ity of (PF)) 23:45: 00:33 Push, [place] injection 00 :00 ONCE, 1 Medical 20 mg dose, On Branch 06/25/22 at 1745, [place] metoclopram 2023-0 Yes [id number] 10mg Take 1 [facility] agus HCl 10 1-21 tablet by ity of mg tablet 00:00: mouth [place] 00 every 6 Medical (six) Branch hours. famotidine 2023-0 Yes [id number] 40mg Take 1 U nivers (PEPCID) 40 1-21 tablet by ity of mg tablet 00:00: mouth [place] 00 the Medical morning. Branch metoclopram 2023-0 Yes [id number] 10mg Take 1 [facility] agus HCl 10 1-21 tablet by ity of mg tablet 00:00: mouth [place] 00 every 6 Medical (six) Branch hours. famotidine 2023-0 Yes [id number] 40mg Take 1 U nivers (PEPCID) 40 1-21 tablet by ity of mg tablet 00:00: mouth [place] 00 the Medical morning. Branch metoclopram 2023-0 Yes [id number] 10mg Take 1 [facility] agus HCl 10 1-21 tablet by ity of mg tablet 00:00: mouth [place] 00 every 6 Medical (six) Branch hours. famotidine 2023-0 Yes [id number] 40mg Take 1 U nivers (PEPCID) 40 1-21 tablet by ity of mg tablet 00:00: mouth [place] 00 the Medical morning. Branch metoclopram 2023-0 Yes [id number] 10mg Take 1 [facility] agus HCl 10 1-21 tablet by ity of mg tablet 00:00: mouth [place] 00 every 6 Medical (six) Branch hours. famotidine 2023-0 Yes [id number] 40mg Take 1 U nivers (PEPCID) 40 1-21 tablet by ity of mg tablet 00:00: mouth [place] 00 the Medical morning. Branch metoclopram 2023-0 Yes [id number] 10mg Take 1 [facility] agus HCl 10 1-21 tablet by ity of mg tablet 00:00: mouth [place] 00 every 6 Medical (six) Branch hours. famotidine 2023-0 Yes [id number] 40mg Take 1 U nivers (PEPCID) 40 1-21 tablet by ity of mg tablet 00:00: mouth [place] 00 the Medical morning. Branch metoclopram 2023-0 Yes [id number] 10mg Take 1 [facility] agus HCl 10 1-21 tablet by ity of mg tablet 00:00: mouth [place] 00 every 6 Medical (six) Branch hours. famotidine 2023-0 Yes [id number] 40mg Take 1 U nivers (PEPCID) 40 1-21 tablet by ity of mg tablet 00:00: mouth [place] 00 the Medical morning. Branch metoclopram 2023-0 Yes [id number] 10mg Take 1 [facility] agus HCl 10 1-21 tablet by ity of mg tablet 00:00: mouth [place] 00 every 6 Medical (six) Branch hours. famotidine 2023-0 Yes [id number] 40mg Take 1 U nivers (PEPCID) 40 1-21 tablet by ity of mg tablet 00:00: mouth [place] 00 the Medical morning. Branch metoclopram 2023-0 Yes [id number] 10mg Take 1 [facility] agus HCl 10 1-21 tablet by ity of mg tablet 00:00: mouth [place] 00 every 6 Medical (six) Branch hours. famotidine 2023-0 Yes [id number] 40mg Take 1 U nivers (PEPCID) 40 1-21 tablet by ity of mg tablet 00:00: mouth in [place] 00 the Medical morning. Branch metoclopram 2023-0 Yes [id number] 10mg Take 1 [facility] agus HCl 10 1-21 tablet by ity of mg tablet 00:00: mouth [place] 00 every 6 Medical (six) Branch hours. famotidine 2023-0 Yes [id number] 40mg Take 1 U nivers (PEPCID) 40 1-21 tablet by ity of mg tablet 00:00: mouth [place] 00 the Medical morning. Branch metoclopram 2023-0 Yes [id number] 10mg Take 1 [facility] agus HCl 10 1-21 tablet by ity of mg tablet 00:00: mouth [place] 00 every 6 Medical (six) Branch hours. famotidine 2023-0 Yes [id number] 40mg Take 1 U nivers (PEPCID) 40 1-21 tablet by ity of mg tablet 00:00: mouth [place] 00 the Medical morning. Branch metoclopram 2023-0 Yes [id number] 10mg Take 1 [facility] agus HCl 10 1-21 tablet by ity of mg tablet 00:00: mouth [place] 00 every 6 Medical (six) Branch hours. famotidine 2023-0 Yes [id number] 40mg Take 1 U nivers (PEPCID) 40 1-21 tablet by ity of mg tablet 00:00: mouth [place] 00 the Medical morning. Branch metoclopram 2023-0 Yes [id number] 10mg Take 1 [facility] agus HCl 10 1-21 tablet by ity of mg tablet 00:00: mouth [place] 00 every 6 Medical (six) Branch hours. famotidine 2023-0 Yes [id number] 40mg Take 1 U nivers (PEPCID) 40 1-21 tablet by ity of mg tablet 00:00: mouth [place] 00 the Medical morning. Branch metoclopram 2023-0 Yes [id number] 10mg Take 1 [facility] agsu HCl 10 1-21 tablet by ity of mg tablet 00:00: mouth [place] 00 every 6 Medical (six) Branch hours. famotidine 2023-0 Yes [id number] 40mg Take 1 U nivers (PEPCID) 40 1-21 tablet by ity of mg tablet 00:00: mouth [place] 00 the Medical morning. Branch metoclopram 2023-0 Yes [id number] 10mg Take 1 [facility] agus HCl 10 1-21 tablet by ity of mg tablet 00:00: mouth [place] 00 every 6 Medical (six) Branch hours. famotidine 2023-0 Yes [id number] 40mg Take 1 U nivers (PEPCID) 40 1-21 tablet by ity of mg tablet 00:00: mouth in [place] 00 the Medical morning. Branch metoclopram 2023-0 Yes [id number] 10mg Take 1 [facility] agus HCl 10 1-21 tablet by ity of mg tablet 00:00: mouth [place] 00 every 6 Medical (six) Branch hours. famotidine 2023-0 Yes [id number] 40mg Take 1 U nivers (PEPCID) 40 1-21 tablet by ity of mg tablet 00:00: mouth [place] 00 the Medical morning. Branch metoclopram 2023-0 Yes [id number] 10mg Take 1 [facility] agus HCl 10 1-21 tablet by ity of mg tablet 00:00: mouth [place] 00 every 6 Medical (six) Branch hours. famotidine 2023-0 Yes [id number] 40mg Take 1 U nivers (PEPCID) 40 1-21 tablet by ity of mg tablet 00:00: mouth in [place] 00 the Medical morning. Branch metoclopram 2023-0 Yes [id number] 10mg Take 1 [facility] agus HCl 10 1-21 tablet by ity of mg tablet 00:00: mouth [place] 00 every 6 Medical (six) Branch hours. famotidine 2023-0 Yes [id number] 40mg Take 1 U nivers (PEPCID) 40 1-21 tablet by ity of mg tablet 00:00: mouth in [place] 00 the Medical morning. Branch metoclopram 2023-0 Yes [id number] 10mg Take 1 [facility] agus HCl 10 1-21 tablet by ity of mg tablet 00:00: mouth [place] 00 every 6 Medical (six) Branch hours. famotidine 2023-0 Yes [id number] 40mg Take 1 U nivers (PEPCID) 40 1-21 tablet by ity of mg tablet 00:00: mouth [place] 00 the Medical morning. Branch metoclopram 3-0 Yes [id number] 10mg Take 1 [facility] agus HCl 10 1-21 tablet by ity of mg tablet 00:00: mouth [place] 00 every 6 Medical (six) Branch hours. famotidine 2023-0 Yes [id number] 40mg Take 1 U nivers (PEPCID) 40 1-21 tablet by ity of mg tablet 00:00: mouth in [place] 00 the Medical morning. Branch metoclopram 2023-0 Yes [id number] 10mg Take 1 [facility] agus HCl 10 1-21 tablet by ity of mg tablet 00:00: mouth [place] 00 every 6 Medical (six) Branch hours. famotidine 2023-0 Yes [id number] 40mg Take 1 U nivers (PEPCID) 40 1-21 tablet by ity of mg tablet 00:00: mouth in [place] 00 the Medical morning. Branch metoclopram 2023-0 Yes [id number] 10mg Take 1 [facility] agus HCl 10 1-21 tablet by ity of mg tablet 00:00: mouth [place] 00 every 6 Medical (six) Branch hours. famotidine 2023-0 Yes [id number] 40mg Take 1 U nivers (PEPCID) 40 1-21 tablet by ity of mg tablet 00:00: mouth in [place] 00 the Medical morning. Branch metoclopram 3-0 Yes [id number] 10mg Take 1 [facility] agus HCl 10 1-21 tablet by ity of mg tablet 00:00: mouth [place] 00 every 6 Medical (six) Branch hours. famotidine 2023-0 Yes [id number] 40mg Take 1 U nivers (PEPCID) 40 1-21 tablet by ity of mg tablet 00:00: mouth in [place] 00 the Medical morning. Branch metoclopram 3-0 Yes [id number] 10mg Take 1 [facility] agus HCl 10 1-21 tablet by ity of mg tablet 00:00: mouth [place] 00 every 6 Medical (six) Branch hours. famotidine 2023-0 Yes [id number] 40mg Take 1 U nivers (PEPCID) 40 1-21 tablet by ity of mg tablet 00:00: mouth [place] 00 the Medical morning. Branch ondansetron 2021- Yes [id number] 4mg Take 1 [facility] (ZOFRAN) 4 2-20 tablet by ity of mg tablet 00:00: mouth [place] 00 every 8 Medical (eight) Branch hours as needed for Nausea and Vomiting (N/V). ondansetron 2021- Yes [id number] 4mg Take 1 [facility] (ZOFRAN) 4 2-20 tablet by ity of mg tablet 00:00: mouth [place] 00 every 8 Medical (eight) Branch hours as needed for Nausea and Vomiting (N/V). ondansetron 2021-1 Yes [id number] 4mg Take 1 [facility] (ZOFRAN) 4 2-20 tablet by ity of mg tablet 00:00: mouth [place] 00 every 8 Medical (eight) Branch hours as needed for Nausea and Vomiting (N/V). ondansetron 2021-1 Yes [id number] 4mg Take 1 [facility] (ZOFRAN) 4 2-20 tablet by ity of mg tablet 00:00: mouth [place] 00 every 8 Medical (eight) Branch hours as needed for Nausea and Vomiting (N/V). ondansetron 2021-06 Yes [id number] 4mg Take 1 [facility] (ZOFRAN) 4 2-20 tablet by ity of mg tablet 00:00: mouth [place] 00 every 8 Medical (eight) Branch hours as needed for Nausea and Vomiting (N/V). ondansetron 2021-06 Yes [id number] 4mg Take 1 [facility] (ZOFRAN) 4 2-20 tablet by ity of mg tablet 00:00: mouth [place] 00 every 8 Medical (eight) Branch hours as needed for Nausea and Vomiting (N/V). ondansetron 2021-06 Yes [id number] 4mg Take 1 [facility] (ZOFRAN) 4 2-20 tablet by ity of mg tablet 00:00: mouth [place] 00 every 8 Medical (eight) Branch hours as needed for Nausea and Vomiting (N/V). ondansetron 2021-06 Yes [id number] 4mg Take 1 [facility] (ZOFRAN) 4 2-20 tablet by ity of mg tablet 00:00: mouth [place] 00 every 8 Medical (eight) Branch hours as needed for Nausea and Vomiting (N/V). ondansetron 2021-06 Yes [id number] 4mg Take 1 [facility] (ZOFRAN) 4 2-20 tablet by ity of mg tablet 00:00: mouth [place] 00 every 8 Medical (eight) Branch hours as needed for Nausea and Vomiting (N/V). ondansetron 2021-06 Yes [id number] 4mg Take 1 [facility] (ZOFRAN) 4 2-20 tablet by ity of mg tablet 00:00: mouth [place] 00 every 8 Medical (eight) Branch hours as needed for Nausea and Vomiting (N/V). ondansetron 2021-06 Yes [id number] 4mg Take 1 [facility] (ZOFRAN) 4 2-20 tablet by ity of mg tablet 00:00: mouth [place] 00 every 8 Medical (eight) Branch hours as needed for Nausea and Vomiting (N/V). ondansetron 2021-06 Yes [id number] 4mg Take 1 [facility] (ZOFRAN) 4 2-20 tablet by ity of mg tablet 00:00: mouth [place] 00 every 8 Medical (eight) Branch hours as needed for Nausea and Vomiting (N/V). ondansetron 2021-06 Yes [id number] 4mg Take 1 [facility] (ZOFRAN) 4 2-20 tablet by ity of mg tablet 00:00: mouth [place] 00 every 8 Medical (eight) Branch hours as needed for Nausea and Vomiting (N/V). ondansetron 2021-06 Yes [id number] 4mg Take 1 [facility] (ZOFRAN) 4 2-20 tablet by ity of mg tablet 00:00: mouth [place] 00 every 8 Medical (eight) Branch hours as needed for Nausea and Vomiting (N/V). ondansetron 2021-06 Yes [id number] 4mg Take 1 [facility] (ZOFRAN) 4 2-20 tablet by ity of mg tablet 00:00: mouth [place] 00 every 8 Medical (eight) Branch hours as needed for Nausea and Vomiting (N/V). ondansetron 2021-06 Yes [id number] 4mg Take 1 [facility] (ZOFRAN) 4 2-20 tablet by ity of mg tablet 00:00: mouth [place] 00 every 8 Medical (eight) Branch hours as needed for Nausea and Vomiting (N/V). ondansetron 2021-06 Yes [id number] 4mg Take 1 [facility] (ZOFRAN) 4 2-20 tablet by ity of mg tablet 00:00: mouth [place] 00 every 8 Medical (eight) Branch hours as needed for Nausea and Vomiting (N/V). ondansetron 2021-06 Yes [id number] 4mg Take 1 [facility] (ZOFRAN) 4 2-20 tablet by ity of mg tablet 00:00: mouth [place] 00 every 8 Medical (eight) Branch hours as needed for Nausea and Vomiting (N/V). ondansetron 2021-06 Yes [id number] 4mg Take 1 [facility] (ZOFRAN) 4 2-20 tablet by ity of mg tablet 00:00: mouth [place] 00 every 8 Medical (eight) Branch hours as needed for Nausea and Vomiting (N/V). ondansetron 2021-06 Yes [id number] 4mg Take 1 [facility] (ZOFRAN) 4 2-20 tablet by ity of mg tablet 00:00: mouth [place] 00 every 8 Medical (eight) Branch hours as needed for Nausea and Vomiting (N/V). ondansetron 2021-06 Yes [id number] 4mg Take 1 [facility] (ZOFRAN) 4 2-20 tablet by ity of mg tablet 00:00: mouth [place] 00 every 8 Medical (eight) Branch hours as needed for Nausea and Vomiting (N/V). ondansetron 2021-06 Yes [id number] 4mg Take 1 [facility] (ZOFRAN) 4 2-20 tablet by ity of mg tablet 00:00: mouth [place] 00 every 8 Medical (eight) Branch hours as needed for Nausea and Vomiting (N/V). ondansetron 2021-06 Yes [id number] 4mg Take 1 [facility] (ZOFRAN) 4 2-20 tablet by ity of mg tablet 00:00: mouth [place] 00 every 8 Medical (eight) Branch hours as needed for Nausea and Vomiting (N/V). ondansetron 2021-06 Yes [id number] 4mg Take 1 [facility] (ZOFRAN) 4 2-20 tablet by ity of mg tablet 00:00: mouth [place] 00 every 8 Medical (eight) Branch hours as needed for Nausea and Vomiting (N/V). ondansetron 2021-06 Yes [id number] 4mg Take 1 [facility] (ZOFRAN) 4 2-20 tablet by ity of mg tablet 00:00: mouth [place] 00 every 8 Medical (eight) Branch hours as needed for Nausea and Vomiting (N/V). ondansetron 2021-06 Yes [id number] 4mg Take 1 [facility] (ZOFRAN) 4 2-20 tablet by ity of mg tablet 00:00: mouth [place] 00 every 8 Medical (eight) Branch hours as needed for Nausea and Vomiting (N/V). ondansetron 2021-06 Yes [id number] 4mg Take 1 [facility] (ZOFRAN) 4 2-20 tablet by ity of mg tablet 00:00: mouth [place] 00 every 8 Medical (eight) Branch hours as needed for Nausea and Vomiting (N/V). ondansetron 2021-06 Yes [id number] 4mg Take 1 [facility] (ZOFRAN) 4 2-20 tablet by ity of mg tablet 00:00: mouth [place] 00 every 8 Medical (eight) Branch hours as needed for Nausea and Vomiting (N/V). ondansetron 2021-06 Yes [id number] 4mg Take 1 [facility] (ZOFRAN) 4 2-20 tablet by ity of mg tablet 00:00: mouth [place] 00 every 8 Medical (eight) Branch hours as needed for Nausea and Vomiting (N/V). nitroglycer 2021-06- No [id number] 1[in_us Insert 1 [facility] in (RECTIV) 07-25 ] Inch into it y of 0.4 % (w/w) 00:00: 05:59 rectum Anam as ointment 00 :00 every 12 Medical (twelve) Branch hours for 14 days. nitroglycer 2021-06- No [id number] 1[in_us Insert 1 [facility] in (RECTIV) 07-25 ] Inch into it y of 0.4 % (w/w) 00:00: 05:59 rectum Anam as ointment 00 :00 every 12 Medical (twelve) Branch hours for 14 days. nitroglycer 2021-06- No [id number] 1[in_us Insert 1 [facility] in (RECTIV) 07-25 ] Inch into it y of 0.4 % (w/w) 00:00: 05:59 rectum Anam as ointment 00 :00 every 12 Medical (twelve) Branch hours for 14 days. nitroglycer 2021-06- No [id number] 1[in_us Insert 1 [facility] in (RECTIV) 07-25 ] Inch into it y of 0.4 % (w/w) 00:00: 05:59 rectum An[place] as ointment 00 :00 every 12 Medical (twelve) Branch hours for 14 days. nitroglycer 2021-06- No [id number] 1[in_us Insert 1 [facility] in (RECTIV) 07-25 ] Inch into it y of 0.4 % (w/w) 00:00: 05:59 rectum [place] as ointment 00 :00 every 12 Medical (twelve) Branch hours for 14 days. nitroglycer 2021-06- No [id number] 1[in_us Insert 1 [facility] in (RECTIV) 07-25 ] Inch into it y of 0.4 % (w/w) 00:00: 05:59 rectum [place] as ointment 00 :00 every 12 Medical (twelve) Branch hours for 14 days. albuterol 2021-06 Yes 1.25mg Inhale [facility] 1.25 mg/3 1-03 1.25 mg in ity of mL 00:00: the [place] nebulizer 00 morning. 2 Medi mayte solution PUFFS Branch twice a day albuterol 2021-06 Yes 1.25mg Inhale [facility] ers 1.25 mg/3 1-03 1.25 mg in ity of mL 00:00: the [place] nebulizer 00 morning. 2 Medi mayte solution PUFFS Branch twice a day albuterol 2021-06 Yes 1.25mg Inhale [facility] ers 1.25 mg/3 1-03 1.25 mg in ity of mL 00:00: the [place] nebulizer 00 morning. 2 Medi mayte solution PUFFS Branch twice a day albuterol 2021-06 Yes 1.25mg Inhale [facility] 1.25 mg/3 1-03 1.25 mg in ity of mL 00:00: the [place] nebulizer 00 morning. 2 Medi mayte solution PUFFS Branch twice a day albuterol 2021-06 Yes 1.25mg [facility] 1.25 mg/3 1-03 1.25 mg in ity of mL 00:00: the [place] nebulizer 00 morning. 2 Medi myate solution PUFFS Branch twice a day albuterol 2021-06 Yes 1.25mg Inhale [facility] ers 1.25 mg/3 1-03 1.25 mg in ity of mL 00:00: the [place] nebulizer 00 morning. 2 Medi mayte solution PUFFS Branch twice a day albuterol 2021-06 Yes 1.25mg Inhale [facility] ers 1.25 mg/3 1-03 1.25 mg in ity of mL 00:00: the [place] nebulizer 00 morning. 2 Medi mayte solution PUFFS Branch twice a day albuterol 2021-06 Yes 1.25mg Inhale [facility] ers 1.25 mg/3 1-03 1.25 mg in ity of mL 00:00: the [place] nebulizer 00 morning. 2 Medi mayte solution PUFFS Branch twice a day albuterol 2021-06 Yes 1.25mg [facility]ale [facility] ers 1.25 mg/3 1-03 1.25 mg in ity of mL 00:00: the [place] nebulizer 00 morning. 2 Medi mayte solution PUFFS Branch twice a day albuterol 2021-06 Yes 1.25mg In[facility]ale [facility] ers 1.25 mg/3 1-03 1.25 mg in ity of mL 00:00: the [place] nebulizer 00 morning. 2 Medi mayte solution PUFFS Branch twice a day albuterol 2021-06 Yes 1.25mg [facility]ale [facility] ers 1.25 mg/3 1-03 1.25 mg in ity of mL 00:00: the [place] nebulizer 00 morning. 2 Medi mayte solution PUFFS Branch twice a day albuterol 2021-06 Yes 1.25mg [facility] 1.25 mg/3 1-03 1.25 mg in ity of mL 00:00: the [place] nebulizer 00 morning. 2 Medi mayte solution PUFFS Branch twice a day albuterol 2021-06 Yes 1.25mg [facility] 1.25 mg/3 1-03 1.25 mg in ity of mL 00:00: the [place] nebulizer 00 morning. 2 Medi mayte solution PUFFS Branch twice a day albuterol 2021-06 Yes 1.25mg In[facility]ale [facility] ers 1.25 mg/3 1-03 1.25 mg in ity of mL 00:00: the [place] nebulizer 00 morning. 2 Medi mayte solution PUFFS Branch twice a day albuterol 2021-06 Yes 1.25mg [facility]ale [facility] ers 1.25 mg/3 1-03 1.25 mg in ity of mL 00:00: the [place] nebulizer 00 morning. 2 Medi mayte solution PUFFS Branch twice a day albuterol 2021-06 Yes 1.25mg [facility]ale [facility] ers 1.25 mg/3 1-03 1.25 mg in ity of mL 00:00: the [place] nebulizer 00 morning. 2 Medi mayte solution PUFFS Branch twice a day albuterol 2021-06 Yes 1.25mg [facility] ers 1.25 mg/3 1-03 1.25 mg in ity of mL 00:00: the [place] nebulizer 00 morning. 2 Medi mayte solution PUFFS Branch twice a day albuterol 2021-06 Yes 1.25mg [facility]ale [facility] 1.25 mg/3 1-03 1.25 mg in ity of mL 00:00: the [place] nebulizer 00 morning. 2 Medi mayte solution PUFFS Branch twice a day albuterol 2021-06 Yes 1.25mg [facility] 1.25 mg/3 1-03 1.25 mg in ity of mL 00:00: the [place] nebulizer 00 morning. 2 Medi mayte solution PUFFS Branch twice a day albuterol 2021-06 Yes 1.25mg Inhale [facility] ers 1.25 mg/3 1-03 1.25 mg in ity of mL 00:00: the [place] nebulizer 00 morning. 2 Medi mayte solution PUFFS Branch twice a day albuterol 2021-06 Yes 1.25mg Inhale [facility] ers 1.25 mg/3 1-03 1.25 mg in ity of mL 00:00: the [place] nebulizer 00 morning. 2 Medi mayte solution PUFFS Branch twice a day albuterol 2021-06 Yes 1.25mg In[facility]ale [facility] ers 1.25 mg/3 1-03 1.25 mg in ity of mL 00:00: the [place] nebulizer 00 morning. 2 Medi mayte solution PUFFS Branch twice a day albuterol 2021-06 Yes 1.25mg Inhale [facility] ers 1.25 mg/3 1-03 1.25 mg in ity of mL 00:00: the [place] nebulizer 00 morning. 2 Medi mayte solution PUFFS Branch twice a day albuterol 2021-06 Yes 1.25mg Inhale [facility] ers 1.25 mg/3 1-03 1.25 mg in ity of mL 00:00: the [place] nebulizer 00 morning. 2 Medi mayte solution PUFFS Branch twice a day albuterol 2021-06 Yes 1.25mg Inhale [facility] ers 1.25 mg/3 1-03 1.25 mg in ity of mL 00:00: the [place] nebulizer 00 morning. 2 Medi mayte solution PUFFS Branch twice a day albuterol 2021-06 Yes 1.25mg Inhale [facility] ers 1.25 mg/3 1-03 1.25 mg in ity of mL 00:00: the [place] nebulizer 00 morning. 2 Medi mayte solution PUFFS Branch twice a day albuterol 2021-06 Yes 1.25mg Inhale [facility] ers 1.25 mg/3 1-03 1.25 mg in ity of mL 00:00: the [place] nebulizer 00 morning. 2 Medi mayte solution PUFFS Branch twice a day albuterol 2021-06 Yes 1.25mg Inhale [facility] ers 1.25 mg/3 1-03 1.25 mg in ity of mL 00:00: the [place] nebulizer 00 morning. 2 Medi mayte solution PUFFS Branch twice a day albuterol 2021-06 Yes 1.25mg Inhale [facility] ers 1.25 mg/3 1-03 1.25 mg in ity of mL 00:00: the [place] nebulizer 00 morning. 2 Medi mayte solution PUFFS Branch twice a day iopamidol 2021-06- No [id number] 50mL 50 mL, [facility] (ISOVUE 0-10 10-10 Intravenou ity o f 370-500 mL) 02:00: 02:00 s, ONCE, 1 [place] injection 00 :00 dose, On Medica l 50 mL Sun Branch 03/13/22 at 2100, Routine dexamethaso 2021- No [id number] 10mg [facility] sd 02-06 ity of (DECADRON 18:30: 17:57 [place] PHOSPHATE) 00 :00 Medical injection Branch 10 mg dexamethaso 2021- No [id number] 10mg 10 mg, [place] [facility] 02-06 Intramuscu ity of (DECADRON 18:30: 17:57 [place], ONCE, [place] PHOSPHATE) 00 :00 1 dose, On Med ical injection [place] 02/06/22 Bran ch 10 mg at 1330, Routine diphenhydrA 2021- No [id number] 50mg [facility] 02-06 ity of (BENADRYL) 18:15: 17:58 [place] capsule 50 00 :00 Medical mg Branch famotidine 2021- No [id number] 20mg U mario (PEPCID AC) 02-06 ity of tablet 20 18:15: 17:59 [place] mg 00 :00 Medical Branch famotidine 2021- No [id number] 20mg 20 mg, [facility] (PEPCID AC) 02-06 Oral, ity of tablet 20 18:15: 17:59 ONCE, 1 [place] mg 00 :00 dose, On Medical 02/06/22 Branch at 1315, Routine diphenhydrA 2021- No [id number] 50mg 50 mg, [facility] 02-06 Oral, ity of (BENADRYL) 18:15: 17:58 ONCE, 1 [place] as capsule 50 00 :00 dose, On Medic al mg 02/06/22 Branch at 1315, Routine methylPREDN 2-0 Yes [id number] Take by [facility] ISolone 9-04 mouth ity of (MEDROL, 00:00: SEE-INSTRU Anam as LUAN,) 4 mg 00 CTIONS. Medica l tablets follow Branch package directions hydrOXYzine 2021-0 Yes [id number] 25mg Take 1 [facility] 25 mg 9-04 tablet by ity of tablet 00:00: mouth [place] 00 every 8 Medical (eight) Branch hours as needed for Itching. methylPREDN 2-0 Yes [id number] Take by [facility] ISolone 9-04 mouth ity of (MEDROL, 00:00: SEE-INSTRU Anam as LUAN,) 4 mg 00 CTIONS. Medica l tablets follow Branch package directions hydrOXYzine 2021-0 Yes [id number] 25mg Take 1 [facility] 25 mg 9-04 tablet by ity of tablet 00:00: mouth [place] 00 every 8 Medical (eight) Branch hours as needed for Itching. hydrOXYzine 2021-0 Yes [id number] 25mg Take 1 [facility] 25 mg 9-04 tablet by ity of tablet 00:00: mouth [place] 00 every 8 Medical (eight) Branch hours as needed for Itching. hydrOXYzine 2021-0 Yes [id number] 25mg Take 1 [facility] 25 mg 9-04 tablet by ity of tablet 00:00: mouth [place] 00 every 8 Medical (eight) Branch hours as needed for Itching. hydrOXYzine 2021-0 Yes [id number] 25mg Take 1 [facility] 25 mg 9-04 tablet by ity of tablet 00:00: mouth [place] 00 every 8 Medical (eight) Branch hours as needed for Itching. hydrOXYzine 2021-0 Yes [id number] 25mg Take 1 [facility] 25 mg 9-04 tablet by ity of tablet 00:00: mouth [place] 00 every 8 Medical (eight) Branch hours as needed for Itching. hydrOXYzine 2021-0 Yes [id number] 25mg Take 1 [facility] 25 mg 9-04 tablet by ity of tablet 00:00: mouth [place] 00 every 8 Medical (eight) Branch hours as needed for Itching. hydrOXYzine 2021-0 Yes [id number] 25mg Take 1 [facility] 25 mg 9-04 tablet by ity of tablet 00:00: mouth [place] 00 every 8 Medical (eight) Branch hours as needed for Itching. hydrOXYzine 2-0 Yes [id number] 25mg Take 1 [facility] 25 mg 9-04 tablet by ity of tablet 00:00: mouth [place] 00 every 8 Medical (eight) Branch hours as needed for Itching. hydrOXYzine 2-0 Yes [id number] 25mg Take 1 [facility] 25 mg 9-04 tablet by ity of tablet 00:00: mouth [place] 00 every 8 Medical (eight) Branch hours as needed for Itching. hydrOXYzine 2021-0 Yes [id number] 25mg Take 1 [facility] 25 mg 9-04 tablet by ity of tablet 00:00: mouth [place] 00 every 8 Medical (eight) Branch hours as needed for Itching. hydrOXYzine 2021-0 Yes [id number] 25mg Take 1 [facility] 25 mg 9-04 tablet by ity of tablet 00:00: mouth [place] 00 every 8 Medical (eight) Branch hours as needed for Itching. hydrOXYzine 2021-0 Yes [id number] 25mg Take 1 [facility] 25 mg 9-04 tablet by ity of tablet 00:00: mouth [place] 00 every 8 Medical (eight) Branch hours as needed for Itching. hydrOXYzine 2021-0 Yes [id number] 25mg Take 1 [facility] 25 mg 9-04 tablet by ity of tablet 00:00: mouth [place] 00 every 8 Medical (eight) Branch hours as needed for Itching. hydrOXYzine 2-0 Yes [id number] 25mg Take 1 [facility] 25 mg 9-04 tablet by ity of tablet 00:00: mouth [place] 00 every 8 Medical (eight) Branch hours as needed for Itching. hydrOXYzine 2021-0 Yes [id number] 25mg Take 1 [facility] 25 mg 9-04 tablet by ity of tablet 00:00: mouth [place] 00 every 8 Medical (eight) Branch hours as needed for Itching. hydrOXYzine 2022-0 Yes [id number] 25mg Take 1 [facility] 25 mg 9-04 tablet by ity of tablet 00:00: mouth [place] 00 every 8 Medical (eight) Branch hours as needed for Itching. hydrOXYzine 2-0 Yes [id number] 25mg Take 1 [facility] 25 mg 9-04 tablet by ity of tablet 00:00: mouth [place] 00 every 8 Medical (eight) Branch hours as needed for Itching. hydrOXYzine 2-0 Yes [id number] 25mg Take 1 [facility] 25 mg 9-04 tablet by ity of tablet 00:00: mouth [place] 00 every 8 Medical (eight) Branch hours as needed for Itching. hydrOXYzine 2022-0 Yes [id number] 25mg Take 1 [facility] 25 mg 9-04 tablet by ity of tablet 00:00: mouth [place] 00 every 8 Medical (eight) Branch hours as needed for Itching. hydrOXYzine 2-0 Yes [id number] 25mg Take 1 [facility] 25 mg 9-04 tablet by ity of tablet 00:00: mouth [place] 00 every 8 Medical (eight) Branch hours as needed for Itching. hydrOXYzine 2-0 Yes [id number] 25mg Take 1 [facility] 25 mg 9-04 tablet by ity of tablet 00:00: mouth [place] 00 every 8 Medical (eight) Branch hours as needed for Itching. hydrOXYzine 2021-0 Yes [id number] 25mg Take 1 [facility] 25 mg 9-04 tablet by ity of tablet 00:00: mouth [place] 00 every 8 Medical (eight) Branch hours as needed for Itching. hydrOXYzine 2021-0 Yes [id number] 25mg Take 1 [facility] 25 mg 9-04 tablet by ity of tablet 00:00: mouth [place] 00 every 8 Medical (eight) Branch hours as needed for Itching. hydrOXYzine 2-0 Yes [id number] 25mg Take 1 [facility] 25 mg 9-04 tablet by ity of tablet 00:00: mouth [place] 00 every 8 Medical (eight) Branch hours as needed for Itching. hydrOXYzine 2-0 Yes [id number] 25mg Take 1 [facility] 25 mg 9-04 tablet by ity of tablet 00:00: mouth [place] 00 every 8 Medical (eight) Branch hours as needed for Itching. hydrOXYzine 2022-0 Yes [id number] 25mg Take 1 [facility] 25 mg 9-04 tablet by ity of tablet 00:00: mouth [place] 00 every 8 Medical (eight) Branch hours as needed for Itching. hydrOXYzine 2022-0 Yes [id number] 25mg Take 1 [facility] 25 mg 9-04 tablet by ity of tablet 00:00: mouth [place] 00 every 8 Medical (eight) Branch hours as needed for Itching. hydrOXYzine 2022-0 Yes [id number] 25mg Take 1 [facility] 25 mg 9-04 tablet by ity of tablet 00:00: mouth [place] 00 every 8 Medical (eight) Branch hours as needed for Itching. hydrOXYzine 2-0 Yes [id number] 25mg Take 1 [facility] 25 mg 9-04 tablet by ity of tablet 00:00: mouth [place] 00 every 8 Medical (eight) Branch hours as needed for Itching. hydrOXYzine 2-0 Yes [id number] 25mg Take 1 [facility] 25 mg 9-04 tablet by ity of tablet 00:00: mouth [place] 00 every 8 Medical (eight) Branch hours as needed for Itching. hydrOXYzine 2021-0 Yes [id number] 25mg Take 1 [facility] 25 mg 9-04 tablet by ity of tablet 00:00: mouth [place] 00 every 8 Medical (eight) Branch hours as needed for Itching. hydrOXYzine 2021-0 Yes [id number] 25mg Take 1 [facility] 25 mg 9-04 tablet by ity of tablet 00:00: mouth [place] 00 every 8 Medical (eight) Branch hours as needed for Itching. hydrOXYzine 2021-0 Yes [id number] 25mg Take 1 [facility] 25 mg 9-04 tablet by ity of tablet 00:00: mouth [place] 00 every 8 Medical (eight) Branch hours as needed for Itching. hydrOXYzine 2021-0 Yes [id number] 25mg Take 1 [facility] 25 mg 9-04 tablet by ity of tablet 00:00: mouth [place] 00 every 8 Medical (eight) Branch hours as needed for Itching. hydrOXYzine 2-0 Yes [id number] 25mg Take 1 [facility] 25 mg 9-04 tablet by ity of tablet 00:00: mouth [place] 00 every 8 Medical (eight) Branch hours as needed for Itching. hydrOXYzine 2022-0 Yes [id number] 25mg Take 1 [facility] 25 mg 9-04 tablet by ity of tablet 00:00: mouth [place] 00 every 8 Medical (eight) Branch hours as needed for Itching. hydrOXYzine 2022-0 Yes [id number] 25mg Take 1 [facility] 25 mg 9-04 tablet by ity of tablet 00:00: mouth [place] 00 every 8 Medical (eight) Branch hours as needed for Itching. hydrOXYzine 2-0 Yes [id number] 25mg Take 1 [facility] 25 mg 9-04 tablet by ity of tablet 00:00: mouth [place] 00 every 8 Medical (eight) Branch hours as needed for Itching. hydrOXYzine 2021-0 Yes [id number] 25mg Take 1 [facility] 25 mg 9-04 tablet by ity of tablet 00:00: mouth [place] 00 every 8 Medical (eight) Branch hours as needed for Itching. hydrOXYzine 2021-0 Yes [id number] 25mg Take 1 [facility] 25 mg 9-04 tablet by ity of tablet 00:00: mouth [place] 00 every 8 Medical (eight) Branch hours as needed for Itching. hydrOXYzine 2021-0 Yes [id number] 25mg Take 1 [facility] 25 mg 9-04 tablet by ity of tablet 00:00: mouth [place] 00 every 8 Medical (eight) Branch hours as needed for Itching. hydrOXYzine 2021-0 Yes [id number] 25mg Take 1 [facility] 25 mg 9-04 tablet by ity of tablet 00:00: mouth [place] 00 every 8 Medical (eight) Branch hours as needed for Itching. hydrOXYzine 2021-0 Yes [id number] 25mg Take 1 [facility] 25 mg 9-04 tablet by ity of tablet 00:00: mouth [place] 00 every 8 Medical (eight) Branch hours as needed for Itching. hydrOXYzine 2021-0 Yes [id number] 25mg Take 1 [facility] 25 mg 9-04 tablet by ity of tablet 00:00: mouth [place] 00 every 8 Medical (eight) Branch hours as needed for Itching. hydrOXYzine 2021-0 Yes [id number] 25mg Take 1 [facility] 25 mg 9-04 tablet by ity of tablet 00:00: mouth [place] 00 every 8 Medical (eight) Branch hours as needed for Itching. hydrOXYzine 2-0 2023- No [id number] 25mg Take 1 [facility] 25 mg 9-04 05-10 tablet by ity of tablet 00:00: 00:00 mouth [place] 00 :00 every 8 Medical (eight) Branch hours as needed for Itching. hydrOXYzine 2022-0 2023- No [id number] 25mg Take 1 [facility] 25 mg 9-04 05-10 tablet by ity of tablet 00:00: 00:00 mouth [place] 00 :00 every 8 Medical (eight) Branch hours as needed for Itching. methylPREDN 2021- No [id number] Take by [facility] 02-06 mouth ity of (MEDROL, 00:00: 00:00 SEE-IN[place] LUAN,) 4 mg 00 :00 CTIONS. Medica l tablets follow Branch package directions methylPREDN 2021- No [id number] Take by [facility] 02-06 mouth ity of (MEDROL, 00:00: 00:00 [place] LUAN[place] 4 mg 00 :00 CTIONS. Medica l tablets follow Branch package directions methylPREDN 2021- No [id number] Take by [facility] 02-06 mouth ity of (MEDROL, 00:00: 00:00 [place]IN[place] LUAN,) 4 mg 00 :00 CTIONS. Medica l tablets follow Branch package directions triamcinolo 2021- No [id number] Apply to [place] [facility] 02-06 area(s) 2 ity of acetonide 00:00: 04:59 (two) [place] (TRIDERM) 00 :00 times Medical 0.1 % cream daily for Bra wyh 7 days. HYOSCYAMINE Yes [id number] TAKE 1 [facility] 0.125 mg 8-17 TABLET BY ity of tablet 00:00: MOUTH [place] 00 EVERY 4 Medical HOURS Branch NEEDED FOR SEVERE PAIN HYOSCYAMINE 0 Yes [id number] TAKE 1 [facility] 0.125 mg 8-17 TABLET BY ity of tablet 00:00: MOUTH [place] 00 EVERY 4 Medical HOURS Branch NEEDED FOR SEVERE PAIN HYOSCYAMINE 2021-0 2021- No [id number] TAKE 1 [facility] 0.125 mg 8-17 - TABLET BY ity o f tablet 00:00: 00:00 MOUTH [place] 00 :00 EVERY 4 Medical HOURS Branch NEEDED FOR SEVERE PAIN HYOSCYAMINE 2021-0 2021- No [id number] TAKE 1 [facility] 0.125 mg 8-17 - TABLET BY ity o f tablet 00:00: 00:00 MOUTH [place] 00 :00 EVERY 4 Medical HOURS Branch NEEDED FOR SEVERE PAIN HYOSCYAMINE 2021-0 2021- No [id number] TAKE 1 [facility] 0.125 mg 8-17 -27 TABLET BY ity o f tablet 00:00: 00:00 MOUTH [place] 00 :00 EVERY 4 Medical HOURS Branch NEEDED FOR SEVERE PAIN TRAZODONE 0 Yes [id number] 100mg TAKE 1 [facility] 100 mg 8-16 TABLET BY ity of tablet 00:00: MOUTH AT [place] 00 BEDTIME [facility] Branch TRAZODONE 0 Yes [id number] 100mg TAKE 1 [facility] 100 mg 8-16 TABLET BY ity of tablet 00:00: MOUTH AT [place] 00 [facility] Branch TRAZODONE 2021- No [id number] 100mg TAKE 1 [facility] 100 mg 8-16 -27 TABLET BY ity of tablet 00:00: 00:00 [facility] [place] [facility]- No [id number] 100mg TAKE 1 [facility] 100 mg 8-16 -27 TABLET BY ity of tablet 00:00: 00:00 [facility]TH AT [place] [facility] 2021- No [id number] 100mg TAKE 1 [facility] 100 mg 8-16 -27 TABLET BY ity of tablet 00:00: 00:00 MOUTH AT [place] 00 :00 [facility] Branch risperiDONE 2021-0 Yes [id number] 1mg Take 1 Univers 1 mg tablet 7-26 tablet by ity of 00:00: mouth in [place] 00 the Medical morning Branch and 1 tablet in the evening. risperiDONE Yes [id number] 1mg Take 1 [facility] 1 mg tablet 7-26 tablet by ity of 00:00: mouth in [place] 00 the Medical morning Branch and 1 tablet in the evening. risperiDONE 2021- No [id number] 1mg Take 1 [facility] 1 mg tablet 7-28 02-27 tablet by it y of 00:00: 00:00 mouth in [place] 00 :00 the Medical morning Branch and 1 tablet in the evening. risperiDONE 2021- No [id number] 1mg Take 1 [facility] 1 mg tablet 7-28 02-27 tablet by it y of 00:00: 00:00 mouth in [place] 00 :00 the Medical morning Branch and 1 tablet in the evening. risperiDONE 2021- No [id number] 1mg Take 1 [facility] 1 mg tablet 12-28 tablet by it y of 00:00: 00:00 mouth in [place] 00 :00 the Medical morning Branch and 1 tablet in the evening. busPIRone 2022-0 Yes [id number] 15mg Take 1 Un sunil 15 mg 7-03 tablet by ity of tablet 00:00: mouth 2 [place] 00 (two) Medical times Branch daily. busPIRone 2022-0 Yes [id number] 15mg Take 1 Un sunil 15 mg 7-03 tablet by ity of tablet 00:00: mouth 2 [place] 00 (two) Medical times Branch daily. busPIRone 2021-0 2022- No [id number] 15mg Take 1 U nivers 15 mg -03-01 tablet by ity of tablet 00:00: 00:00 mouth 2 [place] 00 :00 (two) Medical times Branch daily. busPIRone 2022-0 2022- No [id number] 15mg Take 1 U nivers 15 mg -03-01 tablet by ity of tablet 00:00: 00:00 mouth 2 [place] 00 :00 (two) Medical times Branch daily. busPIRone 2021-0 2- No [id number] 15mg Take 1 U nivers 15 mg -03-01 tablet by ity of tablet 00:00: 00:00 mouth 2 [place] 00 :00 (two) Medical times Branch daily. Diclofenac 2022-0 Yes [id number] Apply to Univers Sodium 6-10 area(s) 4 ity of (VOLTAREN) 00:00: (four) [place] 1 % gel 00 times Medical daily. Branch Apply 4 g qid acetaminoph 2022-0 Yes [id number] 650mg Take 1 Univers en 650 mg 6-10 tablet by ity o f CR tablet 00:00: mouth [place] 00 every 8 Medical (eight) Branch hours as needed for Pain. Diclofenac 2022-0 Yes [id number] Apply to [facility] Sodium 6-10 area(s) 4 ity of (VOLTAREN) 00:00: (four) [place] 1 % gel 00 times Medical daily. Branch Apply 4 g qid acetaminoph 2022-0 Yes [id number] 650mg Take 1 [facility] en 650 mg 6-10 tablet by ity o f CR tablet 00:00: mouth [place] 00 every 8 Medical (eight) Branch hours as needed for Pain. Diclofenac 2021- No [id number] Apply to [facility] Sodium 11-12 area(s) 4 ity of (VOLTAREN) 00:00: 00:00 (four) [place] 1 % gel 00 :00 times Medical daily. Branch Apply 4 g qid acetaminoph 2021- No [id number] 650mg Take 1 [facility] en 650 mg 11-12 tablet by ity of CR tablet 00:00: 00:00 mouth [place] 00 :00 every 8 Medical (eight) Branch hours as needed for Pain. Diclofenac 2021- No [id number] Apply to [facility] Sodium 11-12 area(s) 4 ity of (VOLTAREN) 00:00: 00:[place] (four[place] 1 % gel 00 :00 times Medical daily. Branch Apply 4 g qid acetaminoph 2021- No [id number] 650mg Take 1 [facility] en 650 mg 11-12 tablet by ity of CR tablet 00:00: 00:00 mouth [place] 00 :00 every 8 Medical (eight) Branch hours as needed for Pain. Diclofenac 2021- No [id number] Apply to [facility] Sodium 11-12 area(s) 4 ity of (VOLTAREN) 00:00: 00:00 (four) [place] 1 % gel 00 :00 times Medical daily. Branch Apply 4 g qid acetaminoph 2021- No [id number] 650mg Take 1 [facility] en 650 mg 11-12 tablet by ity of CR tablet 00:00: 00:00 mouth [place] 00 :00 every 8 Medical (eight) Branch hours as needed for Pain. azelastine Yes [id number] 1{spray Use 1 [facility] 137 mcg 4-04 } [place] in ity of (0.1 %) 00:00: each [place] nasal spray 00 nostril 2 Med ical (two) Branch times daily. Use in each nostril as directed fluticasone Yes [id number] 1{spray Use 1 [facility] propionate 4-04 } [place] in ity o f 50 00:00: each [place] mcg/actuati 00 nostril 2 Med ical on nasal (two) Branch spray times daily. azelastine Yes [id number] 1{spray Use 1 [facility] 137 mcg 4-04 } [place] in ity of (0.1 %) 00:00: each [place] nasal spray 00 nostril 2 Med ical (two) Branch times daily. Use in each nostril as directed fluticasone Yes [id number] 1{spray Use 1 [facility] propionate 4-04 } [place] in ity o f 50 00:00: each [place] mcg/actuati 00 nostril 2 Med ical on nasal (two) Branch spray times daily. azelastine 2021- No [id number] 1{spray Use 1 [facility] 137 mcg 4-04 09-27 } [place] in ity of (0.1 %) 00:00: 00:00 each [place] nasal spray 00 :00 nostril 2 Med ical (two) Branch times daily. Use in each nostril as directed fluticasone 2021- No [id number] 1{spray Use 1 [facility] propionate 4-04 09-27 } [place] in ity of 50 00:00: 00:00 each [place] mcg/actuati 00 :00 nostril 2 Med ical on nasal (two) Branch spray times daily. azelastine 2021- No [id number] 1{spray Use 1 [facility] 137 mcg 4-04 09-27 } [place] in ity of (0.1 %) 00:00: 00:00 each [place] nasal spray 00 :00 nostril 2 Med ical (two) Branch times daily. Use in each nostril as directed fluticasone 2021-0 2021- No [id number] 1{spray Use 1 [facility] propionate 4-04 09-27 } [place] in ity of 50 00:00: 00:00 each [place] mcg/actuati 00 :00 nostril 2 Med ical on nasal (two) Branch spray times daily. azelastine 2021- No [id number] 1{spray Use 1 [facility] 137 mcg 4-04 09-27 } [place] in ity of (0.1 %) 00:00: 00:00 each [place] nasal spray 00 :00 nostril 2 Med ical (two) Branch times daily. Use in each nostril as directed fluticasone 2021- No [id number] 1{spray Use 1 [facility] propionate 4-03-01 } [place] in ity of 50 00:00: 00:00 each [place] mcg/actuati 00 :00 nostril 2 Med ical on nasal (two) Branch spray times daily. DULoxetine Yes [id number] 30mg Take 1 [facility] 30 mg 3-21 capsule by ity of capsule 00:00: mouth [place] 00 daily. Medical Branch DULoxetine Yes [id number] 30mg Take 1 [facility] 30 mg 3-21 capsule by ity of capsule 00:00: mouth [place] 00 daily. Medical Branch DULoxetine 2021- No [id number] 30mg Take 1 [facility] 30 mg 3-23 02- capsule by ity of capsule 00:00: 00:00 mouth [place] 00 :00 daily. Medical Branch DULoxetine 2021- No [id number] 30mg Take 1 [facility] 30 mg 3-03-01 capsule by ity of capsule 00:00: 00:00 mouth [place] 00 :00 daily. Medical Branch DULoxetine 2021- No [id number] 30mg Take 1 [facility] 30 mg 3-23 02- capsule by ity of capsule 00:00: 00:00 mouth [place] 00 :00 daily. Medical Branch pantoprazol Yes [id number] 40mg Take 1 Univers e 40 mg EC 12 tablet by ity of tablet 00:00: mouth [place] 00 daily. Medical Branch pantoprazol Yes [id number] 40mg Take 1 Univers e 40 mg EC 12 tablet by ity of tablet 00:00: mouth [place] 00 daily. Medical Branch pantoprazol 2021- No [id number] 40mg Take 1 Univers e 40 mg EC 06-16 tablet by ity of tablet 00:00: 00:00 mouth [place] 00 :00 daily. Medical Branch pantoprazol 2021- No [id number] 40mg Take 1 Univers e 40 mg EC 06-16 tablet by ity of tablet 00:00: 00:00 mouth [place] 00 :00 daily. Medical Branch pantoprazol 2021- No [id number] 40mg Take 1 Univers e 40 mg EC 06-16 tablet by ity of tablet 00:00: 00:00 mouth [place] 00 :00 daily. Medical Branch Polyethylen No 1 Twice A [facility] ISTU e Glycol 02-10 Day as S 3350 00:22: needed for Health (Miralax) 00 Constipati 17 Gm on POWD.PACK Polyethylen No 1 AJ U e Glycol 02-10 SJASPER 3350 00:22: (Miralax) 00 17 Gm POWD.PACK Benzonatate No 100mg Three CHRI KRISTA (Tessalon) 8- Times A S 100 Mg CAP 09:47: Day as Healt h 00 needed for Cough Benzonatate No 100mg Three CHRI KRISTA (Tessalon) 8-31 Times A S 100 Mg CAP 09:47: Day as Healt h 00 needed for Cough Benzonatate No 100mg STEPHANIE TU (Tessalon) 8 SSTELIZ 100 Mg CAP 09:47: 00 Benzonatate No 100mg STEPHANIE TU (Tessalon) 02-02 SJASPER 100 Mg CAP 09:47: 00 Acetaminoph 0 No 1 Every 6 CHR ISTU en/Codeine 6-18 Hours as S Phosphate 14:24: needed for He alth (Tylenol 00 Moderate #3) 1 Each Pain(4-6) TAB Acetaminoph No 1 AJ U en/Codeine 6-18 SSTMARY Phosphate 14:24: (Tylenol 00 #3) 1 Each TAB Acetaminoph 2020- No [...] No 1 Every 6 CH RISTU en/Codeine 11-20-19 Hours as S Phosphate 14:24: 00:00 needed for H ealth (Tylenol 00 :00 Moderate #3) 1 Each Pain(4-6) TAB Acetaminoph 2020- No 1 STEPHNAIE TU en/Codeine 11-20- SSTELIZ Phosphate 14:24: 00:00 (Tylenol 00 :00 #3) 1 Each TAB Acetaminoph 2020- No 1 STEPHANIE TU en/Codeine 11-20- SJASPER Phosphate 14:24: 00:00 (Tylenol 00 :00 #3) 1 Each TAB Acetaminoph 2020- No 1 STEPHANIE TU en/Codeine 11-20- SSTELIZ Phosphate 14:24: 00:00 (Tylenol 00 :00 #3) 1 Each TAB Acetaminoph 2020- No 1 STEPHANIE TU en/Codeine 11-20- SSTMARY Phosphate 14:24: 00:00 (Tylenol 00 :00 #3) 1 Each TAB Ibuprofen No 400mg Tid With CHR ISTU (Motrin) 618 Meals & Hs S 400 Mg TAB 14:22: as needed He alth 00 for Pain Ibuprofen No 400mg CHRISTU (Motrin) 11-20 SSTMARY 400 Mg TAB 14:22: 00 Ibuprofen 2020- No 400mg Tid With CH [...] :00 for Pain Ibuprofen 2020- No 400mg AJ U (Motrin) 11-20 SSTELIZ 400 Mg TAB 14:22: 00:00 00 :00 Ibuprofen 2020- No 400mg AJ U (Motrin) 11-20 SJASPER 400 Mg TAB 14:22: 00:00 00 :00 Ibuprofen 2020- No 400mg AJ U (Motrin) 11-20 SSTELIZ 400 Mg TAB 14:22: 00:00 00 :00 Ibuprofen 2020- No 400mg AJ U (Motrin) 11-20 SSTMARY 400 Mg TAB 14:22: 00:00 00 :00 OMEPRAZOLE 2019-0 Yes Take by [place] 01-21 mouth. College 18:36: of 04 Medicin e prednisoLON 2019-0 Yes Apply to [facility] Sodium 01-21 eye. [place] Phosphate 18:36: of (PREDNISOL 04 Medicin OP) e Promethazin 2020-0 No 12.5mg Every 8 C [...] No 500mg Twice A STEPHANIE TU (Naprosyn) - Day S 500 Mg TAB 21:51: Health 00 Promethazin 2020-0 No 12.5mg Every 8 C HRISTU e Hcl 7-22 Hours as S (Phenergan) 21:51: needed for Health 12.5 Mg 00 Vomiting TABLET Naproxen 2020-0 No 500mg [place] (Naprosyn) - st 500 Mg TAB 21:51: [place] 00 LIVE HCIS Promethazin 2020-0 No 12.5mg [facility] Hcl [facility]- st (Phenergan) 21:51: [place] 12.5 Mg 00 LIVE TABLET HCIS Promethazin 2020-0 No 12.5mg [facility] Hcl [facility]- st (Phenergan) 21:51: [place] 12.5 Mg 00 LIVE TABLET HCIS Promethazin 2020-0 No 12.5mg CHRI KRISTA e Hcl 7-22 SSTELIZ (Phenergan) 21:51: 12.5 Mg 00 TABLET Promethazin 2020-0 No 12.5mg [facility]RI KRISTA e Hcl 7-22 SSTMARY (Phenergan) 21:51: 12.5 Mg 00 TABLET Promethazin 2020-0 No 12.5mg [facility] KRISTA e Hcl 7-22 SJASPER (Phenergan) 21:51: 12.5 Mg 00 TABLET Promethazin 2020-0 No 12.5mg [facility]RI KRISTA e Hcl 7-22 SSTELIZ (Phenergan) 21:51: 12.5 Mg 00 TABLET Promethazin 2020-0 No 12.5mg CHRI KRISTA e Hcl 7-22 SSTMARY (Phenergan) 21:51: 12.5 Mg 00 TABLET Naproxen 2020-0 2020- No 500mg Twice A [...] 2019-0 2020- No 500mg CHRISTU (Naprosyn) 12-24 SSTELIZ 500 Mg TAB 21:51: 00:00 00 :00 Naproxen 2019-0 2020- No 500mg [facility]U (Naprosyn) 12-24 SJASPER 500 Mg TAB 21:51: 00:00 00 :00 Naproxen 2019-0 2020- No 500mg [facility]U (Naprosyn) 12-24 SSTMARY 500 Mg TAB 21:51: 00:00 00 :00 Naproxen 2019-0 2020- No 500mg [facility]U (Naprosyn) 12-24 SSTELIZ 500 Mg TAB 21:51: 00:00 00 :00 Naproxen 2020-0 2020- No 500mg [facility]U (Naprosyn) 12-24 SSTMARY 500 Mg TAB 21:51: 00:00 00 :00 fluticasone 2019-0 Yes Apply 2 [place] prasad (FLONASE) 5-18 sprays in Colle ge 50 MCG/ACT 00:00: each of nasal spray 00 nostril Medic in daily. e Levocetiriz 2019- Yes 1{tbl} Take 1 Tab [place] in[place] 5-18 by mouth [facility] Dihydrochlo 00:00: daily. of ride 00 Medicin (XYZAL) 5 e MG TABS fluticasone 2019-0 2020- No Apply 2 [facility] (FLONASE) 5-18 08-19 sprays in [place] [facility] 50 MCG/ACT 00:00: 00:00 each of nasal spray 00 :00 nostril Medic in daily. e Levocetiriz 2019-2019- No 1{tbl} Take 1 Tab [facility] ine 5-18 01-21 by [facility] 00:00: 00:00 daily. of ride 00 :00 Medicin (XYZAL) 5 e MG TABS Famotidine 2018-06 No 40mg Daily AJ U (Pepcid) 40 1-21 S Mg TAB 14:21: Health 00 Famotidine 2018-06 No 40mg [place] (Pepcid) 40 1-21 st Mg TAB 14:21: [place] 00 LIVE HCIS Famotidine 2018-06 No 40mg Daily AJ U (Pepcid) 40 1-21 S Mg TAB 13:21: Health 00 Famotidine 2018-06 No 40mg Daily AJ U (Pepcid) 40 1-21 S Mg TAB 13:21: Health 00 Famotidine 2018-06 No 40mg Daily AJ U (Pepcid) 40 1-21 S Mg TAB 13:21: Health 00 Famotidine 2018-06 No 40mg Daily AJ U (Pepcid) 40 1-21 S Mg TAB 13:21: Health 00 Famotidine 2018-06 No 40mg Daily AJ U (Pepcid) 40 1-21 S Mg TAB 13:21: Health 00 Famotidine 2018-06 No 40mg Daily AJ U 1-21 S 13:21: Health 00 Famotidine 2018-06 No 40mg Daily AJ U (Pepcid) 40 1-21 S Mg TAB 13:21: Health 00 Famotidine 2018-06 No 40mg [place] 1-21 st 13:21: [place] 00 LIVE HCIS Famotidine 2018-06 No 40mg [place] (Pepcid) 40 1-21 st Mg TAB 13:21: [place] 00 LIVE HCIS Famotidine 2018-06 No 40mg [facility]U (Pepcid) 40 1-21 SSTELIZ Mg TAB 13:21: 00 Famotidine 2018-06 No 40mg [facility]U (Pepcid) 40 1-21 [facility] Mg TAB 13:21: 00 Famotidine 2018-06 No 40mg [facility]STU (Pepcid) 40 1-21 SSTELIZ Mg TAB 13:21: 00 Famotidine 2018-06 No 40mg [facility]U (Pepcid) 40 1-21 SSTMARY Mg TAB 13:21: 00 Famotidine 2018- No 40mg [facility]U (Pepcid) 40 1-21 SSTMARY Mg TAB 13:21: 00 Methocarbam 2019-0 No 500mg Three CHRI [...] Mg TAB 00 Methocarbam 2018-0 [place] 500mg [place] 6-05 st 17:00: [place] 00 LIVE HCIS Methocarbam 2019-0 No 500mg [place] 6-05 st (Robaxin) 17:00: [place] 500 Mg TAB 00 LIVE HCIS Methocarbam 2019-0 No 500mg [place] 6-05 st (Robaxin) 17:00: [place] 500 Mg TAB 00 LIVE HCIS Methocarbam 2019-0 No 500mg STE[facility]ANIE TU ol 6-05 SSTELIZ (Robaxin) 17:00: 500 Mg TAB 00 Methocarbam 2019-0 No 500mg STEPHANIE TU ol 6-05 SJ[facility] (Robaxin) 17:00: 500 Mg TAB 00 Methocarbam 2019-0 No 500mg STEPHANIE TU ol 6-05 SSTELIZ (Robaxin) 17:00: 500 Mg TAB 00 Methocarbam 2019-0 No 500mg STEPHANIE TU ol 6-05 SSTMARY (Robaxin) 17:00: 500 Mg TAB 00 Methocarbam 2019-0 No 500mg STEPHANIE TU ol 6-05 SSTMARY (Robaxin) 17:00: 500 Mg TAB 00 Ibuprofen 2019-0 2019- No 600mg Three STEPHANIE TU (Motrin) 11-07-06 Times A S 600 Mg TAB 17:00: 00:00 Day Health 00 :00 Ibuprofen 2019-0 2019- No 600mg Three STEPHANIE TU (Motrin) 11-07- Times A S 600 Mg TAB 17:00: 00:00 Day Health 00 :00 Ibuprofen 2019-0 2019- No 600mg Three STEPHANIE TU (Motrin) 11-07-06 Times A S 600 Mg TAB 17:00: 00:00 Day Health 00 :00 Ibuprofen 2019-0 2019- No 600mg Three STEPHANIE TU (Motrin) 11-07-06 Times A S 600 Mg TAB 17:00: 00:00 Day Health 00 :00 Ibuprofen 2019-0 2019- No 600mg Three STEPHANIE TU (Motrin) 11-07- Times A S 600 Mg TAB 17:00: 00:00 Day Health 00 :00 Ibuprofen 2019-0 2019- No 600mg AJ U (Motrin) 11-07- SSTELIZ 600 Mg TAB 17:00: 00:00 00 :00 Ibuprofen 2019-0 2019- No 600mg AJ U (Motrin) 11-07- SJASPER 600 Mg TAB 17:00: 00:00 00 :00 Ibuprofen 2019-0 2019- No 600mg AJ U (Motrin) 11-07- SSTMARY 600 Mg TAB 17:00: 00:00 00 :00 Ibuprofen 2019-0 2019- No 600mg AJ U (Motrin) 11-07- SSTELIZ 600 Mg TAB 17:00: 00:00 00 :00 Ibuprofen 2019-0 2019- No 600mg AJ U (Motrin) 11-07- SSTMARY 600 Mg TAB 17:00: 00:00 00 :00 Terbinafine 2019-0 No 1 Twice A CHR ISTU Hcl 5-23 Day S (Lamisil 1% 00:32: Health Cream) 1 00 Applic/Gm CR Terbinafine 2019-0 No 1 Twice A [facility]R ISTU Hcl [...] 1 00 Applic/Gm CR Terbinafine No 1 [facility] [facility] Hcl 5-23 st 00:32: [place] 00 LIVE HCIS Terbinafine No 1 [place] [facility] Hcl 5-23 st (Lamisil 1% 00:32: [place] Cream) 1 00 LIVE Applic/Gm HCIS CR Terbinafine No 1 [place] [facility] Hcl 5-23 st (Lamisil 1% 00:32: [place] Cream) 1 00 LIVE Applic/Gm HCIS CR Terbinafine No 1 AJ U Hcl 5-23 SSTELIZ (Lamisil 1% 00:32: Cream) 1 00 Applic/Gm CR Terbinafine No 1 AJ U Hcl 5-23 SSTMARY (Lamisil 1% 00:32: Cream) 1 00 Applic/Gm CR Terbinafine No 1 AJ U Hcl 5-23 SJASPER (Lamisil 1% 00:32: Cream) 00 Applic/Gm CR Terbinafine No 1 AJ U Hcl 5-23 SSTELIZ (Lamisil 1% 00:32: Cream) 1 00 Applic/Gm CR Terbinafine No 1 AJ U Hcl 5-23 SSTMARY (Lamisil 1% 00:32: Cream) 1 00 Applic/Gm CR Clindamycin 2014-06 No 300mg Three CHRI KRISTA Hcl 1-30 Times A S (Cleocin) 14:03: Day Health 300 Mg CAP 00 Clindamycin 2014-06 No 300mg [place] Hcl 1-30 st (Cleocin) 14:03: [place] 300 Mg CAP 00 LIVE HCIS Clindamycin 2014-06 No 300mg Three CHRI KRISTA [...] Mg CAP 00 Clindamycin 2014-06 No 300mg [place] Hcl 1-30 st 13:03: [place] 00 LIVE HCIS Clindamycin 2014-06 No 300mg [place] Hcl 1-30 st (Cleocin) 13:03: [place] 300 Mg CAP 00 LIVE HCIS Clindamycin 2014-06 No 300mg STEPHANIE TU Hcl 1-30 SSTELIZ (Cleocin) 13:03: 300 Mg CAP 00 Clindamycin 2014-06 No 300mg STEPHANIE TU Hcl 1-30 SJ[facility] (Cleocin) 13:03: 300 Mg CAP 00 Clindamycin 2014-06 No 300mg STEPHANIE TU Hcl 1-30 SSTELIZ (Cleocin) 13:03: 300 Mg CAP 00 Clindamycin 2014-06 No 300mg STEPHANIE TU Hcl 1-30 SSTMARY (Cleocin) 13:03: 300 Mg CAP 00 Clindamycin 2014-06 No 300mg STEPHANIE TU Hcl 1-30 SSTMARY (Cleocin) 13:03: 300 Mg CAP 00 Clindamycin 2014-06- No 265mg Three CHR ISTU [...] No 265mg CHRI KRISTA Palmitate 1-30 11-30 SSTELIZ Hcl 12:54: 00:00 (Cleocin 00 :00 Liq) 75 Mg/5 Ml SOLN.RECON Clindamycin 2014-06- No 265mg CHRI KRISTA Palmitate 1-30 11-30 SSTMARY Hcl 12:54: 00:00 (Cleocin 00 :00 Liq) 75 Mg/5 Ml SOLN.RECON Clindamycin 2014-06- No 265mg CHRI KRISTA Palmitate 1-30 11-30 SJASPER Hcl 12:54: 00:00 (Cleocin 00 :00 Liq) 75 Mg/5 Ml SOLN.RECON Clindamycin 2014-06- No 265mg CHRI KRISTA Palmitate 1-30 11-30 SSTELIZ Hcl 12:54: 00:00 (Cleocin 00 :00 Liq) 75 Mg/5 Ml SOLN.RECON Clindamycin 2014-06 2015- No 265mg CHRI KRISTA Palmitate 07-04 SSTMARY Hcl 12:54: 00:00 (Cleocin 00 :00 Liq) 75 Mg/5 Ml SOLN.RECON Amoxicillin 2014-06 No 875mg Twice A CH RISTU /Clavulanat 1-20 Day S e Potassium 22:13: Health (Augmentin 00 Liq) 400 Mg/5 Ml SUSP Mupirocin 2014-06 No 1 Daily CHRISTU (Bactroban 1-20 S 2% Oint) 22 22:13: Health Gm 00 OINT..GM. Amoxicillin 2014-06 No 875mg [place] /Clavulanat -20 st e Potassium 22:13: [place] (Augmentin 00 LIVE Liq) 400 HCIS Mg/5 Ml SUSP Mupirocin 2014-06 No 1 [place] (Bactroban 1-20 st 2% Oint) 22 22:13: [place] Gm 00 LIVE OINT..GM. HCIS Amoxicillin 2014-06 No 875mg Twice A CH [...] 00 Mupirocin 2014-06 No 1 Daily CHRISTU -20 S 21:13: Health 00 Amoxicillin 2014-06 No 875mg Twice A CH RISTU /Clavulanat 1-20 Day S e Potassium 21:13: Health (Augmentin 00 Liq) 400 Mg/5 Ml SUSP Mupirocin 2014-06 No 1 Daily CHRISTU (Bactroban 1-20 S 2% Oint) 22 21:13: Health Gm 00 OINT..GM. Amoxicillin 2014-06 No 875mg [place] /Clavulanat 1-20 st e Potassium 21:13: [place] 00 LIVE HCIS Mupirocin 2014-06 No 1 [place] -20 st 21:13: [place] 00 LIVE HCIS Amoxicillin 2014-06 No 875mg [place] /Clavulanat 1-20 st e Potassium 21:13: [place] (Augmentin 00 LIVE Liq) 400 HCIS Mg/5 Ml SUSP Mupirocin 2014-06 No 1 [place] (Bactroban 1-20 st 2% Oint) 22 21:13: [place] Gm 00 LIVE OINT..GM. HCIS Amoxicillin 2014-06 No 875mg STEPHANIE TU /Clavulanat 1-20 SSTELIZ e Potassium 21:13: (Augmentin 00 Liq) 400 Mg/5 Ml SUSP Mupirocin 2014-06 No 1 CHRISTU (Bactroban 1-20 SSTMARY 2% Oint) 22 21:13: Gm 00 OINT..GM. Mupirocin 2014-06 No 1 CHRISTU (Bactroban 1-20 SSTELIZ 2% Oint) 22 21:13: Gm 00 OINT..GM. Amoxicillin 2014-06 No 875mg STEPHANIE TU /Clavulanat 1-20 SJASPER e Potassium 21:13: (Augmentin 00 Liq) 400 Mg/5 Ml SUSP Mupirocin 2014-06 No 1 CHRISTU (Bactroban 1-20 SJASPER 2% Oint) 22 21:13: Gm 00 OINT..GM. Amoxicillin 2014-06 No 875mg STEPHANIE TU /Clavulanat 1-20 SSTELIZ e Potassium 21:13: (Augmentin 00 Liq) 400 Mg/5 Ml SUSP Mupirocin 2014-06 No 1 CHRISTU (Bactroban 1-20 SSTELIZ 2% Oint) 22 21:13: Gm 00 OINT..GM. Amoxicillin 2014-06 No 875mg STEPHANIE TU /Clavulanat -20 SSTMARY e Potassium 21:13: (Augmentin 00 Liq) 400 Mg/5 Ml SUSP Amoxicillin 2014-06 No 875mg STEPHANIE TU /Clavulanat 20 SSTMARY e Potassium 21:13: (Augmentin 00 Liq) 400 Mg/5 Ml SUSP Mupirocin 2014-06 No 1 CHRISTU (Bactroban 1-20 SSTMARY 2% Oint) 22 21:13: Gm 00 OINT..GM. Promethazin 2013-06 No 12.5mg Every 8 C [...] 00 Mg SUPP Promethazin 2013-06 No 12.5mg [place] [facility] [facility] 0-14 st 13:28: [place] 00 LIVE HCIS Promethazin 2013-06 No 12.5mg [place] [facility] Hcl 0-14 st (Phenergan 13:28: [place] Supp) 12.5 00 LIVE Mg SUPP HCIS Promethazin 2013-06 No 12.5mg [place] [facility] Hcl 0-14 st (Phenergan 13:28: [place] Supp) 12.5 00 LIVE Mg SUPP HCIS Promethazin 2013-06 No 12.5mg CHRI KRISTA e Hcl 0-14 SSTELIZ (Phenergan 13:28: Supp) 12.5 00 Mg SUPP Promethazin 2013-06 No 12.5mg CHRI KRISTA e Hcl 0-14 SSTMARY (Phenergan 13:28: Supp) 12.5 00 Mg SUPP Promethazin 2013-06 No 12.5mg CHRI KRISTA e Hcl 0-14 SJASPER (Phenergan 13:28: Supp) 12.5 00 Mg SUPP Promethazin 2013-06 No 12.5mg CHRI KRISTA e Hcl 0-14 SSTELIZ (Phenergan 13:28: Supp) 12.5 00 Mg SUPP Promethazin 2013-06 No 12.5mg CHRI KRISTA e Hcl 0-14 SSTMARY (Phenergan 13:28: Supp) 12.5 00 Mg SUPP Acetaminoph 2013- No 1 Every 6 CH RISTU en/Codeine 8-03 10-14 Hours S Phosphate 15:53: 00:00 Health (Tylenol 00 :00 #3) 1 Tab TAB Acetaminoph 2013- No 1 Every 6 CH RISTU en/Codeine 8-03 10-14 Hours S Phosphate 15:53: 00:00 Health (Tylenol 00 :00 #3) 1 Tab TAB Acetaminoph 2013- No 1 Every 6 CH RISTU en/Codeine 01-05 10-14 Hours S Phosphate 15:53: 00:00 Health (Tylenol 00 :00 #3) 1 Tab TAB Acetaminoph No 1 Every 6 CH RISTU en/Codeine 01-05 10-14 Hours S Phosphate 15:53: 00:00 Health (Tylenol 00 :00 #3) 1 Tab TAB Acetaminoph No 1 Every 6 CH RISTU en/Codeine 01-05-14 Hours S Phosphate 15:53: 00:00 Health (Tylenol 00 :00 #3) 1 Tab TAB Acetaminoph 2013- No 1 STEPHANIE VALDEZ en/Codeine 01-05 SSTELIZ Phosphate 15:53: 00:00 (Tylenol 00 :00 #3) 1 Tab TAB Acetaminoph 2013- No 1 STEPHANIE VALDEZ en/Codeine 01-05 SSTMARY Phosphate 15:53: 00:00 (Tylenol 00 :00 #3) 1 Tab TAB Acetaminoph 2013- No 1 STEPHANIE VALDEZ en/Codeine 01-05 SJASPER Phosphate 15:53: 00:00 (Tylenol 00 :00 #3) 1 Tab TAB Acetaminoph 2013- No 1 STEPHANIE VALDEZ en/Codeine 01-05 SSTELIZ Phosphate 15:53: 00:00 (Tylenol 00 :00 #3) 1 Tab TAB Acetaminoph 2013- No 1 STEPHANIE VALDEZ en/Codeine 01-05 SSTMARY Phosphate 15:53: 00:00 (Tylenol 00 :00 #3) 1 Tab TAB Miscellaneo No 0 [facility]x [facility] Order Sets S Information Health (No Home Meds) MISC Miscellaneo No 0 Xx [facility] Order Sets S Information Health (No Home Meds) MISC Miscellaneo No 0 Xx [facility] Order Sets S Information Health (No Home Meds) MISC Miscellaneo No 0 Xx [facility] Order Sets S Information Health (No Home Meds) MISC Miscellaneo No 0 Xx [facility] Order Sets S Information Health (No Home Meds) MISC Miscellaneo No 0 Xx For [facility] us Order Sets S Information Health (No Home Meds) MISC Miscellaneo No 0 Xx For [facility] U us Order Sets S Information Health Miscellaneo No 0 Xx For [facility] U us Order Sets S Information Health (No Home Meds) MISC Misc[place]aneo No [address] Information [place] LIVE HCIS Miscellaneo No 0 [facility] us st Information [place] (No Home LIVE Meds) MISC HCIS Miscellaneo No [address] Information [place] (No Home LIVE Meds) MISC HCIS Miscellaneo No 0 CHRISTU us SSTMARY Information (No Home Meds) MISC Miscellaneo No 0 CHRISTU us SSTELIZ Information (No Home Meds) MISC Miscellaneo No 0 CHRISTU us SJASPER Information (No Home Meds) MISC Miscellaneo No 0 CHRISTU us SSTELIZ Information (No Home Meds) MISC Miscellaneo No 0 CHRISTU us SSTMARY Information (No Home Meds) [facility] Immunizations Ordered Filled Date Status Comments Source Immunization Name Immunization Name Influenza Virus 2021-06-16 Completed [facility] [place] [facility], 00:00:00 [facility] Preserv and ABX Free 6 MO-64 YRS Influenza Virus 2021-06-16 Completed [facility] [place] [facility] IM, 00:00:00 [facility] Preserv and ABX Free 6 MO-64 YRS Influenza Virus 2021-06-16 Completed [facility] [place] Vacc[facility] Quad IM, 00:00:00 [facility] Preserv and ABX Free 6 MO-64 YRS Influenza Virus 2021-06-16 Completed [facility] [place] Vacc[facility] Quad IM, 00:00:00 [facility] Preserv and ABX Free 6 MO-64 YRS Influenza Virus 2021-06-16 Completed [facility] [place] Vacc[facility] Quad IM, 00:00:00 [facility] Preserv and ABX Free 6 MO-64 YRS Influenza Virus 2021-06-16 Completed [facility] [place] Vacc[facility] Quad IM, 00:00:00 [facility] Preserv and ABX Free 6 MO-64 YRS Influenza Virus 2021-06-16 Completed [facility] [place] Vacc[facility] Quad IM, 00:00:00 [facility] Preserv and ABX Free 6 MO-64 YRS Influenza Virus 2021-06-16 Completed [facility] [place] Vacc[facility] Quad IM, 00:00:00 [facility] Preserv and ABX Free 6 MO-64 YRS Influenza Virus 2021-06-16 Completed [facility], 00:00:00 [facility] Preserv and ABX Free 6 MO-64 YRS Influenza Virus 2021-06-16 Completed [facility], 00:00:00 [facility] Preserv and ABX Free 6 MO-64 YRS Influenza Virus 2021-06-16 Completed [facility], 00:00:00 [facility] Preserv and ABX Free 6 MO-64 YRS Influenza Virus 2021-06-16 Completed [facility], 00:00:00 [facility] Preserv and ABX Free 6 MO-64 YRS Influenza Virus 2021-06-16 Completed [facility], 00:00:00 [facility] Preserv and ABX Free 6 MO-64 YRS Influenza Virus 2021-06-16 Completed [facility], 00:00:00 [facility] Preserv and ABX Free 6 MO-64 YRS Influenza Virus 2021-06-16 Completed [facility], 00:00:00 [facility] Preserv and ABX Free 6 MO-64 YRS Influenza Virus 2021-06-16 Completed [facility], 00:00:00 [facility] Preserv and ABX Free 6 MO-64 YRS Influenza Virus 2021-06-16 Completed [facility], 00:00:00 [facility] Preserv and ABX Free 6 MO-64 YRS Influenza Virus 2021-06-16 Completed [facility], 00:00:00 [facility] Preserv and ABX Free 6 MO-64 YRS Influenza Virus 2021-06-16 Completed [facility], 00:00:00 [facility] Preserv and ABX Free 6 MO-64 YRS Influenza Virus 2021-06-16 Completed [facility], 00:00:00 [facility] Preserv and ABX Free 6 MO-64 YRS Influenza Virus 2021-06-16 Completed [facility], 00:00:00 [facility] Preserv and ABX Free 6 MO-64 YRS Influenza Virus 2021-06-16 Completed [facility], 00:00:00 [facility] Preserv and ABX Free 6 MO-64 YRS Influenza Virus 2021-06-16 Completed [facility], 00:00:00 [facility] Preserv and ABX Free 6 MO-64 YRS Influenza Virus 2021-06-16 Completed [facility], 00:00:00 [facility] Preserv and ABX Free 6 MO-64 YRS Influenza Virus 2021-06-16 Completed [facility], 00:00:00 [facility] Preserv and ABX Free 6 MO-64 YRS Influenza Virus 2021-06-16 Completed [facility], 00:00:00 [facility] Preserv and ABX Free 6 MO-64 YRS Influenza Virus 2021-06-16 Completed [facility], 00:00:00 [facility] Preserv and ABX Free 6 MO-64 YRS Influenza Virus 2021-06-16 Completed [facility], 00:00:00 [facility] Preserv and ABX Free 6 MO-64 YRS Influenza Virus 2021-06-16 Completed [facility], 00:00:00 [facility] Preserv and ABX Free 6 MO-64 YRS Influenza Virus 2021-06-16 Completed [facility], 00:00:00 [facility] Preserv and ABX Free 6 MO-64 YRS Influenza Virus 2021-06-16 Completed [facility], 00:00:00 [facility] Preserv and ABX Free 6 MO-64 YRS Influenza Virus 2021-06-16 Completed [facility], 00:00:00 [facility] Preserv and ABX Free 6 MO-64 YRS Influenza Virus 2021-06-16 Completed [facility], 00:00:00 [facility] Preserv and ABX Free 6 MO-64 YRS Influenza Virus 2021-06-16 Completed [facility], 00:00:00 [facility] Preserv and ABX Free 6 MO-64 YRS Influenza Virus 2021-06-16 Completed [facility], 00:00:00 [facility] Preserv and ABX Free 6 MO-64 YRS Influenza Virus 2021-06-16 Completed [facility], 00:00:00 [facility] Preserv and ABX Free 6 MO-64 YRS Influenza Virus 2021-06-16 Completed [facility], 00:00:00 [facility] Preserv and ABX Free 6 MO-64 YRS Influenza Virus 2021-06-16 Completed [facility], 00:00:00 [facility] Preserv and ABX Free 6 MO-64 YRS Influenza Virus 2021-06-16 Completed [facility], 00:00:00 [facility] Preserv and ABX Free 6 MO-64 YRS Influenza Virus 2021-06-16 Completed [facility], 00:00:00 [facility] Preserv and ABX Free 6 MO-64 YRS Influenza Virus 2021-06-16 Completed [facility], 00:00:00 [facility] Preserv and ABX Free 6 MO-64 YRS Influenza Virus 2021-06-16 Completed [facility], 00:00:00 [facility] Preserv and ABX Free 6 MO-64 YRS Influenza Virus 2021-06-16 Completed [facility], 00:00:00 [facility] Preserv and ABX Free 6 MO-64 YRS Influenza Virus 2021-06-16 Completed [facility], 00:00:00 [facility] Preserv and ABX Free 6 MO-64 YRS Influenza Virus 2021-06-16 Completed [facility], 00:00:00 [facility] Preserv and ABX Free 6 MO-64 YRS Influenza Virus 2021-06-16 Completed [facility], 00:00:00 [facility] Preserv and ABX Free 6 MO-64 YRS Influenza Virus 2021-06-16 Completed [facility], 00:00:00 [facility] Preserv and ABX Free 6 MO-64 YRS Influenza Virus 2021-06-16 Completed [facility], 00:00:00 [facility] Preserv and ABX Free 6 MO-64 YRS SARS-COV-2 2021-06-11 Completed [facility] COVID-19 PFIZER 00:00:00 [facility] VACCINE SARS-COV-2 2021-06-11 Completed [facility] COVID-19 PFIZER 00:00:00 [facility] VACCINE SARS-COV-2 2021-06-11 Completed [facility] COVID-19 PFIZER 00:00:00 [facility] VACCINE SARS-COV-2 2021-06-11 Completed [facility] COVID-19 PFIZER 00:00:00 [facility] VACCINE SARS-COV-2 2021-06-11 Completed [facility] COVID-19 PFIZER 00:00:00 [facility] VACCINE SARS-COV-2 2021-06-11 Completed [facility] COVID-19 PFIZER 00:00:00 [facility] VACCINE SARS-COV-2 2021-06-11 Completed [facility] COVID-19 PFIZER 00:00:00 [facility] VACCINE SARS-COV-2 2021-06-11 Completed [facility] COVID-19 PFIZER 00:00:00 [facility] VACCINE SARS-COV-2 2021-06-11 Completed [facility] COVID-19 PFIZER 00:00:00 [facility] VACCINE SARS-COV-2 2021-06-11 Completed [facility] COVID-19 PFIZER 00:00:00 [facility] VACCINE SARS-COV-2 2021-06-11 Completed [facility] COVID-19 PFIZER 00:00:00 [facility] VACCINE SARS-COV-2 2021-06-11 Completed [facility] COVID-19 PFIZER 00:00:00 [facility] VACCINE SARS-COV-2 2021-06-11 Completed [facility] COVID-19 PFIZER 00:00:00 [facility] VACCINE SARS-COV-2 2021-06-11 Completed [facility] COVID-19 PFIZER 00:00:00 [facility] VACCINE SARS-COV-2 2021-06-11 Completed [facility] COVID-19 PFIZER 00:00:00 [facility] VACCINE SARS-COV-2 2021-06-11 Completed [facility] COVID-19 PFIZER 00:00:00 [facility] VACCINE SARS-COV-2 2021-06-11 Completed [facility] COVID-19 PFIZER 00:00:00 [facility] VACCINE SARS-COV-2 2021-06-11 Completed [facility] COVID-19 PFIZER 00:00:00 [facility] VACCINE SARS-COV-2 2021-06-11 Completed [facility] COVID-19 PFIZER 00:00:00 [facility] VACCINE SARS-COV-2 2021-06-11 Completed [facility] COVID-19 PFIZER 00:00:00 [facility] VACCINE SARS-COV-2 2021-06-11 Completed [facility] COVID-19 PFIZER 00:00:00 [facility] VACCINE SARS-COV-2 2021-06-11 Completed [facility] COVID-19 PFIZER 00:00:00 [facility] VACCINE SARS-COV-2 2021-06-11 Completed [facility] COVID-19 PFIZER 00:00:00 [facility] VACCINE SARS-COV-2 2021-06-11 Completed [facility] COVID-19 PFIZER 00:00:00 [facility] VACCINE SARS-COV-2 2021-06-11 Completed [facility] COVID-19 PFIZER 00:00:00 [facility] VACCINE SARS-COV-2 2021-06-11 Completed [facility] COVID-19 PFIZER 00:00:00 [facility] VACCINE SARS-COV-2 2021-06-11 Completed [facility] COVID-19 PFIZER 00:00:00 [facility] VACCINE SARS-COV-2 2021-06-11 Completed [facility] COVID-19 PFIZER 00:00:00 [facility] VACCINE SARS-COV-2 2021-06-11 Completed [facility] COVID-19 PFIZER 00:00:00 [facility] VACCINE SARS-COV-2 2021-06-11 Completed [facility] COVID-19 PFIZER 00:00:00 [facility] VACCINE SARS-COV-2 2021-06-11 Completed [facility] COVID-19 PFIZER 00:00:00 [facility] VACCINE SARS-COV-2 2021-06-11 Completed [facility] COVID-19 PFIZER 00:00:00 [facility] VACCINE SARS-COV-2 2021-06-11 Completed [facility] COVID-19 PFIZER 00:00:00 [facility] VACCINE SARS-COV-2 2021-06-11 Completed [facility] COVID-19 PFIZER 00:00:00 [facility] VACCINE SARS-COV-2 2021-06-11 Completed [facility] COVID-19 PFIZER 00:00:00 [facility] VACCINE SARS-COV-2 2021-06-11 Completed [facility] COVID-19 PFIZER 00:00:00 [facility] VACCINE SARS-COV-2 2021-06-11 Completed [facility] COVID-19 PFIZER 00:00:00 [facility] VACCINE SARS-COV-2 2021-06-11 Completed [facility] COVID-19 PFIZER 00:00:00 [facility] VACCINE SARS-COV-2 2021-06-11 Completed [facility] COVID-19 PFIZER 00:00:00 [facility] VACCINE SARS-COV-2 2021-06-11 Completed [facility] COVID-19 PFIZER 00:00:00 [facility] VACCINE SARS-COV-2 2021-06-11 Completed [facility] COVID-19 PFIZER 00:00:00 [facility] VACCINE SARS-COV-2 2021-06-11 Completed [facility] COVID-19 PFIZER 00:00:00 [facility] VACCINE SARS-COV-2 2021-06-11 Completed [facility] COVID-19 PFIZER 00:00:00 [facility] VACCINE SARS-COV-2 2021-06-11 Completed [facility] COVID-19 PFIZER 00:00:00 [facility] VACCINE SARS-COV-2 2021-06-11 Completed [facility] COVID-19 PFIZER 00:00:00 [facility] VACCINE SARS-COV-2 2021-06-11 Completed [facility] COVID-19 PFIZER 00:00:00 [facility] VACCINE SARS-COV-2 2021-06-11 Completed [facility] COVID-19 PFIZER 00:00:00 [facility] VACCINE SARS-COV-2 2021-06-11 Completed [facility] COVID-19 PFIZER 00:00:00 [facility] VACCINE Tetanus/Dipht - Hx 2020-08-12 Completed [facility] 00:00:00 Tetanus/Dipht - Hx 2020-08-12 Completed [facility] 00:00:00 Tetanus/Dipht - Hx 2020-08-12 Completed [facility] 00:00:00 Tetanus/Dipht - Hx 2020-08-12 Completed [facility] 00:00:00 Tetanus/Dipht - Hx 2020-08-12 Completed [facility] 00:00:00 Tetanus/Dipht - Hx 2020-08-12 Completed [facility] USSTELIZ 00:00:00 Tetanus/Dipht - Hx 2020-08-12 Completed [facility] USJASPER 00:00:00 Tetanus/Dipht - Hx 2020-08-12 Completed [facility] USSTMARY 00:00:00 Tetanus/Dipht - Hx 2020-08-12 Completed [facility] USSTELIZ 00:00:00 Tetanus/Dipht - Hx 2020-08-12 Completed [facility]STMARY 00:00:00 Influenza Virus 2020-03-23 Completed [facility] .5 mL 00:00:00 [facility] IM 6+ MO Influenza Virus 2020-03-23 Completed [facility] .5 mL 00:00:00 [facility] IM 6+ MO Influenza Virus 2020-03-23 Completed [facility] .5 mL 00:00:00 [facility] IM 6+ MO Influenza Virus 2020-03-23 Completed [facility] .5 mL 00:00:00 [facility] IM 6+ MO Influenza Virus 2020-03-23 Completed [facility] .5 mL 00:00:00 [facility] IM 6+ MO Influenza Virus 2020-03-23 Completed [facility] .5 mL 00:00:00 [facility] IM 6+ MO Influenza Virus 2020-03-23 Completed [facility] .5 mL 00:00:00 [facility] IM 6+ MO Influenza Virus 2020-03-23 Completed [facility] .5 mL 00:00:00 [facility] IM 6+ MO Influenza Virus 2020-03-23 Completed [facility] .5 mL 00:00:00 [facility] IM 6+ MO Influenza Virus 2020-03-23 Completed [facility] .5 mL 00:00:00 [facility] IM 6+ MO Influenza Virus 2020-03-23 Completed [facility] .5 mL 00:00:00 [facility] IM 6+ MO Influenza Virus 2020-03-23 Completed [facility] .5 mL 00:00:00 [facility] IM 6+ MO Influenza Virus 2020-03-23 Completed [facility] .5 mL 00:00:00 [facility] IM 6+ MO Influenza Virus 2020-03-23 Completed [facility] .5 mL 00:00:00 [facility] IM 6+ MO Influenza Virus 2020-03-23 Completed [facility] .5 mL 00:00:00 [facility] IM 6+ MO Influenza Virus 2020-03-23 Completed [facility] .5 mL 00:00:00 [facility] IM 6+ MO Influenza Virus 2020-03-23 Completed [facility] .5 mL 00:00:00 [facility] IM 6+ MO Influenza Virus 2020-03-23 Completed [facility] .5 mL 00:00:00 [facility] IM 6+ MO Influenza Virus 2020-03-23 Completed [facility] .5 mL 00:00:00 [facility] IM 6+ MO Influenza Virus 2020-03-23 Completed [facility] .5 mL 00:00:00 [facility] IM 6+ MO Influenza Virus 2020-03-23 Completed [facility] .5 mL 00:00:00 [facility] IM 6+ MO Influenza Virus 2020-03-23 Completed [facility] .5 mL 00:00:00 [facility] IM 6+ MO Influenza Virus 2020-03-23 Completed [facility] .5 mL 00:00:00 [facility] IM 6+ MO Influenza Virus 2020-03-23 Completed [facility] .5 mL 00:00:00 [facility] IM 6+ MO Influenza Virus 2020-03-23 Completed [facility] .5 mL 00:00:00 [facility] IM 6+ MO Influenza Virus 2020-03-23 Completed [facility] .5 mL 00:00:00 [facility] IM 6+ MO Influenza Virus 2020-03-23 Completed [facility] .5 mL 00:00:00 [facility] IM 6+ MO Influenza Virus 2020-03-23 Completed [facility] .5 mL 00:00:00 [facility] IM 6+ MO Influenza Virus 2020-03-23 Completed [facility] .5 mL 00:00:00 [facility] IM 6+ MO Influenza Virus 2020-03-23 Completed [facility] .5 mL 00:00:00 [facility] IM 6+ MO Influenza Virus 2020-03-23 Completed [facility] .5 mL 00:00:00 [facility] IM 6+ MO Influenza Virus 2020-03-23 Completed [facility] .5 mL 00:00:00 [facility] IM 6+ MO Influenza Virus 2020-03-23 Completed [facility] .5 mL 00:00:00 [facility] IM 6+ MO Influenza Virus 2020-03-23 Completed [facility] .5 mL 00:00:00 [facility] IM 6+ MO Influenza Virus 2020-03-23 Completed [facility] .5 mL 00:00:00 [facility] IM 6+ MO Influenza Virus 2020-03-23 Completed [facility] .5 mL 00:00:00 [facility] IM 6+ MO Influenza Virus 2020-03-23 Completed [facility] .5 mL 00:00:00 [facility] IM 6+ MO Influenza Virus 2020-03-23 Completed [facility] .5 mL 00:00:00 [facility] IM 6+ MO Influenza Virus 2020-03-23 Completed [facility] .5 mL 00:00:00 [facility] IM 6+ MO Influenza Virus 2020-03-23 Completed [facility] .5 mL 00:00:00 [facility] IM 6+ MO Influenza Virus 2020-03-23 Completed [facility] .5 mL 00:00:00 [facility] IM 6+ MO Influenza Virus 2020-03-23 Completed [facility] .5 mL 00:00:00 [facility] IM 6+ MO Influenza Virus 2020-03-23 Completed [facility] .5 mL 00:00:00 [facility] IM 6+ MO Influenza Virus 2020-03-23 Completed [facility] .5 mL 00:00:00 [facility] IM 6+ MO Influenza Virus 2020-03-23 Completed [facility] .5 mL 00:00:00 [facility] IM 6+ MO Influenza Virus 2020-03-23 Completed [facility] Vaccine Quad .5 mL 00:00:00 [facility]ica [facility] IM 6+ MO Influenza Virus 2020-03-23 Completed [facility] Quad .5 mL 00:00:00 [facility] IM 6+ MO Influenza Virus 2020-03-23 Completed [facility] .5 mL 00:00:00 [facility] IM 6+ MO Vital Signs Vital Name Observation Time Observation Value Comments Source Systolic blood 2022-10-12 115 mm[Hg] [facility] pressure 19:44:00 [facility] Diastolic blood 2022-10-12 74 mm[Hg] [facility] f pressure 19:44:00 [facility] Heart rate 2022-10-12 73 /min [facility] of 19:44:00 [facility] Respiratory rate 2022-10-12 16 /min [facility] of 19:44:00 [facility] Body height 2022-10-12 160 cm University of 19:44:00 [facility] Body weight 2022-10-12 53.751 kg University of 19:44:00 [facility] BMI 2022-10-12 20.99 kg/m2 University of 19:44:00 [facility] Oxygen saturation 2022-10-12 98 /min [facility] in Arterial blood 19:44:00 [facility] by Pulse oximetry Branch Systolic blood 2022-10-10 126 mm[Hg] [facility] pressure 19:32:00 [facility] Diastolic blood 2022-10-10 77 mm[Hg] [facility] f pressure 19:32:00 [facility] Heart rate 2022-10-10 67 /min [facility] of 19:32:00 [facility] Body height 2022-10-10 152.4 cm University of 19:32:00 [facility] Body weight 2022-10-10 53.071 kg University of 19:32:00 [facility] BMI 2022-10-10 22.85 kg/m2 University of 19:32:00 [facility] Oxygen saturation 2022-10-10 97 /min [facility] in Arterial blood 19:32:00 [facility] Systolic blood 2022-10-03 127 mm[Hg] [facility] pressure 18:22:00 [facility] Diastolic blood 2022-10-03 76 mm[Hg] University [facility] f pressure 18:22:00 [facility] Heart rate 2022-10-03 57 /min University of 18:22:00 [facility] Respiratory rate 2022-10-03 18 /min University of 18:22:00 [facility] Body weight 2022-10-03 54.432 kg University of 18:22:00 [facility] BMI 2022-10-03 20.60 kg/m2 University of 18:22:00 [facility] Oxygen saturation 2022-10-03 99 /min [facility] in Arterial blood 18:22:00 [facility] mayte by Pulse oximetry Branch Systolic blood 2022-09-30 134 mm[Hg] [facility] pressure 16:49:00 [facility] Diastolic blood 2022-09-30 82 mm[Hg] [facility] f pressure 16:49:00 [facility] Heart rate 2022-09-30 59 /min [facility] of 16:49:00 [facility] Body temperature 2022-09-30 36.67 Stacie University [facility] 16:49:00 [facility] Respiratory rate 2022-09-30 16 /min University of 16:49:00 [facility] Body weight 2022-09-30 52.935 kg University of 16:49:00 [facility] BMI 2022-09-30 20.03 kg/m2 University of 16:49:00 [facility] Oxygen saturation 2022-09-30 98 /min [facility] in Arterial blood 16:49:00 [facility] by Pulse oximetry Branch Systolic blood 2022-08-22 146 mm[Hg] [facility] pressure 14:30:00 [facility] Diastolic blood 2022-08-22 82 mm[Hg] [facility] f pressure 14:30:00 [facility] Heart rate 2022-08-22 92 /min [facility] of 14:30:00 [facility] Body temperature 2022-08-22 36.39 Stacie [facility] 14:30:00 [facility] Body height 2022-08-22 162.6 cm University of 14:30:00 [facility] Body weight 2022-08-22 53.524 kg University of 14:30:00 [facility] BMI 2022-08-22 20.25 kg/m2 University of 14:30:00 [facility] Oxygen saturation 2022-08-22 98 /min [place] of in Arterial blood 14:30:00 [facility] by Pulse oximetry Branch Systolic blood 2022-07-11 128 mm[Hg] [facility] pressure 19:48:00 [facility] Branch Diastolic blood 2022-07-11 79 mm[Hg] University o f pressure 19:48:00 [facility] Heart rate 2022-07-11 89 /min University of 19:48:00 [facility] Body temperature 2022-07-11 37.22 Stacie University [facility] 19:48:00 [facility] Respiratory rate 2022-07-11 14 /min [facility] of 19:48:00 [facility] Body height 2022-07-11 162.6 cm University of 19:48:00 [facility] Body weight 2022-07-11 54.613 kg University of 19:48:00 [facility] BMI 2022-07-11 20.67 kg/m2 University of 19:48:00 [facility] Oxygen saturation 2022-07-11 98 /min [facility] in Arterial blood 19:48:00 [facility] by Pulse oximetry Branch Systolic blood 2022-06-26 115 mm[Hg] [facility] pressure 01:09:00 [facility] Diastolic blood 2022-06-26 80 mm[Hg] [facility] f pressure 01:09:00 [facility] Heart rate 2022-06-26 71 /min University of 01:09:00 [facility] Respiratory rate 2022-06-26 15 /min University of 01:09:00 [facility] Oxygen saturation 2022-06-26 98 /min [facility] in Arterial blood 01:09:00 [facility] by Pulse oximetry Branch Body temperature 2022-06-25 37.28 Stacie [facility] 23:34:00 [facility] Body height 2022-06-25 162.6 cm University of 23:34:00 [facility] Body weight 2022-06-25 52.164 kg University of 23:34:00 [facility] BMI 2022-06-25 19.74 kg/m2 University of 23:34:00 [facility] Systolic blood 2022-05-24 132 mm[Hg] [facility] pressure 21:48:00 [facility] Diastolic blood 2022-05-24 78 mm[Hg] [facility] pressure 21:48:00 [facility] Heart rate 2022-05-24 91 /min [facility] 21:48:00 [facility] Body temperature 2022-05-24 37.22 Stacie University [facility] 21:48:00 [facility] Branch Respiratory rate 2022-05-24 16 /min [facility] 21:48:00 [facility] Body height 2022-05-24 162.6 cm [facility] 21:48:00 [facility] Body weight 2022-05-24 52.345 kg University of 21:48:00 [facility] Branch BMI 2022-05-24 19.81 kg/m2 University of 21:48:00 [facility] Branch Oxygen saturation 2022-05-24 100 /min [place] of in Arterial blood 21:48:00 [facility] by Pulse oximetry Branch Systolic blood 2022-03-14 113 mm[Hg] [facility] pressure 02:48:00 [facility] Diastolic blood 2022-03-14 73 mm[Hg] [facility] pressure 02:48:00 [facility] Heart rate 2022-03-14 52 /min [facility] 02:48:00 [facility] Respiratory rate 2022-03-14 18 /min University of 02:48:00 [facility] Oxygen saturation 2022-03-14 100 /min [facility] in Arterial blood 02:48:00 [facility] by Pulse oximetry Branch Body temperature 2022-03-13 36.72 Stacie [facility] 23:24:00 [facility] Body height 2022-03-13 162.6 cm University of 23:24:00 [facility] Body weight 2022-03-13 49.896 kg University of 23:24:00 [facility] BMI 2022-03-13 18.88 kg/m2 University of 23:24:00 [facility] Systolic blood 2022-03-07 119 mm[Hg] [facility] pressure 13:07:00 [facility] Branch Diastolic blood 2022-03-07 67 mm[Hg] [facility] pressure 13:07:00 [facility] Heart rate 2022-03-07 81 /min University of 13:07:00 [facility] Body temperature 2022-03-07 36.5 Stacie [facility] 13:07:00 [facility] Body height 2022-03-07 162.6 cm University of 13:07:00 [facility] Body weight 2022-03-07 49.896 kg University of 13:07:00 [facility] BMI 2022-03-07 18.88 kg/m2 University of 13:07:00 [facility] Oxygen saturation 2022-03-07 100 /min [facility] in Arterial blood 13:07:00 [facility] by Pulse oximetry Branch Systolic blood 2022-03-01 126 mm[Hg] [facility] pressure 17:33:00 [facility] Diastolic blood 2022-03-01 69 mm[Hg] [facility] pressure 17:33:00 [facility] Heart rate 2022-03-01 52 /min [facility] of 17:33:00 [facility] Body temperature 2022-03-01 36.61 Stacie [facility] 17:33:00 [facility] Body height 2022-03-01 162.6 cm University of 17:33:00 [facility] Body weight 2022-03-01 49.578 kg University of 17:33:00 [facility] BMI 2022-03-01 18.76 kg/m2 University of 17:33:00 [facility] Oxygen saturation 2022-03-01 97 /min [facility] in Arterial blood 17:33:00 [facility] by Pulse oximetry Branch Systolic blood 2022-02-06 138 mm[Hg] [facility] pressure 16:51:00 [facility] Diastolic blood 2022-02-06 81 mm[Hg] [facility] pressure 16:51:00 [facility] Heart rate 2022-02-06 102 /min [facility] of 16:51:00 [facility] Body temperature 2022-02-06 36.89 Stacie [facility] 16:51:00 [facility] Respiratory rate 2022-02-06 19 /min [facility] of 16:51:00 [facility] Body height 2022-02-06 162.6 cm University of 16:51:00 [facility] Body weight 2022-02-06 50.44 kg University of 16:51:00 [facility] BMI 2022-02-06 19.09 kg/m2 University of 16:51:00 [facility] Oxygen saturation 2022-02-06 99 /min [facility] in Arterial blood 16:51:00 [facility] by Pulse oximetry Branch Systolic blood 2020-01-22 116 mm[Hg] [facility] pressure 18:34:00 [facility] Diastolic blood 2020-01-22 84 mm[Hg] [facility] pressure 18:34:00 of Medicine Heart rate 2020-01-22 71 /min [facility] 18:34:00 of Medicine Body temperature 2020-01-22 37 [facility] Neisha ege 18:34:00 of Medicine Body height 2020-01-22 160 cm [facility] 18:34:00 of Medicine Body weight 2020-01-22 54.885 kg [facility] 18:34:00 of Medicine BMI 2020-01-22 21.43 kg/m2 [facility] 18:34:00 of Medicine Systolic blood 2020-01-22 116 mm[Hg] [facility] pressure 18:34:00 of Medicine Diastolic blood 2020-01-22 84 mm[Hg] [facility] pressure 18:34:00 of Medicine Heart rate 2020-01-22 71 /min [facility] 18:34:00 of Medicine Body temperature 2020-01-22 37 [facility] Neisha ege 18:34:00 of Medicine Body height 2020-01-22 160 cm [facility] 18:34:00 of Medicine Body weight 2020-01-22 54.885 kg [facility] 18:34:00 of Medicine BMI 2020-01-22 21.43 kg/m2 [facility] 18:34:00 of Medicine Heart rate 2019-10-21 125 /min [facility] 16:40:00 of Medicine Body temperature 2019-10-21 37.17 [facility]isha ege 16:40:00 of Medicine Body height 2019-10-21 160 cm [facility] 16:40:00 of Medicine Body weight 2019-10-21 51.256 kg [facility] 16:40:00 of Medicine BMI 2019-10-21 20.02 kg/m2 [facility] 16:40:00 of Medicine Systolic blood 2019-10-21 132 mm[Hg] pt states he [facility] pressure 16:40:00 drank a monster of Medicine Diastolic blood 2019-10-21 97 mm[Hg] pt states he [facility] pressure 16:40:00 drank a monster of Medicine Heart rate 2019-10-21 125 /min [facility] 16:40:00 of Medicine Body temperature 2019-10-21 37.17 [facility] Neisha ege 16:40:00 of Medicine Body height 2019-10-21 160 cm [facility] 16:40:00 of Medicine Body weight 2019-10-21 51.256 kg [facility] 16:40:00 of Medicine BMI 2019-10-21 20.02 kg/m2 [facility] 16:40:00 of Medicine Systolic blood 2019-10-21 132 mm[Hg] pt states primitivo [facility] pressure 16:40:00 drank a monster of Medicine Diastolic blood 2019-10-21 97 mm[Hg] pt states he [facility] pressure 16:40:00 drank a monster of Medicine Height/Length 2019-08-19 Measured 15:50:22 Height/Length 2021-06-24 167 cm Measured 10:49:05 Weight Dosing 2021-06-24 51.30 kg 10:49:05 Height/Length 2021-06-24 167 cm Measured 10:19:48 Weight Dosing 2021-06-24 51.30 kg 10:19:48 Height/Length 2021-06-24 167 cm Measured 10:19:39 Weight Dosing 2021-06-24 51.30 kg 10:19:39 Weight Dosing 2021-06-24 54.10 kg 09:49:34 BP Diastolic 2021-02-10 73 mm[Hg] [facility] 14:45:00 Heart Rate 2020-11-20 75 /min [facility] 14:45:00 Respiratory rate 2020-11-20 18 /min [facility] 14:45:00 Body Temperature 2020-11-20 98.6 [degF] [facility] 14:45:00 BP Diastolic 2020-11-20 76 mm[Hg] [facility] 11:18:00 BP Systolic 2020-11-20 142 mm[Hg] [facility] 11:18:00 Heart Rate 2020-11-20 75 /min [facility] 11:18:00 Respiratory rate 2020-11-20 18 /min [facility] 11:18:00 Body Temperature 2020-11-20 98.6 [degF] [facility] 11:18:00 Respiratory 2020-08-14 No respiratory 09:43:35 distress /min 02 Sat by Pulse 2020-08-14 98 /min Oximetry 09:43:35 Body Mass Index 2020-08-14 21.4 09:43:35 Height 2020-08-14 160.02\\S\\63 09:43:35 Pulse Rate 2020-08-14 62 /min 09:43:35 Respiratory Rate 2020-08-14 16 /min 09:43:35 Temperature 2020-08-14 36.9\\S\\98.4 09:43:35 Weight 2020-08-14 94929\\S\\1936.54 09:43:35 Weight Measurement 2020-08-14 Standing Scale Method 09:43:35 Respiratory 2020-08-12 No respiratory 17:41:29 distress /min 02 Sat by Pulse 2020-08-12 98 /min Oximetry 17:41:29 Body Mass Index 2020-08-12 21.4 17:41:29 Height 2020-08-12 160.02\\S\\63 17:41:29 Pulse Rate 2020-08-12 62 /min 17:41:29 Respiratory Rate 2020-08-12 16 /min 17:41:29 Temperature 2020-08-12 36.9\\S\\98.4 17:41:29 Weight 2020-08-12 76903\\S\\1936.54 17:41:29 Weight Measurement 2020-08-12 Standing Scale Method 17:41:29 Respiratory 2020-08-12 No respiratory 17:32:48 distress /min 02 Sat by Pulse 2020-08-12 98 /min Oximetry 17:32:48 Body Mass Index 2020-08-12 21.4 17:32:48 Height 2020-08-12 160.02\\S\\63 17:32:48 Pulse Rate 2020-08-12 64 /min 17:32:48 Respiratory Rate 2020-08-12 20 /min 17:32:48 Temperature 2020-08-12 36.8\\S\\98.2 17:32:48 Weight 2020-08-12 46883\\S\\1936.54 17:32:48 Weight Measurement 2020-08-12 Standing Scale Method 17:32:48 02 Sat by Pulse 2020-08-12 98 /min Oximetry 17:21:34 Body Mass Index 2020-08-12 21.4 17:21:34 Height 2020-08-12 160.02\\S\\63 17:21:34 Pulse Rate 2020-08-12 64 /min 17:21:34 Respiratory Rate 2020-08-12 20 /min 17:21:34 Temperature 2020-08-12 36.8\\S\\98.2 17:21:34 Weight 2020-08-12 84022\\S\\1936.54 17:21:34 Weight Measurement 2020-08-12 Standing Scale Method 17:21:34 Respiratory 2020-08-12 No respiratory 17:21:34 distress /min Respiratory 2020-08-12 No respiratory 16:33:55 distress /min 02 Sat by Pulse 2020-08-12 98 /min Oximetry 16:33:55 Body Mass Index 2020-08-12 21.4 16:33:55 Height 2020-08-12 160.02\\S\\63 16:33:55 Pulse Rate 2020-08-12 64 /min 16:33:55 Respiratory Rate 2020-08-12 20 /min 16:33:55 Temperature 2020-08-12 36.8\\S\\98.2 16:33:55 Weight 2020-08-12 04797\\S\\1936.54 16:33:55 Weight Measurement 2020-08-12 Standing Scale Method 16:33:55 02 Sat by Pulse 2020-08-12 98 /min Oximetry 16:21:07 Body Mass Index 2020-08-12 21.4 16:21:07 Height 2020-08-12 160.02\\S\\63 16:21:07 Pulse Rate 2020-08-12 64 /min 16:21:07 Respiratory Rate 2020-08-12 20 /min 16:21:07 Temperature 2020-08-12 36.8\\S\\98.2 16:21:07 Weight 2020-08-12 02195\\S\\1936.54 16:21:07 Weight Measurement 2020-08-12 Standing Scale Method 16:21:07 WEIGHT 2020-08-12 54.9 kg 16:14:00 HEIGHT 2020-08-12 160.02 cm 16:14:00 02 Sat by Pulse 2020-05-27 99 /min Oximetry 10:46:44 Body Mass Index 2020-05-27 21.2 10:46:44 Height 2020-05-27 160.02\\S\\63 10:46:44 Pulse Rate 2020-05-27 72 /min 10:46:44 Respiratory Rate 2020-05-27 16 /min 10:46:44 Temperature 2020-05-27 36.9\\S\\98.4 10:46:44 Weight 2020-05-27 88672\\S\\1911.849 10:46:44 Weight Measurement 2020-05-27 Standing Scale Method 10:46:44 WEIGHT 2020-05-25 54.2 kg 11:33:00 HEIGHT 2020-05-25 160.02 cm 11:33:00 Weight 2020-02-17 116 [lb_av] [facility] Health 18:38:00 BMI (Body Mass 2020-02-17 20.5 kg/m2 [facility] th Index) 18:38:00 Body Temperature 2020-02-17 98.5 [degF] [facility] 18:37:00 Body Temperature 2019-12-25 98.4 [degF] [facility] 22[facility]07:00 Heart Rate 2019-12-25 98 /min [facility] 22:07:00 Respiratory rate 2019-12-25 18 /min [facility] 22:07:00 BP Systolic 2019-12-25 133 mm[Hg] [facility] 22:07:00 BP Diastolic 2019-12-25 65 mm[Hg] [facility] 22:07:00 Weight 2019-12-25 125.50 [lb_av] [facility] th 18:06:00 BMI (Body Mass 2019-12-25 22.2 kg/m2 [facility] th Index) 18:06:00 Heart Rate 2019-12-25 120 /min [facility] 18:05:00 Respiratory rate 2019-12-25 20 /min [facility] 18:05:00 BP Systolic 2019-12-25 147 mm[Hg] [facility] 18:05:00 BP Diastolic 2019-12-25 77 mm[Hg] [facility] 18:05:00 Body Temperature 2019-04-25 98.2 [degF] [facility] 13:35:00 Heart Rate 2019-04-25 98 /min [facility] 13:35:00 Respiratory rate 2019-04-25 19 /min [facility] 13:35:00 BP Systolic 2019-04-25 123 mm[Hg] [facility] 13:35:00 BP Diastolic 2019-04-25 65 mm[Hg] [facility] 13:35:00 Procedures Procedure Date / Time Performing Clinician Source Performed CT ABDOMEN PELVIS W 2022-06-26 00:16:46 Erin Ford [facility] Branch LIPASE 2022-06-25 23:57:00 Erin Ford [facility] COMP. METABOLIC PANEL 2022-06-25 23:57:00 Erin Ford [facility] ([id number] CBC WITH DIFF 2022-06-25 23:57:00 Erin Ford [facility] CONSENT/REFUSAL FOR 2022-06-25 23:10:49 Doctor Unassigned, [facility] DIAGNOSIS AND TREATMENT [facility] EXTERNAL PROVIDER RECORDS 2022-06-01 06:01:00 Doctor Unaaranza, [facility] [place] [facility] CT ABDOMEN PELVIS W 2022-03-14 01:08:12 Benjy Lopez [facility] CONTRAST Medical Branch LIPASE 2022-03-14 00:40:00 Benjy Lopez [facility] COMP. METABOLIC PANEL 2022-03-14 00:40:00 Benjy Lopez [facility] ([id number]) Medical Branch CBC WITH DIFF 2022-03-14 00:40:00 Benjy Lopez [facility] URINALYSIS 2022-03-14 00:40:00 Benjy Lopez [facility] CONSENT/REFUSAL FOR 2022-03-13 23:13:19 Doctor Unassigned, [facility] DIAGNOSIS AND TREATMENT [place] [facility] POCT MOLECULAR STREP 2022-02-06 16:57:00 Unknown, Attending [facility] Computed tomography of 2021-02-09 00:00:00 [facility] abdomen and pelvis with contrast EMERGENCY DEPT VISIT 2021-02-02 00:00:00 [facility] ECG (electrocardiogram) 2021-01-20 00:00:00 [facility] X-ray of chest, two views 2021-01-20 00:00:00 [employer] ROUTINE VENIPUNCTURE 2021-01-20 00:00:00 [facility] X-RAY EXAM CHEST 2 VIEWS 2021-01-20 00:00:00 [facility] ASSAY OF TROPONIN QUANT 2021-01-20 00:00:00 [facility] ELECTROCARDIOGRAM TRACING 2021-01-20 00:00:00 [facility] EMERGENCY DEPT VISIT 2021-01-20 00:00:00 [facility] X-ray of knee, three views 2020-11-20 00:00:00 [facility] X-ray of shoulder, two or 2020-11-20 00:00:00 [employer] more views X-ray of chest, single view 2019-12-25 00:00:00 [facility] Radiologic examination, 2019-04-25 00:00:00 [facility] abdomen; 2 views Plan of Care Planned Activity Planned Date Details Comments Source Future Scheduled Test Bacterial urine [facility] [place] [facility] culture [code = HCIS 630-4] Future Scheduled Test TETANUS SHOT (ADULT) [facility] [code = TETANUS SHOT Medicin e (ADULT)] Future Scheduled Test HIV SCREENING [code [facility] = HIV SCREENING] Medicine Future Scheduled Test FLU VACCINE > 6 [facility] [code = FLU Medicine VACCINE > 6 MONTHS] Future Scheduled Test TETANUS SHOT (ADULT) [facility] [code = TETANUS SHOT Medicin e (ADULT)] Future Scheduled Test HIV SCREENING [code [facility] = HIV SCREENING] Medicine Future Scheduled Test FLU VACCINE > 6 [facility] of MONTHS [code = FLU Medicine VACCINE > 6 MONTHS] Future Scheduled Test ZOSTER VACCINE (1 of [facility] of 2) [code = ZOSTER Medicine VACCINE (1 of 2)] Goal Patient referral [facility] [code = 2254096 ] HCIS Goal Patient referral [facility] [code = 9431256 ] HCIS Goal Patient referral [facility] [code = 1737451 ] HCIS Goal Patient referral [facility] SRINATH [code = 7146834 ] Goal Patient referral [facility]RISTUSJAS PER [code = 5774487 ] Goal Patient referral [facility] MALORIE [code = 0119612 ] Goal Patient referral [facility] SRINATH [code = 0968657 ] Goal Patient referral [facility] MALORIE [code = 2840472 ] Instructions Acid Reflux [facility] (Gastroesophageal HCIS Reflux Disease), Adult (DC) Instructions Diarrhea and [facility] Travelers' Diarrhea, HCIS Adult (DC) Instructions Nausea and Vomiting, [facility] LIVE Adult (DC) HCIS Instructions Coronavirus Disease [facility] 2019 (COVID-19) (DC) HCIS Instructions Muscle and Bone Pain CHRISTU SSTELIZ (DC) Instructions Sprain (DC) [facility]US[facility]IZ Instructions COVID-19 (DC) [facility] Instructions Severe Abdominal CHRISTUSJAS PER Pain, Adult (DC) Instructions COVID-19 (DC) [facility]USJASPER Instructions COVID-19 (DC) [facility] Instructions Muscle and Bone Pain CHRISTU SSTMARY (DC) Instructions Sprain (DC) [facility] Instructions COVID-19 (DC) [facility] Instructions Muscle and Bone Pain CHRISTU SSTELIZ (DC) Instructions Sprain (DC) [facility]STUSSTELIZ Instructions COVID-19 (DC) [facility]STUSSTELIZ Instructions Muscle and Bone Pain CHRISTU SSTMARY (DC) Instructions Sprain (DC) [facility]STUSSTMARY Instructions COVID-19 (DC) [facility]RISTUSSTMARY Encounters Start End Encounter Admission Attending Care Care Encounter Source Date/Time Date/Time Type Type Clinicians Facility Department ID 2022-05-17 Outpatient [facility] [id number] Legacy 00:23:02 [id number] [facility] 2021-05-31 Inpatient [facility]m [facility] [id number] [facility] 13:32:00 42 2021-04-05 Emergency [facility] [id number] Univers 19:49:17 [facility] 2021-04-05 Emergency [facility] [id number] Univers 16:35:16 [facility] 2021-04-04 Outpatient R [facility] [id number] Univers 08:27:18 ZULAY [facility] 2021-04-03 Outpatient R DORA [facility] [id number] Univers 03:19:40 ZULAY sara [facility] 2021-04-02 Emergency [facility] [id number] Univers 08:23:50 [facility] 2021-03-14 Inpatient MCSETXm M[facility] [id number] [facility] 05:12:00 92 2021-03-14 Inpatient MCSET[facility]m [facility] [id number] [facility] 05:12:00 92 2020-08-12 Inpatient [facility]m [facility] [id number] [facility] 15:48:00 31 2020-05-25 Inpatient MCSET[facility]m [facility] [id number] [facility] 11:01:00 76 2020-05-25 Inpatient MCSET[facility]m M[facility] [id number] [facility] 11:01:00 76 2023-01-04 2023-01-04 Outpatient R YEE WILCOX [facility] [id number] Univers 14:30:00 14:30:00 YEE WILCOX [facility] 2022-11-23 2022-11-23 Outpatient R SHALINI [facility] [id number] Univers 10:30:00 10:30:00 GENNY [facility] 2022-11-09 2022-11-09 Outpatient R YEE WILCOX [facility] [id number] Univers 09:30:00 09:30:00 YEE WILCOX [facility] 2022-10-26 2022-10-26 Outpatient R JOSE CRUZ [facility] [id number] Univers 00:00:00 00:00:00 CARYN reeves o isiah [facility] 2022-10-12 2022-10-12 Outpatient R YEE WILCOX [facility] [id number] Univers 15:00:00 15:11:56 YEE WILCOX ity [facility] 2022-10-12 2022-10-12 [facility] 1.2.840.114 [id number] Univers 15:00:00 15:11:56 Visit [facility] 350.1.13.10 [place] [phone] Wi dical NAL 044 [facility] 2022-10-10 2022-10-10 Out[facility] [id number] Univers 14:40:00 14:49:12 CARYN perez [facility] 2022-10-10 2022-10-10 Office [facility] 1.2.840.114 [id number] Univers 14:40:00 14:49:12 Visit Charlisimóndiandra DAYAN 350.1.13.10 [place] [id number] Wi dical NAL 059 [facility] 2022-10-10 2022-10-10 Outpatient R MARY [facility] [id number] Univers 11:15:00 11:15:00 KALPANA ity [facility] 2022-10-07 2022-10-07 Nurse DANG Hernadez 1.2.840.114 [id number] [facility] 00:00:00 00:00:00 Triage Aneatrice JAROCHO 350.1.13.10 ity of [facility] 4.2.7.2.686 Anam as [id number] [address] 2022-10-07 2022-10-07 Telephone [facility] 1.2.840.114 [id number] Univers 00:00:00 00:00:00 Ogjunior [facility] 350.1.13.10 ity of [facility] 4.[place] [id number] Wi dical NAL 044 [facility] 2022-10-07 2022-10-07 Telephone [facility] [id number] Univers 00:00:00 00:00:00 Caryn [facility] 350.1.13.10 ity of [facility] 4[place] [phone] Wi dicla NAL 059 [facility] 2022-10-03 2022-10-03 Outpatient R YEE WILCOX [facility] [id number] Univers 13:00:00 13:46:52 YEE WILCOX ity [facility] 2022-10-03 2022-10-03 [facility] 1.2.840.114 [id number] [facility] 13:00:00 13:46:52 Visit junior NATHROP 350.1.13.10 ity [facility] [place] [id number] [address] 2022-09-30 2022-09-30 Outpatient R KIRBY [facility] [id number] Univers 11:40:00 12:00:52 [facility]-30 2022-09-30 [facility]gent [facility] 1.2.840.11 [id number] Univers 11:40:00 12:00:52 Care Unknown, Attending HEALTH 350.1.13.10 ity of [place] 4.2.7.2.686 Anam as TRAE?BLEA [id number] [address] OFFICE [facility] 2022-09-30 2022-09-30 Telephone [facility] 1.2.840.114 [id number] Univers 00:00:00 00:00:00 Ree HEALTH 350.1.13.10 it y of [place] 4.2.7.2.686 Anam as TRAE?BLEA [id number] [address] OFFICE [facility] 2022-09-02 2022-09-02 Outpatient R YEE WILCOX [facility] [id number] Univers 11:30:00 11:30:00 JERIALEXTrippFilemon ity of [facility] 2022-08-22 2022-08-22 Dipper Fish Draw, Clc-Bls Lab [facility] 1.2.8 40.114 [id number] Univers 10:45:00 11:00:00 Visit Pathology HEALTH 350.1.13.10 [place] NO[place] [id number] [address] OFFICE BUILDING 2022-08-22 2022-08-22 Outpatient R PATHOLOGY [facility] [id number] Univers 10:45:00 10:45:00 ity of [facility] 2022-08-22 2022-08-22 Office [facility] 1.2.840.114 [id number] Univers 09:45:00 10:06:58 Visit Trina SPECIALTY 350.1.13.10 ity of [place] [id number] Wi cristina ESPARZA [address] [place] [address] 2022-08-22 2022-08-22 Letter Lou [facility] 1.2.840.114 [id number] Univers 00:00:00 00:00:00 (Out) Trina SPECIALTY 350.1.13.10 ity of [place] [id number] Wi cristina ESPARZA [address] [place] [address] 2022-08-02 2022-08-02 Mallory Bonner [facility] 1.2.840.114 [id number] Univers 00:00:00 00:00:00 Meg BUTLER 350.1.13.10 i [place] [id number] [place] [address] Branch 2022-07-11 2022-07-11 Office Harpal Rahman [facility] 1.2.840.11 [id number] Univers 14:00:00 14:30:00 Visit Denys Gracia SPECIALTY 350.1.13 .10 it[place] [id number] Wi cristina Bee [facility] 2022-07-11 2022-07-11 Outpatient R SAMIA [facility] [id number] Univers 14:00:00 14:00:00 DENYS sara [facility] 2022-06-27 2022-06-27 Telephone Dora [facility] 1.2.865.129 [id number] Univers 00:00:00 00:00:00 Zulay MCCALL 350.1.13.10 ity of [facility] 4.2.7.2.686 [facility] AT [phone] Wi cristina [address]aj[address] [place] [address] 2022-06-25 2022-06-25 Emergency X LOGAN [facility] ERT [id number] Univers 17:36:00 20:12:00 ERIN sara [facility] 2022-06-25 2022-06-25 Emergency Gianna Klein [facility] 1.2.840.1 [id number] Univers 17:36:00 20:12:00 Erin Ford 350.1.13.10 ity of [place] 4.2.7.2.[address] [facility] [id number] [facility] 084 Branch 2022-06-22 2022-06-22 Hospital TomVICCitlali 1.2.840.114 [id number] Univers 13:42:00 23:59:00 Encounter Karissa Lopez 350.1.13.10 ity of [facility] 4.2.7.2.[id number] [facility] 031 Branch 2022-06-22 2022-06-22 Outpatient R TOM [facility] ACO [id number] Univers 00:00:00 23:59:00 KARISSA [facility] 2022-06-13 2022-06-13 Outpatient R HA [facility] [id number] Univers 13:30:00 13:30:00 MEG reeves [facility] 2022-06-07 2022-06-07 Outpatient 3 MAYTE GARZA [id number] Faith 20:00:00 20:00:00 [facility] 2022-06-01 2022-06-01 Orders Doctor DANG 1.2.840.114 [id number] Univers 00:00:00 00:00:00 Only Unassigned, JAROCHO 350.1.13.10 ity of [place] [facility] 4.2.7.2.[id number] [facility] [address] [place] 2022-05-25 2022-05-25 Emergency Emergency Ruiz, MCSETXm MCSETXm [id number] MCSETXm 21:25:00 22:17:00 Reji 28 2022-05-25 2022-05-25 Outpatient R [facility] [id number] Univers 14:00:00 14:00:00 ity of [facility] 2022-05-25 2022-05-25 Dipper Fish Lab, [facility] 1.2.840.114 [id number] Univers 07:30:00 07:45:00 Visit OlivaresLilly Bertha SPECIALTY 350. 1.13.10 [place] [phone] Wi cristina ESPARZA 353 [facility] 2022-05-25 2022-05-25 Outpatient R VARSHAALFREDO [facility] [id number] Univers 07:30:00 07:30:00 ISEleandro [facility] 2022-05-25 2022-05-25 Telephone [facility] [id number] [id number] Univers 00:00:00 00:00:00 Zulay Sotelo SPECIALTY 350.1.13.10 [place] [phone] Wi cristina ESPARZA 072 [facility] 2022-05-25 2022-05-25 Patient Doctor DANG 1.2.840.114 [id number] Univers 00:00:00 00:00:00 Secure Msg Unassigned, JAROCHO 350.1.13.10 ity of [place] [facility] 4.2.7.2.[id number] [facility] [address] [place] 2022-05-24 2022-05-24 [facility] [id number] Univers 16:00:00 17:01:18 ZULAY reeves [facility] 2022-05-24 2022-05-24 Office [facility] 1.2.840.114 [id number] Univers 16:00:00 17:01:18 Visit Zulay Sotelo SPECIALTY 350.1.13.10 [place] [id number] [address] 2022-05-16 2022-05-16 Telephone [facility] [id number] [id number] Univers 00:00:00 00:00:00 Zulay Sotelo SPECIALTY 350.1.13.10 [place] AT [id number] [address] 2022-05-13 2022-05-14 Emergency ER SETH COOLEY [id number] CHRISTU 21:19:00 03:13:00 [facility] [id number] [facility] 2022-05-13 2022-05-13 Nurse Dov LEONG 1.2.840.114 [id number] Univers 00:00:00 00:00:00 Triage d, Alix AVENDAÑO 350.1.13.10 ity of [facility] 4.2.7.2.686 Anam as [id number] [address] 2022-04-26 2022-04-26 Out[facility] [id number] Univers 14:00:00 14:00:00 ZULAY reeves [facility] 2022-04-06 2022-04-06 Patient [facility] 1.2.840.114 [id number] Univers 00:00:00 00:00:00 Secure Msg Zulay Sotelo SPECIALTY 350.1.13.10 [place] AT [id number] [address] 2022-04-04 2022-04-04 Telephone [facility] [id number] Univers 00:00:00 00:00:00 Zulay Deepak SPECIALTY [id number] [id number] [phone] Wi cristina ESPARZA [address] 2022-03-13 2022-03-13 Emergency X BENJY LOPEZ [facility] ERT [id number] Univers 18:25:00 21:51:00 ity [facility] 2022-03-13 2022-03-13 Emergency Benjy Lopez [facility] [id number] Univers 18:25:00 21:51:00 T HEALTH [id number] it y of [place] [id number] [facility] [phone] [address] ([facility]) 2022-03-13 2022-03-13 Outpatient ANNE-MARIE FREEDMAN [facility] [id number] Univers 13:45:00 13:45:00 ANNE-MARIE YANEZ sara [facility] 2022-03-09 2022-03-09 Outpatient DENICE ROCA [facility] [id number] Univers 08:30:00 08[facility] 2022-03-09 Telephone Dora [facility] [id number] Univers 00:00:00 00:00:00 Zulay Sotelo SPECIALTY [id number] ity of CARE [id number] [facility] AT [phone] Wi cristina ESPARZA 072 [facility] 2022-03-07 2022-03-07 Office Reji [facility] 1.2.840.114 [id number] Univers 08:00:00 08:40:00 Visit [facility] 350.1.13.10 it y of CLEAR 4.2.7.2.686 [facility] [phone] [place] 024[address] [place] OFFICE BUILDING 2022-03-07 2022-03-07 Outpatient Lorenzo SANCHEZ [facility] [id number] Univers 08:00:00 08:00:00 [facility] 2022-03-02 Patient Dora [facility] 1.2.840.114 [id number] Univers 00:00:00 00:00:00 Secure Msg Zulay Deepak SPECIALTY 350.1.13.10 [place] [phone] Wi cristina ESPARZA 072 [facility] 2022-03-01 2022-03-01 [facility], [facility] 1.2.840.114 [id number] Univers 14:30:00 14:45:00 Visit Zulay John SPECIALTY 350.1.13.1 0 it[place] [phone] Wi cristina ESPARZA 353 [facility] 2022-03-01 2022-03-01 Office [facility] 1.2.840.114 [id number] Univers 12:30:00 13:00:00 Visit Zulay Sotelo SPECIALTY 350.1.13.10 it[place] [phone] Wi cristina ESPARZA [address] [place] [address] 2022-03-01 2022-03-01 [facility] [id number] Univers 12:30:00 12:30:00 ZULAY [facility] 2022-02-24 2022-02-24 Telephone [facility] 1.2.263.896 [id number] Univers 00:00:00 00:00:00 Zulay Sotelo SPECIALTY 350.1.13.10 it[place] [phone] Wi cristina ESPARZA [address] [place] [address] 2022-02-22 2022-02-22 Telephone [facility] 1.2.788.757 [id number] Univers 00:00:00 00:00:00 Zulay Deepak SPECIALTY 350.1.13.10 it[place] [phone] Wi cristina ESPARZA [address] [place] [address] 2022-02-15 2022-02-15 Out[facility] [id number] Univers 15:30:00 15:30:00 ZULAY reeves [facility] 2022-02-06 2022-02-06 Outpatient [facility] [id number] Univers 11:00:00 12:56:13 MARQUEZ reeves [facility] 2022-02-06 2022-02-06 Urgent Marquez Arzola [facility] 1.2.840.114 [id number] Univers 11:00:00 12:56:13 Care Unknown, Attending DORETHA 350.1.13.10 ity [facility] [place].2.7.2.[place] [phone] [address] [place] 2022-02-06 2022-02-06 Outpatient R NESS [facility] [id number] Univers 11:00:00 12:56:13 MARQUEZ sara [facility] 2022-02-06 2022-02-06 Outpatient R NESS [facility] [id number] Univers 11:00:00 12:56:13 MARQUEZ sara [facility] 2022-02-01 2022-02-01 Outpatient Lorenzo LUA [facility] [id number] Univers 15:15:00 15:15:00 [facility] 2022-01-31 2022-01-31 Telephone Dora [facility] 1.2.054.808 [id number] Univers 00:00:00 00:00:00 Zulay MCCALL 350.1.13.10 ity [facility] 4.2.7.2.686 [facility] AT [phone] Wi cristina LIZELLAY 2 [facility] 2022-01-25 2022-01-25 Outpatient Lorenzo JOHN [facility] [id number] Univers 14:00:00 14:00:00 ZULAY reeves [facility] 2022-01-19 2022-01-19 Ancillary Dawna Bynum [facility] 1.2.84 0.114 [id number] Univers 11:00:00 11:45:00 Visit Dexter Lua 350.1.13.10 ity [facility] 4.2.7.2.686 [place] [facility] [phone] Wi dicle NAL 179 [facility] 2022-01-19 2022-01-19 Refill Dora [facility] 1.2.840.114 [id number] Univers 00:00:00 00:00:00 Zulay Deepak SPECIALTY 350.1.13.10 it[place] [phone] Wi cristina ESPARZA 072 [facility] 2022-01-18 2022-01-18 Refill [facility] 1.2.840.114 [id number] Univers 00:00:00 00:00:00 Yee HANLEY 350.1.13.10 ity of [place] [phone] Wi dical NAL 044 [facility] 2022-01-11 2022-01-11 Outpatient Lorenzo JOHN, [facility] [id number] Univers 15:00:00 15:00:00 ZULAY reeves [facility] 2022-01-10 2022-01-10 Ancillary Dawna Bynum [facility] 1.2.84 0.114 [id number] Univers 10:15:00 11:02:52 Visit Dexter Lua 350.1.13.10 ity of [place].7.2.[place] [phone] Wi dical NAL 179 [facility] 2022-01-08 2022-01-08 [facility] 1.2.840.114 [id number] Univers 00:00:00 00:00:00 jin SPECIALTY 350.1.13.10 ity of [place] C[place].2.[place] [phone] Wi cristina ESPARZA 072 [facility] 2022-01-05 2022-01-05 Ancillary Dawna Bynum [facility] 1.2.84 0.114 [id number] Univers 16:00:00 16:50:10 Visit Dexter Lua 350.1.13.10 ity of [place].2.7.2.[place] [phone] Wi dical NAL 179 [facility] 2022-01-05 2022-01-05 Outpatient Lorenzo BILLINGSLEY, [facility] [id number] Univers 00:00:00 00:00:00 CARYN ity o f [facility] 2022-01-03 2022-01-03 Orders Doctor DANG 1.2.840.114 [id number] Univers 00:00:00 00:00:00 Only Unassigned, JAROCHO 350.1.13.10 ity of [place] [facility] 4.2.7.2.686 Anam as [id number] [address] 2021-12-29 2021-12-29 Outpatient R [facility] [id number] Univers 16:45:00 16:57:07 DEXTER reeves [facility] 2021-12-29 2021-12-29 Ancillary Dawna Bynum [facility] 1.2.84 0.114 [id number] Univers 16:45:00 16:57:07 Visit Dexter Lua 350.1.13.10 ity of [place].2.[place] [phone] Wi dical NAL 179 [facility] 2021-12-27 2021-12-27 Outpatient R STONEY [facility] [id number] Univers 16:00:00 16:46:40 DEXTER reeves [facility] 2021-12-27 2021-12-27 Ancillary Dawna Bynum [facility] 1.2.84 0.114 [id number] Univers 16:00:00 16:46:40 Visit Dexter Lua 350.1.13.10 ity [facility] 4.2.7.2.[place] [phone] Wi dical NAL 179 [facility] 2021-12-27 2021-12-27 Outpatient R STONEY [facility] [id number] Univers 16:00:00 16:00:00 DEXTER reeves [facility] 2021-12-25 2021-12-25 Emergency X Barbara CALHOUN [facility] ERT [id number] Univers 21:19:00 22:26:00 ity [facility] 2021-12-25 2021-12-25 Emergency Barbara [place] [facility] 1.2.840.114 [id number] Univers 21:19:00 22:26:00 Melva HANLEY 350.1.13.10 i ty of [place] 4.2.7.2.[place] [phone] [facility] [address] [place] 2021-12-25 2021-12-25 Urgent [facility] 1.2.840.114 [id number] Univers 17:20:00 17:40:[address] [facility] 350.1.13.10 it y of [place] 4.2.7.2.686 Anam as TRAE?BLEA [phone] Wi dical KNEY [address] [place] MEDICAL OFFICE BUILDING 2021-12-25 2021-12-25 Outpatient R HA [facility] [id number] Univers 17:20:00 17:20:00 NICOLE ity [facility] 2021-12-25 2021-12-25 Outpatient R GIA, [facility] [id number] Univers 14:00:00 14:00:00 ATTENDING ity [facility] 2021-12-25 2021-12-25 Nurse Anca Mendez 1.2.840.114 [id number] Univers 00:00:00 00:00:00 Triage JAROCHO 350.1.13.10 it y of HOSPITAL 4.2.7.2.[phone] [facility] [address] [place] 2021-12-22 2021-12-22 Ancillary Dawna Bynum [facility] 1.2.84 0.114 [id number] Univers 08:45:00 13:40:32 Visit Dexter Lua 350.1.13.10 ity of [place] 4.2.7.2.686 [place] [facility] [phone] Wi dical NAL [address] BU[address]ING 2021-12-22 2021-12-22 Orders Doctor DANG 1.2.840.114 [id number] Univers 00:00:00 00:00:00 Only Unassigned, JAROCHO 350.1.13.10 ity of [place] HOSPITAL 4.2.7.2.[phone] [facility] [address] 2021-12-15 2021-12-15 Office Jose [facility] 1.2.840.114 [id number] Univers 09:20:00 09:37:14 Visit Caryn DAYAN 350.1.13.10 ity of [facility] 4.2.7.2.[place] [phone] Wi cristina NAL 059 [facility] 2021-12-15 2021-12-15 Outpatient R JOSE CRUZ, [facility] [id number] Univers 09:20:00 09:37:14 QIAHERNANDEZ leandro o f [facility] 2021-12-15 2021-12-15 Outpatient R JOSE CRUZ, [facility] [id number] Univers 09:20:00 09:20:00 CARYN leandro o [facility] 2021-12-14 2021-12-14 Telephone [facility] 1.2.195.935 [id number] [facility] 00:00:00 00:00:00 Zulay Sotelo [facility] 350.1.13.10 ity of [facility] 4.2.7.2.[place] [phone] Wi cristina ESPARZA [address] [place] [address] 2021-12-13 2021-12-13 Outpatient R YEE WILCOX [facility] [id number] Univers 13:30:00 13:30:00 YEE WILCOX [facility] 2021-12-10 2021-12-10 Office [facility] 1.2.840.114 [id number] Univers 08:30:00 09:04:37 Visit Yee HANLEY 350.1.13.10 ity of [facility] 4.2.7.2.[place] [phone] Wi cristina ALEXANDER 044 [facility] 2021-12-10 2021-12-10 Outpatient R YEE WILCOX [facility] [id number] Univers 08:30:00 09:04:37 YEE WILCOX [facility] 2021-12-10 2021-12-10 Outpatient R YEE WILCOX [facility] [id number] Univers 08:30:00 08:30:00 YEE WILCOX [facility] 2021-12-08 2021-12-08 Outpatient R YEE WILCOX [facility] [id number] Univers 14:00:00 14:00:00 YEE WILCOX [facility] 2021-12-08 2021-12-08 Outpatient R STONEY [facility] [id number] Univers 10:15:00 10:15:00 [facility] 2021-12-08 2021-12-08 Outpatient R STONEY [facility] [id number] Univers 10:15:00 10:15:00 [facility] 2021-12-08 2021-12-08 Outpatient R STONEY [facility] [id number] Univers 10:15:00 10:15:00 [facility] 2021-12-08 2021-12-08 Outpatient R STONEY [facility] [id number] Univers 10:15:00 10:15:00 [facility] 2021-12-08 2021-12-08 Telephone Jeri [facility] 1.2.840.114 [id number] Univers 00:00:00 00:00:00 Ogjunior HANLEY 350.1.13.10 ity [facility] [place]2.7.2.[place] [phone] [address] 2021-12-03 2021-12-03 Outpatient R YEE WILCOX [facility] [id number] Univers 16:00:00 16:53:11 YEE WILCOX [facility] 2021-12-03 2021-12-03 Office [facility] 1.2.840.114 [id number] Univers 16:00:00 16:53:11 Visit Yee HANLEY 350.1.13.10 it[place].2.[place] [id number] [address] 2021-12-03 2021-12-03 Orders Doctor LEONG 1.2.840.114 [id number] Univers 00:00:00 00:00:00 Only Unassigned, JAROCHO 350.1.13.10 ity of [place] [facility] 4.2.7.2.[id number] [facility] [address] 2021-11-26 2021-11-26 Outpatient R YEE WILCOX [facility] [id number] Univers 11:30:00 11:30:00 YEE WILCOX ity [facility] 2021-11-12 2021-11-12 [facility] 1.2.840.114 [id number] Univers 16:16:49 23:59:00 Encounter Juice HANLEY 350.1.13.10 ity of [place].2.7.2.[place] [phone] [facility] [address] [place] 2021-11-12 2021-11-12 Outpatient R [facility] [id number] Univers 16:16:20 16:15:00 JUICE reeves [facility] 2021-11-12 2021-11-12 [facility] 1.2.840.114 [id number] Univers 16:15:00 16:15:00 Encounter Juice HANLEY 350.1.13.10 it[place] of [place].2.[place] [id number] [address] 2021-11-12 2021-11-12 [facility] 1.2.840.114 [id number] Univers 15:40:00 16:01:32 Visit Juice HANLEY 350.1.13.10 i ty [facility] 4.2.7.2.[place] [phone] Wi dical NAL [address] [place] BUILDING 2021-11-12 2021-11-12 Outpatient R [facility] [id number] Univers 15:40:00 16:01:32 JUICE itsara [facility] 2021-11-12 2021-11-12 Orders Doctor LEONG 1.2.840.114 [id number] Univers 00:00:00 00:00:00 Only Unassigned, JAROCHO 350.1.13.10 ity of [place] [facility] 4.2.7.2.[phone] [facility] [address] [place] 2021-10-26 2021-10-26 Outpatient R OPAL [facility] [id number] Univers 13:20:00 13:20:00 PETER ity [facility] 2021-10-25 2021-10-25 [facility] [id number] Univers 11:30:00 12:52:45 KAREN [facility] 2021-10-25 2021-10-25 Office [facility] 1.2.840.114 [id number] Univers 11:30:00 12:52:45 Visit Karen HANLEY 350.1.13.10 i ty of [place].2.7.2.[place] [phone] Wi dical NAL [address] [place] [address] 2021-10-25 2021-10-25 Outpatient [facility] [id number] Univers 11:30:00 12:52:45 KAREN [facility] 2021-10-25 2021-10-25 Patient Jeri [facility] 1.2.840.114 [id number] Univers 00:00:00 00:00:00 Secure Msg Alexcarina HANLEY 350.1.13.10 ity of [place].7.2.[place] [phone] Wi dical NAL 044 [facility] 2021-10-22 2021-10-22 Nurse DANG Hernadez 1.2.840.114 [id number] Univers 00:00:00 00:00:00 Triage Manishmelissa AVENDAÑO 350.1.13.10 ity of [facility] 4.2.7.2.[phone] [facility] [address] [place] 2021-10-22 2021-10-22 Telephone [facility] 1.2.840.114 [id number] Univers 00:00:00 00:00:00 Juice HANLEY 350.1.13.10 i ty of [place] 4.2.7.2.686 [place] [phone] Wi dical NAL [address] [place] [facility] 2021-10-21 2021-10-21 Outpatient R OPAL [facility] [id number] Univers 13:40:00 13:40:00 JUICE ity [facility] 2021-10-19 2021-10-19 Outpatient R [facility] [id number] Univers 10:30:00 10:30:00 KAREN ity [facility] 2021-10-16 2021-10-16 Nurse Anca Mendez 1.2.840.114 [id number] Univers 00:00:00 00:00:00 Triage JAROCHO 350.1.13.10 it y of HOSPITAL 4.2.7.2.686 Anam as [id number] [address] 2021-10-16 2021-10-16 Patient Doctor DANG 1.2.840.114 [id number] Univers 00:00:00 00:00:00 Secure Msg Unassigned, JAROCHO 350.1.13.10 ity of [place] [facility] 4.2.7.2.686 Anam as [phone] [address] 2021-10-14 2021-10-14 [facility], Ang - Db [facility] 1.2.840.1 14 [id number] Univers 12:15:00 12:30:00 Visit Qian [facility] 350.1.13.10 ity of [place] 4.2.7.2.686 Anam as TRAE?BLEA [phone] Wi cristina LIGHTTONIA [address] MEDICAL OFFICE BUILDING 2021-10-14 2021-10-14 Outpatient R QIAN [facility] [id number] Univers 12:15:00 12:15:00 KAREN ity [facility] 2021-10-14 2021-10-14 Outpatient R QIAN [facility] [id number] Univers 12:15:00 12:15:00 KAREN ity [facility] 2021-10-14 2021-10-14 Office [facility] 1.2.840.114 [id number] Univers 11:30:00 11:57:59 Visit Karen HEALTH 350.1.13.10 it y of [place] 4.2.7.2.686 Anam as TRAE?BLEA [id number] Wi dheerajle LIGHTEY [address] [place] MEDICAL OFFICE BUILDING 2021-10-14 2021-10-14 Outpatient R QIAN [facility] [id number] Univers 11:30:00 11:57:59 KAREN ity of [facility] 2021-10-07 2021-10-07 Outpatient R JOSE CRUZ [facility] [id number] Univers 11:18:55 23:59:00 CARYN reeves o f [facility] 2021-10-07 2021-10-07 Laboratory Only, Adc Test [facility] 1.2.840. 114 [id number] Univers 09:00:00 09:15:00 Only Caryn Billingsley 350.1.13.10 ity of [place]2.[place].2.[place] [id number] [facility] [address] [place] 2021-09-22 2021-09-22 Telephone Jose Cruz [facility] 1.2.075.389 [id number] Univers 00:00:00 00:00:00 Caryn HANLEY 350.1.13.10 ity of [place] 4.2.7.2.686 [place] [facility] [id number] Wi dheerajle BENJAMIN [address] [facility] 2021-09-20 2021-09-20 Nurse DANG Herrera 1.2.840.114 [id number] Univers 00:00:00 00:00:00 Triage Jaqueline AVENDAÑO 350.1.13.10 it y of [facility] 4.2.7.2.[phone] [facility] [address] [place] 2021-09-14 2021-09-14 Outpatient R YEE WILCOX [facility] [id number] Univers 13:30:00 13:30:00 YEE WILCOX [facility] 2021-09-13 2021-09-13 Outpatient R YEE WILCOX [facility] [id number] Univers 14:30:00 15:17:32 YEE WILCOX [facility] 2021-09-13 2021-09-13 Office Jeri [facility] 1.2.840.114 [id number] Univers 14:30:00 15:17:32 Visit Yee NATHROP 350.1.13.10 ity of [place].2.7.2.[place] [phone] Wi dical NAL 044 [facility] 2021-09-13 2021-09-13 Outpatient R ALEX WILCOXTrippFilemon [facility] [id number] Univers 14:30:00 14:30:00 YEE WILCOX ity [facility] 2021-09-10 2021-09-10 Refill [facility] 1.2.840.114 [id number] Univers 00:00:00 00:00:00 [facility] 350.1.13.10 i ty of [place] 4.2.7.2.686 Anam as TRAE?BLEA [phone] [facility] KNEY 370 [facility] OFFICE [facility] 2021-09-10 2021-09-10 Patient Jose [facility] 1.2.840.114 [id number] Univers 00:00:00 00:00:00 Secure Msg Caryn NATHROP 350.1.13.10 ity [facility] 4.2.7.2.[place] [id number] Wi dicla NAL 059 [facility] 2021-09-08 2021-09-08 Outpatient R JOSE CRUZ [facility] [id number] Univers 14:50:51 23:59:00 CARYN reeves o f [facility] 2021-09-08 2021-09-08 [facility] Cecelia [facility] 1.2.840.114 [id number] Univers 13:24:12 14:49:00 Encounter NATHROP 350.1.13.10 ity [place].2.7.2.[place] [address] [id number] [facility] [address] [place] 2021-09-08 2021-09-08 Outpatient R JANN IVY [facility] [id number] Univers 00:00:00 00:00:00 ity [facility] 2021-09-07 2021-09-07 Office [facility] 1.2.840.114 [id number] Univers 15:15:00 15:45:00 Visit [facility] 350.1.13.10 it y of [place] 4.2.7.2.686 Anam as TRAE?BLEA [phone] Wi cristina STERLING [address] [place] [address] OFFICE [facility] 2021-09-07 2021-09-07 Outpatient Lorenzo FORD [facility] [id number] Univers 15:15:00 15:32:49 KIRSTEN itsara [facility] 2021-09-07 2021-09-07 Outpatient Lorenzo [facility] [id number] Univers 15:15:00 15:15:00 [facility] 2021-09-07 2021-09-07 Outpatient Lorenzo [facility] [id number] Univers 15:15:00 15:15:00 [facility] 2021-09-07 2021-09-07 Letter [facility] 1.2.607.436 [id number] Univers 00:00:00 00:00:00 (Out) [facility] 350.1.13.10 it y [facility] 4.2.7.2.686 Anam as TRAE?BLEA [phone] Wi cristina STERLING [address] [place] [address] OFFICE [facility] 2021-09-06 2021-09-06 Outpatient Lorenzo BILLINGSLEY [facility] [id number] Univers 08:00:00 23:59:00 CARYN dunlap f [facility] 2021-09-06 2021-09-06 Office [facility] 1.2.840.114 [id number] Univers 13:00:00 13:15:00 Visit Meg LUKE 350.1.13.10 i ty [phone] [address] 2021-09-06 2021-09-06 Outpatient Lorenzo BONNER [facility] [id number] Univers 13:00:00 13:00:00 MEG reeves [facility] 2021-09-06 2021-09-06 Outpatient Lorenzo [facility] [id number] Univers 13:00:00 13:00:00 MEG moorey [facility] 2021-09-06 2021-09-06 Laboratory Only, Adc Test [facility] 1.2.840. 114 [id number] Univers 09:30:00 09:45:00 Only Caryn Billingsley 350.1.13.10 ity of [facility] [place].2.[place] [phone] [facility] [address] 2021-09-06 2021-09-06 Outpatient R JOSE CRUZ [facility] [id number] Univers 09:30:00 09:30:00 CARYN reeves o f [facility] 2021-09-05 2021-09-05 Emergency X [facility] ERT [id number] Univers 02:51:00 06:05:00 ERIN [facility] 2021-09-05 2021-09-05 Emergency [place], TRAU[place] 1.2.671.902 [id number] Univers 02:51:00 06:05:00 [facility] 350.1.13.10 ity [place]2.7.[place].[address] [place] [id number] [facility] [address] 2021-09-05 2021-09-05 Emergency X [facility] [id number] Univers 02:51:00 06:05:00 ERIN [facility] 2021-09-04 2021-09-04 Nurse DANG Herrera 1.2.840.114 [id number] Univers 00:00:00 00:00:00 Triage Jaquelinedulce maria AVENDAÑO 350.1.13.10 it y of [facility] 4.2.7.2.[id number] [facility] [address] 2021-09-01 2021-09-01 Telephone Jeri [facility] 1.2.840.114 [id number] Univers 00:00:00 00:00:00 Yee HANLEY 350.1.13.10 ity [facility] [place] [phone] Wi [address] 2021-08-31 2021-08-31 Outpatient R DORA [facility] [id number] Univers 12:30:00 12:30:00 ZULAY reeves [facility] 2021-08-31 2021-08-31 Office Jeri [facility] 1.2.840.114 [id number] Univers 11:30:00 12:16:29 Visit Yee HANLYE 350.1.13.10 ity [facility] [place] [phone] Wi dheerajle ALEXANDER [address] [place] [address] 2021-08-31 2021-08-31 Outpatient R YEE WILCOX [facility] [id number] Univers 11:30:00 12:16:29 JERIYEE ELI leandro [facility] 2021-08-31 2021-08-31 Outpatient R YEE WILCOX [facility] [id number] Univers 11:30:00 11:30:00 YEE WILCOX [facility] 2021-08-31 2021-08-31 Outpatient R DENICE LEONG [facility] [id number] Univers 10:00:00 10:00:00 ity [facility] 2021-08-31 2021-08-31 Telephone Denice Leong [facility] 1.2.840.114 [id number] Univers 00:00:00 00:00:00 Munir HANLEY 350.1.13.10 i ty [facility] [place] [phone] Wi dheerajle ALEXANDER 044 [facility] 2021-08-30 2021-08-30 Telephone Dora [facility] 1.2.208.857 [id number] Univers 00:00:00 00:00:00 Zulay Sotelo SPECIALTY 350.1.13.10 ity of [facility] [place] [phone] Wi dheerajle ESPARZA 072 [facility] 2021-08-27 2021-08-27 Emergency X RIDFORMERLY [facility], [facility], [facility] ERT [id number] Univers 20:48:00 22:50:00 SARINA it y [facility] 2021-08-27 2021-08-27 Emergency [place], [facility] 1.2.884.246 [id number] Univers 20:48:00 22:50:00 Sarina HANLEY 350.1.13.10 [place] [phone] [facility] [address] 2021-08-27 2021-08-27 Nurse DANG Nagel 1.2.840.114 [id number] Univers 00:00:00 00:00:00 Triage Romi AVENDAÑO 350.1.13.10 it y of [facility] 4.2.7.2.[phone] [facility] [address] [place] 2021-08-24 2021-08-24 [facility] 1.2.743.744 [id number] Univers 15:28:24 23:59:00 Encounter [facility] Healthcare 350.1.13.10 ity of [place] 4.2.7.2.686 Anam as TRAE?BLEA [phone] Wi cristina [place] [address] MEDICAL OFFICE [facility] 2021-08-24 2021-08-24 Outpatient R [facility] [id number] Univers 15:28:24 23:59:00 LUKE ity o f [facility] 2021-08-24 2021-08-24 [facility] 1.2.840.114 [id number] Univers 15:20:00 15:36:34 Care [facility] 350.1.13.10 i ty of [place] 4.2.7.2.686 Anam as TRAE?BLEA [phone] [facility] [address] MEDICAL OFFICE [facility] 2021-08-24 2021-08-24 Outpatient R [facility] [id number] Univers 15:20:00 15:36:34 LUKE ity o f [facility] 2021-08-24 2021-08-24 Outpatient R DENICE LEONG [facility] [id number] Univers 15:30:00 15:30:00 ity of [facility] 2021-08-24 2021-08-24 Outpatient R [facility] [id number] Univers 15:28:24 15:28:24 LUKE ity o f [facility] 2021-08-23 2021-08-23 Dipper Fish Draw, Clc-Bls Lab RIMB 1.2.8 40.114 [id number] Univers 15:30:00 15:45:00 Visit Jann Ivy 350.1.13.10 it[place] [phone] [address] OFFICE BUILDING 2021-08-23 2021-08-23 Dipper Fish Draw, Clc-Bls Lab RIMB 1.2.8 40.114 [id number] Univers 15:30:00 15:45:00 Visit Jann Ivy [facility] 350.1.13.10 it[place] [phone] [address] OFFICE BUILDING 2021-08-23 2021-08-23 Outpatient R JANN IVY [facility] [id number] Univers 14:30:00 15:15:53 ity of [facility] 2021-08-23 2021-08-23 Office Triston Carranza [facility] 1.2 .840.114 [id number] Univers 14:30:00 15:15:53 [facility] 350.1.13.10 [place] [phone] [address] OFFICE BUILDING 2021-08-23 2021-08-23 Outpatient R JANN IVY [facility] [id number] Univers 14:30:00 15:15:53 ity of [facility] 2021-08-23 2021-08-23 Outpatient R [facility] [id number] Univers 14:30:00 14:30:00 ity of [facility] 2021-08-23 2021-08-23 Orders Doctor DANG 1.2.840.114 [id number] Univers 00:00:00 00:00:00 Only Unassigned, JAROCHO 350.1.13.10 ity of [place] [facility] 4.2.7.2.686 Anam as [phone] [address] 2021-08-23 2021-08-23 Telephone Denice Leong [facility] 1.2.840.114 [id number] Univers 00:00:00 00:00:00 Amaral HEALTH 350.1.13.10 it y of [place]IC[place] [phone] Med ical [address] 2021-08-23 2021-08-23 Orders Doctor DANG 1.2.840.114 [id number] Univers 00:00:00 00:00:00 Only Unassigned, JAROCHO 350.1.13.10 ity of [facility] 4.2.7.2.686 Anam as [phone] [address] 2021-08-18 2021-08-18 Outpatient R [facility] [id number] Univers 10:00:00 10:07:16 CARYN reeves o [facility] 2021-08-18 2021-08-18 Office [facility] 1.2.840.114 [id number] Univers 10:00:00 10:07:16 Visit Charlisimóndiandra [place] 350.1.13.10 ity of [place] [phone] Wi dical NAL [address] [place] [address] 2021-08-18 2021-08-18 Outpatient [facility] [id number] Univers 10:00:00 10:07:16 CARYN reeves o [facility] 2021-08-18 2021-08-18 Office [facility] 1.2.840.114 [id number] Univers 10:00:00 10:07:16 Visit [facility] 350.1.13.10 ity of [place] [phone] Wi dical NAL [address] [place] [address] 2021-08-18 2021-08-18 Outpatient R [facility] [id number] Univers 10:00:00 10:07:16 CARYN reeves o [facility] 2021-08-18 2021-08-18 Telephone Denice Leong [facility] 1.2.840.114 [id number] Univers 00:00:00 00:00:00 Amaral HEALTH 350.1.13.10 it y of [place] [phone] Med ical VANE [address] [place] [address] 2021-08-18 2021-08-18 Telephone Denice Leong [facility] 1.2.840.114 [id number] Univers 00:00:00 00:00:00 Amaral [employer] 350.1.13.10 it y of [place] [phone] Med [address] 2021-08-16 2021-08-16 Outpatient Lorenzo FRAUSTO [facility] [id number] Univers 20:15:00 20:15:00 AMRITA [facility] 2021-08-15 2021-08-15 Nurse DANG Nagel 1.2.840.114 [id number] Univers 00:00:00 00:00:00 Triage Romi JAROCHO 350.1.13.10 it y of [facility] 4.2.7.2.686 Anam as [id number] [address] 2021-08-14 2021-08-14 Emergency X [facility] ERT [id number] Univers 19:38:00 23:15:00 [facility] 2021-08-14 2021-08-14 Emergency X [facility] ERT [id number] Univers 19:38:00 23:15:00 [facility] 2021-08-14 2021-08-14 [facility] 1.2.142.624 [id number] Univers 19:38:00 23:15:00 [facility] 350.1.13.10 ity of [place] [phone] [facility] [address] 2021-08-14 2021-08-14 Patient Doctor DANG 1.2.840.114 [id number] Univers 00:00:00 00:00:00 Secure Msg UnassignedJAROCHO 350.1.13.10 ity of [facility] 4.2.7.2.686 Anam as [phone] [address] 2021-08-14 2021-08-14 Orders Doctor DANG 1.2.840.114 [id number] Univers 00:00:00 00:00:00 Only Unassigned, JAROCHO 350.1.13.10 ity of [facility] 4.2.7.2.[phone] [facility] [address] 2021-07-02 2021-07-02 Outpatient R ALFIE [facility] [id number] Univers 08:50:00 08:50:00 [facility] 2021-07-02 2021-07-02 Outpatient R ALFIE [facility] [id number] Univers 08:50:00 08:50:00 [facility] 2021-06-28 2021-06-28 Outpatient R JETT [facility] [id number] Univers 14:15:00 14:15:00 AMRITA [facility] 2021-06-28 2021-06-28 Office Ha [facility] 1.2.840.114 [id number] Univers 10:00:00 10:03:58 Visit Meg BUTLER 350.1.13.10 i ty [facility] 4.2.7.2.[phone] [facility] [address] 2021-06-28 2021-06-28 Outpatient Lorenzo BONNER [facility] [id number] Univers 10:00:00 10:03:58 MEG [facility] 2021-06-28 2021-06-28 Ancillary Susannah Newton [facility] 1.2 .840.114 [id number] Univers 09:00:00 09:45:00 Visit Meg Bonner 350.1.13.10 ity [facility] 4.2.7.2.[phone] [facility] [address] 2021-06-28 2021-06-28 Outpatient R HA [facility] [id number] Univers 09:00:00 09:00:00 MEG [facility] 2021-06-28 2021-06-28 Lelo LEONG 1.2.840.114 [id number] Univers 00:00:00 00:00:00 Only Unassigned, JAROCHO 350.1.13.10 ity of [facility] 4.2.7.2.686 Anam as [phone] [address] 2021-06-16 2021-06-16 Outpatient DENICE ROCA [facility] [id number] Univers 10:48:35 23:59:00 ity [facility] 2021-06-16 2021-06-16 Hospital Sharron Leongan [facility] 1.2.840.114 [id number] Univers 10:48:35 23:59:00 Encounter Amaral [facility] 350.1.13.10 ity of [facility] [place]2.7.2.[place] AT [phone] Wi dical VICTORY 807 [facility] 2021-06-16 2021-06-16 Outpatient DENICE ROCA [facility] [id number] Univers 13:30:00 13:30:00 ity of [facility] 2021-06-16 2021-06-16 Outpatient DENICE ROCA [facility] [id number] Univers 10:48:35 10:48:35 ity [facility] 2021-06-16 2021-06-16 Office Sharron Leongan [facility] 1.2.840.114 [id number] Univers 10:30:00 10:36:17 Visit [facility] 350.1.13.10 it y of [place] [phone] Med ical VANE 044 [facility] 2021-06-11 2021-06-11 Outpatient Lorenzo MORRELL [facility] [id number] Univers 13:30:00 13:30:00 JAMES reeves [facility] 2021-06-11 2021-06-11 Imm/Inj Nurse, Adc Pob Immunization [facility] 1.2.840.114 [id number] Univers 13:30:00 13:30:00 Visit James Morrell 350.1.13 .10 ity of [place] [phone] Wi dical NAL 421 [facility] 2021-06-11 2021-06-11 Outpatient DENICE ROCA [facility] [id number] Univers 08:00:00 08:00:[facility]-09 2021-06-09 Outpatient R DENICE LEONG [facility] [id number] Univers 09:30:00 09:30:00 ity [facility] 2021-06-03 2021-06-03 Telephone Denice Leong [facility] 1.2.840.114 [id number] Univers 00:00:00 00:00:00 [facility] 350.1.13.10 it y [place] [facility] [phone] Med ica[address] 2021-06-02 2021-06-02 Outpatient R PABLO [facility] [id number] Univers 09:00:00 09:00:00 SHAUN sara [facility] 2021-06-01 2021-06-01 Telemedici [facility] 1.2.840.114 [id number] Univers 13:30:00 14:00:00 ne Visit Zulay Sotelo SPECIALTY 350.1.13.10 it[place] of [place] AT [phone] Wi cristina [address] 2021-06-01 2021-06-01 Telemedici [facility] 1.2.840.114 [id number] Univers 13:30:00 14:00:00 ne Visit Zulay Sotelo SPECIALTY 350.1.13.10 it[place] [phone] Wi cristina [address] 2021-06-01 2021-06-01 Outpatient R DORA [facility] [id number] Univers 13:30:00 13:30:00 ZULAY reeves [facility] 2021-06-01 2021-06-01 Outpatient R DORA [facility] [id number] Univers 13:30:00 13:30:00 ZULAY reeves [facility] 2021-05-31 2021-05-31 Emergency MCSETXm MCSETXm [id number] MCSETXm 13:32:00 13:32:00 42 2021-05-29 2021-05-29 Emergency X RODRIGO MILLAN [facility] ERT [id number] Univers 20:57:00 22:20:00 RODRIGO MILLAN sara [facility] 2021-05-29 2021-05-29 Emergency X RODRIGO MILLAN [facility] ERT [id number] Univers 20:57:00 22:20:00 RODRIGO MILLAN [facility] 2021-05-29 2021-05-29 Emergency Uriah [facility] 1.2.891.937 [id number] Univers 20:57:00 22:20:00 [facility] 350.1.13.10 it [place] [phone] [facility] [address] ([facility]) 2021-05-29 2021-05-29 Nurse DANG Saxena 1.2.840.114 [id number] Univers 00:00:00 00:00:00 Triage Akilah AVENDAÑO 350.1.13.10 ity [facility] 4.2.7.2.[phone] [facility] [address] 2021-05-04 2021-05-04 Outpatient R DORA [facility] [id number] Univers 15:00:00 15:00:00 ZULAY oscarsara [facility] 2021-05-04 2021-05-04 Office Dora [facility] 1.2.840.114 [id number] Univers 14:20:14 14:50:14 Visit Zulay MCCALL 350.1.13.10 ity of [place] AT [phone] Wi cristina ESPARZA [address] [place] 2021-04-26 2021-04-26 Office Ha [facility] 1.2.840.114 [id number] Univers 10:22:15 11:15:09 Visit Meg BUTLER 350.1.13.10 i ty of [facility] 4.2.7.2.[phone] [facility] [address] 2021-04-26 2021-04-26 Outpatient R SOLOMON [facility] [id number] Univers 10:30:00 10:30:00 BRIANA [facility] 2021-04-24 2021-04-24 Emergency ER SETH DAVEY [id number] CHRIST 19:48:00 23:25:00 HEBER Park [facility] 2021-04-19 2021-04-19 Misael [facility] 1.2.878.755 [id number] Univers 00:00:00 00:00:00 Zulay [facility] 350.1.13.10 ity of [place] AT [phone] Wi dicle VICTORY 072 [facility] 2021-02-16 2021-02-16 Out[facility] [id number] Univers 13:00:00 13:00:00 ZULAY sara [facility] 2021-02-16 2021-02-16 Letter DANG Villanueva 1.2.840.114 [id number] Univers 00:00:00 00:00:00 (Out) Beatrice AVENDAÑO 350.1.13.10 it y of [facility] 4.2.7.2.686 Anam as [id number] [address] 2021-02-15 2021-02-15 Laboratory Only, Pcp Test [facility] 1.2.840. 114 [id number] Univers 14:46:16 15:01:16 Only Brendan Felder [facility] 350.1.13.10 ity of [place].2.[place] [facility] [phone] Wi dical [address] 2021-02-15 2021-02-15 Outpatient Lorenzo [facility] [id number] Univers 07:30:00 07:30:00 BRENDAN reeves [facility] 2021-02-11 2021-02-11 Letter DANG Hernadez 1.2.840.114 [id number] Univers 00:00:00 00:00:00 (Out) Vick AVENDAÑO 350.1.13.10 ity of [facility] 4.2.7.2.686 Anam as [phone] [address] 2021-02-10 2021-02-10 Outpatient R LOGAN [facility] [id number] Univers 15:00:00 15:00:00 KIRSTEN sara [facility] 2021-02-10 2021-02-10 Outpatient R EMERITA [facility] [id number] Univers 14:30:00 14:30:00 BRENDAN reeves [facility] 2021-02-10 2021-02-10 Laboratory Only, Pcp Test [facility] 1.2.840. 114 [id number] Univers 14:13:34 14:28:34 Only Emerita Brendan [facility] 350.1.13.10 ity of [facility] 4.2.7.2.[place] [phone] [address] 2021-02-09 2021-02-10 Departed ALFRED Bernal [id number] CHRISTU 21:23:00 00:52:00 Emergency [facility] 38 [facility] 2021-02-09 2021-02-10 Departed SETH ANN [id number] [place]U 21:23:00 00:52:[address] [place] [address] 2021-02-05 2021-02-05 Letter DANG Villanueva 1.2.840.114 [id number] Univers 00:00:00 00:00:00 (Out) Beatrice AVENDAÑO 350.1.13.10 it y of HOSPITAL 4.2.7.2.[id number] [facility] [address] 2021-02-03 2021-02-04 Emergency [facility] 1.2.840.114 [id number] Univers 22:34:00 01:12:00 [facility] 350.1.13.10 i ty of [place].2.[place] Chan [id number] [facility] 014 Branch ([facility]) 2021-02-03 2021-02-03 Outpatient Lorenzo NIELSEN [facility] [id number] Univers 14:40:00 14:40:00 ATTENDING ity [facility] 2021-02-03 2021-02-03 Emergency MAYTE MARCELO [id number] Faith 14:06:00 14:06:00 [facility] 2021-02-03 2021-02-03 Letter MariaDANG resendez 1.2.771.002 [id number] Univers 00:00:00 00:00:00 (Out) Renard AVENDAÑO 350.1.13.10 it y of HOSPITAL 4.2.7.2.[id number] [facility] [address] 2021-02-03 2021-02-03 Nurse MariaDANG 1.2.514.422 [id number] Univers 00:00:00 00:00:00 Triage Renard AVENDAÑO 350.1.13.10 it y of HOSPITAL 4.2.7.2.686 Anam as [id number] [address] 2021-02-02 2021-02-02 Laboratory Only, Web Test [facility] 1.2.840. 114 [id number] Univers 17:56:45 18:11:45 [facility] 350.1.13.10 ity of Specialty 4.2.7.2.686 [place] [facility] - [id number] [place] [address] [address] 2021-02-02 2021-02-02 Outpatient Lorenzo FELDER [facility] [id number] Univers 17:45:00 17:45:00 [facility] 2021-02-02 2021-02-02 Departed ALFRED ANN [id number] CHRISTU 09:52:00 09:52:[address] 04 [facility] PER Room [place] 2021-02-02 2021-02-02 Departed SETH ANN [id number] CHRISTU 09:14:00 09:52:00 Emergency 04 S [facility] 2021-01-31 2021-01-31 Departed ALFRED ANN [id number] CHRI[place]U 16:49:00 17:47:00 Emergency ASPER [place] 09 SJA SPER Room 2021-01-31 2021-01-31 Departed ER UNASSIGNED, SETH ANN AM0 [id number] CHRISTU 16:49:00 16:49:00 Emergency ED 09 S [facility] 2021-01-26 2021-01-26 Outpatient Lorenzo JOHN [facility] [id number] Univers 16:00:00 16:00:00 ZULAY [facility] 2021-01-25 2021-01-25 Outpatient R [facility] [id number] Univers 08:00:00 08:00:00 [facility] 2021-01-20 2021-01-20 Departed ALFRED ANN [id number] [place] 16:57:00 20:01:[address] 50 SJAS PER Room [place] 2021-01-20 2021-01-20 Departed SETH ANN [id number] CHRISTU 16:34:00 20:01:00 Emergency 50 S Room [facility] 2021-01-16 2021-01-16 Emergency [id number] Faith 02:54:22 02:54:22 Hospit a l ([place]) 2021-01-12 2021-01-12 Out[facility] [id number] Univers 13:00:00 13:00:00 [facility] 2021-01-08 2021-01-08 Outpatient R [facility] [id number] Univers 13:10:00 13:10:00 [facility] 2021-01-01 2021-01-01 Outpatient Lorenzo [facility] [id number] Univers 12:50:00 12:50:00 [facility] 2020-12-20 2020-12-20 Emergency SHAUN SHAH QER [id number] Faith 00:42:00 00:42:00 Hospit a l ([place]) 2020-11-20 2020-11-20 Departed ISH ANN [id number] CHRISTU 10:54:00 14:45:00 Emergency TMARY [place] 06 [facility] LATESHA Room 2020-11-20 2020-11-20 Departed ER UNASSIGNED, SETH ANN AM0 [id number] CHRISTU 10:54:00 10:54:00 Emergency ED 06 S [facility] 2020-11-17 2020-11-17 Outpatient Lorenzo [facility] [id number] Univers 15:30:00 15:30:00 ZULAY [facility] 2020-11-15 2020-11-15 Emergency GREYSONMAYTE QER [id number] Faith 09:45:00 09:45:00 DARSHAVON Hospi ta l ([place]) 2020-09-29 2020-09-29 Outpatient R DORA [facility] [id number] Univers 15:30:00 15:30:00 [facility] 2020-09-07 2020-09-07 Outpatient R FLORTONY [facility] [id number] Univers 14:00:00 14:00:00 [facility] 2020-09-02 2020-09-02 Outpatient R REYNA [facility] [id number] Univers 10:15:00 10:15:00 [facility] 2020-09-01 2020-09-01 Outpatient [facility] [id number] Univers 13:00:00 13:00:00 [facility] 2020-08-20 2020-08-20 Outpatient R DANG DENICE [facility] [id number] Univers 16:00:00 16:00:00 [facility] 2020-07-01 2020-07-01 Outpatient R REYNA [facility] [id number] Univers 09:00:00 09:00:00 [facility] 2020-07-01 2020-07-01 Telephone Motility, [facility] 1.2.840.114 [id number] 00:00:00 00:00:00 Endoscopy ICAL 350.1.13.10 SCIENCES 4.2.7.2.686 BL [id number] 020 2020-05-25 2020-05-25 Outpatient R KWESI [facility] [id number] Univers 09:00:00 09:00:00 RAFAEL reeves o f [facility] 2020-05-14 2020-05-14 Outpatient R MARINO [facility] [id number] Univers 13:30:00 13:30:00 RYAN [facility] 2020-04-29 2020-04-29 Outpatient [facility] [id number] Univers 11:15:00 11:15:00 ROQUE reeves [facility] 2020-04-29 2020-04-29 Telemedicralph TOD Blake 1.2.840.114 [id number] 09:41:38 09:56:38 ne Visit Roque Jacob 350.1.13.10 [facility] 4.2.7.2.686 [facility] [id number] BLDG. 144 2020-04-28 2020-04-28 Outpatient [facility] [id number] Univers 14:30:00 14:30:00 ZULAY reeves [facility] 2020-04-28 2020-04-28 Telemedici [facility] 1.2.840.114 [id number] 08:55:50 09:25:50 ne Visit Zulay Deepak [facility] 350.1.13.10 [facility] 4.2.7.2.686 [place] AT [phone] DEBRASara [address] [place] [address] 2020-04-28 2020-04-28 Telephone Denice Leong [facility] 1.2.840.114 [id number] 00:00:00 00:00:00 Amaral HEALTH 350.1.13.10 FAMILY 4.2.7.2.686 MEDICINE [id number] [address] 044 CLINIC 2020-04-22 2020-04-22 Telephone Dang Denice [facility] 1.2.840.114 [id number] 00:00:00 00:00:00 Amaral HEALTH 350.1.13.10 FAMILY 4.2.7.2.686 MEDICINE [id number] VANE 044 CLINIC 2020-04-21 2020-04-21 Orders Doctor DANG 1.2.840.114 [id number] 00:00:00 00:00:00 Only Unassigned, JAROCHO 350.1.13.10 [place] [facility] 4.2.7.2.686 [id number] 009 2020-04-17 2020-04-17 Telephone Dang Denice [facility] 1.2.840.114 [id number] 00:00:00 00:00:00 Amaral HEALTH 350.1.13.10 FAMILY 4.2.7.2.686 MEDICINE [id number] VANE 044 CLINIC 2020-04-16 2020-04-16 Hospital [facility] 1.2.840.114 [id number] 07:44:00 11:34:00 Encounter Zulay ANN 350.1.13.10 SCIENCES 4.2.7.2.686 BL [id number] 020 2020-04-16 2020-04-16 Orders Doctor DANG 1.2.840.114 [id number] 00:00:00 00:00:00 Only Unassigned, JAROCHO 350.1.13.10 [place] [facility] 4.2.7.2.686 [id number] 009 2020-04-15 2020-04-15 Outpatient R LOU [facility] [id number] Univers 16:15:00 16:15:00 [facility] 2020-04-15 2020-04-15 Outpatient R LOU [facility] [id number] Univers 10:00:00 10:00:00 [facility] 2020-04-14 2020-04-14 Hospital Dang Denice [facility] 1.2.840.114 [id number] 16:03:35 23:59:00 Encounter [facility] [id number] Clear 4.2.7.2.686 Chan [id number] Hospital 801 ([facility]) 2020-04-14 2020-04-14 Dipper Fish Vls-Lab [facility] 1.2.840.114 [id number] 12:20:36 12:35:36 Visit SPECIALTY [id number] CARE 4.2.7.2.686 CENTER AT [id number] ISAIAS LOZADA 2020-04-14 2020-04-14 Outpatient R FLOR MAGAÑA [facility] [id number] Univers 12:30:00 12:30:00 [facility] 2020-04-09 2020-04-09 Office Dang Denice [facility] 1.2.840.114 [id number] 13:36:27 14:33:50 Visit [facility] [id number] FAMILY 4.2.7.2.686 MEDICINE [id number] [facility] 044 [facility]INIC 2020-04-09 2020-04-09 Outpatient R DENICE LEONG [facility] [id number] Univers 13:40:00 13:40:00 leandro [facility] 2020-04-07 2020-04-07 Outpatient R SHALINI [facility] [id number] Univers 15:40:00 15:40:00 HANNAH sara [facility] 2020-04-07 2020-04-07 Outpatient R DORA [facility] [id number] Univers 14:30:00 14:30:00 ZULAY [facility] 2020-04-06 2020-04-06 Orders Doctor LEONG 1.2.840.114 [id number] 00:00:00 00:00:00 Only Unassigned, JAROCHO [id number] [place] [facility] 4.2.7.2.686 [id number] 2020-04-02 2020-04-02 Outpatient R MARINO [facility] [id number] Univers 14:15:00 14:15:00 RYAN [facility] 2020-03-31 2020-03-31 Outpatient R DANIELLAALFREDO [facility] [id number] Univers 11:00:00 11:00:00 MAIMelissa sara [facility] 2020-03-30 2020-03-30 Outpatient R TOM, [facility] ACO [id number] Univers 00:00:00 00:00:00 KARISSA [facility] 2020-03-27 2020-03-27 Outpatient R JEROME [facility] [id number] Univers 20:00:00 20:00:00 EDNA [facility] 2020-03-26 2020-03-26 Outpatient R LOU [facility] [id number] Univers 09:45:00 09:45:00 ROQUE [facility] 2020-03-25 2020-03-25 Outpatient R LOU [facility] [id number] Univers 10:15:00 10:15:00 ROQUE [facility] 2020-03-24 2020-03-24 Outpatient R DORA [facility] [id number] Univers 13:30:00 13:30:00 ZULAY [facility] 2020-03-23 2020-03-23 Outpatient R DENICE LEONG [facility] [id number] Univers 08:00:00 08:00:00 leandro [facility] 2020-03-16 2020-03-16 Outpatient R LOU [facility] [id number] Univers 10:00:00 10:00:00 TRINA reeves [facility] 2020-03-12 2020-03-12 Outpatient R MARINO [facility] [id number] Univers 14:00:00 14:00:00 EDWARD leandro [facility] 2020-03-10 2020-03-10 Outpatient R [facility] [id number] Univers 16:00:00 16:00:00 HANNAH reeves [facility] 2020-02-28 2020-02-28 Outpatient R [facility] [id number] Univers 09:40:00 09:40:00 HANNAH sara [facility] 2020-02-17 2020-02-17 Departed ISH ANN [id number] [facility] 18:27:00 19:19:[address] [facility] 2020-02-17 Departed ER UNASSIGNED, SETH ANN AE0 [id number] [facility] 18:27:00 18:27:00 Emergency ED [address] [facility] 2020-01-22 2020-01-22 Office ANNETTA Black 1.2.840.114 [id number] 12:04:28 14:13:09 Visit Ezequiel AMBULATOR 350.1.13.21 Seth Y 0.2.7.2.686 [id number] 800 2020-01-22 2020-01-22 Office ANNETTA Black 1.2.840.[id number] [place] [address] 12:04:28 14:13:09 Visit Zeequiel AMBULATOR 350.1.13.21 [place] Seth Y 0.2.7.2.686 of [id number] [facility] 800 e 2020-01-20 2020-01-20 Outpatient 3 MAYTE GIRARD [id number] Faith 08:54:00 08:54:00 [facility]AN [facility] 2019-12-31 2019-12-31 Emergency HODEBRA QER [id number] [facility] 19:48:00 19:48:00 [facility] ([place] 2019-12-25 2019-12-25 Departed ISH ANN [id number] [place] 18:02:00 22:07:[address] [facility] LIVE [facility] 2019-12-25 2019-12-25 Departed SETH ANN [id number] [facility] 18:02:00 22:07:00 Emergency [facility] [address] [facility] 2019-12-25 2019-12-25 Emergency GREYSON, SSET QER [id number] Faith 02:17:00 02:17:00 DARRELLA Hos[facility] 2019-12-05 2019-12-05 Outpatient [facility] [id number] Univers 13:00:00 13:00:[facility] Lorenzo [facility] [id number] Univers 09:35:51 09:35:00 EDWARD [facility] 2019-10-22 2019-10-22 Outpatient Lorenzo [facility] [id number] Univers 13:00:00 13:00:00 HANNAH [facility] 2019-10-22 2019-10-22 Outpatient Lorenzo [facility] [id number] Univers 09:15:00 09:15:00 EDWARD [facility] 2019-10-21 2019-10-21 Office ANNETTA Black 1.2.840.114 [id number] 11:25:23 11:40:23 Visit Ezequiel AMBULATOR 350.1.13.21 Seth Y 0.2.7.2.686 [id number] 800 2019-10-21 2019-10-21 Office ANNETTA Black 1.2.840.114 [id number] 11:25:23 11:40:23 Visit Ezequiel AMBULATOR 350.1.13.21 [place] Seth Y 0.2.7.2.686 of [id number] [facility] 800 e 2019-10-07 2019-10-07 Outpatient Lorenzo [facility] [id number] Univers 14:00:00 14:00:00 [facility] 2019-09-13 2019-09-13 Outpatient Lorenzo SAXENA [facility] [id number] Univers 15:00:00 15:00:00 [facility] 2019-08-22 2019-08-22 Outpatient Lorenzo [facility] [id number] Univers 14:15:00 14:15:00 EDPETRA [facility] 2019-08-19 2019-08-19 Emergency 1 Reji Ruiz MCSETX PATSY [id number] Medical 15:23:00 15:23:00 Reji Ruiz -[id number] [facility] 2019-08-19 2019-08-19 Emergency MCSETX PATSY [id number] Medical 15:23:00 15:23:00 [facility] 2019-07-30 2019-07-30 Outpatient Lorenzo [facility] [id number] Univers 13:00:00 13:00:00 [facility] 2019-07-25 2019-07-25 Outpatient Lorenzo [facility] [id number] Univers 11:00:00 12:13:28 [facility] 2019-06-25 2019-06-25 Outpatient 3 MAYTE GIRARD END [id number] Faith 10:28:00 10:28:00 BASHAR Hospit a l ([facility]) 2019-04-30 2019-04-30 Emergency 1 Elmer Freeman MCSETX PATSY [id number] Medical 19:15:00 20:27:00 Elmer Freeman [facility] 2019-04-25 2019-04-25 Departed ISH ANN [id number] [facility] 11:11:00 13:36:00 Emergency [facility] [address] [facility] LIVE HCIS 2019-04-25 2019-04-25 Departed ER SETH ALICEA [id number] [facility] 11:11:00 13:36:[address] 2018-10-24 2018-10-25 Emergency ER SETH JAMES AE0 [id number] [facility] 23:15:00 00:38:[address] 2018-09-26 2018-09-26 Outpatient SETH CH [id number] [facility] 11:10:00 11:10:[address] 2018-01-16 2018-01-16 Outpatient MYAH Monte [id number] 1 [facility] 13:12:00 13:12:00 [facility] Results Test Description Test Time Test Comments Results Result Comments Source COMP. METABOLIC PANEL (76866) 2022-06-26 00:38:06 Test Item Value Reference Range Interpretation Comme nts NA (test code = 4602789703) 139 mmol/L 135-145 K (test code = 7653517271) 4.0 mmol/L 3.5-5.0 CL (test code = 7821637042) 104 mmol/L 98-108 CO2 TOTAL (test code = 28 mmol/L 23-31 0196290793) AGAP (test code = 0660842860) 2-16 BUN (test code = 6360553268) 13 mg/dL 7-23 GLUCOSE (test code = 4746604929) 100 mg/dL 70-110 CREATININE (test code = 0.83 mg/dL 0.60-1.25 5919986048) TOTAL BILI (test code = 0.5 mg/dL 0.1-1.8 2345738017) CALCIUM (test code = 7585728768) 8.7 mg/dL 8.6-10.6 T PROTEIN (test code = 6.6 g/dL 6.3-8.2 7408117811) ALBUMIN (test code = 3842583525) 4.1 g/dL 3.5-5.0 ALK PHOS (test code = 8219303889) 76 U/L 34-122 ALTv (test code = 1742-6) 19 U/L 5-50 AST(SGOT) (test code = 23 U/L 13-40 3020583794) eGFR (test code = 2357713967) mL/min/1.73m2 AMOL (test code = AMOL) Association of Glomerular Filtration Rate (GFR) and Staging of Kidney Disease* + +--------- + ----+| GFR (mL/min/1.73 m2) ?| With Kidney Damage ?| ?Without Kidney Damage+ +--- + +| ?>90 ?| ?Stage one ?| ? Normal ?+ +-------- + -----+| ?60-89 ?| ?Stage two ?| ? Decreased GFR ? + +--------- + ----+| ?30-59 ?| ?Stage three ?| ? Stage three ? + +--------- + ----+| ?15-29 ?| ?Stage four ? | ? Stage four ?+ +-------- + -----+| ?<15 (or dialysis) ? ?| ?Stage five ? | ? Stage five ?+ +-------- + -----+ *Each stage assumes the associated GFR level has been in effect for at least three months. ?Stages 1 to 5, with or without kidney disease, indicate chronic kidney disease. Notes: Determination of stages one and two (with eGFR >59mL/min/1.73 m2) requires estimation of kidney damage for at least three months as defined by structural or functional abnormalities of the kidney, manifested by either:Pathological abnormalities or Markers of kidney damage (including abnormalities in the composition of the blood or urine or abnormalities in imaging tests). [facility] Test Item Value Reference Range Interpretation Comments LIPASE (test code = 7239535253) 54 U/L 0-220 Lab Interpretation (test code = Normal 03401-5) [facility] [id number] 00:19:04 Test Item Value Reference Range Interpretation Comments WBC (test code = See_Comment [Automated 2502-2) message] The sy stem which generated this result transmitted reference range : 4.20 - 10.70 10*3/?L. The reference range was not used to interpret this result as normal/abnormal . RBC (test code = See_Comment [Automated 543-8) message] The sy stem which generated this result transmitted reference range : 4.26 - 5.52 10*6/?L. The reference range was not used to interpret this result as normal/abnormal . HGB (test code = 13.9 g/dL 12.2-16.4 718-7) HCT (test code = 39.3 % 38.4-49.3 4544-3) MCV (test code = 84.3 fL 81.7-95.6 787-2) MCH (test code = 29.8 pg 26.1-32.7 785-6) MCHC (test code = 35.4 g/dL 31.2-35.0 H 786-4) RDW-SD (test code = 34.8 fL 38.5-51.6 L 43312-9) RDW-CV (test code = 11.4 % 12.1-15.4 L 788-0) PLT (test code = See_Comment H [Automated 777-3) message] The sy stem which generated this result transmitted reference range : 150 - 328 10*3/ ?L. The reference r marilia was not used to interpret this result as normal/abnormal . MPV (test code = 9.0 fL 9.8-13.0 L 21588-0) NRBC/100 WBC (test See_Comment [Automat ed code = 8364644252) message] The system which generated this result transmitted reference range : 0.0 - 10.0 /100 WBCs. The refer ence range was not u sed to interpret th is result as normal/abnormal . NRBC x10^3 (test code See_Comment [Auto mated = 5917271831) message] The s ystem which generated this result transmitted reference range : 10*3/?L. The reference range was not used to interpret this result as normal/abnormal . GRAN MAT (NEUT) % 54.1 % (test code = 770-8) IMM GRAN % (test code 0.40 % = 2897973702) LYMPH % (test code = 28.2 % 736-9) MONO % (test code = 13.5 % 5905-5) EOS % (test code = 3.4 % 713-8) BASO % (test code = 0.4 % 706-2) GRAN MAT x10^3(ANC) 3.87 10*3/uL 1.99-6.95 (test code = 2633083772) IMM GRAN x10^3 (test 0.03 10*3/uL 0.00-0.06 code = 8056763104) LYMPH x10^3 (test code 2.02 10*3/uL 1.09-3.23 = 731-0) MONO x10^3 (test code 0.97 10*3/uL 0.36-1.02 = 742-7) EOS x10^3 (test code = 0.24 10*3/uL 0.06-0.53 711-2) BASO x10^3 (test code 0.03 10*3/uL 0.01-0.09 = 704-7) Lab Interpretation Abnormal (test code = 00509-7) [facility] 01:05:02 Test Item Value Reference Range Interpretation Comments LIPASE (test code = 7486957308) 34 U/L 0-220 Lab Interpretation (test code = Normal 71410-4) [facility] MET[facility]OLIC PANEL (18185)2022-03-14 01:05:01 Test Item Value Reference Range Interpretation Comments NA (test code = 138 mmol/L 135-145 9409505608) K (test code = 4.4 mmol/L 3.5-5 8414865847) CL (test code = 106 mmol/L 98-108 4368591117) CO2 TOTAL (test code 26 mmol/L 23-31 = 0788343394) AGAP (test code = 2-16 4187406149) BUN (test code = 16 mg/dL 7-23 6479611241) GLUCOSE (test code = 89 mg/dL 70-110 3711373957) CREATININE (test code 0.79 mg/dL 0.6-1.25 = 8562801436) TOTAL BILI (test code 0.6 mg/dL 0.1-1.1 = 1373060715) CALCIUM (test code = 9.3 mg/dL 8.6-10.6 5885144294) T PROTEIN (test code 6.4 g/dL 6.3-8.2 = 2454397136) ALBUMIN (test code = 4.4 g/dL 3.5-5 3412486297) ALK PHOS (test code = 55 U/L 34-122 3158789106) ALTv (test code = 20 U/L 5-50 1742-6) AST(SGOT) (test code 23 U/L 13-40 = 8792901964) eGFR (test code = mL/min/1.73m2 7827002675) AMOL (test code = AMOL) Association of Glomerular Filtration Rate (GFR) and Staging of Kidney Disease* + + +- +| GFR (mL/min/1.73 m2) ?| With Kidney Damage ?| ?Without Kidney Damage+ ------+ ----+ ------+| ?>90 ?| ?Stage one ?| ? Normal ?+ -+ + -+| ?60-89 ?| ?Stage two ?| ? Decreased GFR ? + + +- +| ?30-59 ?| ?Stage three ?| ? Stage three ? + + +- +| ?15-29 ?| ?Stage four ? | ? Stage four ?+ -+ + -+| ?<15 (or dialysis) ? ?| ?Stage five ? | ? Stage five ?+ -+ + -+ *Each stage assumes the associated GFR level has been in effect for at least three months. ?Stages 1 to 5, with or without kidney disease, indicate chronic kidney disease. Notes: Determination of stages one and two (with eGFR >59mL/min/1.73 m2) requires estimation of kidney damage for at least three months as defined by structural or functional abnormalities of the kidney, manifested by either:Pathological abnormalities or Markers of kidney damage (including abnormalities in the composition of the blood or urine or abnormalities in imaging tests). [facility] WITH [id number] 00:52:41 Test Item Value Reference Range Interpretation Comments WBC (test code = See_Comment [Automated 8974-2) message] The sy stem which generated this result transmitted reference range : 4.20 - 10.70 10*3/?L. The reference range was not used to interpret this result as normal/abnormal . RBC (test code = See_Comment [Automated 905-8) message] The sy stem which generated this result transmitted reference range : 4.26 - 5.52 10*6/?L. The reference range was not used to interpret this result as normal/abnormal . HGB (test code = 15.0 g/dL 12.2-16.4 718-7) HCT (test code = 43.0 % 38.4-49.3 4544-3) MCV (test code = 87.2 fL 81.7-95.6 787-2) MCH (test code = 30.4 pg 26.1-32.7 785-6) MCHC (test code = 34.9 g/dL 31.2-35 786-4) RDW-SD (test code = 37.2 fL 38.5-51.6 L 36014-4) RDW-CV (test code = 11.6 % 12.1-15.4 L 788-0) PLT (test code = See_Comment [Automated 777-3) message] The sy stem which generated this result transmitted reference range : 150 - 328 10*3/ ?L. The reference r marilia was not used to interpret this result as normal/abnormal . MPV (test code = 9.4 fL 9.8-13 L 55302-9) NRBC/100 WBC (test See_Comment [Automat ed code = 5107001867) message] The system which generated this result transmitted reference range : 0.0 - 10.0 /100 WBCs. The refer ence range was not u sed to interpret th is result as normal/abnormal . NRBC x10^3 (test code See_Comment [Auto mated = 3695723848) message] The s ystem which generated this result transmitted reference range : 10*3/?L. The reference range was not used to interpret this result as normal/abnormal . GRAN MAT (NEUT) % 59.0 % (test code = 770-8) IMM GRAN % (test code 0.10 % = 8636530774) LYMPH % (test code = 28.8 % 736-9) MONO % (test code = 8.2 % 5905-5) EOS % (test code = 3.2 % 713-8) BASO % (test code = 0.7 % 706-2) GRAN MAT x10^3(ANC) 4.03 10*3/uL 1.99-6.95 (test code = 9597875141) IMM GRAN x10^3 (test 0-0.06 code = 7716613148) LYMPH x10^3 (test code 1.97 10*3/uL 1.09-3.23 = 731-0) MONO x10^3 (test code 0.56 10*3/uL 0.36-1.02 = 742-7) EOS x10^3 (test code = 0.22 10*3/uL 0.06-0.53 711-2) BASO x10^3 (test code 0.05 10*3/uL 0.01-0.09 = 704-7) Lab Interpretation Abnormal (test code = 71321-9) [facility] MOLE[facility] [id number] 17:05:27 Test Item Value Reference Range Interpretation Comments POCT Molecular Strep (test code = Negative Negative 93563-1) Lab Interpretation (test code = Normal 87645-6) [facility]lakeInfluenza Virus A B [id number] 13:40:00 Test Item Value Reference Range Interpretation Comments Influenza Virus A Antigen (test code Negative Negative = INFAAB) Influenza Virus B Antigen (test code Negative Negative = INFBAB) Rapid Group A Strep [id number] 13:40:00 Test Item Value Reference Range Interpretation Comments Rapid Group A Strep Screen (test Negative Negative code = RSST) Throat Culture-Beta Strep [id number] 13:40:00 Test Item Value Reference Range Interpretation Comments Throat Culture-Beta No Beta strep Group A Strep Only (test code = isolated. TCBS) Rapid Group A Strep [id number] 05:30:00 Test Item Value Reference Range Interpretation Comments Rapid Group A Strep Positive Negative AA Critical value called Screen (test code = to david ad back by RSST) Brenden CABRERA on: 03/14/21 at 0539by DCC06 . Influenza Virus A B [id number] 05:30:00 Test Item Value Reference Range Interpretation Comments Influenza Virus A Antigen (test code Negative Negative = INFAAB) Influenza Virus B Antigen (test code Negative Negative = INFBAB) Venous whole blood sodium measurement (moles/volume)2021-02-09 22:19:00 Test Item Value Reference Range Interpretation Comments Bedside Sodium (test code = 75370-4) 142 136-145 [facility] blood potassium measurement (moles/volume)2021-02-09 22:19:00 Test Item Value Reference Range Interpretation Comments Bedside Potassium (test code = 26444-3) 4.0 3.5-5.1 [facility] HealthVenous whole blood chloride measurement (moles/volume)2021-02-09 22:19:00 Test Item Value Reference Range Interpretation Comments Bedside Chloride (test code = 28228-7) 103 100-112 [facility] HealthVen[facility] whole blood total carbon dioxide measurement (moles/volume)2021-02-09 22:19:00 Test Item Value Reference Range Interpretation Comments Bedside Total CO2 (test code = 2026-) 27.0 24.0-33.0 [facility] HealthVenous whole blood urea nitrogen (BUN) measurement (mass/volume) 2021-02-09 22:19:00 Test Item Value Reference Range Interpretation Comments Bedside Blood Urea Nitrogen (test code 10 6-20 = 86807-1) [facility] HealthBlood creatinine measurement (mass/volume)2021-02-09 22:19:00 Test Item Value Reference Range Interpretation Comments Bedside Creatinine (test code = 0.8 0.9-1.5 43819-2) [facility] HealthVenous whole blood glucose measurement (mass/volume)2021-02-09 22:19:00 Test Item Value Reference Range Interpretation Comments Bedside Glucose (test code = 18033-3) 88 60-100 [facility] (moles/volume)2021-02-09 22:19:00 Test Item Value Reference Range Interpretation Comments Bedside Whole Blood Ionized Calcium 1.26 1.12-1.32 (test code = 1994-3) [facility] HealthBlood anion [id number] 22:19:00 Test Item Value Reference Range Interpretation Comments Bedside Anion Gap (test code = 20080-1) 17 8-18 [facility] HealthGFR estimate [id number] 22:19:00 Test Item Value Reference Range Interpretation Comments Estimat Glomerular Filtration Rate 130 90-142 (test code = 478391883) [facility] HealthVenous blood hemoglobin measurement (mass/volume)2021-02-09 22:19:00 Test Item Value Reference Range Interpretation Comments Bedside Hemoglobin (test code = 13.3 13.0-17.5 35607-5) [facility] HealthVenous blood hematocrit (volume fraction)2021-02-09 22:19:00 Test Item Value Reference Range Interpretation Comments Bedside Hematocrit (test code = 39.0 40.0-53.0 60633-9) [facility] HealthVenous whole blood sodium measurement (moles/volume)2021-02-09 22:19:00 Test Item Value Reference Range Interpretation Comments Bedside Sodium (test code = 08758-6) 142 Venous whole blood potassium measurement (moles/volume)2021-02-09 22:19:00 Test Item Value Reference Range Interpretation Comments Bedside Potassium (test code = 47329-3) 4.0 Venous whole blood chloride measurement (moles/volume)2021-02-09 22:19:00 Test Item Value Reference Range Interpretation Comments Bedside Chloride (test code = 46350-0) 103 Venous whole blood total carbon dioxide measurement (moles/volume)2021-02-09 22:19:00 Test Item Value Reference Range Interpretation Comments Bedside Total CO2 (test code = 2027-1) 27.0 Venous whole blood urea nitrogen (BUN) measurement (mass/volume)2021-02-09 22:19:00 Test Item Value Reference Range Interpretation Comments Bedside Blood Urea Nitrogen (test code 10 = 70078-4) Blood creatinine measurement (mass/volume)2021-02-09 22:19:00 Test Item Value Reference Range Interpretation Comments Bedside Creatinine (test code = 0.8 53517-5) Venous whole blood glucose measurement (mass/volume)2021-02-09 22:19:00 Test Item Value Reference Range Interpretation Comments Bedside Glucose (test code = 95267-7) 88 Whole blood ionized calcium measurement (moles/volume)2021-02-09 22:19:00 Test Item Value Reference Range Interpretation Comments Bedside Whole Blood Ionized Calcium 1.26 (test code = 1994-3) Blood anion [id number] 22:19:00 Test Item Value Reference Range Interpretation Comments Bedside Anion Gap (test code = 33078-6) 17 GFR estimate [id number] 22:19:00 Test Item Value Reference Range Interpretation Comments Estimat Glomerular Filtration Rate 130 (test code = 006196536) Venous blood hemoglobin measurement (mass/volume)2021-02-09 22:19:00 Test Item Value Reference Range Interpretation Comments Bedside Hemoglobin (test code = 13.3 54419-8) Venous blood hematocrit (volume fraction)2021-02-09 22:19:00 Test Item Value Reference Range Interpretation Comments Bedside Hematocrit (test code = 39.0 01823-6) Automated blood leukocyte count (number/volume)2021-02-09 22:15:00 Test Item Value Reference Range Interpretation Comments White Blood Count (test code = 6690-2) 8.6 4.5-11.5 [facility] Health[facility] erythrocytes automated count (number/volume)2021-02-09 22:15:00 Test Item Value Reference Range Interpretation Comments Red Blood Count (test code = 789-8) 4.81 4.4-6.2 [facility] HealthBlood hemoglobin measurement (mass/volume)2021-02-09 22:15:00 Test Item Value Reference Range Interpretation Comments Hemoglobin (test code = 718-7) 14.4 13.0-17.5 [facility] HealthAutomated blood hematocrit (volume fraction)2021-02-09 22:15:00 Test Item [...] = 786-4) [facility] HealthAutomated erythrocyte distribution width [id number] 22:15:00 Test Item Value Reference Range Interpretation Comments Red Cell Distribution Width (test code 12.0 10.7-14.5 = 788-0) [facility] HealthAutomated blood platelet count (count/volume)2021-02-09 22:15:00 Test Item Value Reference Range Interpretation Comments Platelet Count (test code = 777-3) 413 150-450 [facility] HealthAutomated blood platelet mean volume [id number] 22:15:00 Test Item Value Reference Range Interpretation Comments Mean Platelet Volume (test code = 8.9 5.7-10.7 56209-8) [facility] HealthAutomated blood neutrophil count as percentage of total [id number] 22:15:00 Test Item Value Reference Range Interpretation Comments Neutrophils (%) (Auto) (test code = 45 47-75 770-8) [facility] HealthAutomated blood lymphocyte count as percentage of total nezqglbiyb2205-32-80 22:15:00 Test Item Value Reference Range Interpretation Comments Lymphocytes (%) (Auto) (test code = 37 25-44 736-9) [facility] HealthAutomated blood monocyte count as percentage of total leukocytes 2021-02-09 22:15:00 Test Item Value Reference Range Interpretation Comments Monocytes (%) (Auto) (test code = 11 3-10 5905-5) [facility] HealthAutomated blood eosinophil count as percentage of total [id number] 22:15:00 Test Item Value Reference Range Interpretation [...] (Auto) (test code = 3.1 1.4-4.1 731-0) [facility] monocytes automated count (number/volume)2021-02-09 22:15:00 Test Item Value Reference Range Interpretation Comments Monocytes # (Auto) (test code = 742-7) 0.9 0-1.3 [facility] HealthAutomated blood eosinophil [id number] 22:15:00 Test Item Value Reference Range Interpretation Comments Eosinophils # (Auto) (test code = 0.6 0-0.8 711-2) [facility] HealthAutomated blood basophil count (number/volume)2021-02-09 22:15:00 Test Item Value Reference Range Interpretation Comments Basophils # (Auto) (test code = 704-7) 0.0 0-0.1 [facility] HealthService comment 22:15:00 Test Item Value Reference Range Interpretation Comments Manual Differential (test code = Not Ind 8265-1) [facility] HealthUrinalysis specimen collection [id number] 22:15:00 Test Item Value Reference Range Interpretation Comments Urine Source (test code = 99774-1) URINE [facility] HealthColor of Urine by [id number] 22:15:00 Test Item Value Reference Range Interpretation Comments Urine Color (test code = 19389-9) Yellow Yel-Devi * [facility] HealthUrine clarity [id number] 22:15:00 Test Item Value Reference Range Interpretation Comments Urine Appearance (test code = 05074-5) Clear Clear * [facility] HealthUrine pH measurement by automated test [id number] 22:15:00 Test Item Value Reference Range Interpretation Comments Urine pH (test code = 71064-6) 7.0 5.0-8.0 [facility] HealthSpecific gravity of Urine by Automated test [id number] 22:15:00 Test Item Value Reference Range Interpretation Comments Urine Specific [place] (test code = 1.026 1.005-1.030 03553-4) [facility] HealthUrine protein measurement by automated test strip (mass/volume) 2021-02-09 22:15:00 Test Item Value Reference Range Interpretation Comments Urine Protein (test code = 29609-4) 10 Negative * [facility] HealthUrine glucose measurement by automated test strip (mass/volume) 2021-02-09 22:15:00 Test Item Value Reference Range Interpretation Comments Urine Glucose (UA) (test code = Negative Negative * 14849-0) [facility] HealthKetones [Mass/volume] in Urine by Automated test [id number] 22:15:00 Test Item Value Reference Range Interpretation Comments Urine Ketones (test code = 14120-0) Negative Negative * [facility] HealthUrine erythrocytes count by automated test strip (number/volume) 2021-02-09 22:15:00 Test Item Value Reference Range Interpretation Comments Urine Occult Blood (test code = Negative Negative * 55602-4) [facility] HealthUrine nitrite detection by automated test [id number] 22:15:00 Test Item Value Reference Range Interpretation Comments Urine Nitrite (test code = 37367-1) Negative Negative [facility] HealthUrine total bilirubin measurement by automated test strip (mass/volume)2021-02-09 22:15:00 Test Item Value Reference Range Interpretation Comments Urine Bilirubin (test code = Negative Negative 83704-5) [facility] HealthUrine urobilinogen measurement by automated test strip (mass/volume)2021-02-09 22:15:00 Test Item Value Reference Range Interpretation Comments Urine Urobilinogen (test code = 2.0 0.0-1.0 99535-1) [facility] HealthUrine leukocytes count by automated test strip (number/volume) 2021-02-09 22:15:00 Test Item Value Reference Range Interpretation Comments Urine Leukocyte Esterase (test code Negative Negative = 22328-0) [facility] HealthMicroscopic examination of [id number] 22:15:00 Test Item Value Reference Range Interpretation Comments Microscopic Urinalysis (T) (test code = ----- 48076-7) [facility] HealthUrine sediment erythrocyte count by microscopy (number/high power field)2021-02-09 22:15:00 Test Item Value Reference Range Interpretation Comments Urine RBC (test code = 78967-9) 0-2 0-2 [facility] HealthUrine sediment leukocyte count [...] (test code = None Seen None * 27361-9) [facility] HealthUrine sediment bacteria count by microscopy (number/high power field)2021-02-09 22:15:00 Test Item Value Reference Range Interpretation Comments Urine Bacteria (test code = 5769-5) Rare None [facility]Urine sediment casts count by microscopy (number/low power field) 2021-02-09 22:15:00 Test Item Value Reference Range Interpretation Comments Urine Casts (test code = 9842-6) None Seen None * [facility] HealthYeast detection in urine sediment by light eagbezklvd7846-68-51 22:15:00 Test Item Value Reference Range Interpretation Comments Urine Yeast (test code = 40140-1) None Seen None [facility] comment 22:15:00 [...] Range Interpretation Comments Globulin (test code = 98805-9) 2.7 [facility] HealthSerum or plasma albumin/globulin mass twwpm2096-96-52 22:15:00 Test Item Value Reference Range Interpretation Comments Albumin/Globulin Ratio (test code = 1.5 1759-0) [facility] HealthSerum or plasma alkaline phosphatase measurement (enzymatic activity/volume)2021-02-09 22:15:00 Test Item Value Reference Range Interpretation Comments Alkaline Phosphatase (test code = 64 40-150 6768-6) [facility] HealthSerum or plasma lipase measurement (enzymatic activity/volume) 2021-02-09 22:15:00 Test Item Value Reference Range Interpretation Comments Lipase (test code = 3040-3) 99 8-78 [facility] HealthAutomated blood leukocyte count (number/volume)2021-02-09 22:15:00 Test Item Value Reference Range Interpretation Comments White Blood Count (test code = 6690-2) 8.6 Blood erythrocytes automated count (number/volume)2021-02-09 22:15:00 Test Item Value Reference Range Interpretation Comments Red Blood Count (test code = 789-8) 4.81 Blood hemoglobin measurement (mass/volume)2021-02-09 22:15:00 Test Item Value Reference Range Interpretation Comments Hemoglobin (test code = 718-7) 14.4 Automated blood hematocrit (volume fraction)2021-02-09 22:15:00 Test Item Value Reference Range Interpretation Comments Hematocrit (test code = 4544-3) 40.9 Automated erythrocyte mean corpuscular volume (MCV) fpgyzesffae9422-43-27 22:15:00 Test Item Value Reference Range Interpretation Comments Mean Corpuscular Volume (test code = 85.0 787-2) Automated erythrocyte mean corpuscular hemoglobin (mass per erythrocyte) 2021-02-09 22:15:00 Test Item Value Reference Range Interpretation Comments Mean Corpuscular Hemoglobin (test code 29.9 = 785-6) Automated erythrocyte mean corpuscular hemoglobin concentration measurement (mass/volume)2021-02-09 22:15:00 Test Item Value Reference Range Interpretation Comments Mean Corpuscular Hemoglobin Concent 35.2 (test code = 786-4) Automated erythrocyte distribution width aubrc7402-01-88 22:15:00 Test Item Value Reference Range Interpretation Comments Red Cell Distribution Width (test code 12.0 = 788-0) Automated blood platelet count (count/volume)2021-02-09 22:15:00 Test Item Value Reference Range Interpretation Comments Platelet Count (test code = 777-3) 413 Automated blood platelet mean volume pqitcykfjkm3282-51-17 22:15:00 Test Item Value Reference Range Interpretation Comments Mean Platelet Volume (test code = 8.9 22770-2) Automated blood neutrophil count as percentage of total nyvyocenfh2819-81-03 22:15:00 Test Item Value Reference Range Interpretation Comments Neutrophils (%) (Auto) (test code = 45 770-8) Automated blood lymphocyte count as percentage of total jjwcvsnwkr6229-30-35 22:15:00 Test Item Value Reference Range Interpretation Comments Lymphocytes (%) (Auto) (test code = 37 736-9) Automated blood monocyte count as percentage of total wolawihtto1748-85-74 22:15:00 Test Item Value Reference Range Interpretation Comments Monocytes (%) (Auto) (test code = 11 5905-5) Automated blood eosinophil count as percentage of total ohzdopcrtg0974-85-46 22:15:00 Test Item Value Reference Range Interpretation Comments Eosinophils (%) (Auto) (test code = 7 713-8) Automated blood basophil count as percentage of total fojstyqaat1892-27-75 22:15:00 Test Item Value Reference Range Interpretation Comments Basophils (%) (Auto) (test code = 0 706-2) Automated blood neutrophil count (number/volume)2021-02-09 22:15:00 Test Item Value Reference Range Interpretation Comments Neutrophils # (Auto) (test code = 3.9 751-8) Automated blood lymphocyte count (number/volume)2021-02-09 22:15:00 Test Item Value Reference Range Interpretation Comments Lymphocytes # (Auto) (test code = 3.1 731-0) Blood monocytes automated count (number/volume)2021-02-09 22:15:00 Test Item Value Reference Range Interpretation Comments Monocytes # (Auto) (test code = 742-7) 0.9 Automated blood eosinophil jfvrz0568-28-84 22:15:00 Test Item Value Reference Range Interpretation Comments Eosinophils # (Auto) (test code = 0.6 711-2) Automated blood basophil count (number/volume)2021-02-09 22:15:00 Test Item Value Reference Range Interpretation Comments Basophils # (Auto) (test code = 704-7) 0.0 Service comment 22:15:00 Test Item Value Reference Range Interpretation Comments Manual Differential (test code = Not Ind 8265-1) Urinalysis specimen collection [id number] 22:15:00 Test Item Value Reference Range Interpretation Comments Urine Source (test code = 43296-1) URINE Color of Urine by Wqpr9423-57-90 22:15:00 Test Item Value Reference Range Interpretation Comments Urine Color (test code = 31314-1) Yellow Urine clarity zicbidswycynk5382-86-18 22:15:00 Test Item Value Reference Range Interpretation Comments Urine Appearance (test code = 75073-7) Clear Urine pH measurement by automated test zplif0595-54-37 22:15:00 Test Item Value Reference Range Interpretation Comments Urine pH (test code = 97914-4) 7.0 Specific gravity of Urine by Automated test iyjgw7570-57-28 22:15:00 Test Item Value Reference Range Interpretation Comments Urine Specific [place] (test code = 1.026 24820-8) Urine protein measurement by automated test strip (mass/volume)2021-02-09 22:15:00 Test Item Value Reference Range Interpretation Comments Urine Protein (test code = 57361-7) 10 Urine glucose measurement by automated test strip (mass/volume)2021-02-09 22:15:00 Test Item Value Reference Range Interpretation Comments Urine Glucose (UA) (test code = Negative 80565-6) Ketones [Mass/volume] in Urine by Automated test fobxf6350-71-51 22:15:00 Test Item Value Reference Range Interpretation Comments Urine Ketones (test code = 99488-5) Negative Urine erythrocytes count by automated test strip (number/volume)2021-02-09 22:15:00 Test Item Value Reference Range Interpretation Comments Urine Occult Blood (test code = Negative 30564-1) Urine nitrite detection by automated test ptifa5700-04-39 22:15:00 Test Item Value Reference Range Interpretation Comments Urine Nitrite (test code = 54444-6) Negative Urine total bilirubin measurement by automated test strip (mass/volume) 2021-02-09 22:15:00 Test Item Value Reference Range Interpretation Comments Urine Bilirubin (test code = Negative 18934-0) Urine urobilinogen measurement by automated test strip (mass/volume)2021-02-09 22:15:00 Test Item Value Reference Range Interpretation Comments Urine Urobilinogen (test code = 2.0 84820-4) Urine leukocytes count by automated test strip (number/volume)2021-02-09 22:15:00 Test Item Value Reference Range Interpretation Comments Urine Leukocyte Esterase (test code Negative = 49343-5) Microscopic examination of wcwvn4278-02-27 22:15:00 Test Item Value Reference Range Interpretation Comments Microscopic Urinalysis (T) (test code = ----- 05431-0) Urine sediment erythrocyte count by microscopy (number/high power field) 2021-02-09 22:15:00 Test Item Value Reference Range Interpretation Comments Urine RBC (test code = 90972-2) 0-2 Urine sediment leukocyte count by microscopy (number/high power field)2021-02-09 22:15:00 Test Item Value Reference Range Interpretation Comments Urine WBC (test code = 5821-4) 0-5 Urine sediment epithelial cell count by microscopy (number/high power field) 2021-02-09 22:15:00 Test Item Value Reference Range Interpretation Comments Urine Epithelial Cells (test code = None Seen 5787-7) Urine sediment crystal count by microscopy (number/high power field)2021-02-09 22:15:00 Test Item Value Reference Range Interpretation Comments Urine Crystals (test code = None Seen 03967-9) Urine sediment bacteria count by microscopy (number/high power field)2021-02-09 22:15:00 Test Item Value Reference Range Interpretation Comments Urine Bacteria (test code = 5769-5) Rare Urine sediment casts count by microscopy (number/low power field)2021-02-09 22:15:00 Test Item Value Reference Range Interpretation Comments Urine Casts (test code = 9842-6) None Seen Yeast detection in urine sediment by light yiovqpetzz7705-50-24 22:15:00 Test Item Value Reference Range Interpretation Comments Urine Yeast (test code = 97336-2) None Seen Service comment [id number] 22:15:00 Test Item Value Reference Range Interpretation Comments Urinalysis Comment (test code = 8262-8) * Service comment 22:15:00 Test Item Value Reference Range Interpretation Comments Urine Culture Indicated (test code = Not Ind 8264-4) Serum or plasma total bilirubin measurement (mass/volume)2021-02-09 22:15:00 Test Item Value Reference Range Interpretation Comments Total Bilirubin (test code = 1975-2) 0.3 Serum or plasma total combined glucuronidated bilirubin and albumin bound bilirubin measurement (mass/volume)2021-02-09 22:15:00 Test Item Value Reference Range Interpretation Comments Direct Bilirubin (test code = 1968-7) 0.1 Serum or plasma aspartate aminotransferase measurement (enzymatic activity/volume)2021-02-09 22:15:00 Test Item Value Reference Range Interpretation Comments Aspartate Amino Transf (AST/SGOT) (test 14 code = 1920-8) Serum or plasma alanine aminotransferase measurement (enzymatic activity/volume) 2021-02-09 22:15:00 Test Item Value Reference Range Interpretation Comments Alanine Aminotransferase (ALT/SGPT) 14 (test code = 1742-6) Serum or plasma protein measurement (mass/volume)2021-02-09 22:15:00 Test Item Value Reference Range Interpretation Comments Total Protein (test code = 2885-2) 6.8 Serum or plasma albumin measurement (mass/volume)2021-02-09 22:15:00 Test Item Value Reference Range Interpretation Comments Albumin (test code = 1751-7) 4.1 Serum globulin measurement by calculation (mass/volume)2021-02-09 22:15:00 Test Item Value Reference Range Interpretation Comments Globulin (test code = 19733-7) 2.7 Serum or plasma albumin/globulin mass tznla8656-24-78 22:15:00 Test Item Value Reference Range Interpretation Comments Albumin/Globulin Ratio (test code = 1.5 1759-0) Serum or plasma alkaline phosphatase measurement (enzymatic activity/volume) 2021-02-09 22:15:00 Test Item Value Reference Range Interpretation Comments Alkaline Phosphatase (test code = 64 6768-6) Serum or plasma lipase measurement (enzymatic activity/volume)2021-02-09 22:15:00 Test Item Value Reference Range Interpretation Comments Lipase (test code = 3040-3) 99 COVID SYMPTOMATIC ER [id number] 14:55:00 Test Item Value Reference Range Interpretation Comments CORONAVIRUS (COVID-19)BY PCR (test POSITIVE code = [id number]) Whole blood cardiac troponin I measurement (mass/volume)2021-01-20 19:00:00 Test Item Value Reference Range Interpretation Comments Bedside Troponin I (test code = 0.00 0.00-0.06 54251-2) [facility] blood cardiac troponin I measurement (mass/volume) 2021-01-20 19:00:00 Test Item Value Reference Range Interpretation Comments Bedside Troponin I (test code = 0.00 0.00-0.06 05357-9) [facility] blood cardiac troponin I measurement (mass/volume) 2021-01-20 19:00:00 Test Item Value Reference Range Interpretation Comments Bedside Troponin I (test code = 0.00 0.00-0.06 69570-5) [facility] blood cardiac troponin I measurement (mass/volume) 2021-01-20 19:00:00 Test Item Value Reference Range Interpretation Comments Bedside Troponin I (test code = 0.00 0.00-0.06 74445-2) [facility] blood cardiac troponin I measurement (mass/volume) 2021-01-20 19:00:00 Test Item Value Reference Range Interpretation Comments Bedside Troponin I (test code = 0.00 55775-8) Whole blood cardiac troponin I measurement (mass/volume)2021-01-20 19:00:00 Test Item Value Reference Range Interpretation Comments Bedside Troponin I (test code = 0.00 84193-5) Whole blood cardiac troponin I measurement (mass/volume)2021-01-20 19:00:00 Test Item Value Reference Range Interpretation Comments Bedside Troponin I (test code = 0.00 43911-4) Whole blood cardiac troponin I measurement (mass/volume)2021-01-20 19:00:00 Test Item Value Reference Range Interpretation Comments Bedside Troponin I (test code = 0.00 83161-3) CT THORAX W/O [id number] 22:25:00 [facility] 2000 [facility] [place], [place] [address]PRBZDNPSZY IMAGING RE PORTPatient Name: TENZIN LOVE CDate of Service: [id number]: 20 Sex: M Order #: [id number] Room: QERDOB: 2000 X-Ray Number: [id number] Record Number: [id number] Hospital Number: [id number] Physician: Philip SHAHing Physician: SAHUN SHAHPROCEDURE: CT THORAX W/O CONTINDICATIONS: Dx: SOBorder sts: SOBpt complains of SOB x 4 days hx of HTNpsv:KLLCT Chest without IV ContrastAxial computed tomography images of the chest without IV contrast.COMPARISON: CR - CHEST 1 VIEW PORTABLE - 01/16/2021 02:13 AM CDTCT - ABDOMEN ABDPEL_1 (ADULT) - 11/04/2018 10:37 PM CDTFINDINGS:The lungsappear essentially clear. No pulmonary mass.No pneumothorax evident. No pleural effusions.No cardiomegaly. No significant pericardial effusion.No lymphadenopathy is evident.No focal osseous abnormalityor acute fracture.The visualized upper abdominal solid organs are unremarkable.IMPRESSION:No acute in trathoracic pathology. The finding of subtle pneumonitis versussubsegmental atelectasis on contemporaneous chest x-ray likely reflectsmotion artifact during x-ray acquisition.This document has been electronically signed by: Lavelle Marie MD 01/16/2021 22:24:32Legally authenticated by DIANA MALIK 2 21:43:[id number] 06:34:00 Test Item Value Reference Range Interpretation [...] code 4.6 K/UL 1.2-7.2 = NEUT) INFLUENZA [id number] 04:49:00 Test Item Value Reference Range Interpretation Comments FLU A (test code = FLU A) NEGATIVE NEGATIVE FLU B (test code = FLU B) NEGATIVE NEGATIVE FLU INTERNAL POSITIVE CNTRL (test PASS PASS code = FLU IPC) INFLUENZA LOT # (test code = 4218071 FLULOT) INFLUENZA EXPIRATION DATE (test 09-04-2022 code = FLUEXP) COVID SYMPTOMATIC ER [id number] 04:10:00 Test Item Value Reference Range Interpretation Comments CORONAVIRUS (COVID-19)BY PCR (test NEGATIVE code = [id number]) ISTAT CHEM [id number] 04:00:00 Test Item Value Reference Range Interpretation [...] of Reference Range s CHEST 1 VIEW [id number] 02:54:00 [facility] 2000 Sex: M[address] [address]WXGSVQGOCO IMAGING RE PORTPatient Name: TENZIN LOVE CDate of Service: [id number]: 20 Sex: M Order #: [id number] Room: ERSDOB: 2000 X-Ray Number: [id number] Record Number: [id number] Hospital Number: [id number] Physician: SHAUN SHAHOrdering Physician: SHAUN SHAHPROCEDURE: CHEST 1 VIEW PORTABLEINDICATIONS: PSV/HDBDX: Nausea, vomiting, covid exposureorder sts:congestionPt c/o: Nausea, vomiting, cough, SOB, chest congestion x 1 weekafter Covid exposureCR Chest1 radiographic view(s)COMPARISON: CT - ABDOMEN ABDPEL_1 (ADULT) - 11/04/2018 10:37 PM CDTFINDINGS:Subtle ground-glass intrapulmonary opacification centered within thebilateral (right more evident than left) lower lobe airspaces. Incidentalben ign calcified lung parenchymal granulomata.No evidence of pleural effusion or pneumothorax.Cardiac size and mediastinal contours within normal limits.No acute displaced fracture or aggressive appearingosseous lesion.IMPRESSION:Subtle pneumonitis versus subsegmental atelectasis as described.This document has been electronically signed by: Lavelle Marie MD on01/16/2021 02:53:47Legally authenticated by DIANA MALIK 2021-01-16 01:42:00WHOLE BLOOD [id number] 01:10:00 Test Item Value Reference Range Interpretation Comments WHOLE BLOOD GLUCOSE 122 MG/DL 70-99 Fastin g glucose (test code = POC GLU) normal <100 MG/DL- [employer] recommend ation ANKLE 3 [id number] 11:08:00 [facility] 2000 Sex: M[address] [address]DLYSXLCEON IMAGING RE PORTPatient Name: TENZIN LOVE CDate of Service: [id number]: 20 Sex: M Order #: [id number] Room: ERSDOB:2000 X-Ray Number: [id number] Record Number: [id number] Hospital Number: [id number]: FAY RUBI -Ordering Physician: PONCE MARCELO ANKLE 3 VIEWS 11/15/2020 10:36AMHistory: pain with walkingComparisons: None Available.FINDINGS:There is no acute fracture or dislocation.There are no suspicious lytic or blastic bone lesions.There are no definite osseous erosions or bony destruction detected.There is no radiopaque foreign body.There is no soft tissue gas identified.IMPRESSION:No acute bony abnormality is identified.Electronically Signed By: Carroll Ram M.D., 11:05 AMLegally authenticated by DARREL HODGES 2020-11-15 11:05:57 Influenza Virus A B [id number] 11:07:00 Test Item Value Reference Range Interpretation Comments Influenza Virus A Antigen (test code Negative Negative = INFAAB) Influenza Virus B Antigen (test code Negative Negative = INFBAB) PATHOLOGY [id number] 13:34:00TISSUE CONSULTATION REPORTBAPTIST TEXAS [facility] ALLIANCEDEPARTMENT OF PATHOLOGYP.[address] [place] [address] SHAUN COREY M.D.LIBBY KATZ M.D.CHARLES E. BURNS, M.D. ____Patient: TENZIN LOVE 2000 19 MRoom:Hosp#: [id number] Ordering Physician: Luther GIRARD Rec.: 01/20/2020Date of Proc.: 01/20/2020Lab No.: [id number] Clinical History:Abdominal pain, hematemesis and change in [...] spongiosis and increased intraepithelial lymphocytesand eosinophils with up to twenty per high-power field seen. Nosignificant neutrophil component is present.The terminal ileum biopsy demonstrates a single large lymphoidaggregate in the lamina propria with the villi appearing normal. Nogranulomas are seen.The cecal biopsy demonstrates edema with some possible increase inthe number of crypt's mitotic figures; however, no ringed mitosesare seen.The rectal biopsy demonstrates giovanni rare intraepithelialneutrophil with a single missing crypt replaced by a loosely-formedgranuloma.There is no evidence of dysplasia or malignancy in any of thebiopsies studied.GROSS APPEARANCE:A. Specimen A is labeled "second segment duodenum." Received informalin is a 0.4 x 0.2 x 0.2 cm peach tanmucosal fragment. ET oneblock. wraps.B. Specimen B is labeled "duodenal bulb." Received in formalin bismark 0.4 x 0.4 x 0.2 cm peach luis mucosal fragment. ET one block wraps.C. Specimen C is labeled "gastric antrum." Received in formalin bismark 0.3 x 0.3 x 0.2 cm luis mucosal fragment, ET one block, wraps.D. Specimen D is labeled "gastric body." Received in formalin is a0.4 x 0.3 x 0.2 cm peach luis mucosal fr agment, ET one block, wraps.E. Specimen E is labeled "distal esophagus." Received in formalinare twowhite to luis mucosal fragments measuring 0.5 x [...] luis mucosal fragment, ET one block, wraps.PATHOLOGIST: Shaun Mirza Electronically Signed: 01/21/2020COVID SYMPTOMATIC ER [id number] 10:22:00 Test Item Value Reference Range Interpretation Comments CORONAVIRUS (COVID-19)BY NEGATIVE RES ULTS VERIFIED.C'd PCR (test code = TO [id number]) Wilmar Ruiz RN/ 1022/S L URINE DRUG [id number] 23:45:00 Test Item Value Reference Range Interpretation Comments AMPHET (test code = NEGATIVE NEGATIVE This is an unconfirmed BAMP) screening. Resu lt are to be used for medical purposes (treat ment) only. Not inten ded for non-medical pur poses. Cut-off concent ration [...] PCP (test code = NEGATIVE NEGATIVE BMTPCP) [id number] 21:57:00 Test Item Value Reference Range Interpretation [...] EPI (test code = EPI) 45 /LPF [id number] 21:08:00 Test Item Value Reference Range Interpretation Comments LIPASE (test code = LIPA) 53 U/L 23-300 LIVER [id number] 21:08:00 Test Item Value Reference Range Interpretation [...] (test code = ALTV) 13 U/L 13-69 [id number] 20:39:00 Test Item Value Reference Range Interpretation [...] 6.9 K/UL 1.2-7.2 = NEUT) ISTAT CHEM [id number] 20:30:00 Test Item Value Reference Range Interpretation [...] of Reference Range s Urinalysis specimen collection [id number] 20:40:00 Test Item Value Reference Range Interpretation Comments Urine Source (test code = 41447-2) URINE [facility] HealthColor of Urine by [id number] 20:40:00 Test Item Value Reference Range Interpretation Comments Urine Color (test code = 54431-3) Lt Yellow Yel-Devi * [facility] HealthUrine clarity [id number] 20:40:00 Test Item Value Reference Range Interpretation Comments Urine Appearance (test code = 19463-9) Clear Clear * [facility] HealthUrine pH measurement by automated test [id number] 20:40:00 Test Item Value Reference Range Interpretation Comments Urine pH (test code = 11278-1) 6.5 5.0-8.0 [facility] HealthSpecific gravity of Urine by Automated test [id number] 20:40:00 Test Item Value Reference Range Interpretation Comments Urine Specific [place] (test code = 1.029 1.005-1.030 23273-6) [facility] HealthUrine protein measurement by automated test strip (mass/volume) 2019-12-25 20:40:00 Test Item Value Reference Range Interpretation Comments Urine Protein (test code = 74539-6) 10 mg/dL Negative * [facility] HealthUrine glucose measurement by automated test strip (mass/volume) 2019-12-25 20:40:00 Test Item Value Reference Range Interpretation Comments Urine Glucose (UA) (test code Negative mg/dL Negative * = 17221-9) [facility] HealthUrine ketones measurement by automated test strip (mass/volume) 2019-12-25 20:40:00 Test Item Value Reference Range Interpretation Comments Urine Ketones (test code = 79863-4) 10 mg/dL Negative * [facility] HealthUrine erythrocytes count by automated test strip (number/volume) 2019-12-25 20:40:00 Test Item Value Reference Range Interpretation Comments Urine Occult Blood (test code = Negative Negative * 61210-0) [facility] HealthUrine nitrite detection by automated test [id number] 20:40:00 Test Item Value Reference Range Interpretation Comments Urine Nitrite (test code = 39322-8) Negative Negative [facility] HealthUrine total bilirubin measurement by automated test strip (mass/volume)2019-12-25 20:40:00 Test Item Value Reference Range Interpretation Comments Urine Bilirubin (test code = Negative mg/dL Negative 13920-5) [facility] HealthUrine urobilinogen measurement by automated test strip (mass/volume)2019-12-25 20:40:00 Test Item Value Reference Range Interpretation Comments Urine Urobilinogen (test code Negative mg/dL 0.0-1.0 = 87939-0) [facility] HealthUrine leukocytes count by automated test strip (number/volume) 2019-12-25 20:40:00 Test Item Value Reference Range Interpretation Comments Urine Leukocyte Esterase Negative {Paul}/uL Negative (test code = 29346-5) [facility] HealthMicroscopic examination of [id number] 20:40:00 Test Item Value Reference Range Interpretation Comments Microscopic Urinalysis (T) (test code = ----- 51200-0) [facility] HealthUrine sediment erythrocyte count by microscopy (number/high power field)2019-12-25 20:40:00 Test Item Value Reference Range Interpretation Comments Urine RBC (test code = 87714-5) 0-2 /[HPF] 0-2 [facility]rine sediment leukocyte [...] code = None Seen /[HPF] None * 49487-0) [facility] HealthUrine sediment bacteria count by microscopy [...] (test code = 0-1 /[LPF] 0-1 5796-8) [facility]Yeast detection in urine sediment by light ffrockzggi7846-24-55 20:40:00 Test Item Value Reference Range Interpretation Comments Urine Yeast (test code = None Seen /[HPF] None 36061-5) [facility] comment 20:40:00 Test Item Value Reference Range Interpretation Comments Urinalysis Comment (test * See_Comment [A utomated message] The code = 8262-8) system which generated this result tra nsmitted reference range : *. The reference range was not used to interpr et this result as normal/abnormal . [facility] comment 20:40:00 Test Item Value Reference Range Interpretation Comments Urine Culture Indicated (test code To follow = 8264-4) [facility] HealthUrinalysis specimen collection [id number] 20:40:00 Test Item Value Reference Range Interpretation Comments Urine Source (test code = 34014-8) URINE Color of Urine by [id number] 20:40:00 Test Item Value Reference Range Interpretation Comments Urine Color (test code = 46550-3) Lt Yellow Urine clarity pzifpwrhrecof4468-73-47 20:40:00 Test Item Value Reference Range Interpretation Comments Urine Appearance (test code = 38419-1) Clear Urine pH measurement by automated test jcxjs3502-06-87 20:40:00 Test Item Value Reference Range Interpretation Comments Urine pH (test code = 83824-6) 6.5 Specific gravity of Urine by Automated test [id number] 20:40:00 Test Item Value Reference Range Interpretation Comments Urine Specific [place] (test code = 1.029 17618-6) Urine protein measurement by automated test strip (mass/volume)2019-12-25 20:40:00 Test Item Value Reference Range Interpretation Comments Urine Protein (test code = 45577-0) 10 mg/dL Urine glucose measurement by automated test strip (mass/volume)2019-12-25 20:40:00 Test Item Value Reference Range Interpretation Comments Urine Glucose (UA) (test code Negative mg/dL = 79545-0) Urine ketones measurement by automated test strip (mass/volume)2019-12-25 20:40:00 Test Item Value Reference Range Interpretation Comments Urine Ketones (test code = 44529-2) 10 mg/dL Urine erythrocytes count by automated test strip (number/volume)2019-12-25 20:40:00 Test Item Value Reference Range Interpretation Comments Urine Occult Blood (test code = Negative 79753-5) Urine nitrite detection by automated test gnxle5753-02-48 20:40:00 Test Item Value Reference Range Interpretation Comments Urine Nitrite (test code = 31410-7) Negative Urine total bilirubin measurement by automated test strip (mass/volume) 2019-12-25 20:40:00 Test Item Value Reference Range Interpretation Comments Urine Bilirubin (test code = Negative mg/dL 70028-2) Urine urobilinogen measurement by automated test strip (mass/volume)2019-12-25 20:40:00 Test Item Value Reference Range Interpretation Comments Urine Urobilinogen (test code Negative mg/dL = 17952-1) Urine leukocytes count by automated test strip (number/volume)2019-12-25 20:40:00 Test Item Value Reference Range Interpretation Comments Urine Leukocyte Esterase Negative {Paul}/uL (test code = 60727-0) Microscopic examination of fwgpc9401-28-16 20:40:00 Test Item Value Reference Range Interpretation Comments Microscopic Urinalysis (T) (test code = ----- 43045-9) Urine sediment erythrocyte count by microscopy (number/high power field) 2019-12-25 20:40:00 Test Item Value Reference Range Interpretation Comments Urine RBC (test code = 99659-1) 0-2 /[HPF] Urine sediment leukocyte count by microscopy (number/high power field)2019-12-25 20:40:00 Test Item Value Reference Range Interpretation Comments Urine WBC (test code = 5821-4) 0-5 /[HPF] Urine sediment epithelial cell count by microscopy (number/high power field) 2019-12-25 20:40:00 Test Item Value Reference Range Interpretation Comments Urine Epithelial Cells (test None Seen /[HPF] code = 5787-7) Urine sediment crystal count by microscopy (number/high power field)2019-12-25 20:40:00 Test Item Value Reference Range Interpretation Comments Urine Crystals (test code = None Seen /[HPF] 18209-0) Urine sediment bacteria count by microscopy (number/high power field)2019-12-25 20:40:00 Test Item Value Reference Range Interpretation Comments Urine Bacteria (test code = Few /[HPF] 5769-5) Urine sediment casts count by microscopy (number/low power field)2019-12-25 20:40:00 Test Item Value Reference Range Interpretation Comments Urine Casts (test code = Present /[LPF] 9842-6) Urine sediment hyaline cast count by microscopy (number/low power field) 2019-12-25 20:40:00 Test Item Value Reference Range Interpretation Comments Urine Hyaline Casts (test code = 0-1 /[LPF] 5796-8) Yeast detection in urine sediment by light hfjpyjlkdx4302-40-15 20:40:00 Test Item Value Reference Range Interpretation Comments Urine Yeast (test code = None Seen /[HPF] 45300-9) Service comment 20:40:00 Test Item Value Reference Range Interpretation Comments Urinalysis Comment (test code = 8262-8) * Service comment 20:40:00 Test Item Value Reference Range Interpretation Comments Urine Culture Indicated (test code To follow = 8264-4) Serum or plasma lipase measurement (enzymatic activity/volume)2019-12-25 19:50:00 Test Item Value Reference Range Interpretation Comments Lipase (test code = 3040-3) 12 U/L 8-78 [facility]/qxyk2505[facility]48-89 19:50:00 Test Item Value Reference Range Interpretation Comments Total Creatine Kinase (test code = 93 U/L 30-200 2157-6) [facility] plasma creatine kinase MB measurement (mass/volume) 2019-12-25 19:50:00 Test Item Value Reference Range Interpretation Comments Creatine Kinase MB (test code = 1.02 ng/mL 0.00-7.20 55753-3) [facility] plasma creatine kinase MB (CKMB)/total creatine kinase (CK) ratio by nvrsbqlurmg7562-74-41 19:50:00 Test Item Value Reference Range Interpretation Comments Creatine Kinase MB Relative Index (test 1.1 code = 57407-3) [facility] interpretation laboratory results (nominal result) 2019-12-25 19:50:00 Test Item Value Reference Range Interpretation Comments Creatine Kinase Interpretation (test NEGATIVE NEGATIVE code = 38177-7) [facility] leukocyte count (number/volume)2019-12-25 19:50:00 Test Item [...] HealthAutomated erythrocyte mean corpuscular hemoglobin concentration measurement (mass/jhu5848-82-88 19:50:00 Test Item Value Reference Range Interpretation Comments Mean Corpuscular Hemoglobin Concent 34.5 g/dL 33.0-37.0 (test code = 786-4) [facility]Automated erythrocyte distribution width dyjfz2237-36-93 19:50:00 Test Item Value Reference Range Interpretation Comments Red Cell Distribution Width (test code 10.9 % 10.7-14.5 = 788-0) [facility]Automated blood platelet count (count/volume)2019-12-25 19:50:00 Test Item Value Reference Range Interpretation Comments Platelet Count (test code = 421 10*3/uL 150-450 777-3) [facility] HealthAutomated blood platelet mean volume pzyorjocimn9471-14-76 19:50:00 Test Item Value Reference Range Interpretation Comments Mean Platelet Volume (test code = 9.7 5.7-10.7 08811-6) [facility]Automated blood neutrophil count as percentage of total ilifqwnfbz0157-56-80 19:50:00 Test Item Value Reference Range Interpretation Comments Neutrophils (%) (Auto) (test code = 83 % 47-75 770-8) [facility]Automated blood immature granulocyte count as percentage of total jggdophsrs3006-41-30 19:50:00 Test Item Value Reference Range Interpretation Comments Immature Granulocyte % (Auto) (test 0 % 0-0 code = 64120-9) [facility]Automated blood lymphocyte count as percentage of total rcborqrion8882-84-73 19:50:00 Test Item Value Reference Range Interpretation Comments Lymphocytes (%) (Auto) (test code = 13 % 25-44 736-9) [facility]Automated blood monocyte count as percentage of total leukocytes 2019-12-25 19:50:00 Test Item Value Reference Range Interpretation Comments Monocytes (%) (Auto) (test code = 4 % 3-10 5905-5) [facility]Automated blood eosinophil count as percentage of total fbpsojxvwi7945-73-26 19:50:00 Test Item Value Reference Range Interpretation Comments Eosinophils (%) (Auto) (test code = 0 % 0-7 713-8) [facility]Automated blood basophil count as percentage of total leukocytes 2019-12-25 19:50:00 Test Item Value Reference Range Interpretation Comments Basophils (%) (Auto) (test code = 0 % 0-1 706-2) [facility] HealthAutomated blood nucleated erythrocyte count as percentage of total phynadtors7477-83-89 19:50:00 Test Item Value Reference Range Interpretation Comments Nucleated Red Blood Cells % (test code 0.0 % 0-0.2 = 74713-4) [facility]Automated blood neutrophil count (number/volume)2019-12-25 19:50:00 Test Item Value Reference Range Interpretation Comments Neutrophils # (Auto) (test code = 6.7 10*3/uL 1.3-6.7 751-8) [facility]Automated blood immature granulocyte count as percentage of total ueypurdrza7055-02-98 19:50:00 Test Item Value Reference Range Interpretation Comments Immature Granulocyte # (Auto) 0.0 10*3/uL 0.0-0.0 (test code = 83368-4) [facility]Automated blood lymphocyte count (number/volume)2019-12-25 19:50:00 Test Item Value Reference Range Interpretation Comments Lymphocytes # (Auto) (test code = 1.0 10*3/uL 1.4-4.1 731-0) [facility] monocytes automated count (number/volume)2019-12-25 19:50:00 Test Item Value Reference Range Interpretation Comments Monocytes # (Auto) (test code = 0.4 10*3/uL 0-1.3 742-7) [facility] HealthAutomated blood eosinophil tidwn8956-45-27 19:50:00 Test Item Value Reference Range Interpretation Comments Eosinophils # (Auto) (test code = 0.0 10*3/uL 0-0.8 711-2) [facility] HealthAutomated blood basophil count (number/volume)2019-12-25 19:50:00 Test Item Value Reference Range Interpretation Comments Basophils # (Auto) (test code = 0.0 10*3/uL 0-0.1 704-7) [facility] HealthAutomated blood nucleated erythrocyte count (count/volume) 2019-12-25 19:50:00 Test Item Value Reference Range Interpretation Comments Nucleated Red Blood Cells # 0.00 10*3/uL 0-0.01 (test code = 771-6) [facility] comment [id number] 19:50:00 Test Item Value Reference Range Interpretation [...] Level (test code = 106 mmol/L 98-107 5-0) [facility] HealthSerum or plasma total carbon dioxide measurement (moles/volume) 2019-12-25 19:50:00 Test Item Value Reference Range Interpretation Comments Carbon Dioxide Level (test code = 24 mmol/L -2027-9) [facility] HealthSerum or plasma anion gap determination (moles/volume)2019-12-25 19:50:00 Test Item Value Reference Range Interpretation Comments Anion Gap (test code = 06875-3) 14 8-18 [facility] HealthSerum or plasma urea nitrogen measurement (mass/volume)2019-12-25 19:50:00 Test Item Value Reference Range Interpretation Comments Blood Urea Nitrogen (test code = 11 mg/dL 02-23 3094-0) [facility] HealthSerum or plasma creatinine measurement (mass/volume)2019-12-25 19:50:00 Test Item Value Reference Range Interpretation Comments Creatinine (test code = 2160-0) 1.0 mg/dL 0.7-1.3 [facility] HealthGFR estimate [id number] 19:50:00 Test Item Value Reference Range Interpretation Comments Estimat Glomerular Filtration Rate 101 90-142 (test code = 78252-4) [facility] HealthSerum or plasma glucose measurement (mass/volume)2019-12-25 19:50:00 Test Item Value Reference Range Interpretation Comments Glucose Level (test code = 2345-7) 132 mg/dL 60-100 [facility] HealthSerum or plasma calcium measurement (mass/volume)2019-12-25 19:50:00 Test Item Value Reference Range Interpretation Comments Calcium Level (test code = 10.4 mg/dL 8.4-10.2 79520-9) [facility] HealthSerum or plasma total bilirubin measurement (mass/volume) 2019-12-25 19:50:00 Test Item Value Reference Range Interpretation Comments Total Bilirubin (test code = 0.8 mg/dL 0.2-1.2 1974-2) [facility] HealthSerum or plasma aspartate aminotransferase measurement [...] (test code = 84 U/L 0-749 6768-6) [facility] leukocyte count (number/volume)2019-12-25 19:50:00 Test Item Value Reference Range Interpretation Comments White Blood Count (test code = 8.1 10*3/uL 6690-2) Blood erythrocytes automated count (number/volume)2019-12-25 19:50:00 Test Item Value Reference Range Interpretation Comments Red Blood Count (test code = 5.31 10*6/uL 789-8) Blood hemoglobin measurement (mass/volume)2019-12-25 19:50:00 Test Item Value Reference Range Interpretation Comments Hemoglobin (test code = 718-7) 15.4 g/dL Automated blood hematocrit (volume fraction)2019-12-25 19:50:00 Test Item Value Reference Range Interpretation Comments Hematocrit (test code = 4544-3) 44.6 % Automated erythrocyte mean corpuscular volume (MCV) gpovdxuqgkb3044-67-06 19:50:00 Test Item Value Reference Range Interpretation Comments Mean Corpuscular Volume (test code = 84 fL 787-2) Automated erythrocyte mean corpuscular hemoglobin (mass per erythrocyte) 2019-12-25 19:50:00 Test Item Value Reference Range Interpretation Comments Mean Corpuscular Hemoglobin (test 29.0 pg code = 785-6) Automated erythrocyte mean corpuscular hemoglobin concentration measurement (mass/gfs9510-28-26 19:50:00 Test Item Value Reference Range Interpretation Comments Mean Corpuscular Hemoglobin Concent 34.5 g/dL (test code = 786-4) Automated erythrocyte distribution width dbtmf0609-01-12 19:50:00 Test Item Value Reference Range Interpretation Comments Red Cell Distribution Width (test code 10.9 % = 788-0) Automated blood platelet count (count/volume)2019-12-25 19:50:00 Test Item Value Reference Range Interpretation Comments Platelet Count (test code = 421 10*3/uL 777-3) Automated blood platelet mean volume mcmnvkjuffx1234-77-30 19:50:00 Test Item Value Reference Range Interpretation Comments Mean Platelet Volume (test code = 9.7 95171-4) Automated blood neutrophil count as percentage of total onlycurkmt8439-36-96 19:50:00 Test Item Value Reference Range Interpretation Comments Neutrophils (%) (Auto) (test code = 83 % 770-8) Automated blood immature granulocyte count as percentage of total leukocytes 2019-12-25 19:50:00 Test Item Value Reference Range Interpretation Comments Immature Granulocyte % (Auto) (test 0 % code = 52491-4) Automated blood lymphocyte count as percentage of total mkbjhgewej3379-49-99 19:50:00 Test Item Value Reference Range Interpretation Comments Lymphocytes (%) (Auto) (test code = 13 % 736-9) Automated blood monocyte count as percentage of total urvzuohgbi8938-52-33 19:50:00 Test Item Value Reference Range Interpretation Comments Monocytes (%) (Auto) (test code = 4 % 5905-5) Automated blood eosinophil count as percentage of total isgrrqnhnf4655-59-23 19:50:00 Test Item Value Reference Range Interpretation Comments Eosinophils (%) (Auto) (test code = 0 % 713-8) Automated blood basophil count as percentage of total gqzihxjcic5144-89-99 19:50:00 Test Item Value Reference Range Interpretation Comments Basophils (%) (Auto) (test code = 0 % 706-2) Automated blood nucleated erythrocyte count as percentage of total leukocytes 2019-12-25 19:50:00 Test Item Value Reference Range Interpretation Comments Nucleated Red Blood Cells % (test code 0.0 % = 21370-0) Automated blood neutrophil count (number/volume)2019-12-25 19:50:00 Test Item Value Reference Range Interpretation Comments Neutrophils # (Auto) (test code = 6.7 10*3/uL 751-8) Automated blood immature granulocyte count as percentage of total leukocytes 2019-12-25 19:50:00 Test Item Value Reference Range Interpretation Comments Immature Granulocyte # (Auto) 0.0 10*3/uL (test code = 48052-2) Automated blood lymphocyte count (number/volume)2019-12-25 19:50:00 Test Item Value Reference Range Interpretation Comments Lymphocytes # (Auto) (test code = 1.0 10*3/uL 731-0) Blood monocytes automated count (number/volume)2019-12-25 19:50:00 Test Item Value Reference Range Interpretation Comments Monocytes # (Auto) (test code = 0.4 10*3/uL 742-7) Automated blood eosinophil oflwq3473-55-85 19:50:00 Test Item Value Reference Range Interpretation Comments Eosinophils # (Auto) (test code = 0.0 10*3/uL 711-2) Automated blood basophil count (number/volume)2019-12-25 19:50:00 Test Item Value Reference Range Interpretation Comments Basophils # (Auto) (test code = 0.0 10*3/uL 704-7) Automated blood nucleated erythrocyte count (count/volume)2019-12-25 19:50:00 Test Item Value Reference Range Interpretation Comments Nucleated Red Blood Cells # 0.00 10*3/uL (test code = 771-6) Service comment [id number] 19:50:00 Test Item Value Reference Range Interpretation Comments Manual Differential (test code = Not Ind 8265-1) Serum or plasma sodium measurement (moles/volume)2019-12-25 19:50:00 Test Item Value Reference Range Interpretation Comments Sodium Level (test code = 2951-2) 139 mmol/L Serum or plasma potassium measurement (moles/volume)2019-12-25 19:50:00 Test Item Value Reference Range Interpretation Comments Potassium Level (test code = 4.9 mmol/L 2823-3) Serum or plasma chloride measurement (moles/volume)2019-12-25 19:50:00 Test Item Value Reference Range Interpretation Comments Chloride Level (test code = 106 mmol/L 2075-0) Serum or plasma total carbon dioxide measurement (moles/volume)2019-12-25 19:50:00 Test Item Value Reference Range Interpretation Comments Carbon Dioxide Level (test code = 24 mmol/L 2028-02) Serum or plasma anion gap determination (moles/volume)2019-12-25 19:50:00 Test Item Value Reference Range Interpretation Comments Anion Gap (test code = 19352-4) 14 Serum or plasma urea nitrogen measurement (mass/volume)2019-12-25 19:50:00 Test Item Value Reference Range Interpretation Comments Blood Urea Nitrogen (test code = 11 mg/dL 3094-0) Serum or plasma creatinine measurement (mass/volume)2019-12-25 19:50:00 Test Item Value Reference Range Interpretation Comments Creatinine (test code = 2160-0) 1.0 mg/dL GFR estimate [id number] 19:50:00 Test Item Value Reference Range Interpretation Comments Estimat Glomerular Filtration Rate 101 (test code = 75026-3) Serum or plasma glucose measurement (mass/volume)2019-12-25 19:50:00 Test Item Value Reference Range Interpretation Comments Glucose Level (test code = 2345-7) 132 mg/dL Serum or plasma calcium measurement (mass/volume)2019-12-25 19:50:00 Test Item Value Reference Range Interpretation Comments Calcium Level (test code = 10.4 mg/dL 24987-3) Serum or plasma total bilirubin measurement (mass/volume)2019-12-25 19:50:00 Test Item Value Reference Range Interpretation Comments Total Bilirubin (test code = 0.8 mg/dL 1974-2) Serum or plasma aspartate aminotransferase measurement (enzymatic activity/volume)2019-12-25 19:50:00 Test Item Value Reference Range Interpretation Comments Aspartate Amino Transf (AST/SGOT) 15 U/L (test code = 1920-8) Serum or plasma alanine aminotransferase measurement (enzymatic activity/volume) 2019-12-25 19:50:00 Test Item Value Reference Range Interpretation Comments Alanine Aminotransferase (ALT/SGPT) 11 U/L (test code = 1742-6) Serum or plasma protein measurement (mass/volume)2019-12-25 19:50:00 Test Item Value Reference Range Interpretation Comments Total Protein (test code = 2885-2) 7.8 g/dL Serum or plasma albumin measurement (mass/volume)2019-12-25 19:50:00 Test Item Value Reference Range Interpretation Comments Albumin (test code = 1751-7) 5.1 g/dL Serum or plasma alkaline phosphatase measurement (enzymatic activity/volume) 2019-12-25 19:50:00 Test Item Value Reference Range Interpretation Comments Alkaline Phosphatase (test code = 84 U/L 6768-6) Serum or plasma lipase measurement (enzymatic activity/volume)2019-12-25 19:50:00 Test Item Value Reference Range Interpretation Comments Lipase (test code = 3040-3) 12 U/L Creatine kinase ser/yvqg2531-71-11 19:50:00 Test Item Value Reference Range Interpretation Comments Total Creatine Kinase (test code = 93 U/L 2157-6) Serum or plasma creatine kinase MB measurement (mass/volume)2019-12-25 19:50:00 Test Item Value Reference Range Interpretation Comments Creatine Kinase MB (test code = 1.02 ng/mL 68892-4) Serum or plasma creatine kinase MB (CKMB)/total creatine kinase (CK) ratio by xixbjffbusj7453-55-52 19:50:00 Test Item Value Reference Range Interpretation Comments Creatine Kinase MB Relative Index (test 1.1 code = 25173-3) Review and interpretation laboratory results (nominal result)2019-12-25 19:50:00 Test Item Value Reference Range Interpretation Comments Creatine Kinase Interpretation (test NEGATIVE code = 42398-2) HEPATITIS C ANTIBODY [id number] 08:27:00 Test Item Value Reference Range Interpretation [...] prelimenary and confirmation re sults will follow. [id number] 07:35:00 Test Item Value Reference Range Interpretation [...] (test code = UAMICRO) NO CT ABDOMEN/PELVIS [id number] 07:28:[address] [id number] IMAGING REPORTPatient Name: TENZIN LOVE CDate of Service: 26-27-1009Rhm: 19 Sex: M Order #: [id number] Room: ERSDOB: 2000 X-Ray Number: [id number] Record Number: [id number] Hospital Number: [id number] Physician: FAY RUBI -Ordering Physician: FAY RUBI -CT abdomen and pelvis.History: Abdomen pa in.Technique: IV and oral contrast enhanced CT axial images of the abdomen andpelvis with sagittal and coronal reformatted images were reviewed.Contrast administered for this study per protocol; oral Gastrografin-uipyi562 mL water with 15 mL Gastrografin and IV Isovue 300-[address] exam was performed using one or more of the following dosereduction techniques: Automated exposure control, adjustment of the MAand/or KV according to patient size or use of iterative reconstructiontechnique.Comparison: None.Findings:Images of the lower lungs and mediastinum demonstrate no specific defects.The solidlarge organs of the upper abdomen appear focally normal.The gallbladder appears normal.There is no significant retroperitoneal adenopathy or fluid collectionsdepicted.Small bowel loops appear focally normal.There are no specific mucosal abnormality seen involving the colon.The appendix is not visualized.The urinary bladder appears normal. There is no pelvic free fluid seen.Impression:No specific acute appearing abdominal abnormalities.Electronically Signed By: Jah Gomez M.D., 12/25/2019 7:26AMLegally authenticated by JULIETA Perez 2019-12-25 07:26:[id number] 05:24:00 Test Item Value Reference Range Interpretation [...] (test code 4.9 K/UL 1.2-7.2 = NEUT) [id number] 05:11:00 Test Item Value Reference Range Interpretation Comments LIPASE (test code = LIPA) 52 U/L 23-300 LIVER [id number] 05:11:00 Test Item Value Reference Range Interpretation [...] ALTV) 9 U/L 13-69 L ISTAT CHEM [id number] 04:30:00 Test Item Value Reference Range Interpretation [...] 14.6 G/DL 12.0-18.0 Notifi ed Nurse[facility] results outside of Reference Range s ISTANGAP (test code = 18 MMOL/L Notifi ed Nurse/MD of [facility]) results outside of Reference Range s Throat Culture Strep [id number] 18:38:52Streptococcus Group A screen negativeInfluenza A [id number] 16:26:26 Test Item Value Reference Range Interpretation Comments Influenza A Ag (test Negative Negative Childre n tend to shed code = Influenza A Ag) virus more abundantly and for longer period of time than ad ults. Therefore, test ing specimens from adults will often yiel d lower sensitivity pat n testing specime ns from children. Influenza B [id number] 16:26:26 Test Item Value Reference Range Interpretation Comments Influenza B Ag (test Negative Negative Childre n tend to shed code = Influenza B Ag) virus more abundantly and for longer period of time than ad ults. Therefore, test ing specimens from adults will often yiel d lower sensitivity pat n testing specime ns from children. Streptococcus A Screen Rapid w/ Reflex [id number] 16:23:02 Test Item Value Reference Range Interpretation Comments Strep A Scn (test code = Strep A Negative Negative Scn) PATHOLOGY [id number] 11:39:00TISSUE CONSULTATION REPORTBAPTIST [facility] ALLIANCEDEPARTMENT OF PATHOLOGYP.[address] [place] [address] ROBERT YASMIN STINSON M.D.ROBERT L. HUTTON, M.D.CHARLES E. BURNS, M.D. ____Patient: TENZIN LOVE 2000 18 MRoom:Nolvia#: [id number] Ordering Physician: GERONIMO GIRARD Rec.: 06/25/2019Date of Proc.: 06/25/2019Lab No.: [id number] Clinical History:Nausea, abnormal weight loss.FINAL ANATOMIC DIAGNOSIS:A. [...] propria or the villous tips. No villous bluntingisseen. Malignancy and dysplasia are not identified. No parasitesare observed. No foveolar metaplasia is encountered. The biopsy isslightly superficial and does not include submucosal mucous glands.B. Sections demonstrate superficial small bowel mucosa with thin,delicate and elongated villi where not tangentially sectioned. Noincrease in inflammation is seen. Malignancy, dysplasia andparasites are not observed. No increase in intraepithelialleukocytes is noted. The submucosal mucous glands are not ov erlyprominent. Foveolar metaplasia is not seen.C. Sections demonstrate gastric antrum with a slightly congestedlamina propria focally. In some areas there is mild increase inlymphocytes and plasma cells in the lamina propria. Neutrophils arenot seen. The surface is mildly reactive but not gastropathic.Malignancy and dysplasia are not observed. No goblet cells are seenon Alcian blue/PAS stain. No helicobacter organisms are seen onSteiner stain.D. Sections demonstrate fundic mucosa with slight edema in thelamina propria accompanied by mildly increased numbers oflymphocytes and plasma cells superficially and again at the base ofthe epithelium. Glandular destructive lesions are not observed.Malignancyand dysplasia are not identified. Acute inflammation isnot seen. There are no goblet cells seen on Alcian blue/PAS stainnor are there helicobacter organisms seen on Garett stain.E. Sections demonstrate squamous mucosa with very prominentvascular ridges and evidence of squamous hyperplasia. Someextravasation of red cells is present into the epithelium,accompanied by a few scattered lymphocytes. Neutrophils andeosinophils are not seen. Some ballooning of superficial squames isseen. Malignancy and dysplasia are not identified. No viralinclusions are seen. There are no goblet cells or fungal organismsi dentified on Alcian blue/PAS stain. Only scant glandularepithelium is noted, without additional findings.F. Sections display superficial small bowel mucosa in which thevilli are thin, delicate and elongated. No increase in inflammationis seen. Parasites are not observed. Cryptitis, crypt abscessformati on and glandular disarray are not noted. No [...] in onecassette.B. Specimen B is received in formalin labeled "duodenal bulbbiopsy."It is a fragment of luis tissue 0.2 [...] esophagealbiopsy." It is a wispy fragment of pinkish- luis tissue 0.3 cm, TE inone cassette.F. Specimen F is received in formalin labeled "terminal ileumbiopsy." It is a fragment of luis tissue 0.3 cm, TE in one cassette.G. Specimen G is received in formalin labeled "cecum biopsy." It bismark fragment of luis tissue 0.3 cm, TE in one cassette.H. Specimen H is received in formalin labeled "biopsy of rectum."It is a fragment of luis tissue 0.3 cm, TEin one cassette.PATHOLOGIST: Chevy Kim Electronically Signed: 06/27/2019C- REACTIVE [id number] 12:49:00 Test Item Value Reference Range Interpretation Comments CRP (test code = CRP) <0.5 mg/dL 0.5-1.0 [id number] 12:49:00 Test Item Value Reference Range Interpretation [...] glucose = GLUCOSE) normal <100 MG/ DL- [employer] recommendation* * CALCIUM (test [...] GFR) mL/min/1.73m2 mL/min/1.73m2 is considered norm al. [id number] 12:23:00 Test Item Value Reference Range Interpretation [...] 3.7 K/UL 1.2-7.2 = NEUT) CT ABDOMEN/PELVIS [id number] 09:23:[address] [place] [address]WQCEFUSTYZ IMAGING REPORTPatient Name: TENZIN LOVE CDate of Service: [id number]: 18 Sex: M Order #: [id number] Room: OPEDOB: 2000 X-Ray Number: [id number] Record Number: [id number] Hospital Number: [id number] Physician: MS DERIANONTHIOrdering Physician: CRISTIANE MENARD abdomen and pelvis.History: Abdomen painTechnique: IV and oral contrast enhanced CT images.Contrast administered for this study per protocol; Ouyuht-507-080 mL,Redi-CAT barium by mouth 450 mL 2 hours before the study.This CT exam was performed using one or more of the following dosereduction techniques: Automated exposure control, adjustment ofthe MAand/or KV according to patient size or use of iterative reconstructiontechnique.Comparison: November 04, 2018, August 25, 2018.Findings:Images of the lower lungs and mediastinum demonstrate no specificdefects.The solid large organs of the upper abdomen appear focally normal.The gallbladder appears normal.There is no significant retroperitoneal adenopathy or fluid collectionsdepicted.Small bowel loops appear focally normal.There are no specific mucosal abnormality seen involving the colon.The appendix is visualized and appears retrocecal and normal.The urinary bladder appears normal. There is no pelvic free fluid seen.Impression:No specific acute appearing abdominal abnormalities.Electronically Signed By: Jah Gomez M.D., 04/11/2019 9:21 AMLegally authenticated by JULIETA Perez 2019-04-11 09:21:[id number] 12:45:00 Test Item Value Reference Range Interpretation [...] glucose = GLUCOSE) normal <100 MG/ DL- [employer] recommendation* * CALCIUM (test [...] mL/min/1.73m2 mL/min/1.73m2 is considered norm al. LIPID [id number] 12:45:00 Test Item Value Reference Range Interpretation [...] = 63 MG/DL <100 CALC LDL) FREE [id number] 12:45:00 Test Item Value Reference Range Interpretation Comments FT4 (test code = FT4) 0.92 ng/dL 0.78-2.19 [id number] 12:45:00 Test Item Value Reference Range Interpretation Comments LIPASE (test code = LIPA) 38 U/L 23-300 % HEMOGLOBIN A1C (GLYCATED)2019-04-05 12:25:00 Test Item Value Reference Range Interpretation Comments HEMOGLOBIN A1C (test 5.3 % 0-6 THERAP EUTIC TARGET FOR code = GLYCO-) THE TREATMENT OF DIABETES MELL US PATIENTS IS < 7 % HBA1C. [employer]. DIABETES CARE 2002;25:S33-S49 [id number] 11:37:00 Test Item Value Reference Range Interpretation [...] = NRBC%) 0 /[address] ABDOMEN/PELVIS [id number] 07:28:[address] [address]NEAGJBRXYU IMAGING REPORTPatient Name: TENZIN LOVE CDate of Service: [id number]: 17 Sex: M Order #: [id number] Room: ERSDOB: 2000 X-Ray Number: [id number] Record Number: [id number] Hospital Number: [id number] Physician: RODRIGO GUERREROOrdering Physician: DONTE WASSERMAN abdomen and pelvis.History: Abdomen pain.Technique:IV and oral contrast enhanced CT axial images of the abdomen andpelvis with sagittal and coronal reformatted images were reviewed.Contrast administered for this study per protocol; oral Gastrografin-klliu299 mL water with 15 mL Gastrografin and IV Isovue 300-[address] exam was performed using oneor more of the following dosereduction techniques: Automated [...] specific acute appearing abdominal abnormalities.Electronically Signed By: Jah Gomez M.D., 11/05/2018 7:25 AMLegally authenticated by JULIETA Perez 2018-11-05 07:25:44HEPATITIS C ANTIBODY [id number] 21:50:00 Test Item Value Reference Range Interpretation [...] prelimenary and confirmation re sults will follow. [id number] 21:26:00 Test Item Value Reference Range Interpretation [...] BACTERIA (test code = NEGATIVE NONE BACTERIA) [id number] 21:00:00 Test Item Value Reference Range Interpretation Comments LIPASE (test code = LIPA) 81 U/L 23-300 LIVER [id number] 21:00:00 Test Item Value Reference Range Interpretation [...] (test code = ALT) 23 U/L 13-69 [id number] 20:57:00 Test Item Value Reference Range Interpretation [...] 6.3 K/UL 1.2-7.2 = NEUT) ISTAT CHEM [id number] 20:40:00 Test Item Value Reference Range Interpretation [...] code = ISTANGAP) 19 MMOL/L CT ABDOMEN/PELVIS [id number] 17:43:00[address] [id number] IMAGING REPORTPatient Name: TENZIN LOVE SHELLEYate of Service: [id number]: 17 Sex: M Order #: [id number] Room: ERSDOB: 2000 X-Ray Number: [id number] Record Number: [id number] Hospital Number: [id number] Physician: MARQUEZ MARCELOOrdering Physician: MANNY WASSERMAN ABDOMEN/PELVIS WITH 08/25/2018 [...] or intrapelvic abnormality is detected.Electronically Signed By: Carroll Ram M.D., 08/25/2018 5:40 PMLegally authenticated by DARREL HODGES 2018-08-25 17:40:[id number] 14:53:00 Test Item Value Reference Range Interpretation [...] GRAV (test code = URSPGRAV) 1.008 1.000-1.025 [id number] 14:37:00 Test Item Value Reference Range Interpretation [...] glucose = GLUCOSE) normal <100 MG/ DL- [employer] recommendation* * CALCIUM (test [...] GFR) mL/min/1.73m2 mL/min/1.73m2 is considered norm al. [id number] 14:37:00 Test Item Value Reference Range Interpretation Comments LIPASE (test code = LIPA) 53 U/L 23-300 [id number] 14:30:00 Test Item Value Reference Range Interpretation [...] code 5.5 K/UL 1.2-7.2 = NEUT) PATHOLOGY [id number] 15:22:00TISSUE CONSULTATION REPORTBAPTHCA HOUST[facility]ALTH[facility]ARE WESTDEPARTMENT OF PATHOLOGYP.[address] [place] [address] SHAUN COREY M.D.LIBBY KATZ M.D.CHARLES E. BURNS, M.D. ____Patient: TENZIN LOVE 2000 17 MRoom:Hosp#: [id number] Ordering Physician: Luther GIRARD Rec.: 08/07/2018Date of Proc.: 08/07/2018Lab No.: [id number] PRE-OPERATIVE DIAGNOSIS:Weight loss and left lower quadrant [...] of surfaceepithelium, malignancy and dysplasia are not seen.Parasites arenot observed. No increase in superficial collagen table is seen.GROSS APPEARANCE:A. Specimen A is received in formalin labeled "terminal ileum." Itis a fragment of luis tissue 0.3 cm, TE inone cassette.B. Specimen B is received in formalin labeled "biopsy of cecum."It is a fragment of tantissue 0.4 x 0.2 x 0.2 cm, TE in onecassette.C. Specimen C is received in formalin labeled "biopsy of rectum."It is a fragment of luis tissue 0.2 cm, TE in one cassette.PATHOLOGIST: Chevy Kim Electronically Signed: 08/08/2018INFLAMATORY BOWEL DISEASE PROF 2018-07-24 09:01:00 Test Item Value Reference Range Interpretation Comments IBD (test code = POSITIVE TESTING PER FORMED AT IBD) [place] [address] (RES ULTS AVAILABLE UNDER SEPARATE COVER) Notes Date/Time Note Provider Source 2022-05-25 22:03:00-00:[address] [address] Emergency Department Document Signed Patient: Tenzin Love Medical Record#: [id number] 30 : 2000 Acct:[id number] Age/Sex: 21 / M Admit/Reg Date: 05/25/22 Loc: [facility] Room: Report Number: [id number]: Reji Ruiz MD Arrival - Arrival ED Triage Note: Abdominal pa in on going for 4 years, got worse in the last couple weeks. Some diarrhea/rectal burning/and blood noted upon wip ing. History of Present Illness Nursing note reviewed: Yes Source: patient Exam/History Limitations: no limitations Primary Care Provider: Pcp-Md Ritchie Chief Complaint: Abdominal Pain Stated Complaint: abdominal pain History of Present Illness: This is an emergency evaluat ion of a 21-year-old man who comes with years worth of abdominal pain he states that known has been a ble to tell him what disease. He states that he has had radiographic examinations endoscopic exam inations and known can tell him what he is. He just wants something for the pain (Reji Ruiz) Allergies/Adverse Reactions: No Known Drug Allergies Allergy (Verified 21:26) Review of Systems All Other Systems (except as marked in HPI): Rev iewed and Negative Past Medical/Surgical History Medical History: Medical History (Last Reviewed 05/25/22 @ 21:36 by Anca Mir RN) Asthma (Medical) J45.909 Back pain (Medical) M54.9 Crohn disease (Medical) K50.90 Hypertension (Medical) I10 IBS (irritable bowel syndrome) (Medical) K58.9 Scoliosis (Medical) M41.9 Surgical History: Surgical History (Last Reviewed 05/25/22 @ 21:36 by Anca Mir RN) History of colonoscopy (Surgical) Z98.890 History of testicular surgery (Surgical) Z98.890 Family/Social History - Social History Current or Hx of Recreational Drug use: No 1. How Often Do You Have a Drink Containing Alco hol: a. Never Physical Exam Triage Vital Signs: Temperature 99.1 F 05/25/22 21:32 Temperature Source Oral 05/25/22 21:32 Pulse Rate 59 L 05/25/22 21:32 Respiratory Rate 18 05/25/22 21:32 Blood Pressure 139/74 05/25/22 21:32 Blood Pressure Source Automatic Cuff 05/25/22 21 :32 Blood Pressure Mean 95 05/25/22 21:32 Blood Pressure Position Sitting 05/25/22 21:32 O2 Sat by Pulse Oximetry 100 05/25/22 21:32 Oxygen Delivery Method 05/25/22 21:32 Pain Intensity 10 05/25/22 21:32 Physical Exam: Constitutional: No fevers, chills, sweats, weigh t loss Eye: No visual problems ENMT: No ear pain, nasal congestion, sore throat Respiratory: No shortness of breath, cough Cardiovascular: No Chest emily n, palpitations, syncope, swelling in legs, dyspnea on exertion Gastrointestinal: No nausea, vomiting, diarrhea, abdominal pain, no difficulty swallowing Genitourinary: No hematuria, no dysuria, no hesitancy, no frequency, no incontinence Farooq/Lymph: Negative for bruising tendency, swol shawn lymph glands Endocrine: Negative for exce ssive thirst, glucose normal, no heat or cold intolerance Musculoskeletal: No back emily n, neck pain, joint pain, muscle pain, decreased range of motion Integumentary: No rash, pruritus, abrasions, no skin ulcers Neurologic: No focal weaknes s, no paresthesia, no headaches, numbness or tingling, no seizures or tremors Psychiatric: Normal memory, normal mood All other systems reviewed are negative or ismael l. (Reji Ruiz) MDM/COURSE Vital Signs Temperature 99.1 F 05/25/22 21:32 Pulse Rate 59 L 05/25/22 21:32 Respiratory Rate 18 05/25/22 21:32 Blood Pressure 139/74 05/25/22 21:32 O2 Sat by Pulse Oximetry 100 05/25/22 21:32 Temperature 99.1 F 05/25/22 21:32 Pulse Rate 59 L 05/25/22 21:32 Respiratory Rate 18 05/25/22 21:32 Blood Pressure 139/74 05/25/22 21:32 O2 Sat by Pulse Oximetry 100 05/25/22 21:32 - [facility] Medical Decision Making Narrative: 05/25/22 22:10 Patient emergency department chronic abdominal pain is here just for something for the discomfort. He and I had a long discussi on about the fact that he has been worked up multiple times in the past he says a nothing has been f ound. He will be given a prescription for dicyclomine asked to follow up with regular doctor and return for any proble ms (Reji Ruiz) Discharge Plan - Discharge Clinical Impression: Abdominal pain Qualifiers: Abdominal location: general ized Qualified Code(s): R10.84 - Generalized abdominal pain Disposition: Home or Self-Care Condition: Good Instructions: ED ABDOMINAL PAIN-Unknown Cause-Ma gilma Prescriptions: New dicyclomine 20 mg tablet 20 mg PO QID PRN (Reason: Stomach Cramps) Qty: 40 RF: 0 Prescription Printed No Action Multi-Vitamin Daily Referrals: Pcp-Md Dugan MD [Primary Care Provider] - Print Language: Norwegian Dictated By: Reji Ruiz MD Signed By: Reji Ruiz MD 05/25/222211 DD/ 02 TD/TT: 05/25/222202 Aeroplane Pilot: [id number] cc: SARA PcpMd LAURA Levin 2021-01-16 21:43:00-00:00 [facility] [address] [place] [address] DIAGNOSTIC IMAGING REPORT Patient Name: TENZIN LOVE Date of Service: 01-16-2021 Age: 20 Sex: M Order #: [id number] Room: [facility] : 2000 X-Ray Number: [id number] Hospital Number : [id number] Admitting Physician: SHAUN SHAH Ordering Physician: SHAUN SHAH PROCEDURE: CT THORAX W/O CONT INDICATIONS: Dx: SOBorder sts: SOBpt complains o f SOB x 4 days hx of HTNpsv: KLL CT Chest without IV Contrast Axial computed tomography images of the chest wi thout IV contrast. COMPARISON: CR - CHEST 1 VIEW PORTABLE - 02:[address] - ABDOMEN ABDPEL_1 (ADULT) - 11/04/2018 10:37 PM CDT FINDINGS: The lungs appear essentially clear. No pulmonary mass. No pneumothorax evident. No pleural effusions. No cardiomegaly. No significant pericardial effu drew. No lymphadenopathy is evident. No focal osseous abnormality or acute fracture. The visualized upper abdominal solid organs are unremarkable. IMPRESSION: No acute intrathoracic pathology. The finding of subtle pneumonitis versus subsegmental atelectasis on contemporaneous ches t x-ray likely reflects motion artifact during x-ray acquisition. This document has been electronically signed by: Lavelle Marie MD on 01/16/2021 22:24:32 Legally authenticated by DIANA MALIK 2021-01-03 4 21:43:00 2021-01-16 01:42:00-00:00 [facility] [place] [address] DIAGNOSTIC IMAGING REPORT Patient Name: TENZIN LOVE Date of Service: 01-16-2021 Age: 20 Sex: M Order #: [id number] Room: [facility] : 2000 X-Ray Number: [id number] Hospital Number : [id number] Admitting Physician: SHAUN SHAH Ordering Physician: SHAUN SHAH PROCEDURE: CHEST 1 VIEW PORTABLE INDICATIONS: PSV/HDBDX: Nausea, vomiting, covid exposureorder sts: congestionPt c/o: Nausea, vomiting, cough, SOB, chest congestion x 1 week after Covid exposure CR Chest 1 radiographic view(s) COMPARISON: CT - ABDOMEN ABDPEL_1 (ADULT) - 07/2018 10:37 PM CDT FINDINGS: Subtle ground-glass intrapulmonary opacification centered within the bilateral (right more evident than left) lower l obe airspaces. Incidental benign calcified lung parenchymal granulomata. No evidence of pleural effusion or pneumothorax. Cardiac size and mediastinal contours within nor mal limits. No acute displaced fracture or aggressive appear ing osseous lesion. IMPRESSION: Subtle pneumonitis versus subsegmental atelectas is as described. This document has been electronically signed by: Lavelle Marie MD on 01/16/2021 02:53:47 Legally authenticated by DIANA MALIK 2021-01-1 4 01:42:00 2020-11-15 11:05:57-00:00 [facility] [place] [address] DIAGNOSTIC IMAGING REPORT Patient Name: TENZIN LOVE Date of Service: 11-15-2020 Age: 20 Sex: M Order #: [id number] Room: [facility] : 2000 X-Ray Number: [id number] Hospital Number : [id number] Admitting Physician: FAY RUBI - Ordering Physician: MARQUEZ MARCELO LEFT ANKLE 3 VIEWS 11/15/2020 10:36 AM History: pain with walking Comparisons: None Available. FINDINGS: There is no acute fracture or dislocation. There are no suspicious lytic or blastic bone le sions. There are no definite osseous erosions or bony d estruction detected. There is no radiopaque foreign body. There is no soft tissue gas identified. IMPRESSION: No acute bony abnormality is identified. Electronically Signed By: Carroll Ram M.D., 11/15/2020 11:05 AM Legally authenticated by DARREL HODGES 2020-11-15 11:05:57 2019-12-25 07:26:21-00:00 [facility] [place] [address] DIAGNOSTIC IMAGING REPORT Patient Name: TENZIN LOVE Date of Service: 12-25-2019 Age: 19 Sex: M Order #: [id number] Room: [facility] : 2000 X-Ray Number: [id number] Hospital Number : [id number] Admitting Physician: FAY RUBI - Ordering Physician: FAY RUBI - CT abdomen and pelvis. History: Abdomen pain. Technique: IV and oral contrast enhanced CT axia l images of the abdomen and pelvis with sagittal and coronal reformatted mihir ges were reviewed. Contrast administered for this study per protoco l; oral Gastrografin-mixed 500 mL water with 15 mL Gastrografin and IV Isov ue 300-[address] exam was performed using one or more of the following dose reduction techniques: Automated exposure control , adjustment of the MA and/or KV according to patient size or use of it erative reconstruction technique. Comparison: None. Findings: Images of the lower lungs and mediastinum demons trate no specific defects. The solid large organs of the upper abdomen appe ar focally normal. The gallbladder appears normal. There is no significant retroperitoneal adenopat hy or fluid collections depicted. Small bowel loops appear focally normal. There are no specific mucosal abnormality seen i nvolving the colon. The appendix is not visualized. The urinary bladder appears normal. There is no pelvic free fluid seen. Impression: No specific acute appearing abdominal abnormalit ies. Electronically Signed By: Bob Davalos, 12/25/2019 7:26 AM Legally authenticated by JULIETA Perez 12-24 07:26:21
[2022-11-11 23:47] LABS: Hematocrit 41.1 % (39.6-49.0); Lymphocytes % 34.1 % (15.3-44.8); MCV 84.4 fL (80-100); MPV 7.6 fL (7.6-11.3); RBC Red Blood Cell Count 4.87 M/uL (4.33-5.43)
[2022-11-12] MEDS ORDERED: DIPHENHYDRAMINE 50 MG/ML VIAL ONE (00:04)
[2022-11-12] MEDS ORDERED: METOCLOPRAMIDE 10 MG/2mL INJ ONE (00:04)
[2022-11-12] MEDS ORDERED: NA CHLORIDE 0.9% 500 ML ONE (00:05)
[2022-11-12 00:07] LABS: Albumin 3.7 g/dL (3.4-5.0); Bilirubin Total 0.4 mg/dL (0.2-1.0); Potassium 3.7 mEq/L (3.5-5.1)
--- NOTE | 2022-11-12 00:26 | EDPHYS ---
Physician Documentation [facility] Name: Tenzin Love Age: 22 yrs Sex: Male : 2000 Arrival Date: 11/11/2022 Time: 22:50 Bed 19 Private MD: ED Physician Yaakov Madrigal HPI: 11/11 23:13 This 22 yrs old Male presents to ER via Unassigned with complaints of bs3 Abdominal Problem, Nausea/Vomiting. 23:13 22-year-old male history of unknown abdominal symptoms with chronic abdominal pain had bs3 negative colonoscopy and endoscopy followed by GI previously prescribed medicine but ran out of it presents with nausea vomiting he notes diarrhea yesterday he notes trace amount of blood in his emesis after vomiting multiple times denies fevers chills chest pain shortness of breath he notes that his pain is currently moderate in intensity he denies any history of surgery. Historical: - Allergies: 23:15 No Known Allergies; pf1 - PMHx: 23:15 depressive disorder; Irritable bowel syndrome; leaking heart valve; scoliosis; pf1 - PSHx: 23:15 testicular drop; pf1 - Immunization history:: Adult Immunizations Last tetanus immunization: < 10 years ago Flu vaccine is not up to date. - Social history:: Smoking status: Patient reports the use of cigarette tobacco products, denies chronic smoking, but will smoke occasionally, Patient uses alcohol, occasionally. Patient/guardian denies using street drugs. ROS: 23:13 Constitutional: Negative for fever, chills bs3 23:13 All other systems are negative. Exam: 23:13 Constitutional: This is a well developed, well nourished patient who is awake, alert, bs3 and in no acute distress. Head/Face: Normocephalic, atraumatic. Eyes: Pupils equal round and reactive to light, extra-ocular motions intact. Lids and lashes normal. ENT: mmm, no posterior phyarngeal erythema Neck: Trachea midline, no thyromegaly, no neck stiffness Chest/axilla: Normal chest wall appearance and motion. Nontender with no deformity. No lesions are appreciated. Cardiovascular: Regular rate and rhythm with a normal S1 and S2. symmetric pulses in upper extremities Respiratory: Lungs have equal breath sounds bilaterally, clear to auscultation, no respiratory distress Abdomen/GI: Soft, non-tender, no rebound or guarding MS/ Extremity: Pulses equal, no cyanosis. Neurovascular intact. Full, normal range of motion. Neuro: Awake and alert, GCS 15, oriented to person, place, time, and situation. Cranial nerves II-XII grossly intact. Motor strength 5/5 in all extremities. Sensory grossly intact. Psych: Awake, alert, with orientation to person, place and time. Behavior, mood, and affect are within normal limits. Vital Signs: 23:06 BP 131 / 88; Pulse 62; Resp 18; Temp 98.8; Pulse Ox 98% ; Weight 50.35 kg; Height 5 ft. pf1 3 in. ; Pain 7/10; 11/12 00:20 BP 117 / 76; Pulse 95; Resp 18 S; Pulse Ox 96% ; ha1 11/11 23:06 Body Mass Index 19.66 (50.35 kg, 160.02 cm) pf1 11/11 23:06 Pain Scale: Adult pf1 MDM: 11/11 23:00 Patient medically screened. bs3 23:13 Data reviewed: vital signs, nurses notes. bs3 23:18 ED course: Patient with a history of depression, per chart irritable bowel syndrome, bs3 will evaluate for dehydration will evaluate for pancreatitis his abdomen is soft and not focally tender I do not think he has acute cholecystitis diverticulitis appendicitis. 11/12 00:17 ED course: Labs negative for acute pathology there is no anemia no electrolyte bs3 abnormalities advised outpatient follow-up. 00:24 ED course: Patient reassessed feeling better resting comfortably in bed advised bs3 outpatient follow-up. 11/11 23:12 Order name: CBC with Diff; Complete Time: 00:17 bs3 11/11 23:12 Order name: Comprehensive Metabolic Panel; Complete Time: 00:17 bs3 11/11 23:12 Order name: Lipase; Complete Time: 00:17 bs3 Administered Medications: 00:09 Drug: NS 0.9% IV 500 ml Route: IV; Rate: 1 bolus; Site: right antecubital; ha1 00:48 Follow up: Response: No adverse reaction; IV Status: Completed infusion; IV Intake: ha1 500ml 00:11 Drug: diphenhydrAMINE IVP 12.5 mg Route: IVP; Site: right antecubital; ha1 00:48 Follow up: Response: No adverse reaction ha1 00:13 Drug: metoCLOPramide IVP 10 mg Route: IVP; Site: right antecubital; ha1 00:48 Follow up: Response: No adverse reaction ha1 Disposition Summary: 11/12/22 00:25 Discharge Ordered Location: Home bs3 Problem: an acute exacerbation bs3 Symptoms: have improved bs3 Condition: Stable bs3 Diagnosis - Vomiting bs3 Followup: bs3 - With: Private Physician - When: 2 - 3 days - Reason: Re-evaluation by your physician Discharge Instructions: - Discharge Summary Sheet bs3 - Vomiting, Adult bs3 Forms: - Medication Reconciliation Form bs3 - Thank You Letter bs3 - Antibiotic Education bs3 - Prescription Opioid Use bs3 Prescriptions: - ondansetron 8 mg Oral tablet,disintegrating - take 1 tablet by ORAL route every 8 hours; 12 tablet; Refills: 0, Product bs3 Selection Permitted Signatures: Dispatcher [employer] Annie Fletcher RN RN ha1 Yaakov Madrigal MD MD bs3 Katy Villarreal RN RN pf1
--- NOTE | 2022-11-12 00:26 | ER ---
Nurse's Notes [facility] Name: Tenzin Love Age: 22 yrs Sex: Male : 2000 Arrival Date: 11/11/2022 Time: 22:50 Bed 19 Private MD: Diagnosis: Vomiting Presentation: 11/11 23:06 Chief complaint: Patient states: abdominal pain of 7 with vomiting and pf1 constipation,onset 11 days. Patient stated vomited x 4 episodes in the past 24 hours and LBM was 1 hour ago. Patient stated history of chronic abdominal pain and next F/U appointment is 2 weeks with [facility] . Coronavirus screen: Vaccine status: Patient reports being unvaccinated. Client denies travel out of the [place] in the last 14 days. Client presents with at least one sign or symptom that may indicate coronavirus-19. Ebola Screen: Patient negative for fever greater than or equal to 101.5 degrees Fahrenheit, and additional compatible Ebola Virus Disease symptoms. Initial Sepsis Screen: Does the patient meet any 2 criteria? No. Patient's initial sepsis screen is negative. Does the patient have a suspected source of infection? No. Patient's initial sepsis screen is negative. Risk Assessment: Do you want to hurt yourself or someone else? Patient reports no desire to harm self or others. 23:06 Method Of Arrival: Ambulatory pf1 23:06 Acuity: ZANE 3 pf1 11/12 00:51 Onset of symptoms was November 07, 2022. ha1 Historical: - Allergies: 11/11 23:15 No Known Allergies; pf1 - PMHx: 23:15 depressive disorder; Irritable bowel syndrome; leaking heart valve; scoliosis; pf1 - PSHx: 23:15 testicular drop; pf1 - Immunization history:: Adult Immunizations Last tetanus immunization: < 10 years ago Flu vaccine is not up to date. - Social history:: Smoking status: Patient reports the use of cigarette tobacco products, denies chronic smoking, but will smoke occasionally, Patient uses alcohol, occasionally. Patient/guardian denies using street drugs. Screenin:17 [facility] ED Fall Risk Assessment (Adult) History of falling in the last 3 months, ha1 including since admission Yes- single mechanical fall (1 pt) Confusion or Disorientation No (0 pts) Intoxicated or Sedated No (0 pts) Score/Fall Risk Level 0 - 2 = Low Risk Oriented to surroundings, Maintained a safe environment, Hourly rounding (assess needs \T\ fall precautionary measures) done. 11/12 00:34 Abuse screen: Denies threats or abuse. Denies injuries from another. Nutritional ha1 screening: No deficits noted. Tuberculosis screening: No symptoms or risk factors identified. Assessment: 11/11 23:17 General: Appears comfortable, Behavior is calm, cooperative. Pain: Complains of pain in ha1 abdomen Pain does not radiate. Pain currently is 5 out of 10 on a pain scale. Quality of pain is described as crampy. Neuro: Level of Consciousness is awake, alert, obeys commands, Oriented to person, place, time, situation. Cardiovascular: Patient's skin is warm and dry. Respiratory: Airway is patent Respiratory effort is even, unlabored, Respiratory pattern is regular, symmetrical. GI: Abdomen is flat, non-distended, Bowel sounds present X 4 quads. Abd is soft and non tender X 4 quads. Reports lower abdominal pain, diarrhea, nausea, vomiting. Musculoskeletal: Circulation, motion, and sensation intact. 11/12 00:20 Reassessment: Patient and/or family updated on plan of care and expected duration. Pain ha1 level reassessed. Patient is alert, oriented x 3, equal unlabored respirations, skin warm/dry/pink. Vital Signs: 11/11 23:06 BP 131 / 88; Pulse 62; Resp 18; Temp 98.8; Pulse Ox 98% ; Weight 50.35 kg; Height 5 ft. pf1 3 in. ; Pain 7/10; 11/12 00:20 BP 117 / 76; Pulse 95; Resp 18 S; Pulse Ox 96% ; ha1 11/11 23:06 Body Mass Index 19.66 (50.35 kg, 160.02 cm) pf1 11/11 23:06 Pain Scale: Adult pf1 ED Course: 11/11 22:58 Patient arrived in ED. kj1 23:00 Yaakov Madrigal MD is Attending Physician. bs3 23:15 Triage completed. pf1 23:17 Arm band placed on right wrist. ha1 23:17 Patient has correct armband on for positive identification. Bed in low position. Call ha1 light in reach. Side rails up X 1. 23:28 Solorzano, Annie, RN is Primary Nurse. ha1 23:35 Inserted saline lock: 22 gauge in right antecubital area, using aseptic technique. ha1 Blood collected. 23:40 Lipase Sent. ha1 23:40 Comprehensive Metabolic Panel Sent. ha1 23:40 CBC with Diff Sent. ha1 06 00:48 No provider procedures requiring assistance completed. IV discontinued, intact, ha1 bleeding controlled, No redness/swelling at site. Pressure dressing applied. Administered Medications: 00:09 Drug: NS 0.9% IV 500 ml Route: IV; Rate: 1 bolus; Site: right antecubital; ha1 00:48 Follow up: Response: No adverse reaction; IV Status: Completed infusion; IV Intake: ha1 500ml 00:11 Drug: diphenhydrAMINE IVP 12.5 mg Route: IVP; Site: right antecubital; ha1 00:48 Follow up: Response: No adverse reaction ha1 00:13 Drug: metoCLOPramide IVP 10 mg Route: IVP; Site: right antecubital; ha1 00:48 Follow up: Response: No adverse reaction ha1 Medication: 00:50 VIS not applicable for this client. ha1 Intake: 00:48 IV: 500ml; Total: 500ml. ha1 Outcome: 00:25 Discharge ordered by . bs3 00:49 Discharged to home ambulatory, with family. ha1 00:49 Condition: stable 00:49 Discharge instructions given to patient, family, Instructed on discharge instructions, follow up and referral plans. medication usage, Demonstrated understanding of instructions, follow-up care, medications, Prescriptions given X 1. 00:51 Patient left the ED. ha1 Signatures: Estephania Lai kj1 Annie Solorzano, RN RN ha1 Yaakov Madrigal MD MD bs3 Katy Villarreal RN RN pf1
[2022-11-12 01:11] VITALS: TEMP 98.8
[2022-11-12 01:17] VITALS: BP 117/76; O2SAT 96
== END 2022-11-12 00:51 | disposition home or self-care (01) ==
LOC: ER 22:50
DX: R11.10 Vomiting, unspecified (principal); R10.9 Unspecified abdominal pain; F17.210 Nicotine dependence, cigarettes, uncomplicated
CPT/HCPCS: 36415; 80053; 83690; 85025; 96361; 96374; 96375; 99284